=== PATIENT | male | born 1970 | race Caucasian/White ===

== ENCOUNTER 2017-10-26 00:23 | Emergency (ER) | payer SELFPAY ==
[~2017-10-26] VITALS: Ht 180.3 cm; Wt 81.6 kg
[~2017-10-26 00:23] MED LIST: AMOX500C2 PO; AZIT-21 PO; HYDR1TAB PO; IBP800T PO; PRCD5U PO
[2017-10-26] MEDS ORDERED: RT-ALBUTEROL SULF 2.5 MG/3 ML PRE-MIX VIAL ONE ×2 (00:30→00:31)
[2017-10-26] MEDS ORDERED: RT-ALBUTEROL/IPRATROPIUM 3 ML (DUONEB) VIAL ONE (00:30)
--- OUTSIDE RECORDS SUMMARY | 2017-10-26 00:30 | XMS REPORT ---
Author Author DANIELE SALVADOR [facility] Address [address] [place] [address] Care Team Providers Care Food Safety Manager Name Role Phone MADELEINE DANIELE Unavailable PROBLEMS Type Condition ICD9-CM Code LXU31-SR Code Onset Dates Condition Status SNOMED Code Problem COPD (chronic obstructive pulmonary disease) J44.9 Active 54990725 Problem Migraine with aura and without status migrainosus, not intractable G43.109 Active 3002374 ALLERGIES No Known Allergies ENCOUNTERS Encounter Location Date Diagnosis [facility] [address] [address] Apr, [facility] [address] [address] Mar, COPD (chronic obstructive pulmonary disease) J44.9 and Elevated blood pressure reading R03.0 [facility] [address] [address] Feb, COPD with exacerbation J44.1 and Acute exacerbation of chronic obstructive pulmonary disease (COPD) J44.1 [facility] [address] [place] [id number] [place] [address] Aug, Fever, unspecified fever cause R50.9 and COPD exacerbation J44.1 [facility] [id number] [place] [address] July, Bronchitis J40 and Migraine with aura and without status migrainosus, not intractable G43.109 [facility] [id number] [place] [address] Jun, General medical exam Z00.00 [facility] [address] [address] May, COPD (chronic obstructive pulmonary disease) J44.9 and General medical exam Z00.00 [facility] [address] [address] Apr, COPD (chronic obstructive pulmonary disease) J44.9 [facility] [address] [address] Apr, [facility] [address] [address] Jan, Otitis media H66.90 ; Pharyngitis J02.9 and Seasonal allergies J30.2 [place] [address] [address] Jan, Encounter for immunization Z23 [place] [address] [address] Aug, [place] [address] [address] Aug, COPD (chronic obstructive pulmonary disease) 496 ; Allergic rhinitis 477.9 and Tobacco dependence 305.1 [place] [address] [address] July, [facility] [address] [address] July, Tobacco abuse 305.1 and Upper respiratory infection 465.9 [place] [address] [address] July, Shortness of breath 786.05 [place] [address] [address] July, [place] [address] [address] July, Upper respiratory infection 465.9 and Tobacco abuse 305.1 [place] [address] [address] July, [facility] [address] [facility] [id number] [address] Jun, Tobacco abuse 305.1 and Upper respiratory infection 465.9 IMMUNIZATIONS No Known Immunizations SOCIAL HISTORY Never Assessed REASON FOR VISIT cough , rib pain JStrasserRN PLAN OF CARE Activity Details Follow Up prn Reason: VITAL SIGNS Height 71 in 2017-02-23 Weight 185.6 lbs 2017-02-23 Temperature 98.1 degrees Fahrenheit 2017-02-23 Heart Rate 84 bpm 2017-02-23 Respiratory Rate 20 2017-02-23 Oximetry 95 % 2017-02-23 BMI 25.88 kg/m2 2017-02-23 Blood pressure systolic 128 mmHg 2017-02-23 Blood pressure diastolic 84 mmHg 2017-02-23 MEDICATIONS Medication Instructions Dosage Frequency Start Date End Date Duration Status PredniSONE 20 MG Orally Once a day 2 tablet 24h Feb, Feb, 5 days Active Doxycycline Hyclate 100 MG Orally every 12 hrs 1 capsule 12h Feb, Feb, 10 days Active Propranolol HCl 40 MG Orally Twice a day 1 tablet 12h July, 30 day(s) Not-Taking ProAir HFA 108 (90 Base) MCG/ACT Inhalation every 6 hrs 2 puffs as needed 6h Feb, 7 days Active Advair Diskus 250-50 MCG/DOSE Inhalation Twice a day 1 puff 12h Not-Taking ProAir HFA 108 (90 Base) MCG/ACT Inhalation every 4 hrs prn 2 puffs as needed May, Not-Taking Promethazine-Codeine 6.25-10 MG/5ML Orally every 6 hrs 5 ml as needed 6h July, Not-Taking RESULTS No Results PROCEDURES Procedure Date Ordered Result Body Site MEASURE BLOOD OXYGEN LEVEL Feb 23, 2017 INSTRUCTIONS MEDICATIONS ADMINISTERED No Known Medications MEDICAL (GENERAL) HISTORY Type Description Date Medical History COPD Surgical History dental surgery Surgical History tubes in ears as a child
--- OUTSIDE RECORDS SUMMARY | 2017-10-26 00:30 | XMS REPORT ---
Author Author JONATHAN BARRIGA [facility] eClinicalWorks Address Unknown Phone Unavailable Care Team Providers Care Cook Helper Juice Name Role Phone JONATHAN BARRIGA CP Unavailable Allergies No Known Allergies Problems Problem Type Condition Code Onset Dates Condition Status Assessment Encounter for immunization Z23 Active Medications No Known Medications Procedures Procedure Coding System Code Date SINGLE IMMUNIZATION ADMIN CPT-4 31056 Jan 22, 2015 FLUARIX QUAD (3 & UP)-GSK-2014 CPT-4 84100 Jan 22, 2015 Results No Known Results Immunizations Vaccine Administration Date FLUARIX QUAD (3 & UP)-GSK-2014Jan 22, 2015 Summary Purpose eClinicalWorks Submission
[2017-10-26] MEDS ORDERED: RT-ALBUTEROL SULF 2.5 MG/3 ML PRE-MIX VIAL INH STA (00:31)
--- OUTSIDE RECORDS SUMMARY | 2017-10-26 00:31 | XMS REPORT ---
Author Author COSME CORREA [facility] Address [address] [place] [address] Care Team Providers Care Rouge Miller Name Role Phone COSME CORREA Unavailable PROBLEMS Type Condition ICD9-CM Code [id number] Code Onset Dates Condition Status SNOMED Code Problem COPD (chronic obstructive pulmonary disease) J44.9 Active 33117568 Problem Migraine with aura and without status migrainosus, not intractable G43.109 Active 0463600 ALLERGIES No Known Allergies ENCOUNTERS Encounter Location Date Diagnosis [address] [address] Apr, [facility] [address] [address] Mar, COPD (chronic obstructive pulmonary disease) J44.9 and Elevated blood pressure reading R03.0 [facility] [address] [address] Feb, COPD with exacerbation J44.1 and Acute exacerbation of chronic obstructive pulmonary disease (COPD) J44.1 [facility] [address] [place] [id number] [place] [address] Aug, Fever, unspecified fever cause R50.9 and COPD exacerbation J44.1 [facility] [address] [address] July, Bronchitis J40 and Migraine with aura and without status migrainosus, not intractable G43.109 [facility] [address] [address] Jun, General medical exam Z00.00 [facility] [address] [place] [address] May, COPD (chronic obstructive pulmonary disease) J44.9 and General medical exam Z00.00 [facility] [address] [place] [id number] [place] [address] Apr, COPD (chronic obstructive pulmonary disease) J44.9 [facility] [address] [place] [id number] [place] [address] Apr, [facility] [address] [address] Jan, Otitis media H66.90 ; Pharyngitis J02.9 and Seasonal allergies J30.2 [place] [address] [address] Jan, Encounter for immunization Z23 [place] [address] [address] Aug, [place] [address] [address] Aug, COPD (chronic obstructive pulmonary disease) 496 ; Allergic rhinitis 477.9 and Tobacco dependence 305.1 [facility] [address] [place] [id number] [place] [address] July, [facility] [address] [address] July, Tobacco abuse 305.1 and Upper respiratory infection 465.9 [facility] [address] [place] [id number] [place] [address] July, Shortness of breath 786.05 [facility] [address] [place] [id number] [place] [address] July, [place] [address] [address] July, Upper respiratory infection 465.9 and Tobacco abuse 305.1 [place] [address] [address] July, [facility] [address] [facility] [id number] [place] [address] Jun, Tobacco abuse 305.1 and Upper respiratory infection 465.9 IMMUNIZATIONS No Known Immunizations SOCIAL HISTORY Never Assessed REASON FOR VISIT Congestion--f/u from walk in. Pt was seen in walk in and was dx'd with URI. Given Promethazine w/codeine and Doxycycline and pt feels minimally better. CODEY sanchez, RUBEN PLAN OF CARE Activity Details Follow Up prn Reason: VITAL SIGNS Height 71 in 2016-08-18 Weight 183.5 lbs 2016-08-18 Temperature 98.4 degrees Fahrenheit 2016-08-18 Heart Rate 88 bpm 2016-08-18 Respiratory Rate 18 2016-08-18 BMI 25.59 kg/m2 2016-08-18 Blood pressure systolic 120 mmHg 2016-08-18 Blood pressure diastolic 80 mmHg 2016-08-18 MEDICATIONS Medication Instructions Dosage Frequency Start Date End Date Duration Status Propranolol HCl 40 MG Orally Twice a day 1 tablet 12h July, 30 day(s) Active Doxycycline Hyclate 100 mg Orally every 12 hrs 1 capsule 12h July, Aug, 10 days Active PredniSONE 20 mg Orally Once a day 2 tab, qd 3 days, 1 qd 4 days 24h AugAug, 7 days Active Advair Diskus 250-50 MCG/DOSE Inhalation Twice a day 1 puff 12h Active Promethazine-Codeine 6.25-10 MG/5ML Orally every 6 hrs 5 ml as needed 6h July, Active ProAir HFA 108 (90 Base) MCG/ACT Inhalation every 4 hrs prn 2 puffs as needed May, Active RESULTS Name Result Date Reference Range Xray : Chest (IN HOUSE) 2016-08-18 PROCEDURES Procedure Date Ordered Result Body Site CHEST X-RAY August 18, 2016 INSTRUCTIONS MEDICATIONS ADMINISTERED No Known Medications MEDICAL (GENERAL) HISTORY Type Description Date Medical History COPD Surgical History dental surgery Surgical History tubes in ears as a child
--- OUTSIDE RECORDS SUMMARY | 2017-10-26 00:31 | XMS REPORT | Continuity of Care Document ---
Author Author [facility] Organization [facility] Address Unknown Phone Unavailable Allergies Active Description Code Type Severity Reaction Onset Reported/Identified Relationship to Patient Clinical Status Yes No Known Drug Allergies [id number] Drug Allergy Unknown N/A 04/10/2011 Medications There is no data. 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 Ot 496 Procedures There is no data. Results Test Result Range Comp. Metabolic Panel (14) - 06/20/16 10:32 Glucose, Serum 90 mg/dL 65-99 BUN 15 mg/dL 6-24 Creatinine, Serum 1.15 mg/dL 0.76-1.27 eGFR If NonAfricn Am 75 mL/min/1.73 >59 eGFR If Africn Am 87 mL/min/1.73 >59 BUN/Creatinine Ratio 13 9-20 Sodium, Serum 141 mmol/L 134-144 Potassium, Serum 4.8 mmol/L 3.5-5.2 Chloride, Serum 98 mmol/L 96-106 Carbon Dioxide, Total 24 mmol/L 18-29 Calcium, Serum 9.2 mg/dL 8.7-10.2 Protein, Total, Serum 7.2 g/dL 6.0-8.5 Albumin, Serum 4.4 g/dL 3.5-5.5 Globulin, Total 2.8 g/dL 1.5-4.5 A/G Ratio 1.6 1.2-2.2 Bilirubin, Total 0.5 mg/dL 0.0-1.2 Alkaline Phosphatase, S 91 IU/L 39-117 AST (SGOT) 23 IU/L 0-40 ALT (SGPT) 30 IU/L 0-44 Lipid Panel - 06/20/16 10:32 Cholesterol, Total 165 mg/dL 100-199 Triglycerides 58 mg/dL 0-149 HDL Cholesterol 54 mg/dL >39 VLDL Cholesterol Chris 12 mg/dL 5-40 LDL Cholesterol Calc 99 mg/dL 0-99 Prostate-Specific Ag, Serum - 06/20/16 10:32 Prostate Specific Ag, Serum 0.6 ng/mL 0.0-4.0 Encounters ACCT No. Visit Date/Time Discharge Status Pt. Type Provider Facility Loc./Unit Complaint [id number] 09/03/2014 11:42:00 09/03/2014 23:59:59 CLS Outpatient JONATHAN BARRIGA [facility] LAB [id number] 06/21/2016 10:11:00 Document Registration [id number] 04/21/2017 08:20:00 04/21/2017 23:59:59 [facility] Outpatient JONATHAN BARRIGA APRN [facility]
--- OUTSIDE RECORDS SUMMARY | 2017-10-26 00:31 | XMS REPORT ---
Author Author ZEV MORGAN Organization eClinicalWorks Address Unknown Phone Unavailable Care Team Providers Care Afterschool Babysitter Name Role Phone ZEV MORGAN CP Unavailable Allergies, Adverse Reactions, Alerts Substance Reaction Event Type N.K.D.A. Info Not Available Non Drug Allergy Problems Problem Type Condition Code Onset Dates Condition Status Assessment Pharyngitis J02.9 Active Assessment Seasonal allergies J30.2 Active Assessment Otitis media H66.90 Active Medications Medication Code System Code Instructions Start Date End Date Status Dosage Claritin [facility] [address]-55 10 MG Orally Once a day Jan 29, 2015 Mar 30, 2015 1 tablet Advair Diskus [facility] [address]-07 250-50 MCG/DOSE Inhalation Twice a day August 20, 2014 1 puff Amoxicillin [facility] [address]-28 500 MG Orally every 12 hrs Jan 29, 2015 Feb 05, 2015 1 tablet Procedures Procedure Coding System Code Date Office Visit, Est Pt., Level 3 CPT-4 82013 Jan 29, 2015 STREP A ASSAY W/OPTIC CPT-4 32130 Jan 29, 2015 Vital Signs Date/Time: Jan 29, 2015 Temperature 99.3 F Weight 170.0 lbs Height 71 in BMI 23.71 Index Blood Pressure Diastolic 98 mmHg Blood Pressure Systolic 134 mmHg Cardiac Monitoring Heart Rate 102 bpm Results Name Result Date Reference Range Unit Abnormality Flag STREP A (IN HOUSE) Summary Purpose eClinicalWorks Submission
--- OUTSIDE RECORDS SUMMARY | 2017-10-26 00:31 | XMS REPORT ---
Author Author KATIE CARRERA [facility] Address [address] [place] [address] Care Team Providers Care Medical Secretary Receptionist Name Role Phone KATIE CARRERA Unavailable PROBLEMS Type Condition ICD9-CM Code OAO96-MI Code Onset Dates Condition Status SNOMED Code Problem Migraine with aura and without status migrainosus, not intractable G43.109 Active 1957450 Problem COPD exacerbation J44.1 Active [id number] ALLERGIES No Known Allergies SOCIAL HISTORY Never Assessed PLAN OF CARE VITAL SIGNS Height 71 in 2016-08-10 Weight 184.4 lbs 2016-08-10 Temperature 97.5 degrees Fahrenheit 2016-08-10 Heart Rate 100 bpm 2016-08-10 Respiratory Rate 20 2016-08-10 Oximetry on room air:97 % 2016-08-10 BMI 25.72 kg/m2 2016-08-10 Blood pressure systolic 130 mmHg 2016-08-10 Blood pressure diastolic 84 mmHg 2016-08-10 MEDICATIONS Medication Instructions Dosage Frequency Start Date End Date Duration Status Advair Diskus 250-50 MCG/DOSE Inhalation Twice a day 1 puff 12h Active Propranolol HCl 40 MG Orally Twice a day 1 tablet 12h July, 30 day(s) Active Promethazine-Codeine 6.25-10 MG/5ML Orally every 6 hrs 5 ml as needed 6h July, Active ProAir HFA 108 (90 Base) MCG/ACT Inhalation every 4 hrs prn 2 puffs as needed May, Active Doxycycline Hyclate 100 mg Orally every 12 hrs 1 capsule 12h July, Aug, 10 days Active RESULTS No Results PROCEDURES Procedure Date Ordered Result Body Site MEASURE BLOOD OXYGEN LEVEL August 10, 2016 IMMUNIZATIONS No Known Immunizations MEDICAL (GENERAL) HISTORY Type Description Date Medical History COPD Surgical History dental surgery Surgical History tubes in ears as a child
[2017-10-26] MEDS ORDERED: ASPIRIN 81 MG CHEW (CHILDREN'S ASA) ONE (00:35)
[2017-10-26] MEDS ORDERED: NITROGLYCERIN 0.4 MG SL TABS BTL 25'S SL ONE (00:35)
--- NOTE | 2017-10-26 00:37 | ED Respiratory ---
General Stated Complaint: NOT FEELING WELL,SOB,COPD,CHEST HURTS Source: patient Exam Limitations: no limitations History of Present Illness Date Seen by Provider: Oct 26, 2017 Time Seen by Provider: 00:27 Initial Comments Patient presents to ER by private conveyance with a chief complaint for the past 2 or 3 days his shortness of breath and labored breathing is been getting worse and tonight around 8:00 it really started getting bad. His been using his albuterol inhaler off and on but he doesn't feel some nausea even helps. Tonight he says he's very short of breath without any significant productive cough or fevers or chills. No nausea vomiting but he is having some tightness and pain in his chest. He doesn't have a history of coronary disease but about 5 or 6 years ago he did have a stress test he thinks. He stopped smoking about 2 years ago. He takes Advair and albuterol as prescribed. He is not having any nausea, fever, chills, diarrhea, constipation. He says the pains worse when he takes deep inspirations. He has not been on antibiotics last several months. He has not been on steroids for over 2 years. Allergies and Home Medications Allergies Coded Allergies: No Known Drug Allergies (Unverified , 04/10/11) Home Medications Amoxicillin 500 Mg Capsule, 1 EACH PO TID Prescribed by: ALEJANDRINA PRATT on 08/15/11106 Azithromycin 250 Mg Tab, 0 PO Z-WU Prescribed by: LAVERN GOODMAN on 04/10/111950 Hydrocodone Bit/Acetaminophen 1 Each Tablet, 1-2 EACH PO Q4HR PRN Prescribed by: ALEJANDRINA PRATT on 08/15/11106 Ibuprofen 800 Mg Tab, 800 MG PO PRN, (Reported) Promethazine/Codeine 5 Ml Syrp, 5 5ML PO QID Prescribed by: LAVERN GOODMAN on 04/10/111951 Patient Home Medication List Home Medication List Reviewed: Yes Review of Systems Constitutional: No chills, No diaphoresis, No fever, No malaise EENTM: No ear discharge, No hearing loss Respiratory: cough; No phlegm; short of breath; No stridor, No wheezing Cardiovascular: see HPI, chest pain; No edema, No palpitations Gastrointestinal: No abdominal pain, No constipation, No diarrhea, No nausea, No vomiting Genitourinary: No discharge, No dysuria Musculoskeletal: No back pain, No joint pain Past Ovfxnqb-Osecib-Zidjfi Hx Patient Social History Alcohol Use: Occasionally Uses Alcohol Beverage of Choice: Beer Recreational Drug Use: No Smoking Status: Former Smoker Type Used: Cigarettes Former Smoker, Quit: Nov 02, 2015 Recent Foreign Travel: No Contact w/Someone Who Travel: No Physical Exam Vital Signs - First Documented 10/26/17 00:28 Temp 98.8 Pulse 90 Resp 20 B/P (MAP) 158/77 (104) Pulse Ox 93 O2 Delivery Room Air Capillary Refill : Height: '" Weight: lbs. oz. kg; BMI Method: General Appearance: WD/WN, no apparent distress Eyes: Bilateral Eye Normal Inspection, Bilateral Eye PERRL, Bilateral Eye EOMI HEENT: PERRL/EOMI, normal ENT inspection, pharynx normal Neck: non-tender, full range of motion, normal inspection Respiratory: chest non-tender, no respiratory distress, no accessory muscle use , decreased breath sounds, expiration (prolonged) Cardiovascular: normal peripheral pulses, regular rate, rhythm Gastrointestinal: normal bowel sounds, non tender, soft Extremities: non-tender, normal inspection, normal capillary refill Neurologic/Psychiatric: alert, normal mood/affect, oriented x 3 Skin: normal color, warm/dry Progress/Results/Core Measures Suspected Sepsis SIRS Temperature: Pulse: Respiratory Rate: Laboratory Tests 10/26/17 00:41: White Blood Count 9.1 Blood Pressure / Mean: Laboratory Tests 10/26/17 00:41: Creatinine 1.36H, Platelet Count 252, Total Bilirubin 0.4 Results/Orders Lab Results Laboratory Tests Test 10/26/17 00:41 Range/Units White Blood Count 9.1 4.3-11.0 10^3/uL Red Blood Count 5.28 4.35-5.85 10^6/uL Hemoglobin 15.9 13.3-17.7 G/DL Hematocrit 48 40-54 % Mean Corpuscular Volume 90 80-99 FL Mean Corpuscular Hemoglobin 30 25-34 PG Mean Corpuscular Hemoglobin Concent 34 32-36 G/DL Red Cell Distribution Width 13.5 10.0-14.5 % Platelet Count 252 130-400 10^3/uL Mean Platelet Volume 10.5 H 7.4-10.4 FL Neutrophils (%) (Auto) 64 42-75 % Lymphocytes (%) (Auto) 23 12-44 % Monocytes (%) (Auto) 9 0-12 % Eosinophils (%) (Auto) 3 0-10 % Basophils (%) (Auto) 0 0-10 % Neutrophils # (Auto) 5.9 1.8-7.8 X 10^3 Lymphocytes # (Auto) 2.1 1.0-4.0 X 10^3 Monocytes # (Auto) 0.9 0.0-1.0 X 10^3 Eosinophils # (Auto) 0.3 0.0-0.3 10^3/uL Basophils # (Auto) 0.0 0.0-0.1 10^3/uL Sodium Level 139 135-145 MMOL/L Potassium Level 3.9 3.6-5.0 MMOL/L Chloride Level 102 98-107 MMOL/L Carbon Dioxide Level 23 21-32 MMOL/L Anion Gap 14 5-14 MMOL/L Blood Urea Nitrogen 22 H 7-18 MG/DL Creatinine 1.36 H 0.60-1.30 MG/DL Estimat Glomerular Filtration Rate 56 BUN/Creatinine Ratio 16 Glucose Level 105 70-105 MG/DL Calcium Level 9.8 8.5-10.1 MG/DL Corrected Calcium 9.5 8.5-10.1 MG/DL Total Bilirubin 0.4 0.1-1.0 MG/DL Aspartate Amino Transf (AST/SGOT) 21 5-34 U/L Alanine Aminotransferase (ALT/SGPT) 33 0-55 U/L Alkaline Phosphatase 96 40-136 U/L Troponin I < 0.30 <0.30 NG/ML C-Reactive Protein High Sensitivity 0.60 H 0.00-0.50 MG/DL Total Protein 7.5 6.4-8.2 GM/DL Albumin 4.4 3.2-4.5 GM/DL My Orders Orders - KINGSTON PAPPAS Ekg Tracing (10/26/17 00:29) Continuous Ekg Monitoring (10/26/17 00:29) Cbc With Automated Diff (10/26/17 00:31) Comprehensive Metabolic Panel (10/26/17 00:31) Hs C Reactive Protein (10/26/17 00:31) Troponin I (10/26/17 00:31) Chest Pa/Lat (2 View) (10/26/17 00:31) Albuterol Pre-Mix Nebs (Rt) (Proventil (10/26/17 00:31) Albuterol/Ipra Inhalation Soln (Duoneb I (10/26/17 00:45) Saline Lock/Iv-Start (10/26/17 00:31) Svn Small Volume Nebulizer (10/26/17 00:31) Albuterol Pre-Mix Nebs (Rt) (Proventil (10/26/17 00:30) Albuterol/Ipra Inhalation Soln (Duoneb I (10/26/17 00:30) Albuterol Pre-Mix Nebs (Rt) (Proventil (10/26/17 00:31) Nitroglycerin 0.4 Mg Btl 25's (Nitrostat (10/26/17 00:35) Aspirin Chewable Tablet (Baby Aspirin Ch (10/26/17 00:35) Aspirin Chewable Tablet (Baby Aspirin Ch (10/26/17 00:45) Nitroglycerin 0.4 Mg Btl 25's (Nitrostat (10/26/17 00:45) Medications Given in ED Current Medications Medications Dose Ordered Sig/Evangelina Route Start Time Stop Time Status Last Admin Dose Admin Albuterol/ Ipratropium 3 ml ONCE ONCE INH 10/26/17 00:45 10/26/17 00:46 DC 10/26/17 00:35 3 ML Aspirin 324 mg ONCE ONCE PO 10/26/17 00:45 10/26/17 00:46 DC 10/26/17 00:40 324 MG Nitroglycerin 0.4 mg NEEDED PRN SL 10/26/17 00:45 10/26/17 00:41 0.4 MG Vital Signs/I&O 10/26/17 10/26/17 00:28 00:38 Temp 98.8 Pulse 90 Resp 20 B/P (MAP) 158/77 (104) Pulse Ox 93 97 O2 Delivery Room Air Room Air Capillary Refill : Progress Note #1: Time: 00:42 Progress Note Seems to be respiratory in origin either COPD exacerbation or bronchitis/ pneumonia. Voiced possibility that he could have cardiac strain but his pain does seem to be more based on inspiration and non-reproducible to direct palpation. We'll give him some aspirin and try a dose of nitroglycerin while getting him a breathing treatment of DuoNeb and 5 mg albuterol since he may be tachyphylactic using his albuterol multiple times today. Don't hear wheezing as much as just decreased respiratory sounds and prolonged expiration time. We'll get a chest x-ray some labs and reevaluate him. Progress Note #2: Time: 01:03 Progress Note Patient states his breathing is subjectively much improved. Heart rate elevated to 120s 130s after all the albuterol. Sats are still very good in the upper 100s on room air As opposed to 93% on room air when he first arrived. Progress Note #3: Time: 01:24 Progress Note Labs and clinical picture consistent with a COPD exacerbation. We've given him some breathing treatments reassessed him and arrival and start him on some prednisone 40 mg daily for the next 5 days. ECG Initial ECG Impression Date: Oct 26, 2017 Initial ECG Impression Time: 00:35 Initial ECG Rate: 95 Initial ECG Rhythm: Normal Sinus Initial ECG Intervals: Normal Initial ECG Impression: Normal Initial ECG Comparisson: No Previous ECG Available Comment No ST elevation or depression Diagnostic Imaging Diagonstic Imaging: Xray Plain Films/CT/US/NM/MRI: chest (2v) Comments No acute infiltrates or cardiopulmonary processes. COPD. Reviewed: Reviewed by Me Departure Impression Primary Impression: COPD with exacerbation Disposition: 01 HOME, SELF-CARE Condition: Improved Departure-Patient Inst. Decision time for Depature: 01:24 Referrals: CHON LUJAN DO (PCP) Primary Care Physician JONATHAN BARRIGA (Family) Primary Care Physician Patient Instructions: Chronic Obstructive Pulmonary Disease (COPD), Including Emphysema Add. Discharge Instructions: Take prednisone 2 tablets daily for the next 5 days. Use your Advair breathing treatments as prescribed. To get the spacer and use your albuterol inhaler as described. Use the albuterol inhaler every 6 hours for the next couple days then as needed. Use the albuterol every 4 hours as needed for wheezing or shortness of breath 2 puffs. If you need to use it more often than that then you should consider following up with your doctor or the ER sooner. Make plans to follow-up with your primary care doctor this week or early next week. Scripts Inhaler, Assist Devices (E-Z Spacer) 1 Each Spacer EACH MC for Shortness of Breath, #1 0 Refills Prov: KINGSTON PAPPAS 10/26/17 Prednisone (Prednisone) 20 Mg Tab 40 MG PO DAILY for 4 Days, #8 TAB 0 Refills Prov: KINGSTON PAPPAS 10/26/17 Albuterol Sulfate (Proventil Hfa) 6.7 Gm Hfa.aer.ad 2 PUFF IH Q4H PRN for SHORTNESS OF BREATH for 30 Days, #1 EACH 0 Refills Prov: KINGSTON PAPPAS 10/26/17 Copy Copies To 1: CHON LUJAN TITUS J Oct 26, 2017 00:37
[2017-10-26] MEDS ORDERED: NITROGLYCERIN 0.4 MG SL TABS BTL 25'S SL PRN (00:45)
[2017-10-26] MEDS ORDERED: ASPIRIN 81 MG CHEW (CHILDREN'S ASA) PO ONE (00:45)
[2017-10-26] MEDS ORDERED: RT-ALBUTEROL/IPRATROPIUM 3 ML (DUONEB) VIAL INH ONE (00:45)
[2017-10-26 00:51] LABS: BASOPHILS % (AUTO) 0 % (0-10); EOSINOPHILS # (AUTO) 0.3 10^3/uL (0.0-0.3); EOSINOPHILS % (AUTO) 3 % (0-10); HEMATOCRIT 48 % (40-54); HEMOGLOBIN 15.9 G/DL (13.3-17.7); LYMPHOCYTES # (AUTO) 2.1 X 10^3 (1.0-4.0); LYMPHOCYTES % (AUTO) 23 % (12-44); MEAN CORPUSCULAR HEMOGLOBIN 30 PG (25-34); MEAN CORPUSCULAR HGB CONC 34 G/DL (32-36); MEAN CORPUSCULAR VOLUME 90 FL (80-99); MEAN PLATELET VOLUME 10.5 FL (7.4-10.4); MONOCYTES # (AUTO) 0.9 X 10^3 (0.0-1.0); MONOCYTES % (AUTO) 9 % (0-12); NEUTROPHILS # (AUTO) 5.9 X 10^3 (1.8-7.8); NEUTROPHILS % (AUTO) 64 % (42-75); PLATELET COUNT 252 10^3/uL (130-400); RED BLOOD COUNT 5.28 10^6/uL (4.35-5.85); RED CELL DISTRIBUTION WIDTH 13.5 % (10.0-14.5); WHITE BLOOD COUNT 9.1 10^3/uL (4.3-11.0)
[2017-10-26 01:16] LABS: ALANINE AMINOTRANSFERASE 33 U/L (0-55); ALBUMIN 4.4 GM/DL (3.2-4.5); ALKALINE PHOSPHATASE 96 U/L (40-136); BILIRUBIN,TOTAL 0.4 MG/DL (0.1-1.0); BUN/CREATININE RATIO 16; CALCIUM 9.8 MG/DL (8.5-10.1); CARBON DIOXIDE 23 MMOL/L (21-32); CHLORIDE 102 MMOL/L (98-107); CREATININE SERUM 1.36 MG/DL (0.60-1.30); GFR ESTIMATED 56; GLUCOSE 105 MG/DL (70-105); POTASSIUM 3.9 MMOL/L (3.6-5.0); SODIUM 139 MMOL/L (135-145); TOTAL PROTEIN 7.5 GM/DL (6.4-8.2)
[2017-10-26] MEDS ORDERED: RT-ALBUINH IH (01:36)
[2017-10-26] MEDS ORDERED: INHA1INH59 MC (01:36)
[2017-10-26] MEDS ORDERED: PRD20T PO (01:36)
[2017-10-26] MEDS ORDERED: predniSONE 20 MG TAB ONE (01:38)
[2017-10-26 01:45] VITALS: BP 120/88
[2017-10-26] MEDS ORDERED: predniSONE 20 MG TAB PO ONE (01:45)
--- NOTE | 2017-10-26 07:33 | Diagnostic Imaging Report ---
INDICATION: Cough and congestion. No prior examinations are available for comparison. FINDINGS: Heart size is normal. There is patchy bibasilar atelectasis and/or pneumonitis. There is no pleural effusion or pneumothorax. Mediastinum is unremarkable. IMPRESSION: Patchy bibasilar atelectasis and/or pneumonitis. Dictated by: Dictated on workstation # [id number]
== END 2017-10-26 01:45 | disposition home or self-care (01) ==
LOC: EDUNIT# 00:23 → ER 00:27
DX: J44.1 Chronic obstructive pulmonary disease with (acute) exacerbation (principal); Z79.51 Long term (current) use of inhaled steroids; Z87.891 Personal history of nicotine dependence
CPT/HCPCS: 36415; 71046; 80053; 84484; 85025; 86141; 93005; 94640

== ENCOUNTER 2019-06-16 19:16 | Emergency (ER) | payer SELFPAY ==
[~2019-06-16] VITALS: Ht 180 cm; Wt 90.0 kg
[~2019-06-16 19:16] MED LIST changes: +INHA1INH59 MC; +PRD20T PO; +RT-ALBUINH IH
[2019-06-16] MEDS ORDERED: NS IV 1000 ML 1,000 ML IV SCH (19:55)
[2019-06-16] MEDS ORDERED: methylPREDNISolone 125 MG (Solu-MEDROL) VIAL IVP ONE (20:00)
[2019-06-16] MEDS ORDERED: ASPIRIN 81 MG CHEW (CHILDREN'S ASA) PO ONE (20:00)
[2019-06-16 20:02] LABS: BASOPHILS % (AUTO) 0 % (0-10); EOSINOPHILS # (AUTO) 0.2 10^3/uL (0.0-0.3); EOSINOPHILS % (AUTO) 2 % (0-10); HEMATOCRIT 49 % (40-54); HEMOGLOBIN 16.3 G/DL (13.3-17.7); LYMPHOCYTES # (AUTO) 1.6 X 10^3 (1.0-4.0); LYMPHOCYTES % (AUTO) 18 % (12-44); MEAN CORPUSCULAR HEMOGLOBIN 30 PG (25-34); MEAN CORPUSCULAR HGB CONC 33 G/DL (32-36); MEAN CORPUSCULAR VOLUME 90 FL (80-99); MEAN PLATELET VOLUME 10.8 FL (7.4-10.4); MONOCYTES # (AUTO) 0.9 X 10^3 (0.0-1.0); MONOCYTES % (AUTO) 10 % (0-12); NEUTROPHILS # (AUTO) 6.2 X 10^3 (1.8-7.8); NEUTROPHILS % (AUTO) 70 % (42-75); PLATELET COUNT 262 10^3/uL (130-400); RED CELL DISTRIBUTION WIDTH 13.2 % (10.0-14.5); WHITE BLOOD COUNT 8.9 10^3/uL (4.3-11.0)
--- NOTE | 2019-06-16 20:04 | ED General ---
General Chief Complaint: Respiratory Problems Stated Complaint: COPD,SOB Nursing Triage Note: Pt to ED with c/o SOB for one day. Pt denies fever or chest pain. Pt has hx of COPD. Nursing Sepsis Screen: No Definite Risk Source of Information: Patient Exam Limitations: No Limitations History of Present Illness Date Seen by Provider: Jun 16, 2019 Time Seen by Provider: 19:40 Initial Comments This 48-year-old gentleman presents to the emergency room with complaints of intermittent chest pain and shortness of breath that started today. He is denying any chest pain now but he does occasionally have a tightness or pressure in the center of his chest. He has known history of COPD for which he is treated with multiple medications. He has hypertension but no known coronary artery disease. He is noted to be tachycardic. He denies any fever. He states his rescue inhaler did not help him at 18:00 when he last used it. He denies any exposures to coronavirus, any recent travel, or exposure to persons under investigation. He has been keeping to himself at home. 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 He reports slight cough. He smoked for 30 years and quit smoking several years ago. Allergies and Home Medications Allergies Coded Allergies: No Known Drug Allergies (Unverified , 04/10/11) Home Medications Albuterol Sulfate 6.7 Gm Hfa.aer.ad, 2 PUFF IH Q4H PRN for SHORTNESS OF BREATH Prescribed by: KINGSTON PAPPAS on 10/26/17135 Amoxicillin 500 Mg Capsule, 1 EACH PO TID Prescribed by: ALEJANDRINA PRATT on 08/15/11106 Azithromycin 250 Mg Tab, 0 PO Z-UW Prescribed by: LAVERN GOODMAN on 04/10/111950 Azithromycin 250 Mg Tablet, 250 MG PO DAILY Prescribed by: LEAH MAKI on 06/16/192150 Hydrocodone Bit/Acetaminophen 1 Each Tablet, 1-2 EACH PO Q4HR PRN Prescribed by: ALEJANDRINA PRATT on 08/15/11106 Ibuprofen 800 Mg Tab, 800 MG PO PRN, (Reported) Prednisone 20 Mg Tab, 40 MG PO DAILY Prescribed by: KINGSTON PAPPAS on 10/26/17135 Prednisone 20 Mg Tab, 40 MG PO DAILY Prescribed by: LEAH MAKI on 06/16/192150 Promethazine/Codeine 5 Ml Syrp, 5 5ML PO QID Prescribed by: LAVERN GOODMAN on 04/10/111951 Patient Home Medication List Home Medication List Reviewed: Yes Review of Systems Review of Systems Constitutional: no symptoms reported EENTM: no symptoms reported Respiratory: see HPI Cardiovascular: see HPI Gastrointestinal: no symptoms reported Genitourinary: no symptoms reported Musculoskeletal: no symptoms reported Skin: no symptoms reported Psychiatric/Neurological: No Symptoms Reported Hematologic/Lymphatic: No Symptoms Reported Immunological/Allergic: no symptoms reported Past Qlairat-Jtzzrb-Sewnxx Hx Past Med/Social Hx: Reviewed and Corrections made Patient Social History Alcohol Use: Occasionally Uses Number of Drinks Today: AA Alcohol Beverage of Choice: Beer Recreational Drug Use: No Smoking Status: Former Smoker Type Used: Cigarettes Former Smoker, Quit: Nov 02, 2015 2nd Hand Smoke Exposure: No Recent Foreign Travel: No Contact w/Someone Who Travel: No Recent Infectious Disease Expo: No Recent Hopitalizations: No Immunizations Up To Date Tetanus Booster (TDap): Unknown PED Vaccines UTD: Yes Seasonal Allergies Seasonal Allergies: No Past Medical History Surgeries: No Respiratory: Yes COPD Cardiac: Yes Hypertension Neurological: No Genitourinary: No Gastrointestinal: No Musculoskeletal: No Endocrine: No HEENT: No Cancer: No Psychosocial: No Integumentary: No Blood Disorders: No Physical Exam Vital Signs Vital Signs - First Documented 06/16/19 19:16 Temp 36.2 Pulse 134 Resp 25 B/P (MAP) 154/68 (96) Pulse Ox 98 O2 Delivery Room Air Capillary Refill : Less Than 3 Seconds Height, Weight, BMI Height: 5'11.00" Weight: 180lbs. oz. 81.771190vy; 27.00 BMI Method:Stated General Appearance: No Apparent Distress, WD/WN HEENT: PERRL/EOMI, TMs Normal, Normal ENT Inspection, Pharynx Normal Neck: Normal Inspection; No JVD Respiratory: Lungs Clear, No Accessory Muscle Use, No Respiratory Distress, Decreased Breath Sounds (diminished breath sounds and decreased air movement) Cardiovascular: No Edema, No Murmur, Tachycardia Gastrointestinal: Normal Bowel Sounds, Non Tender, Soft Extremity: Normal Inspection, Non Tender, No Calf Tenderness, No Pedal Edema Neurologic/Psychiatric: Alert, Oriented x3, No Motor/Sensory Deficits, Normal 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, 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 Norm as Tested Skin: Normal Color, Warm/Dry Progress/Results/Core Measures Suspected Sepsis Recent Fever Within 48 Hours: No Infection Criteria Present: None New/Unexplained Altered Menta: No Sepsis Screen: No Definite Risk SIRS Temperature: Pulse: 134 Respiratory Rate: 25 Laboratory Tests 06/16/19 19:33: White Blood Count 8.9 Blood Pressure 154 /68 Mean: 96 Laboratory Tests 06/16/19 19:33: Creatinine 1.29, INR Comment 0.9, Platelet Count 262, Total Bilirubin 0.3 Results/Orders Lab Results Laboratory Tests Test 06/16/19 19:33 06/16/19 21:30 Range/Units White Blood Count 8.9 4.3-11.0 10^3/uL Red Blood Count 5.49 4.35-5.85 10^6/uL Hemoglobin 16.3 13.3-17.7 G/DL Hematocrit 49 40-54 % Mean Corpuscular Volume 90 80-99 FL Mean Corpuscular Hemoglobin 30 25-34 PG Mean Corpuscular Hemoglobin Concent 33 32-36 G/DL Red Cell Distribution Width 13.2 10.0-14.5 % Platelet Count 262 130-400 10^3/uL Mean Platelet Volume 10.8 H 7.4-10.4 FL Neutrophils (%) (Auto) 70 42-75 % Lymphocytes (%) (Auto) 18 12-44 % Monocytes (%) (Auto) 10 0-12 % Eosinophils (%) (Auto) 2 0-10 % Basophils (%) (Auto) 0 0-10 % Neutrophils # (Auto) 6.2 1.8-7.8 X 10^3 Lymphocytes # (Auto) 1.6 1.0-4.0 X 10^3 Monocytes # (Auto) 0.9 0.0-1.0 X 10^3 Eosinophils # (Auto) 0.2 0.0-0.3 10^3/uL Basophils # (Auto) 0.0 0.0-0.1 10^3/uL Erythrocyte Sedimentation Rate 2 0-30 MM/HR Prothrombin Time 12.5 12.2-14.7 SEC INR Comment 0.9 0.8-1.4 Activated Partial Thromboplast Time 30 24-35 SEC D-Dimer 0.45 0.00-0.49 UG/ML Sodium Level 138 135-145 MMOL/L Potassium Level 4.2 3.6-5.0 MMOL/L Chloride Level 104 98-107 MMOL/L Carbon Dioxide Level 24 21-32 MMOL/L Anion Gap 10 5-14 MMOL/L Blood Urea Nitrogen 19 H 7-18 MG/DL Creatinine 1.29 0.60-1.30 MG/DL Estimat Glomerular Filtration Rate 59 BUN/Creatinine Ratio 15 Glucose Level 137 H 70-105 MG/DL Calcium Level 8.9 8.5-10.1 MG/DL Corrected Calcium 8.6 8.5-10.1 MG/DL Magnesium Level 2.4 1.6-2.4 MG/DL Total Bilirubin 0.3 0.1-1.0 MG/DL Aspartate Amino Transf (AST/SGOT) 18 5-34 U/L Alanine Aminotransferase (ALT/SGPT) 31 0-55 U/L Alkaline Phosphatase 97 40-136 U/L Lactate Dehydrogenase 153 125-220 U/L Myoglobin 27.3 10.0-92.0 NG/ML Troponin I < 0.028 < 0.028 <0.028 NG/ML C-Reactive Protein High Sensitivity 0.65 H 0.00-0.50 MG/DL Total Protein 7.7 6.4-8.2 GM/DL Albumin 4.4 3.2-4.5 GM/DL Procalcitonin 0.04 <0.10 NG/ML Micro Results Microbiology 06/16/19 Influenza Types A,B Antigen (LAURENT) - Final, Complete My Orders Orders - LEAH CEVALLOS MD Cbc With Automated Diff (06/16/19 19:50) Magnesium (06/16/19 19:50) Chest 1 View, Ap/Pa Only (06/16/19 19:50) Ekg Tracing (06/16/19 19:50) Comprehensive Metabolic Panel (06/16/19 19:50) Myoglobin Serum (06/16/19 19:50) Protime With Inr (06/16/19 19:50) Partial Thromboplastin Time (06/16/19 19:50) O2 (06/16/19 19:50) Monitor-Rhythm Ecg Trace Only (06/16/19 19:50) Ed Iv/Invasive Line Start (06/16/19 19:50) Fibrin Degradation Products (06/16/19 19:50) Aspirin Chewable Tablet (Baby Aspirin Ch (06/16/19 20:00) Methylprednisolone Sod Succ (Solu-Medrol (06/16/19 20:00) Influenza A And B Antigens (06/16/19 19:50) Ed Iv/Invasive Line Start (06/16/19 19:55) Ns Iv 1000 Ml (Sodium Chloride 0.9%) (06/16/19 19:55) Hs C Reactive Protein (06/16/19 19:33) Troponin I (06/16/19 19:33) Ferritin (06/16/19 20:21) Erythrocyte Sedimentation Rate (06/16/19 20:21) LDH (06/16/19 19:33) Procalcitonin (Pct) (06/16/19 19:33) Troponin I (06/16/19 21:39) Azithromycin Tablet (Zithromax Tablet) (06/16/19 22:00) Aspirin Tablet (Aspirin Tablet) (06/16/19 22:00) Medications Given in ED Current Medications Medications Dose Ordered Sig/Evangelina Route Start Time Stop Time Status Last Admin Dose Admin Aspirin 324 mg ONCE ONCE PO 06/16/19 20:00 06/16/19 20:01 DC 06/16/19 20:14 324 MG Aspirin 325 mg ONCE ONCE PO 06/16/19 22:00 06/16/19 22:01 DC 06/16/19 21:59 325 MG Azithromycin 500 mg ONCE ONCE PO 06/16/19 22:00 06/16/19 22:01 DC 06/16/19 21:59 500 MG Methylprednisolone Sodium Succinate 125 mg ONCE ONCE IVP 06/16/19 20:00 06/16/19 20:01 DC 06/16/19 20:16 125 MG Vital Signs/I&O 06/16/19 06/16/19 19:16 22:05 Temp 36.2 36.4 Pulse 134 98 Resp 25 16 B/P (MAP) 154/68 (96) 126/86 (96) Pulse Ox 98 95 O2 Delivery Room Air Room Air 06/17/19 00:00 Intake Total 1000 ml Balance 1000 ml Capillary Refill : Less Than 3 Seconds Blood Pressure Mean: 96 Progress Note #1: Time: 20:02 Progress Note Patient was seen and examined. EKG showed no ischemia. He was asked to take 2 puffs off of his albuterol MDI. He will receive a liter of IV fluid and Solu- Medrol IV. Lab work and chest x-ray are pending. Progress Note #2: Progress Note Workup was relatively unremarkable. Patient remained stable. Heart rate improved about 15 bpm after a liter of IV fluid. Oxygen saturations stayed in the mid to upper 90s on room air. Patient was discharged home with a prescription for azithromycin and prednisone for treatment of COPD exacerbation. A 2 hour troponin was obtained for cardiac rule out purposes. ECG Initial ECG Impression Date: Jun 16, 2019 Initial ECG Impression Time: 19:27 Initial ECG Rate: 124 Initial ECG Rhythm: S.Tach Comment Sinus tachycardia with no ST elevation or depression. No abnormal intervals or axis deviation. PVC noted. Diagnostic Imaging Diagonstic Imaging: Xray Plain Films/CT/US/NM/MRI: chest Comments Chest x-ray viewed by me and report reviewed. See report below: NAME: MIRZA MENDEZ [facility] REC#: [id number] PT STATUS: REG ER : 1970 PHYSICIAN: LEAH CEVALLOS MD ADMIT DATE: 06/16/19/ER Signed Date of Exam:06/16/19 CHEST 1 VIEW, AP/PA ONLY EXAMINATION: Chest 1 view HISTORY: Shortness of breath. History of COPD. COMPARISON: Chest radiograph on 10/26/2017. FINDINGS: The lung volumes are hyperexpanded. Scattered prominent interstitial markings are present in the mid and lower lungs with a relative paucity of lung markings in the upper lobes. No focal consolidation is seen. No large pleural effusion or pneumothorax is seen. The cardiomediastinal silhouette is normal in size and contour. No acute osseous abnormality is seen. IMPRESSION: 1. Hyperexpanded lungs with prominent interstitial markings in the mid and lower lungs and a paucity of lung markings in the upper lungs. These findings are suggestive of COPD. No focal consolidation. Dictated by: Dictated on workstation # [id number] Dict: 06/16/192038 Trans: 06/16/192057 NEAL [id number] Interpreted by: IGNACIO KURTZ DO Electronically signed by: IGNACIO KURTZ DO 06/16/192057 Departure Impression Primary Impression: COPD exacerbation Additional Impressions: Tachycardia Chest pain Qualified Codes: R07.9 - Chest pain, unspecified Disposition: HOME, SELF-CARE Condition: Improved Departure-Patient Inst. Decision time for Depature: 21:48 Referrals: CHON LUJAN DO (PCP) Primary Care Physician JONATHAN BARRIGA (Family) Primary Care Physician Patient Instructions: COVID19, Chronic Obstructive Pulmonary Disease (COPD), Including Emphysema Add. Discharge Instructions: Continue to use all of your inhaled medications as prescribed. Start the prednisone and azithromycin tomorrow morning. Drink plenty of clear liquids. Contact your primary care provider tomorrow morning for follow-up instructions. You may take Tylenol (acetaminophen) up to 1000 mg every 6 hours as needed for pain or fever. Return to care if you have recurrent episodes of chest pain or worsening respiratory status despite treatments. Take aspirin 81 mg daily until otherwise instructed by your doctor. Home isolated until your symptoms resolve. All discharge instructions reviewed with patient and/or family. Voiced understanding. Scripts Azithromycin (Azithromycin) 250 Mg Tablet 250 MG PO DAILY, #4 TAB 0 Refills Prov: LEAH CEVALLOS MD 06/16/19 Prednisone (Prednisone) 20 Mg Tab 40 MG PO DAILY, #8 TAB 0 Refills Prov: LEAH CEVALLOS MD 06/16/19 Copy Copies To 1: CHON LUJAN JOSHUA T MD Jun 16, 2019 20:04
[2019-06-16 20:17] LABS: ALANINE AMINOTRANSFERASE 31 U/L (0-55); ALBUMIN 4.4 GM/DL (3.2-4.5); ALKALINE PHOSPHATASE 97 U/L (40-136); BILIRUBIN,TOTAL 0.3 MG/DL (0.1-1.0); BUN/CREATININE RATIO 15; CALCIUM 8.9 MG/DL (8.5-10.1); CARBON DIOXIDE 24 MMOL/L (21-32); CHLORIDE 104 MMOL/L (98-107); CREATININE SERUM 1.29 MG/DL (0.60-1.30); GFR ESTIMATED 59; GLUCOSE 137 MG/DL (70-105); MAGNESIUM 2.4 MG/DL (1.6-2.4); POTASSIUM 4.2 MMOL/L (3.6-5.0); SODIUM 138 MMOL/L (135-145); TOTAL PROTEIN 7.7 GM/DL (6.4-8.2)
[2019-06-16 20:37] LABS: INR 0.9 (0.8-1.4); PROTHROMBIN TIME PATIENT 12.5 SEC (12.2-14.7)
--- NOTE | 2019-06-16 20:51 | Diagnostic Imaging Report ---
EXAMINATION: Chest 1 view HISTORY: Shortness of breath. History of COPD. COMPARISON: Chest radiograph on 10/26/2017. FINDINGS: The lung volumes are hyperexpanded. Scattered prominent interstitial markings are present in the mid and lower lungs with a relative paucity of lung markings in the upper lobes. No focal consolidation is seen. No large pleural effusion or pneumothorax is seen. The cardiomediastinal silhouette is normal in size and contour. No acute osseous abnormality is seen. IMPRESSION: 1. Hyperexpanded lungs with prominent interstitial markings in the mid and lower lungs and a paucity of lung markings in the upper lungs. These findings are suggestive of COPD. No focal consolidation. Dictated by: Dictated on workstation # [id number]
[2019-06-16] MEDS ORDERED: PRD20T PO (21:51)
[2019-06-16] MEDS ORDERED: AZIT250T12 PO (21:51)
[2019-06-16] MEDS ORDERED: ASPIRIN 325 MG (5 GR) TABLET PO ONE (22:00)
[2019-06-16] MEDS ORDERED: AZITHROMYCIN 250 MG TAB (ZITHROMAX) PO ONE (22:00)
[2019-06-16 22:05] VITALS: BP 126/86
== END 2019-06-16 22:05 | disposition home or self-care (01) ==
LOC: EDUNIT# 19:16 → ER 19:25
DX: J44.1 Chronic obstructive pulmonary disease with (acute) exacerbation (principal); R00.0 Tachycardia, unspecified; R07.9 Chest pain, unspecified; Z87.891 Personal history of nicotine dependence
CPT/HCPCS: 36415; 71045; 80053; 82728; 83615; 83735; 83874; 84145; 84484; 85025; 85379; 85610; 85652; 85730; 86141; 87804; 93041

== ENCOUNTER 2019-06-30 13:33 | Emergency (ER) | payer SELFPAY ==
[~2019-06-30] VITALS: Ht 180.3 cm; Wt 81.6 kg
[~2019-06-30 13:33] MED LIST changes: +AZIT250T12 PO
[2019-06-30] MEDS ORDERED: ASPIRIN 81 MG CHEW (CHILDREN'S ASA) PO ONE (13:45)
[2019-06-30] MEDS ORDERED: meTOprolol 5 MG/5 ML (LOPRESSOR) VIAL IV ONE (13:45)
[2019-06-30] MEDS ORDERED: RT-ALBUTEROL/IPRATROPIUM 3 ML (DUONEB) VIAL INH ONE (13:45)
[2019-06-30 13:51] LABS: BASOPHILS % (AUTO) 0 % (0-10); EOSINOPHILS # (AUTO) 0.1 10^3/uL (0.0-0.3); EOSINOPHILS % (AUTO) 1 % (0-10); HEMATOCRIT 48 % (40-54); HEMOGLOBIN 16.1 G/DL (13.3-17.7); LYMPHOCYTES # (AUTO) 1.3 X 10^3 (1.0-4.0); LYMPHOCYTES % (AUTO) 15 % (12-44); MEAN CORPUSCULAR HEMOGLOBIN 30 PG (25-34); MEAN CORPUSCULAR HGB CONC 33 G/DL (32-36); MEAN CORPUSCULAR VOLUME 90 FL (80-99); MEAN PLATELET VOLUME 10.5 FL (7.4-10.4); MONOCYTES # (AUTO) 0.8 X 10^3 (0.0-1.0); MONOCYTES % (AUTO) 10 % (0-12); NEUTROPHILS # (AUTO) 6.4 X 10^3 (1.8-7.8); NEUTROPHILS % (AUTO) 74 % (42-75); PLATELET COUNT 244 10^3/uL (130-400); RED CELL DISTRIBUTION WIDTH 13.1 % (10.0-14.5); WHITE BLOOD COUNT 8.6 10^3/uL (4.3-11.0)
--- NOTE | 2019-06-30 13:58 | Diagnostic Imaging Report ---
PA chest compared to prior study from June 16, 2019. INDICATION: Chest pain and tachycardia. FINDINGS: There are chronic interstitial changes in the lungs. These are stable from the prior examination. There is flattening of the diaphragms compatible with air trapping. There are no new infiltrates or consolidation. Heart size appears appropriate. Pulmonary vascularity appears normal. IMPRESSION: Advanced background features of underlying COPD and interstitial lung disease. No new or acute cardiopulmonary process is evident. Dictated by: Dictated on workstation # [id number]
--- NOTE | 2019-06-30 13:59 | ED Respiratory ---
General Chief Complaint: Respiratory Problems Stated Complaint: SOB/CHEST PRESSURE Nursing Triage Note: pt amb to rm with complaint of soa and racing heart. Source: patient Exam Limitations: no limitations History of Present Illness Date Seen by Provider: Jun 30, 2019 Time Seen by Provider: 13:57 Initial Comments to ER with reports of palpitations shortness of breath and chest pressure, history of COPD, he believes this is flaring up. Was seen here on June 16 for COPD exacerbation, given a four-day course of antibiotics and steroids which she has subsequently completed. No fevers or chills. Timing/Duration: constant Severity: moderate Associated Symptoms: cough; No fever/chills; shortness of breath Allergies and Home Medications Allergies Coded Allergies: No Known Drug Allergies (Unverified , 04/10/11) Home Medications Albuterol Sulfate 6.7 Gm Hfa.aer.ad, 2 PUFF IH Q4H PRN for SHORTNESS OF BREATH Prescribed by: KINGSTON PAPPAS on 10/26/17135 Amoxicillin 500 Mg Capsule, 1 EACH PO TID Prescribed by: ALEJANDRINA PRATT on 08/15/11106 Azithromycin 250 Mg Tab, 0 PO Z-WU Prescribed by: LAVERN GOODMAN on 04/10/111950 Azithromycin 250 Mg Tablet, 250 MG PO DAILY Prescribed by: LEAH MAKI on 06/16/192150 Hydrocodone Bit/Acetaminophen 1 Each Tablet, 1-2 EACH PO Q4HR PRN Prescribed by: ALEJANDRINA PRATT on 08/15/11106 Ibuprofen 800 Mg Tab, 800 MG PO PRN, (Reported) Prednisone 20 Mg Tab, 40 MG PO DAILY Prescribed by: KINGSTON PAPPAS on 10/26/17135 Prednisone 20 Mg Tab, 40 MG PO DAILY Prescribed by: LEAH MAKI on 06/16/192150 Promethazine/Codeine 5 Ml Syrp, 5 5ML PO QID Prescribed by: LAVERN GOODMAN on 04/10/111951 Patient Home Medication List Home Medication List Reviewed: Yes Review of Systems Review of Systems Constitutional: see HPI EENTM: see HPI Respiratory: see HPI, dyspnea on exertion Cardiovascular: no symptoms reported, chest pain Genitourinary: no symptoms reported Musculoskeletal: no symptoms reported Skin: no symptoms reported Psychiatric/Neurological: No Symptoms Reported Past Boobttt-Uwdvlq-Abptfm Hx Patient Social History Alcohol Use: Occasionally Uses Number of Drinks Today: AA Alcohol Beverage of Choice: Beer Recreational Drug Use: No Smoking Status: Former Smoker Type Used: Cigarettes Former Smoker, Quit: Nov 02, 2015 2nd Hand Smoke Exposure: No Recent Foreign Travel: No Contact w/Someone Who Travel: No Recent Infectious Disease Expo: No Recent Hopitalizations: No Immunizations Up To Date Tetanus Booster (TDap): Unknown PED Vaccines UTD: Yes Seasonal Allergies Seasonal Allergies: No Past Medical History Surgeries: No Respiratory: Yes COPD Cardiac: Yes Hypertension Neurological: No Genitourinary: No Gastrointestinal: No Musculoskeletal: No Endocrine: No HEENT: No Cancer: No Psychosocial: No Integumentary: No Blood Disorders: No Physical Exam Vital Signs - First Documented 06/30/19 13:33 Temp 36.8 Pulse 137 Resp 22 B/P (MAP) 155/95 (115) Pulse Ox 96 O2 Delivery Room Air Capillary Refill : Less Than 3 Seconds Height: 5'11.00" Weight: 180lbs. oz. 81.887147wb; 25.00 BMI Method:Stated General Appearance: WD/WN, no apparent distress, other (speaks in full sentences no distress diminished air movement throughout oxygen saturation 96% room air) Eyes: Bilateral Eye Normal Inspection, Bilateral Eye PERRL, Bilateral Eye Abnormal EOM HEENT: PERRL/EOMI, normal ENT inspection Neck: non-tender, full range of motion Respiratory: no respiratory distress, no accessory muscle use, decreased breath sounds Cardiovascular: no edema, other (tachycardia narrow complex sinus in nature rate of 130) Gastrointestinal: normal bowel sounds, non tender, soft Neurologic/Psychiatric: alert, normal mood/affect, oriented x 3 Skin: normal color, warm/dry Progress/Results/Core Measures Suspected Sepsis Recent Fever Within 48 Hours: No Infection Criteria Present: None New/Unexplained Altered Menta: No Sepsis Screen: No Definite Risk SIRS Temperature: Pulse: 137 Respiratory Rate: 22 Laboratory Tests 06/30/19 13:37: White Blood Count 8.6 Blood Pressure 155 /95 Mean: 115 Laboratory Tests 06/30/19 13:37: Creatinine 1.34H, INR Comment 0.9, Platelet Count 244, Total Bilirubin 0.7 Results/Orders Lab Results Laboratory Tests Test 06/30/19 13:37 Range/Units White Blood Count 8.6 4.3-11.0 10^3/uL Red Blood Count 5.41 4.35-5.85 10^6/uL Hemoglobin 16.1 13.3-17.7 G/DL Hematocrit 48 40-54 % Mean Corpuscular Volume 90 80-99 FL Mean Corpuscular Hemoglobin 30 25-34 PG Mean Corpuscular Hemoglobin Concent 33 32-36 G/DL Red Cell Distribution Width 13.1 10.0-14.5 % Platelet Count 244 130-400 10^3/uL Mean Platelet Volume 10.5 H 7.4-10.4 FL Neutrophils (%) (Auto) 74 42-75 % Lymphocytes (%) (Auto) 15 12-44 % Monocytes (%) (Auto) 10 0-12 % Eosinophils (%) (Auto) 1 0-10 % Basophils (%) (Auto) 0 0-10 % Neutrophils # (Auto) 6.4 1.8-7.8 X 10^3 Lymphocytes # (Auto) 1.3 1.0-4.0 X 10^3 Monocytes # (Auto) 0.8 0.0-1.0 X 10^3 Eosinophils # (Auto) 0.1 0.0-0.3 10^3/uL Basophils # (Auto) 0.0 0.0-0.1 10^3/uL Prothrombin Time 12.4 12.2-14.7 SEC INR Comment 0.9 0.8-1.4 Activated Partial Thromboplast Time 30 24-35 SEC D-Dimer 0.39 0.00-0.49 UG/ML Sodium Level 138 135-145 MMOL/L Potassium Level 4.1 3.6-5.0 MMOL/L Chloride Level 104 98-107 MMOL/L Carbon Dioxide Level 21 21-32 MMOL/L Anion Gap 13 5-14 MMOL/L Blood Urea Nitrogen 18 7-18 MG/DL Creatinine 1.34 H 0.60-1.30 MG/DL Estimat Glomerular Filtration Rate 56 BUN/Creatinine Ratio 13 Glucose Level 135 H 70-105 MG/DL Calcium Level 8.6 8.5-10.1 MG/DL Corrected Calcium 8.3 L 8.5-10.1 MG/DL Magnesium Level 1.9 1.6-2.4 MG/DL Total Bilirubin 0.7 0.1-1.0 MG/DL Aspartate Amino Transf (AST/SGOT) 22 5-34 U/L Alanine Aminotransferase (ALT/SGPT) 41 0-55 U/L Alkaline Phosphatase 85 40-136 U/L B-Type Natriuretic Peptide < 10.0 <100.0 PG/ML Total Protein 7.6 6.4-8.2 GM/DL Albumin 4.4 3.2-4.5 GM/DL My Orders Orders - KASSI ANGULO CASH ANALYST Cbc With Automated Diff (06/30/19 13:34) Magnesium (06/30/19 13:34) Chest 1 View, Ap/Pa Only (06/30/19 13:34) Ekg Tracing (06/30/19 13:34) Comprehensive Metabolic Panel (06/30/19 13:34) Myoglobin Serum (06/30/19 13:34) Protime With Inr (06/30/19 13:34) Partial Thromboplastin Time (06/30/19 13:34) O2 (06/30/19 13:34) Monitor-Rhythm Ecg Trace Only (06/30/19 13:34) Ed Iv/Invasive Line Start (06/30/19 13:34) BNP (06/30/19 13:34) Fibrin Degradation Products (06/30/19 13:34) Troponin I (06/30/19 13:34) Aspirin Chewable Tablet (Baby Aspirin Ch (06/30/19 13:45) Metoprolol Tartrate Injection (Lopressor (06/30/19 13:45) Albuterol/Ipra Inhalation Soln (Duoneb I (06/30/19 13:45) Svn Small Volume Nebulizer (06/30/19 13:34) Lipid Panel (07/01/19 06:00) Medications Given in ED Current Medications Medications Dose Ordered Sig/Evangelina Route Start Time Stop Time Status Last Admin Dose Admin Albuterol/ Ipratropium 3 ml ONCE ONCE INH 06/30/19 13:45 06/30/19 13:46 DC 06/30/19 13:50 3 ML Aspirin 324 mg ONCE ONCE PO 06/30/19 13:45 06/30/19 13:46 DC 06/30/19 13:40 324 MG Metoprolol Tartrate 5 mg ONCE ONCE IV 06/30/19 13:45 06/30/19 13:46 DC 06/30/19 13:50 5 MG Vital Signs/I&O 06/30/19 13:33 Temp 36.8 Pulse 137 Resp 22 B/P (MAP) 155/95 (115) Pulse Ox 96 O2 Delivery Room Air Capillary Refill : Less Than 3 Seconds Blood Pressure Mean: 115 Departure Communication (Admissions) 1311-after DuoNeb treatment the tightness in his chest has improved, lung sounds are with a bit more air movement. Oxygen saturation remains 93-96% room air. Heart rate has dropped to 104 after administration of 5 mg of Lopressor. Impression Primary Impression: COPD exacerbation Disposition: HOME, SELF-CARE Condition: Stable Departure-Patient Inst. Decision time for Depature: 14:20 Referrals: CHON LUJAN DO (PCP) Primary Care Physician JONATHAN BARRIGA (Family) Primary Care Physician Patient Instructions: Chronic Obstructive Pulmonary Disease (COPD), Including Emphysema Add. Discharge Instructions: 1. Medication as directed 2. Return to ER for any concerns 3. Use the nebulizer every 4 hours All discharge instructions reviewed with patient and/or family. Voiced understanding. Scripts Albuterol Sulfate (Albuterol Sulfate) 2.5 Mg/3 Ml Vial.neb 2.5 MG INH Q4H PRN for WHEEZING, #50 EA 1 Refill Prov: KASSI ANGULO APRN 06/30/19 Work/School Note: Work Release Form Date Seen in the Emergency Department: Jun 30, 2019 Return to Work: Jul 02, 2019 KASSI ANGULO APRN Jun 30, 2019 13:59
[2019-06-30 14:02] LABS: ALBUMIN 4.4 GM/DL (3.2-4.5); POTASSIUM 4.1 MMOL/L (3.6-5.0)
[2019-06-30 14:03] LABS: CALCIUM 8.6 MG/DL (8.5-10.1)
[2019-06-30 14:04] LABS: TOTAL PROTEIN 7.6 GM/DL (6.4-8.2)
[2019-06-30 14:06] LABS: BILIRUBIN,TOTAL 0.7 MG/DL (0.1-1.0)
[2019-06-30 14:07] LABS: INR 0.9 (0.8-1.4); PROTHROMBIN TIME PATIENT 12.4 SEC (12.2-14.7)
[2019-06-30 14:08] LABS: CREATININE SERUM 1.34 MG/DL (0.60-1.30)
[2019-06-30 14:11] LABS: MAGNESIUM 1.9 MG/DL (1.6-2.4)
[2019-06-30] MEDS ORDERED: ALBU2.5V4 INH (14:21)
[2019-06-30 14:35] VITALS: BP 103/65
== END 2019-06-30 14:37 | disposition home or self-care (01) ==
LOC: EDUNIT# 13:33 → ER 13:34
DX: J44.1 Chronic obstructive pulmonary disease with (acute) exacerbation (principal); Z79.52 Long term (current) use of systemic steroids; Z87.891 Personal history of nicotine dependence
CPT/HCPCS: 36415; 71045; 80053; 83735; 83874; 83880; 84484; 85025; 85379; 85610; 85730; 93041; 94640

== ENCOUNTER → 2019-07-26 | Outpatient (CLI) | payer SELFPAY ==
[~2019-07-26] MED LIST changes: +ALBU2.5V4 INH
== END ==
LOC: CARD 11:51
PROVIDERS: ATTEND Internal Medicine Cardiovascular Disease
DX: I10 Essential (primary) hypertension (principal); R07.9 Chest pain, unspecified; R06.00 Dyspnea, unspecified; R00.2 Palpitations; Z72.0 Tobacco use
CPT/HCPCS: 93306

== ENCOUNTER → 2019-07-29 | Outpatient (CLI) | payer SELFPAY ==
[~2019-07-29] VITALS: Ht 180 cm; Wt 85.0 kg
[~2019-07-29] MED LIST changes: +CATHETER FLUSH 10 ML SYR IV PRN; +REGADENOSON 0.4 MG/5 ML SYR (LEXISCAN) IV ONE; +meTOprolol 5 MG/5 ML (LOPRESSOR) VIAL IV ONE; +meTOprolol 5 MG/5 ML (LOPRESSOR) VIAL ONE
[2019-07-29] MEDS: CATHETER FLUSH 10 ML SYR IV PRN ×2 (07:54→09:12)
[2019-07-29 09:09] VITALS: BP 145/91
--- NOTE | 2019-07-29 14:47 | STRESS TEST ---
DATE OF SERVICE: 07/29/2019 LEXISCAN MYOVIEW STRESS TEST REPORT REFERRING PHYSICIAN: Nisa Proctor DO, [facility]. Baseline heart rate is 98. Baseline blood pressure 136/89. Baseline EKG is sinus rhythm with no ischemic changes. In summary, the patient was injected with 10.74 mCi of technetium-99 Myoview and the resting images were obtained. Then, the patient received 0.4 mg of Lexiscan followed by 32.7 mCi of technetium-99 Myoview. Throughout the test, there were no EKG changes. The resting and stress images were reviewed and compared in the short axis, horizontal long axis, and vertical long axis views. Review of the images showed diaphragmatic attenuation with mild decreased uptake at the inferior wall with no significant reversibility. SSS is 0. TID value 0.99. On the gated images, the left ventricle appeared to be normal in size with mild diffuse left ventricular hypokinesia, calculated ejection fraction 42%. CONCLUSION: 1. The patient tolerated Lexiscan well. 2. Diaphragmatic attenuation with typical male pattern with no significant ischemia or infarction. 3. Normal left ventricular size, mild diffuse left ventricular hypokinesia, calculated ejection fraction 42%. Job ID: [id number] DocumentID: [id number] Dictated Date: 07/29/2019 12:05:47 Environmental Science Instructor Date: 07/29/2019 14:45:32 Dictated By: KATE MURRAY MD
== END ==
LOC: CARD 07:42
PROVIDERS: ATTEND Internal Medicine Cardiovascular Disease
DX: R07.9 Chest pain, unspecified (principal); R06.00 Dyspnea, unspecified; I10 Essential (primary) hypertension; R00.2 Palpitations; I51.89 Other ill-defined heart diseases; Z72.0 Tobacco use
CPT/HCPCS: 78452; 93017

== ENCOUNTER 2019-08-27 12:22 | Emergency (ER) | payer SELFPAY ==
[~2019-08-27] VITALS: Ht 180 cm; Wt 85.0 kg
[~2019-08-27 12:22] MED LIST changes: -CATHETER FLUSH 10 ML SYR IV PRN; -REGADENOSON 0.4 MG/5 ML SYR (LEXISCAN) IV ONE; -meTOprolol 5 MG/5 ML (LOPRESSOR) VIAL IV ONE; -meTOprolol 5 MG/5 ML (LOPRESSOR) VIAL ONE
--- NOTE | 2019-08-27 12:54 | ED Chest Pain ---
General Chief Complaint: Chest Pain Stated Complaint: SOA;CHEST PAIN Source: patient Exam Limitations: no limitations History of Present Illness Date Seen by Provider: Aug 27, 2019 Time Seen by Provider: 12:53 Initial Comments TO er WITH SHORTNESS OF BREATH AND CHEST PAINFOR A FEW DAYS. copd.NO CHEST PAIN CURRENTLY Timing/Duration: 2-3 days Severity/Quality: moderate Location: central Radiation: no radiation Prior CP/Workup: no prior chest pain, no prior cardiac workup ASA po SENIOR PRODUCT DEVELOPMENT ENGINEER: No NTG SL SENIOR PRODUCT DEVELOPMENT ENGINEER: No Associated Symptoms: shortness of breath Allergies and Home Medications Allergies Coded Allergies: morphine (Verified Adverse Reaction, Intermediate, 08/27/19) flushed, diaphoretic. Home Medications Albuterol Sulfate 6.7 Gm Hfa.aer.ad, 2 PUFF IH Q4H PRN for SHORTNESS OF BREATH Prescribed by: KINGSTON PAPPAS on 10/26/17135 Albuterol Sulfate 2.5 Mg/3 Ml Vial.neb, 2.5 MG INH Q4H PRN for WHEEZING Prescribed by: KASSI ANGULO on 06/30/19 1421 Amoxicillin 500 Mg Capsule, 1 EACH PO TID Prescribed by: ALEJANDRINA PRATT on 08/15/11106 Azithromycin 250 Mg Tab, 0 PO Z-WU Prescribed by: LAVERN GOODMAN on 04/10/111950 Azithromycin 250 Mg Tablet, 250 MG PO DAILY Prescribed by: LEAH MAKI on 06/16/192150 Hydrocodone Bit/Acetaminophen 1 Each Tablet, 1-2 EACH PO Q4HR PRN Prescribed by: ALEJANDRINA PRATT on 08/15/11106 Ibuprofen 800 Mg Tab, 800 MG PO PRN, (Reported) Prednisone 20 Mg Tab, 40 MG PO DAILY Prescribed by: KINGSTON PAPPAS on 10/26/17135 Prednisone 20 Mg Tab, 40 MG PO DAILY Prescribed by: LEAH MAKI on 06/16/192150 Promethazine/Codeine 5 Ml Syrp, 5 5ML PO QID Prescribed by: LAVERN GOODMAN on 04/10/111951 Patient Home Medication List Home Medication List Reviewed: Yes Review of Systems Review of Systems Constitutional: see HPI EENTM: No Symptoms Reported Respiratory: See HPI, Cough, Shortness of Air Cardiovascular: See HPI, Chest Pain Gastrointestinal: No Symptoms Reported Genitourinary: No Symptoms Reported Musculoskeletal: no symptoms reported Skin: no symptoms reported Psychiatric/Neurological: No Symptoms Reported Endocrine: No Symptoms Reported Hematologic/Lymphatic: No Symptoms Reported Past Dfgibvy-Fcsryd-Hehvpn Hx Patient Social History Alcohol Beverage of Choice: Beer Type Used: Cigarettes Former Smoker, Quit: Nov 02, 2015 2nd Hand Smoke Exposure: No Recent Hopitalizations: No Immunizations Up To Date Tetanus Booster (TDap): Unknown PED Vaccines UTD: Yes Seasonal Allergies Seasonal Allergies: No Past Medical History Surgeries: No Respiratory: Yes COPD Cardiac: Yes Hypertension Neurological: No Genitourinary: No Gastrointestinal: No Musculoskeletal: No Endocrine: No HEENT: No Cancer: No Psychosocial: No Integumentary: No Blood Disorders: No Physical Exam Vital Signs Vital Signs - First Documented 08/27/19 12:24 Temp 36.0 Pulse 123 Resp 18 B/P (MAP) 124/84 (97) O2 Delivery Room Air Capillary Refill : Height, Weight, BMI Height: 5'11.00" Weight: 180lbs. oz. 81.773204kl; 26.23 BMI Method:Stated General Appearance: No Apparent Distress, WD/WN HEENT: PERRL/EOMI, TMs Normal Neck: Full Range of Motion, Normal Inspection Respiratory: No Accessory Muscle Use, No Respiratory Distress Cardiovascular: Regular Rate, Rhythm, Normal Peripheral Pulses Gastrointestinal: Normal Bowel Sounds, Non Tender, Soft Neurologic/Psychiatric: Alert, Oriented x3 Skin: Normal Color, Warm/Dry Progress/Results/Core Measures Results/Orders Lab Results Laboratory Tests Test 08/27/19 12:45 08/27/19 14:40 Range/Units White Blood Count 8.2 4.3-11.0 10^3/uL Red Blood Count 5.19 4.35-5.85 10^6/uL Hemoglobin 15.5 13.3-17.7 G/DL Hematocrit 46 40-54 % Mean Corpuscular Volume 89 80-99 FL Mean Corpuscular Hemoglobin 30 25-34 PG Mean Corpuscular Hemoglobin Concent 34 32-36 G/DL Red Cell Distribution Width 13.3 10.0-14.5 % Platelet Count 262 130-400 10^3/uL Mean Platelet Volume 10.3 7.4-10.4 FL Neutrophils (%) (Auto) 73 42-75 % Lymphocytes (%) (Auto) 16 12-44 % Monocytes (%) (Auto) 10 0-12 % Eosinophils (%) (Auto) 2 0-10 % Basophils (%) (Auto) 0 0-10 % Neutrophils # (Auto) 6.0 1.8-7.8 X 10^3 Lymphocytes # (Auto) 1.3 1.0-4.0 X 10^3 Monocytes # (Auto) 0.8 0.0-1.0 X 10^3 Eosinophils # (Auto) 0.1 0.0-0.3 10^3/uL Basophils # (Auto) 0.0 0.0-0.1 10^3/uL Prothrombin Time 12.6 12.2-14.7 SEC INR Comment 0.9 0.8-1.4 Activated Partial Thromboplast Time 30 24-35 SEC Sodium Level 137 135-145 MMOL/L Potassium Level 4.1 3.6-5.0 MMOL/L Chloride Level 106 98-107 MMOL/L Carbon Dioxide Level 20 L 21-32 MMOL/L Anion Gap 11 5-14 MMOL/L Blood Urea Nitrogen 17 7-18 MG/DL Creatinine 1.26 0.60-1.30 MG/DL Estimat Glomerular Filtration Rate 60 BUN/Creatinine Ratio 13 Glucose Level 118 H 70-105 MG/DL Calcium Level 9.6 8.5-10.1 MG/DL Corrected Calcium 9.4 8.5-10.1 MG/DL Magnesium Level 2.0 1.6-2.4 MG/DL Total Bilirubin 0.6 0.1-1.0 MG/DL Aspartate Amino Transf (AST/SGOT) 18 5-34 U/L Alanine Aminotransferase (ALT/SGPT) 33 0-55 U/L Alkaline Phosphatase 80 40-136 U/L Myoglobin 39.4 10.0-92.0 NG/ML Troponin I < 0.028 < 0.028 <0.028 NG/ML B-Type Natriuretic Peptide 14.5 <100.0 PG/ML Total Protein 7.6 6.4-8.2 GM/DL Albumin 4.3 3.2-4.5 GM/DL My Orders Orders - KASSI ANGULO APRN Cbc With Automated Diff (08/27/19 12:48) Magnesium (08/27/19 12:48) Chest 1 View, Ap/Pa Only (08/27/19 12:48) Ekg Tracing (08/27/19 12:48) Comprehensive Metabolic Panel (08/27/19 12:48) Myoglobin Serum (08/27/19 12:48) Protime With Inr (08/27/19 12:48) Partial Thromboplastin Time (08/27/19 12:48) O2 (08/27/19 12:48) Monitor-Rhythm Ecg Trace Only (08/27/19 12:48) Lipid Panel (08/28/19 06:00) Ed Iv/Invasive Line Start (08/27/19 12:48) BNP (08/27/19 12:48) Troponin I (08/27/19 12:48) Aspirin Chewable Tablet (Baby Aspirin Ch (08/27/19 13:00) Morphine Injection (Morphine Injection (08/27/19 13:29) Albuterol/Ipra Inhalation Soln (Duoneb I (08/27/19 13:30) Svn Small Volume Nebulizer (08/27/19 13:29) Morphine Injection (Morphine Injection (08/27/19 13:29) Albuterol/Ipra Inhalation Soln (Duoneb I (08/27/19 13:29) Methylprednisolone Sod Succ (Solu-Medrol (08/27/19 13:45) Ondansetron Injection (Zofran Injectio (08/27/19 14:00) Diphenhydramine Injection (Benadryl Inje (08/27/19 14:24) Troponin I (08/27/19 14:40) Medications Given in ED Current Medications Medications Dose Ordered Sig/Evangelina Route Start Time Stop Time Status Last Admin Dose Admin Albuterol/ Ipratropium 3 ml ONCE ONCE INH 08/27/19 13:30 08/27/19 13:31 DC 08/27/19 13:32 3 ML Aspirin 324 mg ONCE ONCE PO 08/27/19 13:00 08/27/19 13:01 DC 08/27/19 13:33 324 MG Diphenhydramine HCl 50 mg STK-MED ONCE .ROUTE 08/27/19 14:24 08/27/19 14:26 DC 08/27/19 14:40 25 MG Methylprednisolone Sodium Succinate 125 mg ONCE ONCE IVP 08/27/19 13:45 08/27/19 13:46 DC 08/27/19 14:00 125 MG Ondansetron HCl 4 mg ONCE ONCE IVP 08/27/19 14:00 08/27/19 14:01 DC 08/27/19 14:00 4 MG Vital Signs/I&O 08/27/19 08/27/19 12:24 12:24 Temp 36.0 Pulse 123 Resp 18 B/P (MAP) 124/84 (97) O2 Delivery Room Air Room Air Diagnostic Imaging Diagonstic Imaging: Xray Comments NAME: MIRZA MENDEZ [facility] REC#: [id number] PT STATUS: REG ER : 1970 PHYSICIAN: KASSI ANGULO 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 COMPARISON: June 30, 2019. TECHNIQUE: Single radiograph of the chest dated August 27, 2019. FINDINGS: The cardiac silhouette is within normal limits in size. No significant pulmonary vascular congestion. Background chronic obstructive pulmonary disease with associated bibasilar interstitial opacities is again noted, appearing similar to the prior examination. Pulmonary hyperinflation is again seen. No new focal pulmonary opacity. No pleural effusion. No pneumothorax. No acute osseous abnormality. IMPRESSION: Stable examination demonstrating background chronic obstructive pulmonary disease with associated interstitial lung disease without superimposed acute cardiopulmonary abnormality. Dictated on workstation # [id number] Dict: 08/27/19 1323 Trans: 08/27/19 1326 [facility] [id number] Interpreted by: JOSEFA PUGH MD Electronically signed by: Departure Impression Primary Impression: COPD exacerbation Disposition: 01 HOME, SELF-CARE Condition: Improved Departure-Patient Inst. Decision time for Depature: 15:14 Referrals: CHON LUJAN DO (PCP) Primary Care Physician JONATHAN BARRIGA (Family) Primary Care Physician Patient Instructions: Chronic Obstructive Pulmonary Disease (COPD) (DC) Add. Discharge Instructions: . Return to Er for any concerns. Keep your appointment with Dr newsome. Steroids and antibiotics as directed. All discharge instructions reviewed with patient and/or family. Voiced understanding. Scripts Azithromycin (Azithromycin) 250 Mg Tablet 250 MG PO UD, #6 TAB TAKE 2 TABLETS ON DAY ONE THEN TAKE 1 TABLET DAILY FOR FOUR MORE DAYS Prov: KASSI ANGULO APRN 08/27/19 Prednisone (Prednisone) 20 Mg Tab 40 MG PO DAILY, #8 TAB 0 Refills Prov: KASSI ANGULO APRN 08/27/19 KASSI ANGULO APRN Aug 27, 2019 12:54
[2019-08-27 13:00] LABS: BASOPHILS % (AUTO) 0 % (0-10); EOSINOPHILS # (AUTO) 0.1 10^3/uL (0.0-0.3); EOSINOPHILS % (AUTO) 2 % (0-10); HEMATOCRIT 46 % (40-54); HEMOGLOBIN 15.5 G/DL (13.3-17.7); LYMPHOCYTES # (AUTO) 1.3 X 10^3 (1.0-4.0); LYMPHOCYTES % (AUTO) 16 % (12-44); MEAN CORPUSCULAR HEMOGLOBIN 30 PG (25-34); MEAN CORPUSCULAR HGB CONC 34 G/DL (32-36); MEAN CORPUSCULAR VOLUME 89 FL (80-99); MEAN PLATELET VOLUME 10.3 FL (7.4-10.4); MONOCYTES # (AUTO) 0.8 X 10^3 (0.0-1.0); MONOCYTES % (AUTO) 10 % (0-12); NEUTROPHILS % (AUTO) 73 % (42-75); PLATELET COUNT 262 10^3/uL (130-400); RED CELL DISTRIBUTION WIDTH 13.3 % (10.0-14.5); WHITE BLOOD COUNT 8.2 10^3/uL (4.3-11.0)
[2019-08-27] MEDS ORDERED: ASPIRIN 81 MG CHEW (CHILDREN'S ASA) PO ONE (13:00)
[2019-08-27 13:10] LABS: ALBUMIN 4.3 GM/DL (3.2-4.5)
[2019-08-27 13:11] LABS: POTASSIUM 4.1 MMOL/L (3.6-5.0)
[2019-08-27 13:12] LABS: CALCIUM 9.6 MG/DL (8.5-10.1)
[2019-08-27 13:13] LABS: TOTAL PROTEIN 7.6 GM/DL (6.4-8.2)
[2019-08-27 13:15] LABS: BILIRUBIN,TOTAL 0.6 MG/DL (0.1-1.0); INR 0.9 (0.8-1.4); PROTHROMBIN TIME PATIENT 12.6 SEC (12.2-14.7)
[2019-08-27 13:17] LABS: CREATININE SERUM 1.26 MG/DL (0.60-1.30)
--- NOTE | 2019-08-27 13:27 | Diagnostic Imaging Report ---
INDICATION: Shortness of air, chest pain. COMPARISON: June 30, 2019. TECHNIQUE: Single radiograph of the chest dated August 27, 2019. FINDINGS: The cardiac silhouette is within normal limits in size. No significant pulmonary vascular congestion. Background chronic obstructive pulmonary disease with associated bibasilar interstitial opacities is again noted, appearing similar to the prior examination. Pulmonary hyperinflation is again seen. No new focal pulmonary opacity. No pleural effusion. No pneumothorax. No acute osseous abnormality. IMPRESSION: Stable examination demonstrating background chronic obstructive pulmonary disease with associated interstitial lung disease without superimposed acute cardiopulmonary abnormality. Dictated by: Dictated on workstation # [id number]
[2019-08-27] MEDS ORDERED: RT-ALBUTEROL/IPRATROPIUM 3 ML (DUONEB) VIAL ONE (13:29)
[2019-08-27] MEDS ORDERED: morphine INJ 10 MG/ML 1ML (SYR OR VIAL) ONE (13:29)
[2019-08-27] MEDS ORDERED: morphine INJ 10 MG/ML 1ML (SYR OR VIAL) IVP STA (13:29)
[2019-08-27] MEDS ORDERED: RT-ALBUTEROL/IPRATROPIUM 3 ML (DUONEB) VIAL INH ONE (13:30)
[2019-08-27] MEDS ORDERED: methylPREDNISolone 125 MG (Solu-MEDROL) VIAL IVP ONE (13:45)
[2019-08-27] MEDS ORDERED: ONDANSETRON 4 MG/2 ML (SDV) Z0FRAN IVP ONE (14:00)
[2019-08-27] MEDS ORDERED: diphenhydrAMINE 50 MG/ML INJ (BENADRYL) ONE (14:24)
--- NOTE | 2019-08-27 14:40 | NUR ---
troponin 2nd draw as ordered
[2019-08-27] MEDS ORDERED: PRD20T PO (15:15)
[2019-08-27] MEDS ORDERED: AZIT250T12 PO (15:15)
[2019-08-27 15:22] VITALS: BP 135/85
== END 2019-08-27 15:24 | disposition home or self-care (01) ==
LOC: EDUNIT# 12:22 → ER 12:25
DX: J44.1 Chronic obstructive pulmonary disease with (acute) exacerbation (principal); Z88.5 Allergy status to narcotic agent; Z79.52 Long term (current) use of systemic steroids; Z87.891 Personal history of nicotine dependence
CPT/HCPCS: 36415; 71045; 80053; 83735; 83874; 83880; 84484; 85025; 85610; 85730; 93041

== ENCOUNTER → 2019-09-02 | Outpatient (CLI) | payer SELFPAY ==
[~2019-09-02] MED LIST changes: +CATHETER FLUSH 10 ML SYR IV PRN; +HOLD METFORMIN - RECEIVED CONTRAST 20 ML VIAL IV SCH; +IOHEXOL 350 MG/ML 100 ML (OMNIPAQUE 350) VIAL IV ONE; +NS 100 ML (IVPB) BAG IV ONE; +RT-ALBUTEROL SULF 2.5 MG/3 ML PRE-MIX VIAL INH ONE
[2019-09-02 12:59] LABS: ABG BASE EXCESS -2.6 MMOL/L (-2.5-2.5); ABG OXYGEN SATURATION 97 % (94-100); ABG PCO2 34 MMHG (35-45); ABG PH 7.41 (7.37-7.43); ABG PO2 96 MMHG (79-93); ABG TCO2 22.3 MMOL/L (21.0-31.0)
[2019-09-02 13:00] LABS: ALLENS TEST YES-POS; INSPIRED O2 ROOM AIR; PATIENT TEMP 37.1; VENTILATOR NO
[2019-09-02 14:42] LABS: CREATININE SERUM 1.28 MG/DL (0.60-1.30)
--- NOTE | 2019-09-02 15:02 | Diagnostic Imaging Report ---
PROCEDURE: CT angiography of the chest with contrast. TECHNIQUE: Multiple contiguous axial images were obtained through the chest after uneventful bolus administration of intravenous contrast. 3D reconstructed CTA MIP acquisitions were also performed. Auto Exposure Controls were utilized during the CT exam to meet ALARA standards for radiation dose reduction. INDICATION: Difficulty breathing. COMPARISON: No prior exams for comparison. FINDINGS: Some motion degrading basilar pulmonary arterial evaluation. There is some blanca-bronchovascular thickening in the infrahilar right greater than left lower lobes but no true intraluminal filling defect. No PE is identified. The aorta is patent and nonaneurysmal. There is no pleural or pericardial effusion. There is underlying centrilobular emphysema but no focal consolidation. No lung mass or adenopathy. IMPRESSION: 1. Negative for PE or acute aortic disease. COPD with centrilobular emphysema as well as some thickening of the airways and blanca-bronchovascular interstitial thickening. 2. Not mentioned above is a chronic nonfunctioning left kidney with a partially visualized unobstructed right kidney. Dictated by: Dictated on workstation # [id number]
== END ==
LOC: RT 11:57
PROVIDERS: ATTEND Nurse Practitioner Family
DX: J43.2 Centrilobular emphysema (principal); Z72.0 Tobacco use
CPT/HCPCS: 36415; 71275; 82565; 82805; 84520; 94060; 94726; 94729

== ENCOUNTER 2019-10-22 16:40 | Observation (INO) | payer OTHER ==
[~2019-10-22] VITALS: Ht 180.4 cm; Wt 82.8 kg
[2019-10-22] VITALS (9 sets, daily range): BP systolic 116–144; BP diastolic 78–89
[~2019-10-22 16:40] MED LIST changes: -CATHETER FLUSH 10 ML SYR IV PRN; -HOLD METFORMIN - RECEIVED CONTRAST 20 ML VIAL IV SCH; -IOHEXOL 350 MG/ML 100 ML (OMNIPAQUE 350) VIAL IV ONE; -NS 100 ML (IVPB) BAG IV ONE; -RT-ALBUTEROL SULF 2.5 MG/3 ML PRE-MIX VIAL INH ONE
[2019-10-22] MEDS ORDERED: ADENOSINE 6 MG/2 ML (ADENOCARD) VIAL IV STA (16:48)
[2019-10-22] MEDS ORDERED: NS IV 1000 ML 1,000 ML ONE (16:49)
[2019-10-22 16:54] LABS: BASOPHILS % (AUTO) 0 % (0-10); EOSINOPHILS # (AUTO) 0.1 10^3/uL (0.0-0.3); EOSINOPHILS % (AUTO) 1 % (0-10); HEMATOCRIT 46 % (40-54); HEMOGLOBIN 15.6 G/DL (13.3-17.7); LYMPHOCYTES % (AUTO) 18 % (12-44); MEAN CORPUSCULAR HEMOGLOBIN 30 PG (25-34); MEAN CORPUSCULAR HGB CONC 34 G/DL (32-36); MEAN CORPUSCULAR VOLUME 89 FL (80-99); MEAN PLATELET VOLUME 10.1 FL (7.4-10.4); MONOCYTES # (AUTO) 0.9 X 10^3 (0.0-1.0); MONOCYTES % (AUTO) 8 % (0-12); NEUTROPHILS % (AUTO) 72 % (42-75); PLATELET COUNT 273 10^3/uL (130-400); RED CELL DISTRIBUTION WIDTH 13.4 % (10.0-14.5); WHITE BLOOD COUNT 11.1 10^3/uL (4.3-11.0)
[2019-10-22] MEDS ORDERED: ASPIRIN 81 MG CHEW (CHILDREN'S ASA) PO ONE (17:00)
[2019-10-22] MEDS ORDERED: dilTIAZem DRIP PRE-MIX 125 ML IV ONE (17:02)
[2019-10-22 17:07] LABS: INR 0.9 (0.8-1.4); PROTHROMBIN TIME PATIENT 12.6 SEC (12.2-14.7)
--- NOTE | 2019-10-22 17:12 | ED Cardiac General ---
History of Present Illness General Chief Complaint: Cardiac/General Problems Stated Complaint: SOB Source: patient Exam Limitations: no limitations History of Present Illness Date Seen by Provider: Oct 22, 2019 Time Seen by Provider: 16:53 Initial Comments Patient arrives to ER by private conveyance with chief complaint for one hour he has had racing heart rate shortness of breath and mild chest pain in the center of his chest that started up just recently. He takes metoprolol 50 mg XL. He is not on a blood thinner and denies a history of atrial fibrillation or atrial flutter. He follows with Dr. Bolden, cardiology and [facility] [place] for primary care. He's not having any nausea, fever chills. He does not require oxygen but does have a history of COPD. No swelling around the hand or feet. Negative for orthopnea. Echocardiogram by Dr. Bolden July 2019: EF of 45-50% grade 1 diastolic dysfunction. Allergies and Home Medications Allergies Coded Allergies: morphine (Verified Adverse Reaction, Intermediate, 08/27/19) flushed, diaphoretic. Home Medications Albuterol Sulfate 6.7 Gm Hfa.aer.ad, 2 PUFF IH Q4H PRN for SHORTNESS OF BREATH Prescribed by: KINGSTON PAPPAS on 10/26/17135 Albuterol Sulfate 2.5 Mg/3 Ml Vial.neb, 2.5 MG INH Q4H PRN for WHEEZING Prescribed by: KASSI ANGULO on 06/30/19 1421 Amoxicillin 500 Mg Capsule, 1 EACH PO TID Prescribed by: ALEJANDRINA PRATT on 08/15/11106 Azithromycin 250 Mg Tab, 0 PO Z-WU Prescribed by: LAVERN GOODMAN on 04/10/111950 Azithromycin 250 Mg Tablet, 250 MG PO DAILY Prescribed by: LEAH MAKI on 06/16/19 2151 Azithromycin 250 Mg Tablet, 250 MG PO UD TAKE 2 TABLETS ON DAY ONE THEN TAKE 1 TABLET DAILY FOR FOUR MORE DAYS Prescribed by: KASSI ANGULO on 08/27/19 1515 Hydrocodone Bit/Acetaminophen 1 Each Tablet, 1-2 EACH PO Q4HR PRN Prescribed by: ALEJANDRINA PRATT on 08/15/11106 Ibuprofen 800 Mg Tab, 800 MG PO PRN, (Reported) Prednisone 20 Mg Tab, 40 MG PO DAILY Prescribed by: KINGSTON PAPPAS on 10/26/17135 Prednisone 20 Mg Tab, 40 MG PO DAILY Prescribed by: LEAH MAKI on 06/16/19 215 Prednisone 20 Mg Tab, 40 MG PO DAILY Prescribed by: KASSI ANGULO on 08/27/19 1515 Promethazine/Codeine 5 Ml Syrp, 5 5ML PO QID Prescribed by: LAVERN GOODMAN on 04/10/111951 Patient Home Medication List Home Medication List Reviewed: Yes Review of Systems Review of Systems Constitutional: No chills, No fever, No malaise EENTM: No Blurred Vision, No Double Vision Respiratory: Denies Cough; Shortness of Air Cardiovascular: Denies Chest Pain Gastrointestinal: Denies Abdominal Pain, Denies Constipated, Denies Difficulty Swallowing, Denies Nausea Genitourinary: Denies Burning, Denies Discharge Musculoskeletal: No back pain, No joint pain Skin: No pruritus, No rash All Other Systems Reviewed Negative Unless Noted: Yes Past Vgdqbgu-Ygqphm-Fkekto Hx Patient Social History Alcohol Use: Occasionally Uses Alcohol Beverage of Choice: Beer Recreational Drug Use: No Smoking Status: Former Smoker Type Used: Cigarettes Former Smoker, Quit: Nov 02, 2015 2nd Hand Smoke Exposure: No Recent Hopitalizations: No Immunizations Up To Date Tetanus Booster (TDap): Unknown PED Vaccines UTD: Yes Seasonal Allergies Seasonal Allergies: No Past Medical History Surgeries: No Respiratory: Yes COPD Cardiac: Yes Hypertension Neurological: No Genitourinary: No Gastrointestinal: No Musculoskeletal: No Endocrine: No HEENT: No Cancer: No Psychosocial: No Integumentary: No Blood Disorders: No Physical Exam Vital Signs Vital Signs - First Documented 10/22/19 16:40 Temp 37.3 Pulse 163 Resp 20 B/P (MAP) 183/97 (125) Pulse Ox 96 O2 Delivery Room Air Capillary Refill : Height, Weight, BMI Height: 5'11.00" Weight: 180lbs. oz. 81.667266fw; 26.00 BMI Method:Stated General Appearance: Anxious, Moderate Distress HEENT: PERRL/EOMI, Pharynx Normal, Moist Mucous Membranes Neck: Full Range of Motion, Normal Inspection Respiratory: Chest Non Tender, Lungs Clear, Normal Breath Sounds, No Accessory Muscle Use, No Respiratory Distress Cardiovascular: Regular Rate, Rhythm, No Edema, Normal Peripheral Pulses Gastrointestinal: Normal Bowel Sounds, Non Tender, Soft Extremity: Normal Capillary Refill, Normal Inspection, No Pedal Edema Neurologic/Psychiatric: Alert, Oriented x3 Skin: Normal Color, Warm/Dry Progress/Results/Core Measures Results/Orders Lab Results Laboratory Tests Test 10/22/19 16:45 Range/Units White Blood Count 11.1 H 4.3-11.0 10^3/uL Red Blood Count 5.20 4.35-5.85 10^6/uL Hemoglobin 15.6 13.3-17.7 G/DL Hematocrit 46 40-54 % Mean Corpuscular Volume 89 80-99 FL Mean Corpuscular Hemoglobin 30 25-34 PG Mean Corpuscular Hemoglobin Concent 34 32-36 G/DL Red Cell Distribution Width 13.4 10.0-14.5 % Platelet Count 273 130-400 10^3/uL Mean Platelet Volume 10.1 7.4-10.4 FL Neutrophils (%) (Auto) 72 42-75 % Lymphocytes (%) (Auto) 18 12-44 % Monocytes (%) (Auto) 8 0-12 % Eosinophils (%) (Auto) 1 0-10 % Basophils (%) (Auto) 0 0-10 % Neutrophils # (Auto) 8.0 H 1.8-7.8 X 10^3 Lymphocytes # (Auto) 2.0 1.0-4.0 X 10^3 Monocytes # (Auto) 0.9 0.0-1.0 X 10^3 Eosinophils # (Auto) 0.1 0.0-0.3 10^3/uL Basophils # (Auto) 0.0 0.0-0.1 10^3/uL Prothrombin Time 12.6 12.2-14.7 SEC INR Comment 0.9 0.8-1.4 Activated Partial Thromboplast Time 27 24-35 SEC Sodium Level 140 135-145 MMOL/L Potassium Level 3.3 L 3.6-5.0 MMOL/L Chloride Level 107 98-107 MMOL/L Carbon Dioxide Level 20 L 21-32 MMOL/L Anion Gap 13 5-14 MMOL/L Blood Urea Nitrogen 25 H 7-18 MG/DL Creatinine 1.36 H 0.60-1.30 MG/DL Estimat Glomerular Filtration Rate 55 BUN/Creatinine Ratio 18 Glucose Level 157 H 70-105 MG/DL Calcium Level 9.1 8.5-10.1 MG/DL Corrected Calcium 8.8 8.5-10.1 MG/DL Magnesium Level 2.1 1.6-2.4 MG/DL Total Bilirubin 0.4 0.1-1.0 MG/DL Aspartate Amino Transf (AST/SGOT) 15 5-34 U/L Alanine Aminotransferase (ALT/SGPT) 29 0-55 U/L Alkaline Phosphatase 88 40-136 U/L Myoglobin 37.9 10.0-92.0 NG/ML Troponin I < 0.028 <0.028 NG/ML B-Type Natriuretic Peptide 22.8 <100.0 PG/ML Total Protein 7.5 6.4-8.2 GM/DL Albumin 4.4 3.2-4.5 GM/DL My Orders Orders - KINGSTON PAPPAS Continuous Ekg Monitoring (10/22/19 16:47) Ekg Tracing (10/22/19 16:47) Cbc With Automated Diff (10/22/19 16:48) Magnesium (10/22/19 16:48) Chest 1 View, Ap/Pa Only (10/22/19 16:48) Comprehensive Metabolic Panel (10/22/19 16:48) Myoglobin Serum (10/22/19 16:48) Protime With Inr (10/22/19 16:48) Partial Thromboplastin Time (10/22/19 16:48) O2 (10/22/19 16:48) Lipid Panel (10/23/19 06:00) Ed Iv/Invasive Line Start (10/22/19 16:48) BNP (10/22/19 16:48) Troponin I (10/22/19 16:48) Adenosine Injection (Adenocard Injection (10/22/19 16:48) Aspirin Chewable Tablet (Baby Aspirin Ch (10/22/19 17:00) Ns Iv 1000 Ml (Sodium Chloride 0.9%) (10/22/19 16:49) Diltiazem Injection (Cardizem Injection) (10/22/19 16:57) Adenosine Injection (Adenocard Injection (10/22/19 17:15) Diltiazem Drip Pre-Mix (Cardizem Drip Pr (10/22/19 17:15) Diltiazem Injection (Cardizem Injection) (10/22/19 17:15) Ekg Tracing (10/22/19 17:05) Ekg Tracing (10/22/19 17:05) Diltiazem Drip Pre-Mix (Cardizem Drip Pr (10/22/19 17:02) Apixaban Tablet (Eliquis Tablet) (10/22/19 17:30) Ed Iv/Invasive Line Start (10/22/19 17:27) Ns Iv 1000 Ml (Sodium Chloride 0.9%) (10/22/19 17:27) Medications Given in ED Current Medications Medications Dose Ordered Sig/Evangelina Route Start Time Stop Time Status Last Admin Dose Admin Adenosine 12 mg ONCE ONCE IV 10/22/19 17:15 10/22/19 17:16 DC 10/22/19 16:55 12 MG Aspirin 324 mg ONCE ONCE PO 10/22/19 17:00 10/22/19 17:01 DC 10/22/19 16:55 324 MG Diltiazem HCl 20 mg ONCE ONCE IVP 10/22/19 17:15 10/22/19 17:16 DC 10/22/19 16:58 20 MG Vital Signs/I&O 10/22/19 16:40 Temp 37.3 Pulse 163 Resp 20 B/P (MAP) 183/97 (125) Pulse Ox 96 O2 Delivery Room Air Progress Progress Note : Time: 17:16 Progress Note Patient presents in a narrow complex regular tachycardia. Suspect underlying atrial fibrillation with rapid ventricular response. Initial course of 6 mg Adenocard did not make any change. The patient did have sensation related to medication push. 12 mg Adenocard was subsequently pushed and the patient's heart rate did slow down and resumed a rhythm consistent with atrial flutter. Cardizem 20 mg IV was pushed and he was started on an infusion of Cardizem of 10 mg per hour Initial ECG Impression Date: Oct 22, 2019 Initial ECG Impression Time: 16:45 Initial ECG Rate: 153 Initial ECG Rhythm: SVT Initial ECG Intervals: QT (460) Initial ECG Impression: SVT Comment SDT versus underlying A. fib with rapid response. No clinically relevant ST changes. EKG #1: EKG Time: 16:54 Rate: 160 Rhythm: SVT Intervals: Normal ECG Comparisson: Unchanged ECG Impression: SVT Comment No change from Adenocard. EKG #2: EKG Time: 16:57 Rate: 160 Rhythm: A Fib/Flutter Intervals: Normal ECG Impression: Atrial Fibrillation w/RVR Comment Adenocard did slow the heart now. Underlying pattern of Suspected atrial fibrillation. Diagnostic Imaging Diagonstic Imaging: Xray Plain Films/CT/US/NM/MRI: chest Comments NAME: MIRZA MENDEZ [facility] REC#: [id number] PT STATUS: REG ER : 1970 PHYSICIAN: KINGSTON PAPPAS MD ADMIT DATE: 10/22/19/ER Signed Date of Exam:10/22/19 CHEST 1 VIEW, AP/PA ONLY INDICATION: Chest pain and COPD. Frontal chest obtained at 05:18 p.m. and compared to 08/27/2019. The heart is normal in size. Mediastinal silhouette is unremarkable. There is COPD change with biapical bullous disease. There are increased markings in the lung bases which are mildly increased. Superimposed pneumonia or atelectasis cannot be excluded. There is no pneumothorax or pleural fluid. IMPRESSION: COPD changes. Slight increase in basilar markings on both sides compared to the prior study, which may represent superimposed early infiltrate or atelectasis. Follow-up is recommended. Dictated by: Dictated on workstation # [id number] Dict: 10/22/19 1724 Trans: 10/22/19 1733 [id number] Interpreted by: MALINA ANGELA MD Electronically signed by: MALINA ANGELA MD 10/22/19 1733 Reviewed: Reviewed by Me Departure Communication (Admissions) Time/Spoke to Admitting Phy: 17:25 Discussed the case with Dr. Santa and she agrees to admit to the ICU for Cardizem drip. Time/Spoke to Consulting Phy: 17:10 Discussed the case with Dr. Byrne and he agrees with the plan for Cardizem and placement. Eliquis. Impression Primary Impression: Atrial fibrillation with rapid ventricular response Disposition: ADMITTED INPATIENT Condition: Stable Admissions Decision to Admit Reason: Admit from ER (General) Decision to Admit/Date: Oct 22, 2019 Time/Decision to Admit Time: 17:04 Departure-Patient Inst. Referrals: CHON LUJAN DO (PCP) Primary Care Physician JONATHAN BARRIGA (Family) Primary Care Physician KINGSTON PAPPAS Oct 22, 2019 17:12
[2019-10-22 17:14] LABS: ALBUMIN 4.4 GM/DL (3.2-4.5); BILIRUBIN,TOTAL 0.4 MG/DL (0.1-1.0); CALCIUM 9.1 MG/DL (8.5-10.1); CREATININE SERUM 1.36 MG/DL (0.60-1.30); MAGNESIUM 2.1 MG/DL (1.6-2.4); POTASSIUM 3.3 MMOL/L (3.6-5.0); TOTAL PROTEIN 7.5 GM/DL (6.4-8.2)
[2019-10-22] MEDS ORDERED: ADENOSINE 6 MG/2 ML (ADENOCARD) VIAL IV ONE (17:15)
[2019-10-22] MEDS ORDERED: dilTIAZem DRIP PRE-MIX 125 ML IV SCH (17:15)
[2019-10-22] MEDS ORDERED: NS IV 1000 ML 1,000 ML IV SCH (17:27)
[2019-10-22] MEDS ORDERED: APIXABAN 5 MG (ELIQUIS) TABLET PO ONE (17:30)
--- NOTE | 2019-10-22 17:33 | Diagnostic Imaging Report ---
INDICATION: Chest pain and COPD. Frontal chest obtained at 05:18 p.m. and compared to 08/27/2019. The heart is normal in size. Mediastinal silhouette is unremarkable. There is COPD change with biapical bullous disease. There are increased markings in the lung bases which are mildly increased. Superimposed pneumonia or atelectasis cannot be excluded. There is no pneumothorax or pleural fluid. IMPRESSION: COPD changes. Slight increase in basilar markings on both sides compared to the prior study, which may represent superimposed early infiltrate or atelectasis. Follow-up is recommended. Dictated by: Dictated on workstation # [id number]
[2019-10-22] MEDS ORDERED: NITROGLYCERIN 0.4 MG SL TABS BTL 25'S SL PRN (18:45)
[2019-10-22] MEDS ORDERED: CATHETER FLUSH 10 ML SYR IV PRN (18:45)
[2019-10-22] MEDS ORDERED: fentaNYL INJECTION 100 MCG/2 ML AMP IV PRN (18:45)
[2019-10-22] MEDS ORDERED: morphine INJ 4 MG/ML 1 ML (VIAL/SYRINGE) IV PRN (18:45)
--- OUTSIDE RECORDS SUMMARY | 2019-10-22 19:49 | XMS REPORT | Continuity of Care Document ---
Demographics Preferred Language Unknown Marital Status Unknown Jewish Affiliation Unknown Race Unknown Ethnic Group Unknown Author Organization Unknown Address Unknown Phone Unavailable Allergies Active Description Code Type Severity Reaction Onset Reported/Identified Relationship to Patient Clinical Status Yes No Known Drug Allergies [id number] Drug Allergy Unknown N/A 04/10/2011 Yes morphine [id number] Drug Allergy Moderate N/A 08/27/2019 Medications There is no data. 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 02/28/2018 JONATHAN BARRIGA LENGTH CONTROL TESTER Ot 496 CHR AIRWAY OBSTRUCT NEC 06/16/2019 KASSI ANGULO APRN Ot J44 .1 CHRONIC OBSTRUCTIVE PULMONARY DISEASE W 06/16/2019 KASSI ANGULO APRN Ot R00 .0 TACHYCARDIA, UNSPECIFIED 06/16/2019 KASSI ANGULO APRN Ot R06.02 SHORTNESS OF BREATH 06/16/2019 KASSI ANGULO APRN Ot R07 .9 CHEST PAIN, UNSPECIFIED 06/16/2019 KASSI ANGULO APRN Ot Z87.891 PERSONAL HISTORY OF NICOTINE DEPENDENCE 06/18/2019 KASSI ANGULO GUILLOTINE TRIMMER Ot J44 .1 CHRONIC OBSTRUCTIVE PULMONARY DISEASE W 06/18/2019 KASSI ANGULO GUILLOTINE TRIMMER Ot R00 .0 TACHYCARDIA, UNSPECIFIED 06/18/2019 KASSI ANGULO APRN Ot R06.02 SHORTNESS OF BREATH 06/18/2019 KASSI ANGULO APRN Ot R07 .9 CHEST PAIN, UNSPECIFIED 06/18/2019 KASSI ANGULO APRN Ot Z87.891 PERSONAL HISTORY OF NICOTINE DEPENDENCE 06/18/2019 KASSI ANGULO APRN Ot J44 .1 CHRONIC OBSTRUCTIVE PULMONARY DISEASE W 06/18/2019 KASSI ANGULO GUILLOTINE TRIMMER Ot R00 .0 TACHYCARDIA, UNSPECIFIED 06/18/2019 KASSI ANGULO APRN Ot R06.02 SHORTNESS OF BREATH 06/18/2019 KASSI ANGULO APRN Ot R07 .9 CHEST PAIN, UNSPECIFIED 06/18/2019 KASSI ANGULO APRN Ot Z87.891 PERSONAL HISTORY OF NICOTINE DEPENDENCE 06/30/2019 KASSI ANGULO APRN Ot J44 .1 CHRONIC OBSTRUCTIVE PULMONARY DISEASE W 06/30/2019 KASSI ANGULO APRN Ot R06.02 SHORTNESS OF BREATH 06/30/2019 KASSI ANGULO APRN Ot Z79.52 HALF-WAY (CURRENT) USE OF SYSTEMIC STER 06/30/2019 KASSI ANGULO APRN Ot Z87.891 PERSONAL HISTORY OF NICOTINE DEPENDENCE 07/02/2019 KASSI ANGUOL APRN Ot J44 .1 CHRONIC OBSTRUCTIVE PULMONARY DISEASE W 07/02/2019 KASSI ANGULO APRN Ot R06.02 SHORTNESS OF BREATH 07/02/2019 KASSI ANGULO APRN Ot 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 2 PALPITATIONS 07/31/2019 KATE MURRAY MD Ot R06. 00 DYSPNEA, UNSPECIFIED 07/31/2019 KATE MURRAY MD Ot R07. 9 CHEST PAIN, UNSPECIFIED 07/31/2019 KATE MURRAY MD Ot Z72. 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 08/27/2019 KASSI ANGULO APRN Ot Z87.891 PERSONAL HISTORY OF NICOTINE DEPENDENCE 08/27/2019 KASSI ANGULO APRN Ot Z88 .5 ALLERGY STATUS TO NARCOTIC AGENT STATUS 08/29/2019 KASSI ANGULO GUILLOTINE TRIMMER Ot J44 .1 CHRONIC OBSTRUCTIVE PULMONARY DISEASE W 08/29/2019 KASSI ANGULO GUILLOTINE TRIMMER Ot R06.02 SHORTNESS OF BREATH 08/29/2019 KASSI ANGULO GUILLOTINE TRIMMER Ot Z79.52 HALF-WAY (CURRENT) USE OF SYSTEMIC STER 08/29/2019 KASSI ANGULO GUILLOTINE TRIMMER Ot Z87.891 PERSONAL HISTORY OF NICOTINE DEPENDENCE 08/29/2019 KASSI ANGULO GUILLOTINE TRIMMER Ot Z88 .5 ALLERGY STATUS TO NARCOTIC AGENT STATUS 09/05/2019 JAMES JEFF GUILLOTINE TRIMMER Ot J43.2 CENTRILOBULAR EMPHYSEMA 09/05/2019 JAMES JEFF APRN Ot Z72.0 TOBACCO USE 10/22/2019 JONATHAN BARRIGA Ot 496 CHR AIRWAY OBSTRUCT NEC 10/22/2019 KATE MURRAY MD Ot I10 ESSENTIAL (PRIMARY) HYPERTENSION 10/22/2019 TREVOR RAZO, KATE Duong Ot 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 2 PALPITATIONS 10/22/2019 KATE MURRAY MD Ot R06. 00 DYSPNEA, UNSPECIFIED 10/22/2019 KATE MURRAY MD Ot R07. 9 CHEST PAIN, UNSPECIFIED 10/22/2019 KATE MURRAY MD Ot Z72. 0 TOBACCO USE 10/22/2019 KATE MURRAY MD Ot I10 ESSENTIAL (PRIMARY) HYPERTENSION 10/22/2019 KATE MURRAY MD Ot R00. 2 PALPITATIONS 10/22/2019 KATE MURRAY MD Ot R06. 00 DYSPNEA, UNSPECIFIED 10/22/2019 KATE MURRAY MD Ot R07. 9 CHEST PAIN, UNSPECIFIED 10/22/2019 KATE MURRAY MD Ot Z72. 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 2 PALPITATIONS 10/22/2019 TREVOR RAZO, KATE J Ot R06. 00 DYSPNEA, UNSPECIFIED 10/22/2019 TREVOR RAZO, KATE J Ot R07. 9 CHEST PAIN, UNSPECIFIED 10/22/2019 TREVOR RAZO, KATE J Ot Z72. 0 TOBACCO USE 10/22/2019 TREVOR RAZO, KATE J Ot I10 ESSENTIAL (PRIMARY) HYPERTENSION 10/22/2019 TREVOR RAZO, KATE J Ot R00. 2 PALPITATIONS 10/22/2019 TREVOR RAZO, KATE J Ot R06. 00 DYSPNEA, UNSPECIFIED 10/22/2019 TREVOR RAZO, KATE J Ot R07. 9 CHEST PAIN, UNSPECIFIED 10/22/2019 TREVOR RAZO, KATE Duong Ot Z72. 0 TOBACCO USE 10/22/2019 TREVOR RAZO, KATE Duong Ot I10 ESSENTIAL (PRIMARY) HYPERTENSION 10/22/2019 TREVOR RAZO, KATE Duong Ot R00. 2 PALPITATIONS 10/22/2019 TREVOR RAZO, KATE Duong Ot R06. 00 DYSPNEA, UNSPECIFIED 10/22/2019 TREVOR RAZO, KATE Duong Ot R07. 9 CHEST PAIN, UNSPECIFIED 10/22/2019 TREVOR RAZO, KATE Duong Ot Z72. 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 2 PALPITATIONS 10/22/2019 TREVOR RAZO, KATE Duong Ot R06. 00 DYSPNEA, UNSPECIFIED 10/22/2019 TREVOR RAZO, KATE Duong Ot R07. 9 CHEST PAIN, UNSPECIFIED 10/22/2019 TREVOR RAZO, KATE Duong Ot Z72. 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 2 PALPITATIONS 10/22/2019 TREVOR RAZO, KATE Duong Ot R06. 00 DYSPNEA, UNSPECIFIED 10/22/2019 TREVOR RAZO, KATE Duong Ot R07. 9 CHEST PAIN, UNSPECIFIED 10/22/2019 TREVOR RAZO, KATE Duong Ot Z72. 0 TOBACCO USE 10/22/2019 TREVOR RAZO, NELIDATETE Duong Ot I10 ESSENTIAL (PRIMARY) HYPERTENSION 10/22/2019 TREVOR RAZO, KATE Duong Ot R00. 2 PALPITATIONS 10/22/2019 TREVOR RAZO, KATE Duong Ot R06. 00 DYSPNEA, UNSPECIFIED 10/22/2019 TREVOR RAZO, KATE Duong Ot R07. 9 CHEST PAIN, UNSPECIFIED 10/22/2019 TREVOR RAZO, KATE Duong Ot Z72. 0 TOBACCO USE 10/22/2019 JAMES JEFF APRN Ot J43.2 CENTRILOBULAR EMPHYSEMA 10/22/2019 JAMES JEFF APRN Ot Z72.0 TOBACCO USE Procedures There is no data. Results Test Result Range Comp. Metabolic Panel (14) - 06/20/16 10 :32 Glucose, Serum 90 mg/dL 65-99 BUN 15 [...] mg/dL 0-99 Prostate-Specific Ag, Serum - 06/20/16 1 0:32 Prostate Specific Ag, Serum 0.6 ng/mL 0. 0-4.0 Complete blood count (CBC) with automate d white blood cell (WBC) differential - 10/26/17 00:41 Blood leukocytes automated count (number/volume) 9.1 10*3/uL 4.3-11.0 Blood erythrocytes automated count (number/volume) 5.28 10*6/uL 4.35-5.85 Venous blood hemoglobin measurement (mass/volume) 15.9 g/dL 13.3-17.7 Blood hematocrit (volume fraction) 48 % 40-54 Automated erythrocyte mean corpuscular volume 90 [ foz_us] 80-99 Automated erythrocyte mean corpuscular h emoglobin (mass per erythrocyte) 30 pg 25-34 Automated erythrocyte mean corpuscular h emoglobin concentration measurement (mass/volume) 34 g/dL 32-36 Automated erythrocyte distribution width ratio 13. 5 % 10.0- 14.5 Automated blood platelet count (count/volume) 252 10*3/uL 130-400 Automated blood platelet mean volume measurement 10.5 [foz_us] 7.4-10.4 Automated blood neutrophils/100 leukocytes 64 % 42-75 Automated blood lymphocytes/100 leukocytes 23 % 12-44 Blood monocytes/100 leukocytes 9 % 0-12 Automated blood eosinophils/100 leukocytes 3 % 0-10 Automated blood basophils/100 leukocytes 0 % 0-10 Blood neutrophils automated count (number/volume) 5.9 10*3 1.8-7.8 Blood lymphocytes automated count (number/volume) 2.1 10*3 1.0-4.0 Blood monocytes automated count (number/volume) 0. 9 10*3 0.0-1.0 Automated eosinophil count 0.3 10*3/uL 0 .0-0.3 Automated blood basophil count (count/volume) 0.0 10*3/uL 0.0-0.1 Comprehensive metabolic panel - 10/26/17 00:41 Serum or plasma sodium measurement (moles/volume) 139 mmol/L 135-145 Serum or plasma potassium measurement (moles/volume) 3.9 mmol/L 3.6-5.0 Serum or plasma chloride measurement (moles/volume) 102 mmol/L 98-107 Carbon dioxide 23 mmol/L 21-32 Serum or plasma anion gap determination (moles/volume) 14 mmol/L 5-14 Serum or plasma urea nitrogen measurement (mass/volume ) 22 mg/dL 7-18 Serum or plasma creatinine measurement (mass/volume) 1.36 mg/dL 0.60-1.30 Serum or plasma urea nitrogen/creatinine mass ratio 16 NRG Serum or plasma creatinine measurement w ith calculation of estimated glomerular filtration rate 56 NRG Serum or plasma glucose measurement (mass/volume) 105 mg/dL 70-105 Serum or plasma calcium measurement (mass/volume) 9.8 mg/dL 8.5-10.1 Serum or plasma total bilirubin measurement (mass/volu me) 0.4 mg/dL 0.1-1.0 Serum or plasma alkaline phosphatase brittany surement (enzymatic activity/volume) 96 U/L 40-136 Serum or plasma aspartate aminotransfera se measurement (enzymatic activity/volume) 21 U/L 5-34 Serum or plasma alanine aminotransferase measurement (enzymatic activity/volume) 33 U/L 0-55 Serum or plasma protein measurement (mass/volume) 7.5 g/dL 6.4-8.2 Serum or plasma albumin measurement (mass/volume) 4.4 g/dL 3.2-4.5 CALCIUM CORRECTED 9.5 mg/dL 8.5-10.1 Serum or plasma troponin i.cardiac measu rement (mass/volume) - 10/26/17 00:41 Serum or plasma troponin i.cardiac measurement (mass/v olume) < ng/mL <0.30 Serum or plasma C reactive protein measu rement (mass/volume) - 10/26/17 00:41 Serum or plasma C reactive protein measurement (mass/v olume) 0.60 mg/dL 0.00-0.50 CBC - 05/21/18 10:04 WHITE BLOOD CELL COUNT 6.6 Thousand/uL 3 .8-10.8 RED BLOOD CELL COUNT 5.60 Million/uL 4.2 0-5.80 HEMOGLOBIN 16.9 g/dL 13.2-17.1 HEMATOCRIT 50.3 % 38.5-50.0 MCV 89.8 fL 80.0-100.0 MCH 30.2 pg 27.0-33.0 MCHC 33.6 g/dL 32.0-36.0 RDW 12.8 % 11.0-15.0 PLATELET COUNT 258 Thousand/uL 140-400 MPV 11.1 fL 7.5-12.5 ABSOLUTE NEUTROPHILS 4237 cells/uL 1500- 7800 ABSOLUTE LYMPHOCYTES 1472 cells/uL 850-3 900 ABSOLUTE MONOCYTES 574 cells/uL 200-950 ABSOLUTE EOSINOPHILS 284 cells/uL 15-500 ABSOLUTE BASOPHILS 33 cells/uL 0-200 NEUTROPHILS 64.2 % NRG LYMPHOCYTES 22.3 % NRG MONOCYTES 8.7 % NRG EOSINOPHILS 4.3 % NRG BASOPHILS 0.5 % NRG TSH - 05/21/18 10:04 TSH 1.39 mIU/L 0.40-4.50 CMP - 05/02/19 09:28 GLUCOSE 104 mg/dL 65-139 UREA NITROGEN (BUN) 27 mg/dL 7-25 CREATININE 1.21 mg/dL 0.70-1.33 eGFR NON-AFR. EQUATORIAL GUINEAN 69 mL/min/1.73m2 > OR = 60 eGFR 80 mL/min/1.73m2 > OR = 60 BUN/CREATININE RATIO 22 (calc) 6-22 SODIUM 140 mmol/L 135-146 POTASSIUM 4.7 mmol/L 3.5-5.3 CHLORIDE 103 mmol/L 98-110 CARBON DIOXIDE 28 mmol/L 20-32 CALCIUM 9.5 mg/dL 8.6-10.3 PROTEIN, TOTAL 7.2 g/dL 6.1-8.1 ALBUMIN 4.3 g/dL 3.6-5.1 GLOBULIN 2.9 g/dL (calc) 1.9-3.7 ALBUMIN/GLOBULIN RATIO 1.5 (calc) 1.0-2. 5 BILIRUBIN, TOTAL 0.5 mg/dL 0.2-1.2 ALKALINE PHOSPHATASE 82 U/L 35-144 AST 17 U/L 10-35 ALT 26 U/L 9-46 Complete blood count (CBC) with automate d white blood cell (WBC) differential - 06/16/19 19:33 Blood leukocytes automated count (number/volume) 8.9 10*3/uL 4.3-11.0 Blood erythrocytes automated count (number/volume) 5.49 10*6/uL 4.35-5.85 Venous blood hemoglobin measurement (mass/volume) 16.3 g/dL 13.3-17.7 Blood hematocrit (volume fraction) 49 % 40-54 Automated erythrocyte mean corpuscular volume 90 [ foz_us] 80-99 Automated erythrocyte mean corpuscular h emoglobin (mass per erythrocyte) 30 pg 25-34 Automated erythrocyte mean corpuscular h emoglobin concentration measurement (mass/volume) 33 g/dL 32-36 Automated erythrocyte distribution width ratio 13. 2 % 10.0- 14.5 Automated blood platelet count (count/volume) 262 10*3/uL 130-400 Automated blood platelet mean volume measurement 10.8 [foz_us] 7.4-10.4 Automated blood neutrophils/100 leukocytes 70 % 42-75 Automated blood lymphocytes/100 leukocytes 18 % 12-44 Blood monocytes/100 leukocytes 10 % 0-12 Automated blood eosinophils/100 leukocytes 2 % 0-10 Automated blood basophils/100 leukocytes 0 % 0-10 Blood neutrophils automated count (number/volume) 6.2 10*3 1.8-7.8 Blood lymphocytes automated count (number/volume) 1.6 10*3 1.0-4.0 Blood monocytes automated count (number/volume) 0. 9 10*3 0.0-1.0 Automated eosinophil count 0.2 10*3/uL 0 .0-0.3 Automated blood basophil count (count/volume) 0.0 10*3/uL 0.0-0.1 Comprehensive metabolic panel - 06/16/19 19:33 Serum or plasma sodium measurement (moles/volume) 138 mmol/L 135-145 Serum or plasma potassium measurement (moles/volume) 4.2 mmol/L 3.6-5.0 Serum or plasma chloride measurement (moles/volume) 104 mmol/L 98-107 Carbon dioxide 24 mmol/L 21-32 Serum or plasma anion gap determination (moles/volume) 10 mmol/L 5-14 Serum or plasma urea nitrogen measurement (mass/volume ) 19 mg/dL 7-18 Serum or plasma creatinine measurement (mass/volume) 1.29 mg/dL 0.60-1.30 Serum or plasma urea nitrogen/creatinine mass ratio 15 NRG Serum or plasma creatinine measurement w ith calculation of estimated glomerular filtration rate 59 NRG Serum or plasma glucose measurement (mass/volume) 137 mg/dL 70-105 Serum or plasma calcium measurement (mass/volume) 8.9 mg/dL 8.5-10.1 Serum or plasma total bilirubin measurement (mass/volu me) 0.3 mg/dL 0.1-1.0 Serum or plasma alkaline phosphatase brittany surement (enzymatic activity/volume) 97 U/L 40-136 Serum or plasma aspartate aminotransfera se measurement (enzymatic activity/volume) 18 U/L 5-34 Serum or plasma alanine aminotransferase measurement (enzymatic activity/volume) 31 U/L 0-55 Serum or plasma protein measurement (mass/volume) 7.7 g/dL 6.4-8.2 Serum or plasma albumin measurement (mass/volume) 4.4 g/dL 3.2-4.5 CALCIUM CORRECTED 8.6 mg/dL 8.5-10.1 Magnesium - 06/16/19 19:33 Magnesium 2.4 mg/dL 1.6-2.4 Serum ragweed IgE antibody assay - 06/15 19:33 Serum ragweed IgE antibody assay 153 U/L 125-220 PROCALCITONIN (PCT) - 06/16/19 19:33 PROCALCITONIN (PCT) 0.04 ng/mL <0.10 Serum or plasma troponin i.cardiac measu rement (mass/volume) - 06/16/19 19:33 Serum or plasma troponin i.cardiac measurement (mass/v olume) < ng/mL <0.028 Influenza virus A and B antigen detectio n - 06/16/19 19:33 FLU RESULT NEGATIVE FOR INFLUENZA A AND B ANTIGENS BY IA NRG Myoglobin, serum - 06/16/19 19:33 Myoglobin, serum 27.3 ng/mL 10.0-92.0 PT panel in platelet poor plasma by coag ulation assay - 06/16/19 19:33 Prothrombin time (PT) in platelet poor plasma by coagu lation assay 12.5 s 12.2-14.7 INR in platelet poor plasma or blood by coagulation as say 0.9 0.8-1.4 Activated partial thromboplastin time (a PTT) in platelet poor plasma bycoagulation assay - 03/29/20 19:33 Activated partial thromboplastin time (a PTT) in platelet poor plasma bycoagulation assay 30 s 24-35 Serum or plasma C reactive protein measu rement (mass/volume) - 06/16/19 19:33 Serum or plasma C reactive protein measurement (mass/v olume) 0.65 mg/dL 0.00-0.50 Fibrin D-dimer FEU measurement in platel et poor plasma (mass/volume) - 06/16/19 19:33 Fibrin D-dimer FEU measurement in platelet poor plasma (mass/volume) 0.45 ug/mL 0.00-0.49 Erythrocyte sedimentation rate by stephany gren method - 06/16/19 19:33 Erythrocyte sedimentation rate by westergren method 2 mm 0- 30 Serum or plasma ferritin measurement (ma ss/volume) - 06/16/19 19:33 Serum or plasma ferritin measurement (mass/volume) 252.5 % 32.0-356.0 Serum or plasma troponin i.cardiac measu rement (mass/volume) - 06/16/19 21:30 Serum or plasma troponin i.cardiac measurement (mass/v olume) < ng/mL <0.028 Complete blood count (CBC) with automate d white blood cell (WBC) differential - 06/30/19 13:37 Blood leukocytes automated count (number/volume) 8.6 10*3/uL 4.3-11.0 Blood erythrocytes automated count (number/volume) 5.41 10*6/uL 4.35-5.85 Venous blood hemoglobin measurement (mass/volume) 16.1 g/dL 13.3-17.7 Blood hematocrit (volume fraction) 48 % 40-54 Automated erythrocyte mean corpuscular volume 90 [ foz_us] 80-99 Automated erythrocyte mean corpuscular h emoglobin (mass per erythrocyte) 30 pg 25-34 Automated erythrocyte mean corpuscular h emoglobin concentration measurement (mass/volume) 33 g/dL 32-36 Automated erythrocyte distribution width ratio 13. 1 % 10.0- 14.5 Automated blood platelet count (count/volume) 244 10*3/uL 130-400 Automated blood platelet mean volume measurement 10.5 [foz_us] 7.4-10.4 Automated blood neutrophils/100 leukocytes 74 % 42-75 Automated blood lymphocytes/100 leukocytes 15 % 12-44 Blood monocytes/100 leukocytes 10 % 0-12 Automated blood eosinophils/100 leukocytes 1 % 0-10 Automated blood basophils/100 leukocytes 0 % 0-10 Blood neutrophils automated count (number/volume) 6.4 10*3 1.8-7.8 Blood lymphocytes automated count (number/volume) 1.3 10*3 1.0-4.0 Blood monocytes automated count (number/volume) 0. 8 10*3 0.0-1.0 Automated eosinophil count 0.1 10*3/uL 0 .0-0.3 Automated blood basophil count (count/volume) 0.0 10*3/uL 0.0-0.1 Comprehensive metabolic panel - 06/30/19 13:37 Serum or plasma sodium measurement (moles/volume) 138 mmol/L 135-145 Serum or plasma potassium measurement (moles/volume) 4.1 mmol/L 3.6-5.0 Serum or plasma chloride measurement (moles/volume) 104 mmol/L 98-107 Carbon dioxide 21 mmol/L 21-32 Serum or plasma anion gap determination (moles/volume) 13 mmol/L 5-14 Serum or plasma urea nitrogen measurement (mass/volume ) 18 mg/dL 7-18 Serum or plasma creatinine measurement (mass/volume) 1.34 mg/dL 0.60-1.30 Serum or plasma urea nitrogen/creatinine mass ratio 13 NRG Serum or plasma creatinine measurement w ith calculation of estimated glomerular filtration rate 56 NRG Serum or plasma glucose measurement (mass/volume) 135 mg/dL 70-105 Serum or plasma calcium measurement (mass/volume) 8.6 mg/dL 8.5-10.1 Serum or plasma total bilirubin measurement (mass/volu me) 0.7 mg/dL 0.1-1.0 Serum or plasma alkaline phosphatase brittany surement (enzymatic activity/volume) 85 U/L 40-136 Serum or plasma aspartate aminotransfera se measurement (enzymatic activity/volume) 22 U/L 5-34 Serum or plasma alanine aminotransferase measurement (enzymatic activity/volume) 41 U/L 0-55 Serum or plasma protein measurement (mass/volume) 7.6 g/dL 6.4-8.2 Serum or plasma albumin measurement (mass/volume) 4.4 g/dL 3.2-4.5 CALCIUM CORRECTED 8.3 mg/dL 8.5-10.1 PT panel in platelet poor plasma by coag ulation assay - 06/30/19 13:37 Prothrombin time (PT) in platelet poor plasma by coagu lation assay 12.4 s 12.2-14.7 INR in platelet poor plasma or blood by coagulation as say 0.9 0.8-1.4 Activated partial thromboplastin time (a PTT) in platelet poor plasma bycoagulation assay - 06/30/19 13:37 Activated partial thromboplastin time (a PTT) in platelet poor plasma bycoagulation assay 30 s 24-35 Magnesium - 06/30/19 13:37 Magnesium 1.9 mg/dL 1.6-2.4 Fibrin D-dimer FEU measurement in platel et poor plasma (mass/volume) - 06/30/19 13:37 Fibrin D-dimer FEU measurement in platelet poor plasma (mass/volume) 0.39 ug/mL 0.00-0.49 Serum or plasma lithium measurement (mol es/volume) - 06/30/19 13:37 BNP PT < 10.0 <100.0 Myoglobin, serum - 06/30/19 13:37 Myoglobin, serum 30.8 ng/mL 10.0-92.0 Serum or plasma troponin i.cardiac measu rement (mass/volume) - 06/30/19 13:37 Serum or plasma troponin i.cardiac measurement (mass/v olume) < ng/mL <0.028 Complete blood count (CBC) with automate d white blood cell (WBC) differential - 08/27/19 12:45 Blood leukocytes automated count (number/volume) 8.2 10*3/uL 4.3-11.0 Blood erythrocytes automated count (number/volume) 5.19 10*6/uL 4.35-5.85 Venous blood hemoglobin measurement (mass/volume) 15.5 g/dL 13.3-17.7 Blood hematocrit (volume fraction) 46 % 40-54 Automated erythrocyte mean corpuscular volume 89 [ foz_us] 80-99 Automated erythrocyte mean corpuscular h emoglobin (mass per erythrocyte) 30 pg 25-34 Automated erythrocyte mean corpuscular h emoglobin concentration measurement (mass/volume) 34 g/dL 32-36 Automated erythrocyte distribution width ratio 13. 3 % 10.0- 14.5 Automated blood platelet count (count/volume) 262 10*3/uL 130-400 Automated blood platelet mean volume measurement 10.3 [foz_us] 7.4-10.4 Automated blood neutrophils/100 leukocytes 73 % 42-75 Automated blood lymphocytes/100 leukocytes 16 % 12-44 Blood monocytes/100 leukocytes 10 % 0-12 Automated blood eosinophils/100 leukocytes 2 % 0-10 Automated blood basophils/100 leukocytes 0 % 0-10 Blood neutrophils automated count (number/volume) 6.0 10*3 1.8-7.8 Blood lymphocytes automated count (number/volume) 1.3 10*3 1.0-4.0 Blood monocytes automated count (number/volume) 0. 8 10*3 0.0-1.0 Automated eosinophil count 0.1 10*3/uL 0 .0-0.3 Automated blood basophil count (count/volume) 0.0 10*3/uL 0.0-0.1 Comprehensive metabolic panel - 08/27/19 12:45 Serum or plasma sodium measurement (moles/volume) 137 mmol/L 135-145 Serum or plasma potassium measurement (moles/volume) 4.1 mmol/L 3.6-5.0 Serum or plasma chloride measurement (moles/volume) 106 mmol/L 98-107 Carbon dioxide 20 mmol/L 21-32 Serum or plasma anion gap determination (moles/volume) 11 mmol/L 5-14 Serum or plasma urea nitrogen measurement (mass/volume ) 17 mg/dL 7-18 Serum or plasma creatinine measurement (mass/volume) 1.26 mg/dL 0.60-1.30 Serum or plasma urea nitrogen/creatinine mass ratio 13 NRG Serum or plasma creatinine measurement w ith calculation of estimated glomerular filtration rate 60 NRG Serum or plasma glucose measurement (mass/volume) 118 mg/dL 70-105 Serum or plasma calcium measurement (mass/volume) 9.6 mg/dL 8.5-10.1 Serum or plasma total bilirubin measurement (mass/volu me) 0.6 mg/dL 0.1-1.0 Serum or plasma alkaline phosphatase brittany surement (enzymatic activity/volume) 80 U/L 40-136 Serum or plasma aspartate aminotransfera se measurement (enzymatic activity/volume) 18 U/L 5-34 Serum or plasma alanine aminotransferase measurement (enzymatic activity/volume) 33 U/L 0-55 Serum or plasma protein measurement (mass/volume) 7.6 g/dL 6.4-8.2 Serum or plasma albumin measurement (mass/volume) 4.3 g/dL 3.2-4.5 CALCIUM CORRECTED 9.4 mg/dL 8.5-10.1 PT panel in platelet poor plasma by coag ulation assay - 08/27/19 12:45 Prothrombin time (PT) in platelet poor plasma by coagu lation assay 12.6 s 12.2-14.7 INR in platelet poor plasma or blood by coagulation as say 0.9 0.8-1.4 Activated partial thromboplastin time (a PTT) in platelet poor plasma bycoagulation assay - 08/27/19 12:45 Activated partial thromboplastin time (a PTT) in platelet poor plasma bycoagulation assay 30 s 24-35 Magnesium - 08/27/19 12:45 Magnesium 2.0 mg/dL 1.6-2.4 Myoglobin, serum - 08/27/19 12:45 Myoglobin, serum 39.4 ng/mL 10.0-92.0 Serum or plasma troponin i.cardiac measu rement (mass/volume) - 08/27/19 12:45 Serum or plasma troponin i.cardiac measurement (mass/v olume) < ng/mL <0.028 Serum or plasma lithium measurement (mol es/volume) - 08/27/19 12:45 BNP PT 14.5 pg/mL <100.0 Serum or plasma troponin i.cardiac measu rement (mass/volume) - 08/27/19 14:40 Serum or plasma troponin i.cardiac measurement (mass/v olume) < ng/mL <0.028 Arterial blood gas measurement - 0 12:50 Blood pCO2 34 mm[Hg] 35-45 Blood pO2 96 mm[Hg] 79-93 Arterial blood bicarbonate measurement (moles/volume) 21 mmol/L 23-27 Arterial blood base excess by calculation -2.6 mmo l/L -2.5-2.5 Arterial blood oxygen saturation measurement 97 % 94-100 * Inhaled oxygen flow rate ROOM AIR NRG Arterial blood pH measurement with patient temperature correction 7.41 7.37-7.43 Arterial blood carbon dioxide, total measurement (mole s/volume) 22.3 mmol/L 21.0-31.0 Body site LT RAD NRG Assessment of wrist artery patency prior to arterial p uncture YES-POS NRG Setting of ventilation mode NO NR G Measurement of body temperature 37.1 NRG Encounters ACCT No. Visit Date/Time Discharge Status Pt. Type Provider Facility Loc./Unit Complaint [id number] 06/21/2016 10:11:00 Document Registration [id number] 10/21/2019 09:00:00 ACT [facility] [id number] 05/02/2019 09:20:00 Document Registration [id number] 05/21/2018 09:40:00 Document Registration [id number] 09/02/2019 11:57:00 23:59:59 CLS Outpatient JAMES JEFF APRN [facility] RT COPD [id number] 08/27/2019 12:25:00 15:24:00 DIS Emergency KASSI ANGULO APRN [facility] ER SOA;CHEST PAIN [id number] 07/29/2019 07:42:00 23:59:59 CLS Outpatient KATE MURRAY MD [facility] CARD CHEST PAIN [id number] 07/26/2019 11:51:00 23:59:59 CLS Outpatient KATE MURRAY MD [facility] CARD CHEST PAIN [id number] 06/30/2019 13:34:00 14:37:00 DIS Emergency KASSI ANGULO APRN [facility] ER SOB/CHEST PRESSURE [id number] 06/16/2019 19:25:00 22:05:00 DIS Emergency KASSI ANGULO APRN [facility] ER COPD,SOB [id number] 09/03/2014 11:42:00 23:59:59 CLS Outpatient JONATHAN BARRIGA [facility] LAB COPD [id number] 10/22/2019 17:30:[address] Inpatient ALISON CAMPBELL MD Via [facility] ICU AFIB W RVR ACS [id number] 10/26/2017 00:51:00 Document Registration
--- OUTSIDE RECORDS SUMMARY | 2019-10-22 19:55 | XMS REPORT | Continuity of Care Document ---
Demographics Preferred Language Unknown Marital Status Unknown Orthodoxy Affiliation Unknown Race Unknown Ethnic Group Unknown Author Organization Unknown Address Unknown Phone Unavailable Allergies Active Description Code Type Severity Reaction Onset Reported/Identified Relationship to Patient Clinical Status Yes No Known Drug Allergies [id number] Drug Allergy Unknown N/A 04/10/2011 Yes morphine [id number] Drug Allergy Moderate N/A 08/27/2019 Medications There is no data. 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 DEMONSTRATOR ELECTRIC GAS APPLIANCES Ot 496 10/26/2017 Ot J44.1 FLIGHT ATTENDANT RAMP YANE OBSTRUCTIVE PULMONARY DISEASE W 10/26/2017 Ot R06.02 VARGHESE RTNESS OF BREATH 10/26/2017 Ot Z79.51 SIMONA G TERM (CURRENT) USE OF INHALED STERO 10/26/2017 Ot Z87.891 PE RSONAL HISTORY OF NICOTINE DEPENDENCE 02/28/2018 JONATHAN BARRIGA DEMONSTRATOR ELECTRIC GAS APPLIANCES Ot 496 CHR AIRWAY OBSTRUCT NEC 06/16/2019 KASSI ANGULO APRN Ot J44 .1 CHRONIC OBSTRUCTIVE PULMONARY DISEASE W 06/16/2019 KASSI ANGULO APRN Ot R00 .0 TACHYCARDIA, UNSPECIFIED 06/16/2019 KASSI ANGULO APRN Ot R06.02 SHORTNESS OF BREATH 06/16/2019 KASSI ANGULO APRN Ot R07 .9 CHEST PAIN, UNSPECIFIED 06/16/2019 KASSI ANGULO APRN Ot Z87.891 PERSONAL HISTORY OF NICOTINE DEPENDENCE 06/18/2019 KASSI ANGULO MAIL CARRIERS SUPERVISOR Ot J44 .1 CHRONIC OBSTRUCTIVE PULMONARY DISEASE W 06/18/2019 KASSI ANGULO MAIL CARRIERS SUPERVISOR Ot R00 .0 TACHYCARDIA, UNSPECIFIED 06/18/2019 KASSI ANGULO APRN Ot R06.02 SHORTNESS OF BREATH 06/18/2019 KASSI ANGULO APRN Ot R07 .9 CHEST PAIN, UNSPECIFIED 06/18/2019 KASSI ANGULO APRN Ot Z87.891 PERSONAL HISTORY OF NICOTINE DEPENDENCE 06/18/2019 KASSI ANGULO APRN Ot J44 .1 CHRONIC OBSTRUCTIVE PULMONARY DISEASE W 06/18/2019 KASSI ANGULO MAIL CARRIERS SUPERVISOR Ot R00 .0 TACHYCARDIA, UNSPECIFIED 06/18/2019 KASSI ANGULO APRN Ot R06.02 SHORTNESS OF BREATH 06/18/2019 KASSI ANGULO APRN Ot R07 .9 CHEST PAIN, UNSPECIFIED 06/18/2019 KASSI ANGULO APRN Ot Z87.891 PERSONAL HISTORY OF NICOTINE DEPENDENCE 06/30/2019 KASSI ANGULO APRN Ot J44 .1 CHRONIC OBSTRUCTIVE PULMONARY DISEASE W 06/30/2019 KASSI ANGULO APRN Ot R06.02 SHORTNESS OF BREATH 06/30/2019 KASSI ANGULO APRN Ot Z79.52 JAIL (CURRENT) USE OF SYSTEMIC STER 06/30/2019 KASSI ANGULO APRN Ot Z87.891 PERSONAL HISTORY OF NICOTINE DEPENDENCE 07/02/2019 KASSI ANGULO APRN Ot J44 .1 CHRONIC OBSTRUCTIVE PULMONARY DISEASE W 07/02/2019 KASSI ANGULO APRN Ot R06.02 SHORTNESS OF BREATH 07/02/2019 KASSI ANGULO APRN Ot 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 07/02/2019 KASSI [...] BREATH 08/27/2019 KASSI ANGULO APRN Ot 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 08/27/2019 KASSI ANGULO APRN Ot Z87.891 PERSONAL HISTORY OF NICOTINE DEPENDENCE 08/27/2019 KASSI ANGULO APRN Ot Z88 .5 ALLERGY STATUS TO NARCOTIC AGENT STATUS 08/29/2019 KASSI ANGULO MAIL CARRIERS SUPERVISOR Ot J44 .1 CHRONIC OBSTRUCTIVE PULMONARY DISEASE W 08/29/2019 KASSI ANGULO MAIL CARRIERS SUPERVISOR Ot R06.02 SHORTNESS OF BREATH 08/29/2019 KASSI ANGULO MAIL CARRIERS SUPERVISOR Ot Z79.52 JAIL (CURRENT) USE OF SYSTEMIC STER 08/29/2019 KASSI ANGULO MAIL CARRIERS SUPERVISOR Ot Z87.891 PERSONAL HISTORY OF NICOTINE DEPENDENCE 08/29/2019 KASSI ANGULO MAIL CARRIERS SUPERVISOR Ot Z88 .5 ALLERGY STATUS TO NARCOTIC AGENT STATUS 09/05/2019 JAMES JEFF MAIL CARRIERS SUPERVISOR Ot J43.2 CENTRILOBULAR EMPHYSEMA 09/05/2019 JAMES JEFF [...] Z72. 0 TOBACCO USE 10/22/2019 JAMES JEFF MAIL CARRIERS SUPERVISOR Ot J43.2 CENTRILOBULAR EMPHYSEMA 10/22/2019 JAMES JEFF [...] Z72. 0 TOBACCO USE 10/22/2019 JONATHAN BARRIGA DEMONSTRATOR ELECTRIC GAS APPLIANCES Ot 496 CHR AIRWAY OBSTRUCT NEC 10/22/2019 [...] 7-25 CREATININE 1.21 mg/dL 0.70-1.33 eGFR NON-AFR. OMANI 69 mL/min/1.73m2 > OR = 60 eGFR [...] Status Pt. Type Provider Facility Loc./Unit Complaint [id number] 06/21/2016 10:11:00 Document Registration [id number] 10/21/2019 09:00:00 [facility] [id number] 05/02/2019 09:20:00 Document Registration [id number] 05/21/2018 09:40:00 Document Registration [id number] 09/02/2019 11:57:00 23:59:59 CLS Outpatient JAMES JEFF APRN [facility] RT COPD [id number] 08/27/2019 12:25:00 15:24:00 DIS Emergency KASSI ANGULO APRN [facility] ER SOA;CHEST PAIN [id number] 07/29/2019 07:42:00 23:59:59 CLS Outpatient KATE MURRAY MD [facility] CARD CHEST PAIN [id number] 07/26/2019 11:51:00 23:59:59 CLS Outpatient KATE MURRAY MD [facility] CARD CHEST PAIN [id number] 06/30/2019 13:34:00 14:37:00 DIS Emergency KASSI ANGULO APRN [facility] ER SOB/CHEST PRESSURE [id number] 06/16/2019 19:25:00 22:05:00 DIS Emergency KASSI ANGULO APRN [facility] ER COPD,SOB [id number] 09/03/2014 11:42:00 23:59:59 CLS Outpatient JONATHAN BARRIGA [facility] LAB COPD [id number] 10/22/2019 17:30:[address] Inpatient ALISON CAMPBELL MD [facility] ICU AFIB W RVR ACS [id number] 10/26/2017 00:51:00 Document Registration
[2019-10-22] MEDS: APIXABAN 5 MG (ELIQUIS) TABLET PO SCH (20:35)
[2019-10-22] MEDS: ACETAMINOPHEN 500 MG TAB (TYLENOL) PO PRN (20:35)
[2019-10-22] MEDS: ONDANSETRON 4 MG/2 ML (SDV) Z0FRAN IVP PRN (20:36)
[2019-10-22] MEDS: CATHETER FLUSH 10 ML SYR IV SCH (22:02)
[2019-10-23] VITALS (14 sets, daily range): BP systolic 111–131; BP diastolic 73–90
[2019-10-23] MEDS: ANTACID SUSP 30 ML UDC (MYLANTA) PO PRN ×2 (00:24→05:39)
[2019-10-23] MEDS ORDERED: dilTIAZem DRIP PRE-MIX 125 ML IV ONE (02:08)
[2019-10-23] MEDS ORDERED: dilTIAZem DRIP PRE-MIX 125 ML IV SCH (02:15)
[2019-10-23 05:08] LABS: BASOPHILS % (AUTO) 0 % (0-10); EOSINOPHILS # (AUTO) 0.1 10^3/uL (0.0-0.3); EOSINOPHILS % (AUTO) 1 % (0-10); HEMATOCRIT 42 % (40-54); HEMOGLOBIN 13.9 G/DL (13.3-17.7); LYMPHOCYTES # (AUTO) 1.4 X 10^3 (1.0-4.0); LYMPHOCYTES % (AUTO) 14 % (12-44); MEAN CORPUSCULAR HEMOGLOBIN 30 PG (25-34); MEAN CORPUSCULAR HGB CONC 33 G/DL (32-36); MEAN CORPUSCULAR VOLUME 90 FL (80-99); MEAN PLATELET VOLUME 10.1 FL (7.4-10.4); MONOCYTES # (AUTO) 1.1 X 10^3 (0.0-1.0); MONOCYTES % (AUTO) 11 % (0-12); NEUTROPHILS # (AUTO) 7.3 X 10^3 (1.8-7.8); NEUTROPHILS % (AUTO) 73 % (42-75); PLATELET COUNT 213 10^3/uL (130-400); RED CELL DISTRIBUTION WIDTH 13.4 % (10.0-14.5)
[2019-10-23 05:30] LABS: ALANINE AMINOTRANSFERASE 25 U/L (0-55); ALBUMIN 3.9 GM/DL (3.2-4.5); ALKALINE PHOSPHATASE 69 U/L (40-136); BILIRUBIN,TOTAL 0.6 MG/DL (0.1-1.0); BUN/CREATININE RATIO 15; CALCIUM 8.5 MG/DL (8.5-10.1); CARBON DIOXIDE 17 MMOL/L (21-32); CHLORIDE 110 MMOL/L (98-107); CHOLESTEROL 159 MG/DL (< 200); CREATININE SERUM 1.04 MG/DL (0.60-1.30); GFR ESTIMATED > 60; GLUCOSE 115 MG/DL (70-105); HDL CHOLESTEROL 44 MG/DL (40-60); POTASSIUM 3.6 MMOL/L (3.6-5.0); SODIUM 141 MMOL/L (135-145); TOTAL PROTEIN 6.5 GM/DL (6.4-8.2); TRIGLYCERIDES 80 MG/DL (<150); VLDL CHOLESTEROL 16 MG/DL (5-40)
[2019-10-23] MEDS: CATHETER FLUSH 10 ML SYR IV SCH ×3 (05:40→22:31)
--- NOTE | 2019-10-23 08:28 | Consultation-Cardiology ---
HPI-Cardiology Cardiology Consultation: Date of Consultation 10/23/19 Date of Admission Attending Physician Junie Santa MD Admitting Physician Nisa Proctor DO Consulting Physician MAURY HER Review of Systems-Cardiology All Other Systems Reviewed Negative Unless Noted: Yes BGD-Gihwqq-Iwwjbg Hx Patient Social History Alcohol Use: Occasionally Uses Recreational Drug Use: No Smoking Status: Former Smoker Type Used: Cigarettes 2nd Hand Smoke Exposure: No Recent Foreign Travel: No Recent Infectious Disease Expo: No Hospitalization with Isolation: Denies Immunizations Up To Date Tetanus Booster (TDap): Unknown Past Medical History PMH As described under Assessment. Allergies and Home Medications Allergies Coded Allergies: morphine (Verified Adverse Reaction, Intermediate, 08/27/19) flushed, diaphoretic. Home Medications Acetaminophen 500 Mg Tablet, 1,000 MG PO Q8H PRN for PAIN-MILD (1-4), (Reported) Albuterol Sulfate 2.5 Mg/0.5 Ml Vial.neb, 2.5 MG INH Q4H, (Reported) Albuterol Sulfate 1 Puff Puff, 2 PUFF IH Q4H PRN for SHORTNESS OF BREATH, (Reported) Famotidine 10 Mg Tablet, 10 MG PO DAILY, (Reported) Fluticasone/Umeclidin/Vilanter 1 Each Blst.w.dev, 1 EACH IH DAILY, (Reported) Ibuprofen 200 Mg Capsule, 400 MG PO Q8H PRN for PAIN-MILD (1-4), (Reported) Lisinopril 10 Mg Tablet, 10 MG PO DAILY, (Reported) Metoprolol Succinate 50 Mg Tab.er.24h, 50 MG PO 1700, (Reported) Roflumilast 500 Mcg Tablet, 500 MCG PO DAILY, (Reported) Physical Exam-Cardiology Physical Exam Vital Signs/I&O 10/23/19 10/23/19 10/24/19 10/24/19 20:00 20:00 00:00 00:15 Temp 36.6 36.5 Pulse 101 78 Resp 18 16 B/P (MAP) 113/73 (86) 107/59 (75) Pulse Ox 95 94 94 92 O2 Delivery Room Air Room Air Room Air Room Air 10/24/19 10/24/19 10/24/19 01:00 04:06 04:35 Temp 36.9 Pulse 73 72 Resp 16 B/P (MAP) 102/68 (79) Pulse Ox 94 93 O2 Delivery Room Air Room Air 10/24/19 00:00 Intake Total 740 ml Balance 740 ml Capillary Refill : Less Than 3 Seconds Data Review Labs Microbiology 10/22/19 MRSA Screen - Final, Complete MRSA not isolated Radiology NAME: MIRZA MENDEZ [facility] REC#: [id number] PT STATUS: REG ER : 1970 PHYSICIAN: KINGSTON PAPPAS MD ADMIT DATE: 10/22/19/ER Signed Date of Exam:10/22/19 CHEST 1 VIEW, AP/PA ONLY INDICATION: Chest pain and COPD. Frontal chest obtained at 05:18 p.m. and compared to 08/27/2019. The heart is normal in size. Mediastinal silhouette is unremarkable. There is COPD change with biapical bullous disease. There are increased markings in the lung bases which are mildly increased. Superimposed pneumonia or atelectasis cannot be excluded. There is no pneumothorax or pleural fluid. IMPRESSION: COPD changes. Slight increase in basilar markings on both sides compared to the prior study, which may represent superimposed early infiltrate or atelectasis. Follow-up is recommended. Dictated by: Dictated on workstation # [id number] Dict: 10/22/19 1724 Trans: 10/22/19 1733 [id number] Interpreted by: MALINA ANGELA MD Electronically signed by: MALINA ANGELA MD 10/22/19 1733 A/P-Cardiology Assessment/Admission Diagnosis New onset of a-fib with RVR first diagnosed in ED on Oct Had a stress test done on July 29, [address] Bolden showing diaphragmatic attenuation with typical male pattern no sig ischemia or infarction. Ejection fraction 42 %, Echocardiogram showed normal LV size with EF 45-50%, grade 1 diastolic dysfunction, PA pressure 25-30 mmHg COPD - follows with Dr. Contreras Hypertension History of tobaccoism, stopped smoking in April 2015 Clinical Quality Measures DVT/VTE Risk/Contraindication: Risk Factor Score Per Nursin RFS Level Per Nursing on Admit: 1=Low/No VTE PPX MAURY MANLEY Oct 23, 2019 08:28
[2019-10-23] MEDS ORDERED: PANTOPRAZOLE 40 MG (PROTONIX) TAB PO ONE (08:30)
[2019-10-23] MEDS: ASPIRIN E.C. 81 MG (ECOTRIN) TAB PO SCH (09:12)
[2019-10-23] MEDS: APIXABAN 5 MG (ELIQUIS) TABLET PO SCH ×2 (09:12→21:12)
--- NOTE | 2019-10-23 09:35 | Consultation-Cardiology ---
HPI-Cardiology Cardiology Consultation: Date of Consultation 10/23/19 Time Seen by a Provider: 08:10 Date of Admission Attending Physician Junie Santa MD Admitting Physician Nisa Proctor DO Consulting Physician EDMUND KUMAR MD, MA, FACP, FACC, FSCAI, CCDS Primary human resources project manager: Dr Bolden HPI: Chief Complaint: CC: Rapid heart beat HPI 49 yo man with medical issues as noted below, admitted through ER to Dr Santa after presentation on 10/22/19 with malaise and palp. Had noticed his heart rate to be around 150 to 160 on his home pulse oximeter. No cp or syncope. No leg swelling. Chronic, exertional shortness of breath, unchanged in the recent past Review of Systems-Cardiology Review of Systems Constitutional: malaise; No weight loss, No weight gain Eyes: No vision change Ears/Nose/Throat: No ear discharge, No nasal drainage, No recent hearing loss Respiratory: As described under HPI Cardiovascular: As described under HPI Gastrointestinal: No diarrhea; nausea (intermittent for a couple of days prior to this admission); No vomiting Genitourinary: No dysuria, No hematuria, No urine frequency changes Musculoskeletal: No back pain, No joint pain Skin: No rash, No ulcerations Psychiatric/Neurological: No seizure, No focal weakness, No syncope Hematologic: No bleeding abnormalities All Other Systems Reviewed Negative Unless Noted: Yes YRF-Inuhmt-Bkoufn Hx Patient Social History Alcohol Use: Occasionally Uses Recreational Drug Use: No Smoking Status: Former Smoker Type Used: Cigarettes 2nd Hand Smoke Exposure: No Recent Foreign Travel: No Recent Infectious Disease Expo: No Hospitalization with Isolation: Denies Immunizations Up To Date Tetanus Booster (TDap): Unknown Past Medical History PMH As described under Assessment. Family Medical History Family Medical History: Does not report fam h/o early CAD Allergies and Home Medications Allergies Coded Allergies: morphine (Verified Adverse Reaction, Intermediate, 08/27/19) flushed, diaphoretic. Home Medications Albuterol Sulfate 6.7 Gm Hfa.aer.ad, 2 PUFF IH Q4H PRN for SHORTNESS OF BREATH Prescribed by: KINGSTON PAPPAS on 10/26/17 0136 Albuterol Sulfate 2.5 Mg/3 Ml Vial.neb, 2.5 MG INH Q4H PRN for WHEEZING Prescribed by: KASSI ANGULO on 06/30/19 1421 Amoxicillin 500 Mg Capsule, 1 EACH PO TID Prescribed by: ALEJANDRINA PRATT on 08/15/11 010 Azithromycin 250 Mg Tab, 0 PO Z-WU Prescribed by: LAVERN GOODMAN on 04/10/111950 Azithromycin 250 Mg Tablet, 250 MG PO DAILY Prescribed by: LEAH MAKI on 06/16/192150 Azithromycin 250 Mg Tablet, 250 MG PO UD TAKE 2 TABLETS ON DAY ONE THEN TAKE 1 TABLET DAILY FOR FOUR MORE DAYS Prescribed by: KASSI ANGULO on 08/27/19 151 Hydrocodone Bit/Acetaminophen 1 Each Tablet, 1-2 EACH PO Q4HR PRN Prescribed by: ALEJANDRINA PRATT on 08/15/11 010 Ibuprofen 800 Mg Tab, 800 MG PO PRN, (Reported) Prednisone 20 Mg Tab, 40 MG PO DAILY Prescribed by: KINGSTON PAPPAS on 10/26/17 013 Prednisone 20 Mg Tab, 40 MG PO DAILY Prescribed by: LEAH MAKI on 06/16/192150 Prednisone 20 Mg Tab, 40 MG PO DAILY Prescribed by: KASSI ANGULO on 08/27/191514 Promethazine/Codeine 5 Ml Syrp, 5 5ML PO QID Prescribed by: LAVERN GOODMAN on 04/10/111951 Patient Home Medication List Home Medication List Reviewed: Yes Physical Exam-Cardiology Physical Exam Vital Signs/I&O 10/22/19 10/22/19 10/22/19 10/23/19 21:45 22:00 23:00 00:00 Temp 36.6 Pulse 107 100 Resp 11 17 B/P (MAP) 116/78 (91) 131/85 (100) Pulse Ox 92 93 O2 Delivery Room Air Room Air Room Air 10/23/19 10/23/19 10/23/19 10/23/19 00:00 01:00 01:00 02:00 Pulse 110 97 100 89 Resp 27 17 18 B/P (MAP) 126/78 (94) 128/79 (95) 131/90 (104) O2 Delivery Room Air Room Air Room Air 10/23/19 10/23/19 10/23/19 10/23/19 03:00 04:00 04:00 04:00 Temp 36.6 Pulse 79 87 Resp 14 11 B/P (MAP) 121/75 (90) 123/77 (92) Pulse Ox 93 O2 Delivery Room Air Room Air Room Air 10/23/19 10/23/19 10/23/19 05:00 06:00 07:24 Temp 36.9 Pulse 90 96 Resp 16 13 B/P (MAP) 126/79 (95) 111/75 (87) O2 Delivery Room Air Room Air 10/23/19 00:00 Intake Total 850 ml Output Total 900 ml Balance -50 ml Capillary Refill : Less Than 3 Seconds Constitutional: AAO x 3, well-developed, well-nourished HEENT: PERRL, EOMI, hearing is well preserved Neck: carotid pulses are 2 + bilaterally, with good upstrokes Respiratory: No accessory muscle use; other (Fair, bilat air entry; prolonged exp) Cardiovascular: regular rate-rhythm, S1 and S2, systolic murmur (soft ORTIZ at card base) Gastrointestinal: No tender; soft; No guarding, No rebound; audible bowel sounds Extremities: No clubbing, No cyanosis, No significant edema Neurologic/Psychiatric: oriented x 3, other (moves all limbs equally) Skin: warm/dry; No cyanosis, No cool, No diaphoresis, No rash on exposed areas, No ulcerations on exposed areas Data Review Labs Laboratory Tests 10/22/19 16:45: White Blood Count 11.1H, Red Blood Count 5.20, Hemoglobin 15.6, Hematocrit 46, Mean Corpuscular Volume 89, Mean Corpuscular Hemoglobin 30, Mean Corpuscular Hemoglobin Concent 34, Red Cell Distribution Width 13.4, Platelet Count 273, Mean Platelet Volume 10.1, Neutrophils (%) (Auto) 72, Lymphocytes (%) (Auto) 18, Monocytes (%) (Auto) 8, Eosinophils (%) (Auto) 1, Basophils (%) (Auto) 0, Neutrophils # (Auto) 8.0H, Lymphocytes # (Auto) 2.0, Monocytes # (Auto) 0.9, Eosinophils # (Auto) 0.1, Basophils # (Auto) 0.0, Prothrombin Time 12.6, INR Comment 0.9, Activated Partial Thromboplast Time 27, Sodium Level 140, Potassium Level 3.3L, Chloride Level 107, Carbon Dioxide Level 20L, Anion Gap 13, Blood Urea Nitrogen 25H, Creatinine 1.36H, Estimat Glomerular Filtration Rate 55, BUN/Creatinine Ratio 18, Glucose Level 157H, Calcium Level 9.1, Corrected Calcium 8.8, Magnesium Level 2.1, Total Bilirubin 0.4, Aspartate Amino Transf (AST/SGOT) 15, Alanine Aminotransferase (ALT/SGPT) 29, Alkaline Phosphatase 88, Myoglobin 37.9, Troponin I < 0.028, B-Type Natriuretic Peptide 22.8, Total Protein 7.5, Albumin 4.4 10/22/19 22:52: Troponin I < 0.028 10/23/19 04:57: White Blood Count 10.0, Red Blood Count 4.66, Hemoglobin 13.9, Hematocrit 42, Mean Corpuscular Volume 90, Mean Corpuscular Hemoglobin 30, Mean Corpuscular Hemoglobin Concent 33, Red Cell Distribution Width 13.4, Platelet Count 213, Mean Platelet Volume 10.1, Neutrophils (%) (Auto) 73, Lymphocytes (%) (Auto) 14, Monocytes (%) (Auto) 11, Eosinophils (%) (Auto) 1, Basophils (%) (Auto) 0, Neutrophils # (Auto) 7.3, Lymphocytes # (Auto) 1.4, Monocytes # (Auto) 1.1H, Eosinophils # (Auto) 0.1, Basophils # (Auto) 0.0, Sodium Level 141, Potassium Level 3.6, Chloride Level 110H, Carbon Dioxide Level 17L, Anion Gap 14, Blood Urea Nitrogen 16, Creatinine 1.04, Estimat Glomerular Filtration Rate > 60, BUN/Creatinine Ratio 15, Glucose Level 115H, Calcium Level 8.5, Corrected Calcium 8.6, Total Bilirubin 0.6, Aspartate Amino Transf (AST/SGOT) 15, Alanine Aminotransferase (ALT/SGPT) 25, Alkaline Phosphatase 69, Troponin I < 0.028, To hernesto Protein 6.5, Albumin 3.9, Triglycerides Level 80, Cholesterol Level 159, LDL Cholesterol Direct 102, VLDL Cholesterol 16, HDL Cholesterol 44 Laboratory Tests 10/22/19 16:45 10/23/19 04:57 A/P-Cardiology Assessment/Admission Diagnosis A-fib with RVR, first diagnosed in ED on Oct MPI on July 29, [address] Bolden no sig ischemia or infarction. Ejection fraction 42 %, Echo of 07/29/19 showed normal LV size with EF 45-50%, grade 1 diastolic dysfunction, PA pressure 25-30 mmHg Advanced COPD - managed by PCP and Dr Contreras Hypertension, by history History of tobaccoism, stopped smoking in April 2015 Discussion and Recomendations * Change from iv dilt to oral dilt * Continue home dose of Toprol XL * Add apixaban for stroke prophylaxis * Repeat echo * Advised to continue to refrain from smoking * Increase ambulation * Follow labs Clinical Quality Measures DVT/VTE Risk/Contraindication: Risk Factor Score Per Nursin RFS Level Per Nursing on Admit: 1=Low/No VTE PPX EDMUND KUMAR MD FACP FAC CCDS Oct 23, 2019 09:35
[2019-10-23] MEDS: ANTACID SUSP 30 ML UDC (MYLANTA) PO SCH ×3 (11:23→21:12)
[2019-10-23] MEDS: ONDANSETRON 4 MG/2 ML (SDV) Z0FRAN IVP PRN (11:23)
[2019-10-23] MEDS: ACETAMINOPHEN 500 MG TAB (TYLENOL) PO PRN (12:42)
--- NOTE | 2019-10-23 13:36 | Diagnostic Imaging Report ---
INDICATION: Atrial fibrillation. TIME OF EXAM: 1:30 PM. COMPARISON: Correlation is made with the prior chest of one day earlier. FINDINGS: The heart size is stable. The lungs are hyperinflated, consistent with COPD. There is some minimal atelectasis or scarring in the left base; otherwise, the lungs are clear. There is no effusion or pneumothorax. IMPRESSION: COPD and minimal left basilar atelectasis or scarring. Dictated by: Dictated on workstation # [id number]
[2019-10-23] MEDS ORDERED: ACET-2267 PO (14:33)
[2019-10-23] MEDS ORDERED: METO50TA7 PO (14:33)
[2019-10-23] MEDS ORDERED: FAMO10TA43 PO (14:33)
[2019-10-23] MEDS ORDERED: FLUT1BLS3 IH (14:33)
[2019-10-23] MEDS ORDERED: LISI10TA2 PO (14:33)
[2019-10-23] MEDS ORDERED: ROFL500T PO (14:33)
[2019-10-23] MEDS ORDERED: RT-ALBUINH IH (14:33)
[2019-10-23] MEDS ORDERED: IBUP-2185 PO (14:33)
[2019-10-23] MEDS ORDERED: ALB0.5V INH (14:33)
--- NOTE | 2019-10-23 18:22 | History & Physical ---
HPI History of Present Illness: 49 yo M that presented to ER with palpitations and fatigue. States that he was using a monitor and noted that his HR was in the 160s. He tried to go relax and sit down and it did not improve much so he told his that he should come get it looked at. Follows with Dr Lynn and Dr Contreras. States that he just saw Dr Jony peters. No recent medication changes and he has been taking his medications. Otherwise he has felt good prior to this episode. Denies any travel or COVID exposure. This AM he is not longer having palpitations. Denies any chest pain or shortness of breath. Source: patient, RN/MD, old records Exam Limitations: no limitations Date seen by provider: Oct 23, 2019 Time Seen by Provider: 10:05 Attending Physician Alison Campbell MD PCP Nisa Proctor DO Consult Date of Admission Oct 22, 2019 at 17:30 Home Medications Home Medications Reviewed patient Home Medication Reconciliation performed by pharmacy medication reconciliations emg technician and/or nursing. Patients Allergies have been reviewed. Allergies Coded Allergies: morphine (Verified Adverse Reaction, Intermediate, 08/27/19) flushed, diaphoretic. SEN-[id number]-[id number] Hx Patient Social History Alcohol Use: Occasionally Uses Recreational Drug Use: No Smoking Status: Former Smoker Type Used: Cigarettes 2nd Hand Smoke Exposure: No Recent Foreign Travel: No Contact w/other who traveled: No Recent Hopitalizations: No Recent Infectious Disease Expo: No Immunizations Up To Date Tetanus Booster (TDap): Unknown Past Medical History COPD HTN h/o tobacco abuse x30 years, 4 years of cessation currently Family Medical History Significant Family History: No Pertinent Family Hx Review of Systems ([facility]) Constitutional: No fever; malaise; No weakness EENTM: no symptoms reported; No mouth pain, No nose pain, No throat pain Respiratory: no symptoms reported; No cough, No dyspnea on exertion, No short of breath Cardiovascular: No chest pain; palpitations Gastrointestinal: no symptoms reported; No abdominal pain, No constipation, No diarrhea, No nausea, No vomiting Genitourinary: no symptoms reported; No dysuria, No frequency, No hematuria Musculoskeletal: no symptoms reported; No back pain, No joint pain, No joint swelling Skin: no symptoms reported; No lesions, No rash Psychiatric/Neurological: Denies Headache, Denies Numbness; Weakness Reviewed Test Results Reviewed Test Results Lab Laboratory Tests Test 10/22/19 22:52 10/23/19 04:57 Range/Units Troponin I < 0.028 < 0.028 <0.028 NG/ML White Blood Count 10.0 4.3-11.0 10^3/uL Red Blood Count 4.66 4.35-5.85 10^6/uL Hemoglobin 13.9 13.3-17.7 G/DL Hematocrit 42 40-54 % Mean Corpuscular Volume 90 80-99 FL Mean Corpuscular Hemoglobin 30 25-34 PG Mean Corpuscular Hemoglobin Concent 33 32-36 G/DL Red Cell Distribution Width 13.4 10.0-14.5 % Platelet Count 213 130-400 10^3/uL Mean Platelet Volume 10.1 7.4-10.4 FL Neutrophils (%) (Auto) 73 42-75 % Lymphocytes (%) (Auto) 14 12-44 % Monocytes (%) (Auto) 11 0-12 % Eosinophils (%) (Auto) 1 0-10 % Basophils (%) (Auto) 0 0-10 % Neutrophils # (Auto) 7.3 1.8-7.8 X 10^3 Lymphocytes # (Auto) 1.4 1.0-4.0 X 10^3 Monocytes # (Auto) 1.1 H 0.0-1.0 X 10^3 Eosinophils # (Auto) 0.1 0.0-0.3 10^3/uL Basophils # (Auto) 0.0 0.0-0.1 10^3/uL Sodium Level 141 135-145 MMOL/L Potassium Level 3.6 3.6-5.0 MMOL/L Chloride Level 110 H 98-107 MMOL/L Carbon Dioxide Level 17 L 21-32 MMOL/L Anion Gap 14 5-14 MMOL/L Blood Urea Nitrogen 16 7-18 MG/DL Creatinine 1.04 0.60-1.30 MG/DL Estimat Glomerular Filtration Rate > 60 BUN/Creatinine Ratio 15 Glucose Level 115 H 70-105 MG/DL Calcium Level 8.5 8.5-10.1 MG/DL Corrected Calcium 8.6 8.5-10.1 MG/DL Total Bilirubin 0.6 0.1-1.0 MG/DL Aspartate Amino Transf (AST/SGOT) 15 5-34 U/L Alanine Aminotransferase (ALT/SGPT) 25 0-55 U/L Alkaline Phosphatase 69 40-136 U/L Total Protein 6.5 6.4-8.2 GM/DL Albumin 3.9 3.2-4.5 GM/DL Triglycerides Level 80 <150 MG/DL Cholesterol Level 159 < 200 MG/DL LDL Cholesterol Direct 102 1-129 MG/DL VLDL Cholesterol 16 5-40 MG/DL HDL Cholesterol 44 40-60 MG/DL Radiology NAME: MIRZA MENDEZ [facility] REC#: [id number] PT STATUS: REG ER : 1970 PHYSICIAN: KINGSTON PAPPAS MD ADMIT DATE: 10/22/19/ER Signed Date of Exam:10/22/19 CHEST 1 VIEW, AP/PA ONLY INDICATION: Chest pain and COPD. Frontal chest obtained at 05:18 p.m. and compared to 08/27/2019. The heart is normal in size. Mediastinal silhouette is unremarkable. There is COPD change with biapical bullous disease. There are increased markings in the lung bases which are mildly increased. Superimposed pneumonia or atelectasis cannot be excluded. There is no pneumothorax or pleural fluid. IMPRESSION: COPD changes. Slight increase in basilar markings on both sides compared to the prior study, which may represent superimposed early infiltrate or atelectasis. Follow-up is recommended. Dictated by: Dictated on workstation # [id number] Dict: 10/22/19 1724 Trans: 10/22/19 1733 [id number] Interpreted by: MALINA ANGELA MD Electronically signed by: MALINA ANGELA MD 10/22/19 1733 Physical Exam-([facility]) Physical Exam Vital Signs VS - Last 72 Hours, by Label 10/22/19 10/22/19 10/22/19 10/22/19 16:40 18:15 18:50 19:00 Temp 37.3 36.6 Pulse 163 112 121 Resp 20 19 B/P (MAP) 183/97 (125) 109/64 (125) Pulse Ox 96 97 93 O2 Delivery Room Air Room Air Room Air 10/22/19 10/22/19 10/22/19 10/22/19 19:00 19:15 19:30 19:45 Pulse 126 122 118 114 Resp 16 20 20 19 B/P (MAP) 142/83 (102) 134/89 (104) 130/89 (103) 144/83 (103) Pulse Ox 95 94 94 93 O2 Delivery Room Air Room Air Room Air Room Air 10/22/19 10/22/19 10/22/19 10/22/19 20:00 20:00 20:00 20:15 Temp 37.5 Pulse 118 122 Resp 21 24 B/P (MAP) 121/79 (93) 132/81 (98) Pulse Ox 93 95 94 O2 Delivery Room Air Room Air Room Air 10/22/19 10/22/19 10/22/19 10/22/19 20:35 20:45 21:05 21:45 Temp 37.5 37.8 36.6 Pulse 120 Resp 14 B/P (MAP) 123/82 (96) Pulse Ox 92 O2 Delivery Room Air 10/22/19 10/22/19 10/23/19 10/23/19 22:00 23:00 00:00 00:00 Pulse 107 100 110 Resp 11 17 27 B/P (MAP) 116/78 (91) 131/85 (100) 126/78 (94) Pulse Ox 92 93 O2 Delivery Room Air Room Air Room Air Room Air 10/23/19 10/23/19 10/23/19 10/23/19 01:00 01:00 02:00 03:00 Pulse 97 100 89 79 Resp 17 18 14 B/P (MAP) 128/79 (95) 131/90 (104) 121/75 (90) O2 Delivery Room Air Room Air Room Air 10/23/19 10/23/19 10/23/19 10/23/19 04:00 04:00 04:00 05:00 Temp 36.6 Pulse 87 90 Resp 11 16 B/P (MAP) 123/77 (92) 126/79 (95) Pulse Ox 93 O2 Delivery Room Air Room Air Room Air 10/23/19 10/23/19 10/23/19 10/23/19 06:00 06:31 07:00 07:24 Temp 36.9 Pulse 96 95 90 Resp 13 16 B/P (MAP) 111/75 (87) 120/77 (91) O2 Delivery Room Air Room Air 10/23/19 10/23/19 10/23/19 10/23/19 08:00 08:00 09:00 10:00 Pulse 94 112 98 Resp 16 28 15 B/P (MAP) 115/75 (88) 115/75 (88) 122/83 (96) Pulse Ox 92 95 96 94 O2 Delivery Room Air Room Air Room Air Room Air 10/23/19 10/23/19 10/23/19 10/23/19 11:35 11:35 11:57 13:40 Temp 36.2 36.2 36.9 Pulse 105 Resp 20 B/P (MAP) 128/90 (103) Pulse Ox 94 94 O2 Delivery Room Air Room Air 10/23/19 10/23/19 10/23/19 16:00 16:01 16:43 Temp 36.7 Pulse 94 110 Resp 18 B/P (MAP) 114/77 (89) Pulse Ox 93 94 O2 Delivery Room Air Room Air Capillary Refill : Less Than 3 SecondsLess Than 3 Seconds General Appearance: WD/WN, no apparent distress HEENT: PERRL/EOMI Neck: non-tender, full range of motion, supple; No carotid bruit Respiratory: chest non-tender, normal breath sounds, wheezing, expiration Cardiovascular: normal peripheral pulses, regular rate, rhythm, no edema, no murmur Gastrointestinal: normal bowel sounds, non tender, soft, no organomegaly Back: no CVA tenderness, no vertebral tenderness Extremities: normal range of motion, non-tender, normal inspection, no pedal edema, no calf tenderness, normal capillary refill Neurologic/Psychiatric: live in companion II-XII nml as tested, no motor/sensory deficits, alert, normal mood/affect, oriented x 3 Skin: normal color, warm/dry Lymphatic: no adenopathy Assessment/Plan Assessment/Plan Admission Status: Observation (1) Atrial fibrillation with rapid ventricular response Status: Acute Assessment & Plan: - Dr Byrne Consulted, appreciate recommendations, patient transitioned to oral rate control medications, Echo pending, Started on OCA for stroke ppx (2) COPD (chronic obstructive pulmonary disease) Status: Chronic Assessment & Plan: - Stable, will continue home meds Qualifiers: Qualified Codes: J41.1 - Mucopurulent chronic bronchitis (3) HTN (hypertension) Status: Chronic Assessment & Plan: - Will continue home meds Qualifiers: Qualified Codes: I10 - Essential (primary) hypertension (4) DVT prophylaxis Status: Acute Assessment & Plan: - Started on OAC Clinical Quality Measures DVT/VTE Risk/Contraindication: Risk Factor Score Per Nursin RFS Level Per Nursing on Admit: 1=Low/No VTE PPX ALISON CAMPBELL MD Oct 23, 2019 18:22
[2019-10-23] MEDS: meTOproloL SUCCINATE 50 MG (TOPROL XL) TAB PO SCH (18:26)
[2019-10-23] MEDS ORDERED: LOPERAMIDE 2 MG (IMODIUM) TABLET PO PRN (21:30)
[2019-10-24 00:15] VITALS: BP 107/59
[2019-10-24 04:35] VITALS: BP 102/68
[2019-10-24] MEDS: CATHETER FLUSH 10 ML SYR IV SCH ×2 (05:40→13:24)
[2019-10-24] MEDS: ANTACID SUSP 30 ML UDC (MYLANTA) PO SCH ×3 (05:54→16:26)
[2019-10-24 08:00] VITALS: BP 109/75
[2019-10-24] MEDS: meTOproloL SUCCINATE 50 MG (TOPROL XL) TAB PO SCH (08:57)
[2019-10-24] MEDS: APIXABAN 5 MG (ELIQUIS) TABLET PO SCH (08:57)
[2019-10-24] MEDS: ASPIRIN E.C. 81 MG (ECOTRIN) TAB PO SCH (08:57)
[2019-10-24] MEDS: ONDANSETRON 4 MG/2 ML (SDV) Z0FRAN IVP PRN (08:58)
[2019-10-24] MEDS ORDERED: NON-FORMULARY MEDICATION 1 EA EA (Fluticasone/Umeclidin/Vilanter (Trelegy Ellipta 100-62.5 IH SCH (09:00)
[2019-10-24] MEDS ORDERED: PANTOPRAZOLE 40 MG (PROTONIX) TAB PO SCH (09:00)
--- NOTE | 2019-10-24 10:29 | Progress Note - Cardiology ---
Cardiology SOAP Progress Note Subjective: States he feels well and hopes to go home today. No c/o CP, palpitations, syncope, near syncope. No c/o dyspnea. Objective: I&O/Vital Signs 10/24/19 10/24/19 10/24/19 10/24/19 00:00 00:15 01:00 04:06 Temp 36.5 Pulse 78 73 Resp 16 B/P (MAP) 107/59 (75) Pulse Ox 94 92 94 O2 Delivery Room Air Room Air Room Air 10/24/19 10/24/19 10/24/19 10/24/19 04:35 06:40 08:00 08:50 Temp 36.9 37.2 Pulse 72 78 99 Resp 16 20 B/P (MAP) 102/68 (79) 109/75 (86) Pulse Ox 93 95 O2 Delivery Room Air Room Air Room Air 10/24/19 00:00 Intake Total 740 ml Balance 740 ml Weight (Pounds): 180 Weight (Calculated Kilograms): 81.319317 Constitutional: AAO x 3, well-developed, well-nourished Respiratory: No accessory muscle use; other (Fair, bilat air entry; prolonged exp) Cardiovascular: regular rate-rhythm, S1 and S2, systolic murmur (soft ORTIZ at card base) Gastrointestional: No tender; soft; No guarding, No rebound; audible bowel sounds Extremities: No clubbing, No cyanosis, No significant edema Neurologic/Psychiatric: oriented x 3, other (moves all limbs equally) Skin: warm/dry; No cyanosis, No cool, No diaphoresis, No rash on exposed areas, No ulcerations on exposed areas Results/Procedures: Labs Microbiology 10/22/19 MRSA Screen - Final, Complete MRSA not isolated Laboratory Tests 10/22/19 16:45 10/23/19 04:57 A/P: Assessment: A-fib with RVR, first diagnosed in ED on Oct MPI on July 29, [address] Bolden no sig ischemia or infarction. Ejection fraction 42 %, Echo of 07/29/19 showed normal LV size with EF 45-50%, grade 1 diastolic dysfunction, PA pressure 25-30 mmHg Advanced COPD - managed by PCP and Dr Contreras Hypertension, by history History of tobaccoism, stopped smoking in April 2015 Plan: * Continue oral dilt * Continue Toprol XL * Continue apixaban for stroke prophylaxis * Echocardiogram pending * Advised to continue to refrain from smoking * Increase ambulation * Follow labs MAURY MANLEY Oct 24, 2019 10:29
[2019-10-24 12:00] VITALS: BP 130/57
[2019-10-24 16:00] VITALS: BP 113/67
--- NOTE | 2019-10-24 17:06 | Progress Note - Cardiology ---
Cardiology SOAP Progress Note Subjective: Feels better compared to time of admission Shortness of breath now at usual baseline No palp or syncope or cp No focal weakness Objective: I&O/Vital Signs 10/24/19 10/24/19 10/24/19 10/24/19 06:40 08:00 08:50 12:00 Temp 37.2 37.0 Pulse 78 99 86 Resp 20 20 B/P (MAP) 109/75 (86) 130/57 (81) Pulse Ox 95 95 O2 Delivery Room Air Room Air Room Air 10/24/19 10/24/19 12:46 16:00 Temp 36.8 Pulse 101 84 Resp 20 B/P (MAP) 113/67 (82) Pulse Ox 94 O2 Delivery Room Air 10/23/19 23:59 Intake Total 740 ml Balance 740 ml Weight (Pounds): 180 Weight (Calculated Kilograms): 81.582706 Constitutional: AAO x 3, well-developed, well-nourished Respiratory: No accessory muscle use; other (Fair, bilat air entry; prolonged exp) Cardiovascular: regular rate-rhythm, S1 and S2, systolic murmur (soft ORTIZ at card base) Gastrointestional: No tender; soft; No guarding, No rebound; audible bowel sounds Extremities: No clubbing, No cyanosis, No significant edema Neurologic/Psychiatric: oriented x 3, other (moves all limbs equally) Skin: warm/dry; No cyanosis, No cool, No diaphoresis, No rash on exposed areas, No ulcerations on exposed areas Results/Procedures: Labs Microbiology 10/22/19 MRSA Screen - Final, Complete MRSA not isolated Laboratory Tests 10/23/19 04:57 A/P: Assessment: A-fib with RVR, first diagnosed in ED on Oct, now controlled MPI on July 29, [address] Bolden no sig ischemia or infarction. Ejection fraction 42 %, Echo of 10/24/19: LVEF 50-55%, PASP WNL Advanced COPD - managed by PCP and Dr Contreras Hypertension, by history History of tobaccoism, stopped smoking in April 2015 Plan: * Continue oral dilt * Continue Toprol XL * Continue apixaban for stroke prophylaxis * Advised to continue to refrain from smoking * Advised outpt f/u at our office next week EDMUND KUMAR MD FACP FACC CCDS Oct 24, 2019 17:06
--- NOTE | 2019-10-24 17:21 | Discharge Summary ---
Diagnosis/Chief Complaint Date of Admission Oct 22, 2019 at 17:30 Date of Discharge 10/24/2019 Admission Diagnosis Admission Diagnosis See problem list Discharge Diagnosis See Below Problems/Diagnosis: (1) Atrial fibrillation with rapid ventricular response Assessment & Plan: - Dr Byrne Consulted, appreciate recommendations, patient transitioned to oral rate control medications, Echo pending, Started on OCA for stroke ppx 10/23: Continues to be rate controlled, will sent home on Diltazem, Eliquis and ASA, will have a f.u appt with Dr Byrne next week Status: Acute (2) COPD (chronic obstructive pulmonary disease) Assessment & Plan: - Stable, will continue home meds Qualifiers: Qualified Codes: J41.1 - Mucopurulent chronic bronchitis Status: Chronic (3) HTN (hypertension) Assessment & Plan: - Will continue home meds 10/23: D/c Lisinopril at this time due to low normal blood pressures after rate control meds were added. Can be added back if blood pressure starts to increase Qualifiers: Qualified Codes: I10 - Essential (primary) hypertension Status: Chronic (4) DVT prophylaxis Assessment & Plan: - Started on OAC Status: Acute Chief Complaint/HPI Chief Complaint/HPI 49 yo M that presented to ER with palpitations and fatigue. States that he was using a monitor and noted that his HR was in the 160s. He tried to go relax and sit down and it did not improve much so he told his that he should come get it looked at. Follows with Dr Lynn and Dr Contreras. States that he just saw Dr Contreras. No recent medication changes and he has been taking his medications. Otherwise he has felt good prior to this episode. Denies any travel or COVID exposure. This AM he is not longer having palpitations. Denies any chest pain or shortness of breath. Discharge Summary-Simple/Stand Procedures Echo: Carolann Echo with EF 55% Consultations Dr Byrne: Cardiology Discharge Physical Examination Allergies: Coded Allergies: morphine (Verified Adverse Reaction, Intermediate, 08/27/19) flushed, diaphoretic. Vitals & I&Os Vital Sign - Last 12Hours Date Time Temp Pulse Resp B/P (MAP) Pulse Ox O2 Delivery O2 Flow Rate FiO2 10/24/19 16:00 36.8 84 20 113/67 (82) 94 Room Air Intake and Output 10/24/19 00:00 Intake Total 740 ml Balance 740 ml General Appearance: Alert, Oriented X3, Cooperative, No Acute Distress HEENT: Mucous Memb Moist/Wat[place] Respiratory: Clear to Auscultation, Normal Air Movement Cardiovascular: Regular Rate, No Murmurs Abdominal: Normal Bowel Sounds, Soft, No Tenderness Extremities: No Edema, No Tenderness/Swelling Skin: No Rashes, No Breakdown Neuro: Strength at 5/5 X4 Ext, Sensation Intact, Cranial Nerves 3-12 NL Psych/Mental Status: Mental Status NL, Mood NL Hospital Course Was the Problem List Reviewed?: Yes See final discharge diagnosis. Radiology Reviewed NAME: MIRZA MENDEZ [facility] REC#: [id number] PT STATUS: REG ER : 1970 PHYSICIAN: KINGSTON PAPPAS MD ADMIT DATE: 10/22/19/ER Signed Date of Exam:10/22/19 CHEST 1 VIEW, AP/PA ONLY INDICATION: Chest pain and COPD. Frontal chest obtained at 05:18 p.m. and compared to 08/27/2019. The heart is normal in size. Mediastinal silhouette is unremarkable. There is COPD change with biapical bullous disease. There are increased markings in the lung bases which are mildly increased. Superimposed pneumonia or atelectasis cannot be excluded. There is no pneumothorax or pleural fluid. IMPRESSION: COPD changes. Slight increase in basilar markings on both sides compared to the prior study, which may represent superimposed early infiltrate or atelectasis. Follow-up is recommended. Dictated by: Dictated on workstation # [id number] Dict: 10/22/19 1724 Trans: 10/22/19 1733 [id number] Interpreted by: MALINA ANGELA MD Electronically signed by: MALINA ANGELA MD 10/22/19 1733 Discussion & Recommendations 49 yo M with known COPD that came in with Atrial fibrillation w/ RVR. Patient with palpitations on admission. Started on IV Diltazem and rate was controlled. He was then transitioned to PO Diltazem and did was and remained rate controlled. Had normal Echo with EF 55%. Patient's meds were updated and he was stable for discharge. Discharge Condition at discharge Stable Instructions to patient/family Please see electronic discharge instructions given to patient. Discharge Medications Reviewed and agree with Discharge Medication list on patient's Discharge Instruction sheet Clinical Quality Measures DVT/VTE Risk/Contraindication: Risk Factor Score Per Nursin RFS Level Per Nursing on Admit: 1=Low/No VTE PPX ALISON CAMPBELL MD Oct 24, 2019 17:21
[2019-10-24] MEDS ORDERED: NITR0.4T42 SL (17:24)
[2019-10-24] MEDS ORDERED: DILT240C91 PO (17:24)
[2019-10-24] MEDS ORDERED: APIX5TAB PO (17:24)
[2019-10-24] MEDS ORDERED: ASPI-983 PO (17:24)
--- NOTE | 2019-10-24 17:26 | Discharge Summary ---
Discharge [facility] Reconcile Patient Problems Problems Reviewed?: Yes Discharge Medications New, Converted or Re-Newed RX: Transmitted to Pharmacy New Medications: Apixaban (Eliquis) 5 Mg Tablet 5 MG PO BID, #30 TAB Aspirin (Aspirin EC) 81 Mg Tablet.dr 81 MG PO DAILY, #30 TAB Diltiazem HCl (Diltiazem 24Hr ER) 240 Mg Cap.er.24h 240 MG PO DAILY, #30 CAP Nitroglycerin (Nitroglycerin) 0.4 Mg Tab.subl 0 MG SL UD PRN for CHEST PAIN (ANGINA), #10 TAB Continued Medications: Acetaminophen (Tylenol Extra Strength) 500 Mg Tablet 1000 MG PO Q8H PRN for PAIN-MILD (1-4), TAB Albuterol Sulfate (Albuterol Sulfate) 2.5 Mg/0.5 Ml Vial.neb 2.5 MG INH Q4H for SHORTNESS OF BREATH, EACH Albuterol Sulfate (Proair Hfa) 1 Puff Puff 2 PUFF IH Q4H PRN for SHORTNESS OF BREATH, PUFF Famotidine (Pepcid AC) 10 Mg Tablet 10 MG PO DAILY, TAB Fluticasone/Umeclidin/Vilanter (Trelegy Ellipta 100-62.5-25) 1 Each Blst.w.dev 1 EACH IH DAILY Metoprolol Succinate (Metoprolol Succinate) 50 Mg Tab.er.24h 50 MG PO 1700, TAB Roflumilast (Daliresp) 500 Mcg Tablet 500 MCG PO DAILY, TAB Discontinued Medications: Ibuprofen (Ibuprofen) 200 Mg Capsule 400 MG PO Q8H PRN for PAIN-MILD (1-4), CAP Lisinopril (Lisinopril) 10 Mg Tablet 10 MG PO DAILY, TAB Patient Instructions Goal/Follow Up Appt: F.u with PCP [facility] in 1-2 weeks [address] Byrne Patient Instructions: - Make sure to review your medications as they have been changed and updated Return to The Hospital For: Palpitations Chest pain Increasing shortness of breath Activity & Diet Discharge Diet: Cardiac Diet Activity as Tolerated: Yes ALISON CAMPBELL MD Oct 24, 2019 17:25
[2019-10-24 17:46] VITALS: BP 113/67
== END 2019-10-24 17:21 | disposition home or self-care (01) ==
LOC: EDUNIT# 16:46 → ER 16:48 → ICU 17:30 → UNDOADMOB 17:30 → ICU 18:20 → 4TH 10-23 13:40 → ICU 10-23 13:40 → UNDODISOB 10-24 17:46
PROVIDERS: ADMIT Family Medicine; ATTEND Family Medicine
DX: I48.91 Unspecified atrial fibrillation (principal); J44.0 Chronic obstructive pulmonary disease with (acute) lower respiratory infection; I10 Essential (primary) hypertension; Z87.891 Personal history of nicotine dependence; Z88.5 Allergy status to narcotic agent; Z79.899 Other long term (current) drug therapy
CPT/HCPCS: 36415; 71045; 71046; 80053; 80061; 83735; 83874; 83880; 84484; 85025; 85610; 85730; 87081; 93005; 93306; 96374; 96375

== ENCOUNTER 2019-11-05 18:39 | Observation (INO) | payer OTHER ==
[~2019-11-05] VITALS: Ht 180 cm; Wt 85.0 kg
[~2019-11-05 18:39] MED LIST changes: +ACET-2267 PO; +ALB0.5V INH; +APIX5TAB PO; +ASPI-983 PO; +DILT240C91 PO; +FAMO10TA43 PO; +FLUT1BLS3 IH; +IBUP-2185 PO; +LISI10TA2 PO; +METO50TA7 PO; +NITR0.4T42 SL; +ROFL500T PO
[2019-11-05] MEDS ORDERED: ASPIRIN 81 MG CHEW (CHILDREN'S ASA) ONE (18:44)
[2019-11-05] MEDS ORDERED: NITROGLYCERIN 0.4 MG SL TABS BTL 25'S SL ONE (18:44)
[2019-11-05] MEDS ORDERED: NS IV 1000 ML 1,000 ML ONE (18:47)
--- NOTE | 2019-11-05 18:52 | NUR ---
Pt reports pain went from 5/10 to 3/10 after one nitro. Hold additional nitro at this time per Geovanna Schilling.
[2019-11-05] MEDS ORDERED: ASPIRIN 81 MG CHEW (CHILDREN'S ASA) PO ONE (19:00)
[2019-11-05] MEDS ORDERED: NITROGLYCERIN 0.4 MG SL TABS BTL 25'S SL PRN ×2 (19:00→21:45)
[2019-11-05 19:03] LABS: BASOPHILS % (AUTO) 0 % (0-10); EOSINOPHILS # (AUTO) 0.2 10^3/uL (0.0-0.3); EOSINOPHILS % (AUTO) 2 % (0-10); HEMATOCRIT 47 % (40-54); HEMOGLOBIN 15.5 G/DL (13.3-17.7); LYMPHOCYTES # (AUTO) 1.9 X 10^3 (1.0-4.0); LYMPHOCYTES % (AUTO) 17 % (12-44); MEAN CORPUSCULAR HEMOGLOBIN 30 PG (25-34); MEAN CORPUSCULAR HGB CONC 33 G/DL (32-36); MEAN CORPUSCULAR VOLUME 90 FL (80-99); MEAN PLATELET VOLUME 10.7 FL (7.4-10.4); MONOCYTES # (AUTO) 1.1 X 10^3 (0.0-1.0); MONOCYTES % (AUTO) 10 % (0-12); NEUTROPHILS # (AUTO) 7.8 X 10^3 (1.8-7.8); NEUTROPHILS % (AUTO) 71 % (42-75); PLATELET COUNT 295 10^3/uL (130-400); RED CELL DISTRIBUTION WIDTH 13.2 % (10.0-14.5)
[2019-11-05 19:12] LABS: INR 1.2 (0.8-1.4); PROTHROMBIN TIME PATIENT 15.1 SEC (12.2-14.7)
[2019-11-05 19:26] LABS: ALBUMIN 4.4 GM/DL (3.2-4.5); BILIRUBIN,TOTAL 0.7 MG/DL (0.1-1.0); CALCIUM 9.3 MG/DL (8.5-10.1); CREATININE SERUM 1.44 MG/DL (0.60-1.30); MAGNESIUM 2.3 MG/DL (1.6-2.4); POTASSIUM 3.1 MMOL/L (3.6-5.0); TOTAL PROTEIN 7.6 GM/DL (6.4-8.2)
[2019-11-05] MEDS ORDERED: KCL 10 MEQ TAB (MICRO K) PO STA (19:30)
--- NOTE | 2019-11-05 19:30 | Diagnostic Imaging Report ---
INDICATION: Shortness of breath, rapid heart rate. FINDINGS: Frontal view of the chest demonstrates the heart size to be a little larger than previously but still within normal limits. Pulmonary edema is present. Pulmonary vessels themselves appear normal. No pleural effusions are present. IMPRESSION: There has been development of mild pulmonary edema. Dictated by: Dictated on workstation # [id number]
--- NOTE | 2019-11-05 19:45 | ED Chest Pain ---
General Chief Complaint: Cardiac/General Problems Stated Complaint: HIGH HEART RATE 140S- SOA - CHEST PAIN Nursing Triage Note: Pt c/o SOB and rapid heart rate. Pt reports being at [facility] a couple weeks ago for afib. Nursing Sepsis Screen: No Definite Risk History of Present Illness Date Seen by Provider: Nov 05, 2019 Time Seen by Provider: 18:38 Initial Comments 49-year-old male presents for tachycardia and chest pain that began approximately 1-1/2 hours ago. He was admitted recently for A. fib and had an echo at this facility. He saw cardiology last week and had some adjustments in his medications. He is continuing to take Eliquis, no longer on aspirin. He does have nitroglycerin at home but has not taken any with the chest pain today. He denies any shortness of breath or nausea related to the chest pain. Timing/Duration: 1-3 hours Severity/Quality: mild (5/10) Location: substernal Radiation: no radiation Activities at Onset: none Prior CP/Workup: echocardiography ASA po CUSTOMER MARKETING ASSISTANT: No NTG SL CUSTOMER MARKETING ASSISTANT: No (had nitro in pocket but did not take any) Associated Symptoms: denies symptoms Allergies and Home Medications Allergies Coded Allergies: morphine (Verified Adverse Reaction, Intermediate, 08/27/19) flushed, diaphoretic. Home Medications Acetaminophen 500 Mg Tablet, 1,000 MG PO Q8H PRN for PAIN-MILD (1-4), (Reported) Albuterol Sulfate 2.5 Mg/0.5 Ml Vial.neb, 2.5 MG INH Q4H, (Reported) Albuterol Sulfate 1 Puff Puff, 2 PUFF IH Q4H PRN for SHORTNESS OF BREATH, (Reported) Apixaban 5 Mg Tablet, 5 MG PO BID Prescribed by: ALISON CAMPBELL on 10/24/191723 Aspirin 81 Mg Tablet.dr, 81 MG PO DAILY Prescribed by: ALISON CAMPBELL on 10/24/191723 Diltiazem HCl 240 Mg Cap.er.24h, 240 MG PO DAILY Prescribed by: ALISON CAMPBELL on 10/24/191723 Famotidine 10 Mg Tablet, 10 MG PO DAILY, (Reported) Fluticasone/Umeclidin/Vilanter 1 Each Blst.w.dev, 1 EACH IH DAILY, (Reported) Metoprolol Succinate 50 Mg Tab.er.24h, 50 MG PO 1700, (Reported) Nitroglycerin 0.4 Mg Tab.subl, 0 MG SL UD PRN for CHEST PAIN (ANGINA) Prescribed by: ALISON CAMPBELL on 10/24/19 1724 Roflumilast 500 Mcg Tablet, 500 MCG PO DAILY, (Reported) Patient Home Medication List Home Medication List Reviewed: Yes Review of Systems Review of Systems Constitutional: no symptoms reported, see HPI EENTM: No Symptoms Reported Respiratory: No Symptoms Reported, See HPI; Denies Shortness of Air Cardiovascular: See HPI, Chest Pain Gastrointestinal: No Symptoms Reported, See HPI; Denies Nausea Genitourinary: See HPI All Other Systems Reviewed Negative Unless Noted: Yes Past Rumxqto-Pyxvwz-Jqmkee Hx Past Med/Social Hx: Reviewed Nursing Past Med/Soc Hx Patient Social History Alcohol Use: Occasionally Uses Number of Drinks Today: AA Alcohol Beverage of Choice: Beer Recreational Drug Use: No Type Used: Cigarettes Former Smoker, Quit: Nov 02, 2015 2nd Hand Smoke Exposure: No Recent Foreign Travel: No Contact w/Someone Who Travel: No Recent Infectious Disease Expo: No Recent Hopitalizations: No Immunizations Up To Date Tetanus Booster (TDap): Unknown PED Vaccines UTD: Yes Seasonal Allergies Seasonal Allergies: No Past Medical History Surgeries: No Respiratory: Yes COPD Cardiac: Yes Atrial Fibrillation, Hypertension Neurological: No Genitourinary: No Gastrointestinal: No Musculoskeletal: No Endocrine: No HEENT: No Cancer: No Psychosocial: No Integumentary: No Blood Disorders: No Family Medical History No Pertinent Family Hx Physical Exam Vital Signs Vital Signs - First Documented 11/05/19 18:40 Temp 36.8 Pulse 137 Resp 23 B/P (MAP) 159/93 (115) Pulse Ox 98 O2 Delivery Room Air Capillary Refill : Less Than 3 Seconds Height, Weight, BMI Height: 5'11.00" Weight: 180lbs. oz. 81.633276je; 25.00 BMI Method:Stated General Appearance: No Apparent Distress Neck: Full Range of Motion, Normal Inspection, Non Tender, Supple Respiratory: Chest Non Tender, Lungs Clear, Normal Breath Sounds Cardiovascular: No Edema, Tachycardia (Rate 120-140, Sinus tach with occ PVC) Gastrointestinal: Normal Bowel Sounds, Non Tender, Soft Neurologic/Psychiatric: Alert, Oriented x3, No Motor/Sensory Deficits, Normal Mood/Affect Skin: Normal Color, Warm/Dry; No Diaphoresis Progress/Results/Core Measures Results/Orders Lab Results Laboratory Tests Test 11/05/19 18:48 Range/Units White Blood Count 11.0 4.3-11.0 10^3/uL Red Blood Count 5.20 4.35-5.85 10^6/uL Hemoglobin 15.5 13.3-17.7 G/DL Hematocrit 47 40-54 % Mean Corpuscular Volume 90 80-99 FL Mean Corpuscular Hemoglobin 30 25-34 PG Mean Corpuscular Hemoglobin Concent 33 32-36 G/DL Red Cell Distribution Width 13.2 10.0-14.5 % Platelet Count 295 130-400 10^3/uL Mean Platelet Volume 10.7 H 7.4-10.4 FL Neutrophils (%) (Auto) 71 42-75 % Lymphocytes (%) (Auto) 17 12-44 % Monocytes (%) (Auto) 10 0-12 % Eosinophils (%) (Auto) 2 0-10 % Basophils (%) (Auto) 0 0-10 % Neutrophils # (Auto) 7.8 1.8-7.8 X 10^3 Lymphocytes # (Auto) 1.9 1.0-4.0 X 10^3 Monocytes # (Auto) 1.1 H 0.0-1.0 X 10^3 Eosinophils # (Auto) 0.2 0.0-0.3 10^3/uL Basophils # (Auto) 0.0 0.0-0.1 10^3/uL Prothrombin Time 15.1 H 12.2-14.7 SEC INR Comment 1.2 0.8-1.4 Activated Partial Thromboplast Time 34 24-35 SEC Sodium Level 140 135-145 MMOL/L Potassium Level 3.1 L 3.6-5.0 MMOL/L Chloride Level 106 98-107 MMOL/L Carbon Dioxide Level 21 21-32 MMOL/L Anion Gap 13 5-14 MMOL/L Blood Urea Nitrogen 24 H 7-18 MG/DL Creatinine 1.44 H 0.60-1.30 MG/DL Estimat Glomerular Filtration Rate 52 BUN/Creatinine Ratio 17 Glucose Level 116 H 70-105 MG/DL Calcium Level 9.3 8.5-10.1 MG/DL Corrected Calcium 9.0 8.5-10.1 MG/DL Magnesium Level 2.3 1.6-2.4 MG/DL Total Bilirubin 0.7 0.1-1.0 MG/DL Aspartate Amino Transf (AST/SGOT) 15 5-34 U/L Alanine Aminotransferase (ALT/SGPT) 32 0-55 U/L Alkaline Phosphatase 81 40-136 U/L Myoglobin 34.0 10.0-92.0 NG/ML Troponin I < 0.028 <0.028 NG/ML B-Type Natriuretic Peptide 22.8 <100.0 PG/ML Total Protein 7.6 6.4-8.2 GM/DL Albumin 4.4 3.2-4.5 GM/DL My Orders Orders - SADIA EDWARD Cbc With Automated Diff (11/05/19 18:56) Magnesium (11/05/19 18:56) Chest 1 View, Ap/Pa Only (11/05/19 18:56) Ekg Tracing (11/05/19 18:56) Comprehensive Metabolic Panel (11/05/19 18:56) Myoglobin Serum (11/05/19 18:56) Protime With Inr (11/05/19 18:56) Partial Thromboplastin Time (11/05/19 18:56) O2 (11/05/19 18:56) Monitor-Rhythm Ecg Trace Only (11/05/19 18:56) Ed Iv/Invasive Line Start (11/05/19 18:56) BNP (11/05/19 18:56) Troponin I (11/05/19 18:56) Nitroglycerin 0.4 Mg Btl 25's (Nitrostat (11/05/19 19:00) Aspirin Chewable Tablet (Baby Aspirin Ch (11/05/19 19:00) Potassium Chloride (Tablet) (Klor Con Ta (11/05/19 19:30) Medications Given in ED Current Medications Medications Dose Ordered Sig/Evangelina Route Start Time Stop Time Status Last Admin Dose Admin Aspirin 81 mg STK-MED ONCE .ROUTE 11/05/19 18:44 11/05/19 18:47 DC 11/05/19 18:45 81 MG Nitroglycerin 0.4 mg STK-MED ONCE SL 11/05/19 18:44 11/05/19 18:47 DC 11/05/19 18:47 0.4 MG Sodium Chloride 1,000 ml @ ud STK-MED ONCE .ROUTE 8/18/20 18:47 11/05/19 18:50 DC 11/05/19 18:51 1,000 MLS/HR Vital Signs/I&O 11/05/19 18:40 Temp 36.8 Pulse 137 Resp 23 B/P (MAP) 159/93 (115) Pulse Ox 98 O2 Delivery Room Air Blood Pressure Mean: 115 Progress Progress Note : Time: 18:38 Progress Note Pt seen and evaluated, chest pain work up. Will give ASA 324 mg po and Nitro 0.4 SL. NS 1 L per IV. 1854 pain 3/5, HR 110-120 after 1 Nitro. 1909 HR 100-110, patient reports no further chest pain. B/P 140/80s. 1944 K+ 3.1, will give K+ [address] mEq. [address] Lucas, agreed with plan to admit for observation and repeat Troponin at 3 hours[address] Quick, agreed to consult. Pt agreeable to admission. Cont with 0 chest pain, HR 90-100, no PVCs. Initial ECG Impression Date: Nov 05, 2019 Initial ECG Impression Time: 18:43 Initial ECG Rate: 137 Initial ECG Rhythm: S.Tach Initial ECG Intervals [place] 138, QRSD 87, QT 294, QTc 444. [place] P 75, QRS 52, T 248. Initial ECG Comparisson: Unchanged Diagnostic Imaging Diagonstic Imaging: Xray Plain Films/CT/US/NM/MRI: chest Comments NAME: MIRZA MENDEZ [facility] REC#: [id number] PT STATUS: REG ER : 1970 PHYSICIAN: SADIA EDWARD ADMIT DATE: 11/05/19/ER Signed Date of Exam:11/05/19 CHEST 1 VIEW, AP/PA ONLY INDICATION: Shortness of breath, rapid heart rate. FINDINGS: Frontal view of the chest demonstrates the heart size to be a little larger than previously but still within normal limits. Pulmonary edema is present. Pulmonary vessels themselves appear normal. No pleural effusions are present. IMPRESSION: There has been development of mild pulmonary edema. Dictated by: Dictated on workstation # [id number] Dict: 11/05/191924 Trans: 11/05/191932 NEAL [id number] Interpreted by: NAKITA CHOW MD Electronically signed by: NAKITA CHOW MD 11/05/19 1933 Departure Impression Primary Impression: Chest pain Qualified Codes: R07.9 - Chest pain, unspecified Additional Impressions: A-fib Qualified Codes: I48.91 - Unspecified atrial fibrillation Chronic kidney disease (CKD) Qualified Codes: N18.9 - Chronic kidney disease, unspecified COPD (chronic obstructive pulmonary disease) Qualified Codes: J44.9 - Chronic obstructive pulmonary disease, unspecified Disposition: 09 ADMITTED INPATIENT Condition: Stable Admissions Decision to Admit/Date: Nov 05, 2019 Time/Decision to Admit Time: 20:00 Departure-Patient Inst. Referrals: CHON LUJAN DO (PCP) Primary Care Physician JONATHAN BARRIGA (Family) Primary Care Physician KATE MURRAY MD Patient Instructions: Chest Pain (DC) Copy Copies To 1: KATE MURRAY MD, AMY ARNP Nov 05, 2019 19:45
[2019-11-05 20:40] VITALS: BP 153/110
[2019-11-05 21:00] VITALS: BP 137/83
[2019-11-05 21:15] VITALS: BP 132/90
--- NOTE | 2019-11-05 21:19 | History & Physical ---
HPI History of Present Illness: 49 yo male presented to ER due to chest pain and fast heart rate. He had intermittent sharp stabbing pains in his left lower chest and sometimes in his right lower chest starting about 5 pm. His heart rate was around 115 then, he decided to wait and check again later and around 6:30 his heart rate was near 160 so he decided to come in. He was admitted with a fib about 2 weeks ago which was new for him. He denies history of heart attack. He does have some shortness of breath which he attributes to COPD, has not used any inhalers in about 2 weeks. Denies fever, cough, nasal congestion, sore throat. Source: patient Date seen by provider: Nov 05, 2019 Time Seen by Provider: 20:30 Attending Physician Kaila Lucas MD PCP Nisa Proctor DO Consult Date of Admission Nov 05, 2019 at 20:00 Home Medications Home Medications Reviewed patient Home Medication Reconciliation performed by pharmacy medication reconciliations vascular ultrasound technician and/or nursing. Patients Allergies have been reviewed. Allergies Coded Allergies: morphine (Verified Adverse Reaction, Intermediate, 08/27/19) flushed, diaphoretic. WGK-Ipahsp-Prnzoe Hx Patient Social History Alcohol Use: Occasionally Uses Recreational Drug Use: No Type Used: Cigarettes 2nd Hand Smoke Exposure: No Recent Foreign Travel: No Contact w/other who traveled: No Recent Hopitalizations: No Recent Infectious Disease Expo: No Immunizations Up To Date Tetanus Booster (TDap): Unknown Past Medical History PMHx: COPD HTN h/o tobacco abuse x30 years, 4 years of cessation currently Family Medical History Significant Family History: No Pertinent Family Hx Review of Systems (CHC) Constitutional: No fever EENTM: No nose congestion, No throat pain Respiratory: No cough; short of breath Cardiovascular: chest pain Gastrointestinal: No abdominal pain, No constipation, No diarrhea, No nausea, No vomiting Genitourinary: No dysuria Musculoskeletal: No joint pain Skin: No rash Reviewed Test Results Reviewed Test Results Lab Laboratory Tests Test 11/05/19 18:48 Range/Units White Blood Count 11.0 4.3-11.0 10^3/uL Red Blood Count 5.20 4.35-5.85 10^6/uL Hemoglobin 15.5 13.3-17.7 G/DL Hematocrit 47 40-54 % Mean Corpuscular Volume 90 80-99 FL Mean Corpuscular Hemoglobin 30 25-34 PG Mean Corpuscular Hemoglobin Concent 33 32-36 G/DL Red Cell Distribution Width 13.2 10.0-14.5 % Platelet Count 295 130-400 10^3/uL Mean Platelet Volume 10.7 H 7.4-10.4 FL Neutrophils (%) (Auto) 71 42-75 % Lymphocytes (%) (Auto) 17 12-44 % Monocytes (%) (Auto) 10 0-12 % Eosinophils (%) (Auto) 2 0-10 % Basophils (%) (Auto) 0 0-10 % Neutrophils # (Auto) 7.8 1.8-7.8 X 10^3 Lymphocytes # (Auto) 1.9 1.0-4.0 X 10^3 Monocytes # (Auto) 1.1 H 0.0-1.0 X 10^3 Eosinophils # (Auto) 0.2 0.0-0.3 10^3/uL Basophils # (Auto) 0.0 0.0-0.1 10^3/uL Prothrombin Time 15.1 H 12.2-14.7 SEC INR Comment 1.2 0.8-1.4 Activated Partial Thromboplast Time 34 24-35 SEC Sodium Level 140 135-145 MMOL/L Potassium Level 3.1 L 3.6-5.0 MMOL/L Chloride Level 106 98-107 MMOL/L Carbon Dioxide Level 21 21-32 MMOL/L Anion Gap 13 5-14 MMOL/L Blood Urea Nitrogen 24 H 7-18 MG/DL Creatinine 1.44 H 0.60-1.30 MG/DL Estimat Glomerular Filtration Rate 52 BUN/Creatinine Ratio 17 Glucose Level 116 H 70-105 MG/DL Calcium Level 9.3 8.5-10.1 MG/DL Corrected Calcium 9.0 8.5-10.1 MG/DL Magnesium Level 2.3 1.6-2.4 MG/DL Total Bilirubin 0.7 0.1-1.0 MG/DL Aspartate Amino Transf (AST/SGOT) 15 5-34 U/L Alanine Aminotransferase (ALT/SGPT) 32 0-55 U/L Alkaline Phosphatase 81 40-136 U/L Myoglobin 34.0 10.0-92.0 NG/ML Troponin I < 0.028 <0.028 NG/ML B-Type Natriuretic Peptide 22.8 <100.0 PG/ML Total Protein 7.6 6.4-8.2 GM/DL Albumin 4.4 3.2-4.5 GM/DL Radiology 11/04 CXR IMPRESSION: There has been development of mild pulmonary edema. Physical Exam-([facility]) Physical Exam Vital Signs VS - Last 72 Hours, by Label 11/05/19 11/05/19 11/05/19 11/05/19 18:40 20:29 20:40 20:55 Temp 36.8 37.0 Pulse 137 138 96 Resp 23 21 B/P (MAP) 159/93 (115) 117/99 153/110 (124) Pulse Ox 98 97 97 98 O2 Delivery Room Air Room Air Room Air Room Air Capillary Refill : Less Than 3 Seconds General Appearance: WD/WN, no apparent distress Respiratory: chest non-tender, lungs clear Cardiovascular: regular rate, rhythm, no murmur Gastrointestinal: normal bowel sounds, non tender, soft Extremities: no pedal edema Neurologic/Psychiatric: alert, normal mood/affect Skin: normal color, warm/dry Assessment/Plan Assessment/Plan Admission Status: Observation (1) Chest pain Status: Acute Assessment & Plan: Initial troponin neg, EKG without ischemic changes. Cardiology consulted, appreciate recommendations. Qualifiers: Qualified Codes: R07.9 - Chest pain, unspecified (2) COPD (chronic obstructive pulmonary disease) Status: Chronic Assessment & Plan: Resume home inhalers Qualifiers: Qualified Codes: J44.9 - Chronic obstructive pulmonary disease, unspecified (3) A-fib Status: Acute Assessment & Plan: Rate is reasonable at time of admission, resume home medications, appreciate Cardiology recommendations. Qualifiers: Qualified Codes: I48.91 - Unspecified atrial fibrillation (4) HTN (hypertension) Status: Chronic Qualifiers: Qualified Codes: I10 - Essential (primary) hypertension (5) Chronic kidney disease (CKD) Status: Chronic Qualifiers: Qualified Codes: N18.9 - Chronic kidney disease, unspecified (6) DVT prophylaxis Status: Acute Assessment & Plan: Resume home apixaban Clinical Quality Measures AMI/AHF: ASA po Prior to arrival: No DVT/VTE Risk/Contraindication: Risk Factor Score Per Nursin RFS Level Per Nursing on Admit: 4+=Very High TI ROUSSEAU MD Nov 05, 2019 21:19
--- OUTSIDE RECORDS SUMMARY | 2019-11-05 21:24 | XMS REPORT | Continuity of Care Document ---
Demographics Preferred Language Unknown Marital Status Unknown Scientology Affiliation Unknown Race Unknown Ethnic Group Unknown Author Author [employer] Organization [employer] Address Unknown Phone Unavailable Allergies Active Description Code Type Severity Reaction Onset Reported/Identified Relationship to Patient Clinical Status Yes No Known Drug Allergies [id number] Drug Allergy Unknown N/A 04/10/2011 Yes morphine [id number] Drug Allergy Moderate N/A 08/27/2019 Medications There is no data. 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 RSONAL HISTORY OF NICOTINE DEPENDENCE 02/28/2018 JONATHAN BARRIGA FUR FINISHER SEAMSTRESS Ot 496 CHR AIRWAY OBSTRUCT NEC 06/16/2019 KASSI ANGULO IMPREGNATOR HELPER Ot J44 .1 CHRONIC OBSTRUCTIVE PULMONARY DISEASE W 06/16/2019 KASSI ANGULO IMPREGNATOR HELPER Ot R00 .0 TACHYCARDIA, UNSPECIFIED 06/16/2019 KASSI ANGULO IMPREGNATOR HELPER Ot R06.02 SHORTNESS OF BREATH 06/16/2019 KASSI ANGULO IMPREGNATOR HELPER Ot R07 .9 CHEST PAIN, UNSPECIFIED 06/16/2019 KASSI ANGLUO IMPREGNATOR HELPER Ot Z87.891 PERSONAL HISTORY OF NICOTINE DEPENDENCE 06/18/2019 KASSI ANGULO IMPREGNATOR HELPER Ot J44 .1 CHRONIC OBSTRUCTIVE PULMONARY DISEASE W 06/18/2019 KASSI ANGULO IMPREGNATOR HELPER Ot R00 .0 TACHYCARDIA, UNSPECIFIED 06/18/2019 KASSI ANGULO IMPREGNATOR HELPER Ot R06.02 SHORTNESS OF BREATH 06/18/2019 KASSI ANGULO APRN Ot R07 .9 CHEST PAIN, UNSPECIFIED 06/18/2019 KASSI ANGULO APRN Ot Z87.891 PERSONAL HISTORY OF NICOTINE DEPENDENCE 06/18/2019 KASSI ANGULO APRN Ot J44 .1 CHRONIC OBSTRUCTIVE PULMONARY DISEASE W 06/18/2019 KASSI ANGULO APRN Ot R00 .0 TACHYCARDIA, UNSPECIFIED 06/18/2019 KASSI ANGULO APRN Ot R06.02 SHORTNESS OF BREATH 06/18/2019 KASSI ANGULO APRN Ot R07 .9 CHEST PAIN, UNSPECIFIED 06/18/2019 KASSI ANGULO APRN Ot Z87.891 PERSONAL HISTORY OF NICOTINE DEPENDENCE 06/30/2019 KASSI ANGULO APRN Ot J44 .1 CHRONIC OBSTRUCTIVE PULMONARY DISEASE W 06/30/2019 KASSI ANGULO APRN Ot R06.02 SHORTNESS OF BREATH 06/30/2019 KASSI ANGULO APRN Ot 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 2 PALPITATIONS 07/31/2019 KTAE MURRAY MD Ot R06. 00 DYSPNEA, UNSPECIFIED 07/31/2019 KATE MURRAY MD Ot R07. 9 CHEST PAIN, UNSPECIFIED 07/31/2019 KATE MURRAY MD Ot Z72. 0 TOBACCO USE 08/27/2019 KASSI ANGULO APRN Ot J44 .1 CHRONIC OBSTRUCTIVE PULMONARY DISEASE W 08/27/2019 KASSI ANGULO APRN Ot R06.02 SHORTNESS OF BREATH 08/27/2019 KASSI ANGULO APRN Ot Z79.52 CORRECTION (CURRENT) USE OF SYSTEMIC STER 08/27/2019 KASSI ANGULO IMPREGNATOR HELPER Ot Z87.891 PERSONAL HISTORY OF NICOTINE DEPENDENCE 08/27/2019 KASSI ANGULO IMPREGNATOR HELPER Ot Z88 .5 ALLERGY STATUS TO NARCOTIC AGENT STATUS 08/29/2019 KEV KASSI Duong IMPREGNATOR HELPER Ot J44 .1 CHRONIC OBSTRUCTIVE PULMONARY DISEASE W 08/29/2019 KASSI ANGULO IMPREGNATOR HELPER Ot R06.02 SHORTNESS OF BREATH 08/29/2019 KASSI ANGULO IMPREGNATOR HELPER Ot 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 0 TOBACCO USE 10/22/2019 JONATHAN BARRIGA FUR FINISHER SEAMSTRESS Ot 496 CHR AIRWAY OBSTRUCT NEC 10/22/2019 [...] JAMES JEFF APRN Ot Z72.0 TOBACCO USE 10/24/2019 ALISON CAMPBELL MD Ot I10 ESSENTIAL (PRIMARY) HYPERTENSION 10/24/2019 ALISON CAMPBELL MD Ot I48.9 1 UNSPECIFIED ATRIAL FIBRILLATION 10/24/2019 ALISON CAMPBELL MD, Ot J44.0 CHR OBSTRUCTIVE PULMON DISEASE WITH (ACU 10/24/2019 ALISON CAMPBELL MD Ot Z79.8 99 OTHER CORRECTION (CURRENT) DRUG THERAPY 10/24/2019 ALISON CAMPBELL MD, Ot Z87.8 91 PERSONAL HISTORY OF NICOTINE DEPENDENCE 10/24/2019 ALISON CAMPBELL MD, Ot Z88.5 ALLERGY STATUS TO NARCOTIC AGENT STATUS Procedures There is no data. Results Test Result Range Comp. Metabolic Panel () - 06/20/16 10 :32 Glucose, Serum 90 [...] 7-25 CREATININE 1.21 mg/dL 0.70-1.33 eGFR NON-AFR. [place] 69 mL/min/1.73m2 > OR = 60 eGFR [...] in platelet poor plasma bycoagulation assay - 06/16/19 19:33 Activated partial thromboplastin time (a PTT) [...] G Measurement of body temperature 37.1 NRG MAGNESIUM SERUM - 10/16/19 09:31 MAGNESIUM 2.4 mg/dL 1.5-2.5 CBC - 10/16/19 09:31 WHITE BLOOD CELL COUNT 6.7 Thousand/uL 3 .8-10.8 RED BLOOD CELL COUNT 5.16 Million/uL 4.2 0-5.80 HEMOGLOBIN 15.4 g/dL 13.2-17.1 HEMATOCRIT 47.2 % 38.5-50.0 MCV 91.5 fL 80.0-100.0 MCH 29.8 pg 27.0-33.0 MCHC 32.6 g/dL 32.0-36.0 RDW 12.7 % 11.0-15.0 PLATELET COUNT 262 Thousand/uL 140-400 MPV 10.6 fL 7.5-12.5 ABSOLUTE NEUTROPHILS 4549 cells/uL 1500- 7800 ABSOLUTE LYMPHOCYTES 1246 cells/uL 850-3 900 ABSOLUTE MONOCYTES 697 cells/uL 200-950 ABSOLUTE EOSINOPHILS 181 cells/uL 15-500 ABSOLUTE BASOPHILS 27 cells/uL 0-200 NEUTROPHILS 67.9 % NRG LYMPHOCYTES 18.6 % NRG MONOCYTES 10.4 % NRG EOSINOPHILS 2.7 % NRG BASOPHILS 0.4 % NRG Complete blood count (CBC) with automate d white blood cell (WBC) differential - 10/22/19 16:45 Blood leukocytes automated count (number/volume) 11.1 10*3/uL 4.3-11.0 Blood erythrocytes automated count (number/volume) 5.20 10*6/uL 4.35-5.85 Venous blood hemoglobin measurement (mass/volume) 15.6 g/dL 13.3-17.7 Blood hematocrit (volume fraction) 46 % 40-54 Automated erythrocyte mean corpuscular volume 89 [ foz_us] 80-99 Automated erythrocyte mean corpuscular h emoglobin (mass per erythrocyte) 30 pg 25-34 Automated erythrocyte mean corpuscular h emoglobin concentration measurement (mass/volume) 34 g/dL 32-36 Automated erythrocyte distribution width ratio 13. 4 % 10.0- 14.5 Automated blood platelet count (count/volume) 273 10*3/uL 130-400 Automated blood platelet mean volume measurement 10.1 [foz_us] 7.4-10.4 Automated blood neutrophils/100 leukocytes 72 % 42-75 Automated blood lymphocytes/100 leukocytes 18 % 12-44 Blood monocytes/100 leukocytes 8 % 0-12 Automated blood eosinophils/100 leukocytes 1 % 0-10 Automated blood basophils/100 leukocytes 0 % 0-10 Blood neutrophils automated count (number/volume) 8.0 10*3 1.8-7.8 Blood lymphocytes automated count (number/volume) 2.0 10*3 1.0-4.0 Blood monocytes automated count (number/volume) 0. 9 10*3 0.0-1.0 Automated eosinophil count 0.1 10*3/uL 0 .0-0.3 Automated blood basophil count (count/volume) 0.0 10*3/uL 0.0-0.1 PT panel in platelet poor plasma by coag ulation assay - 10/22/19 16:45 Prothrombin time (PT) in platelet poor plasma by coagu lation assay 12.6 s 12.2-14.7 INR in platelet poor plasma or blood by coagulation as say 0.9 0.8-1.4 Activated partial thromboplastin time (a PTT) in platelet poor plasma bycoagulation assay - 10/22/19 16:45 Activated partial thromboplastin time (a PTT) in platelet poor plasma bycoagulation assay 27 s 24-35 Comprehensive metabolic panel - 10/22/19 16:45 Serum or plasma sodium measurement (moles/volume) 140 mmol/L 135-145 Serum or plasma potassium measurement (moles/volume) 3.3 mmol/L 3.6-5.0 Serum or plasma chloride measurement (moles/volume) 107 mmol/L 98-107 Carbon dioxide 20 mmol/L 21-32 Serum or plasma anion gap determination (moles/volume) 13 mmol/L 5-14 Serum or plasma urea nitrogen measurement (mass/volume ) 25 mg/dL 7-18 Serum or plasma creatinine measurement (mass/volume) 1.36 mg/dL 0.60-1.30 Serum or plasma urea nitrogen/creatinine mass ratio 18 NRG Serum or plasma creatinine measurement w ith calculation of estimated glomerular filtration rate 55 NRG Serum or plasma glucose measurement (mass/volume) 157 mg/dL 70-105 Serum or plasma calcium measurement (mass/volume) 9.1 mg/dL 8.5-10.1 Serum or plasma total bilirubin measurement (mass/volu me) 0.4 mg/dL 0.1-1.0 Serum or plasma alkaline phosphatase brittany surement (enzymatic activity/volume) 88 U/L 40-136 Serum or plasma aspartate aminotransfera se measurement (enzymatic activity/volume) 15 U/L 5-34 Serum or plasma alanine aminotransferase measurement (enzymatic activity/volume) 29 U/L 0-55 Serum or plasma protein measurement (mass/volume) 7.5 g/dL 6.4-8.2 Serum or plasma albumin measurement (mass/volume) 4.4 g/dL 3.2-4.5 CALCIUM CORRECTED 8.8 mg/dL 8.5-10.1 Magnesium - 10/22/19 16:45 Magnesium 2.1 mg/dL 1.6-2.4 Myoglobin, serum - 10/22/19 16:45 Myoglobin, serum 37.9 ng/mL 10.0-92.0 Serum or plasma troponin i.cardiac measu rement (mass/volume) - 10/22/19 16:45 Serum or plasma troponin i.cardiac measurement (mass/v olume) < ng/mL <0.028 Serum or plasma lithium measurement (mol es/volume) - 10/22/19 16:45 BNP PT 22.8 pg/mL <100.0 Methicillin resistant Staphylococcus aur eus (MRSA) screening culture - 10/22/19 18:39 Methicillin resistant Staphylococcus aureus (MRSA) scr eening culture NEG NRG Serum or plasma troponin i.cardiac measu rement (mass/volume) - 10/22/19 22:52 Serum or plasma troponin i.cardiac measurement (mass/v olume) < ng/mL <0.028 Complete blood count (CBC) with automate d white blood cell (WBC) differential - 10/23/19 04:57 Blood leukocytes automated count (number/volume) 10.0 10*3/uL 4.3-11.0 Blood erythrocytes automated count (number/volume) 4.66 10*6/uL 4.35-5.85 Venous blood hemoglobin measurement (mass/volume) 13.9 g/dL 13.3-17.7 Blood hematocrit (volume fraction) 42 % 40-54 Automated erythrocyte mean corpuscular volume 90 [ foz_us] 80-99 Automated erythrocyte mean corpuscular h emoglobin (mass per erythrocyte) 30 pg 25-34 Automated erythrocyte mean corpuscular h emoglobin concentration measurement (mass/volume) 33 g/dL 32-36 Automated erythrocyte distribution width ratio 13. 4 % 10.0- 14.5 Automated blood platelet count (count/volume) 213 10*3/uL 130-400 Automated blood platelet mean volume measurement 10.1 [foz_us] 7.4-10.4 Automated blood neutrophils/100 leukocytes 73 % 42-75 Automated blood lymphocytes/100 leukocytes 14 % 12-44 Blood monocytes/100 leukocytes 11 % 0-12 Automated blood eosinophils/100 leukocytes 1 % 0-10 Automated blood basophils/100 leukocytes 0 % 0-10 Blood neutrophils automated count (number/volume) 7.3 10*3 1.8-7.8 Blood lymphocytes automated count (number/volume) 1.4 10*3 1.0-4.0 Blood monocytes automated count (number/volume) 1. 1 10*3 0.0-1.0 Automated eosinophil count 0.1 10*3/uL 0 .0-0.3 Automated blood basophil count (count/volume) 0.0 10*3/uL 0.0-0.1 Comprehensive metabolic panel - 10/23/19 04:57 Serum or plasma sodium measurement (moles/volume) 141 mmol/L 135-145 Serum or plasma potassium measurement (moles/volume) 3.6 mmol/L 3.6-5.0 Serum or plasma chloride measurement (moles/volume) 110 mmol/L 98-107 Carbon dioxide 17 mmol/L 21-32 Serum or plasma anion gap determination (moles/volume) 14 mmol/L 5-14 Serum or plasma urea nitrogen measurement (mass/volume ) 16 mg/dL 7-18 Serum or plasma creatinine measurement (mass/volume) 1.04 mg/dL 0.60-1.30 Serum or plasma urea nitrogen/creatinine mass ratio 15 NRG Serum or plasma creatinine measurement w ith calculation of estimated glomerular filtration rate > NRG Serum or plasma glucose measurement (mass/volume) 115 mg/dL 70-105 Serum or plasma calcium measurement (mass/volume) 8.5 mg/dL 8.5-10.1 Serum or plasma total bilirubin measurement (mass/volu me) 0.6 mg/dL 0.1-1.0 Serum or plasma alkaline phosphatase brittany surement (enzymatic activity/volume) 69 U/L 40-136 Serum or plasma aspartate aminotransfera se measurement (enzymatic activity/volume) 15 U/L 5-34 Serum or plasma alanine aminotransferase measurement (enzymatic activity/volume) 25 U/L 0-55 Serum or plasma protein measurement (mass/volume) 6.5 g/dL 6.4-8.2 Serum or plasma albumin measurement (mass/volume) 3.9 g/dL 3.2-4.5 CALCIUM CORRECTED 8.6 mg/dL 8.5-10.1 Serum or plasma troponin i.cardiac measu rement (mass/volume) - 10/23/19 04:57 Serum or plasma troponin i.cardiac measurement (mass/v olume) < ng/mL <0.028 Lipid 1996 panel - 10/23/19 04:57 Serum or plasma triglyceride measurement (mass/volume) 80 mg/dL <150 Serum or plasma cholesterol measurement (mass/volume) 159 mg/dL < 200 Serum or plasma cholesterol in HDL measurement (mass/v olume) 44 mg/dL 40-60 Cholesterol in LDL [mass/volume] in serum or plasma by direct assay 102 mg/dL 1-129 Serum or plasma cholesterol in VLDL measurement (mass/ volume) 16 mg/dL 5-40 Encounters ACCT No. Visit Date/Time Discharge Status Pt. Type Provider Facility Loc./Unit Complaint [id number] 06/21/2016 10:11:00 Document Registration [id number] 10/30/2019 09:40:00 10/30/2019 23:59: 59 CLS Outpatient NAREN ÁLVAREZ [place] [id number] 10/16/2019 08:00:00 Document Registration [id number] 05/02/2019 09:20:00 Document Registration [id number] 05/21/2018 09:40:00 Document Registration [id number] 10/22/2019 18:20:00 17:21:00 DIS Outpatient ADRIAN RAZO, ALISON Yang [facility] 4TH AFIB W RVR ACS [id number] 09/02/2019 11:57:00 23:59:59 CLS Outpatient JAMES JEFF APRN [facility] RT COPD [id number] 08/27/2019 12:25:00 15:24:00 DIS Emergency KASSI ANGULO APRN [facility] ER SOA;CHEST PAIN [id number] 07/29/2019 07:42:00 23:59:59 CLS Outpatient KATE MURRAY MD [facility] CARD CHEST PAIN [id number] 07/26/2019 11:51:00 23:59:59 CLS Outpatient KATE MURRAY MD [facility] CARD CHEST PAIN [id number] 06/30/2019 13:34:00 14:37:00 DIS Emergency KASSI ANGULO APRN [facility] ER SOB/CHEST PRESSURE [id number] 06/16/2019 19:25:00 22:05:00 DIS Emergency KASSI ANGULO APRN [facility] ER COPD,SOB [id number] 09/03/2014 11:42:00 23:59:59 CLS Outpatient JONATHAN BARRIGAP [facility] LAB COPD [id number] 10/26/2017 00:51:00 Document Registration
[2019-11-05 21:30] VITALS: BP 142/91
[2019-11-05 21:45] VITALS: BP 136/99
[2019-11-05] MEDS ORDERED: ACETAMINOPHEN 325 MG TABLET PO PRN (21:45)
[2019-11-05] MEDS ORDERED: ONDANSETRON 4 MG/2 ML (SDV) Z0FRAN IVP PRN (21:45)
[2019-11-05] MEDS ORDERED: FAMOTIDINE 20 MG (PEPCID) TABLET ONE (22:24)
[2019-11-06] MEDS ORDERED: ASPIRIN 325 MG (5 GR) TABLET PO SCH (09:00)
[2019-11-06] MEDS ORDERED: NON-FORMULARY MEDICATION 1 EA EA (Fluticasone/Umeclidin/Vilanter (Trelegy Ellipta 100-62.5 IH SCH (09:00)
[2019-11-06] MEDS ORDERED: FAMOTIDINE 20 MG (PEPCID) TABLET ONE (09:10)
[2019-11-06] MEDS ORDERED: ASPIRIN 81 MG CHEW (CHILDREN'S ASA) ONE (09:11)
[2019-11-06] MEDS ORDERED: REGADENOSON 0.4 MG/5 ML SYR (LEXISCAN) IV ONE (11:52)
[2019-11-07 06:52] LABS: HEMATOCRIT 45 % (40-54); LYMPHOCYTES % (AUTO) 19 % (12-44); MEAN CORPUSCULAR HEMOGLOBIN 30 PG (25-34); MEAN CORPUSCULAR HGB CONC 33 G/DL (32-36); MEAN CORPUSCULAR VOLUME 91 FL (80-99); MEAN PLATELET VOLUME 10.2 FL (7.4-10.4); MONOCYTES % (AUTO) 11 % (0-12); NEUTROPHILS % (AUTO) 68 % (42-75); PLATELET COUNT 264 10^3/uL (130-400); RED CELL DISTRIBUTION WIDTH 13.5 % (10.0-14.5); WHITE BLOOD COUNT 7.6 10^3/uL (4.3-11.0)
[2019-11-07 06:53] LABS: BASOPHILS % (AUTO) 0 % (0-10); EOSINOPHILS # (AUTO) 0.2 10^3/uL (0.0-0.3); EOSINOPHILS % (AUTO) 2 % (0-10); LYMPHOCYTES # (AUTO) 1.4 X 10^3 (1.0-4.0); MONOCYTES # (AUTO) 0.9 X 10^3 (0.0-1.0); NEUTROPHILS # (AUTO) 5.2 X 10^3 (1.8-7.8)
[2019-11-07 06:54] LABS: CALCIUM 8.7 MG/DL (8.5-10.1); CREATININE SERUM 1.27 MG/DL (0.60-1.30); POTASSIUM 4.1 MMOL/L (3.6-5.0)
[2019-11-07 08:00] VITALS: BP 125/95
[2019-11-07] MEDS ORDERED: DILT240C91 PO (08:19)
[2019-11-07] MEDS ORDERED: APIX5TAB PO (08:19)
--- NOTE | 2019-11-07 08:21 | NUR ---
SPOKE WITH THE PT AND [facility] TO COMPLETE THE MED REC THE FOLLOWING MEDS ARE FROM THE REPOSITORY OR PALS: ELIQUIS 5MG FILLED 10-24-2019 #180/90DS DILTIAZEM ER 240MG FILLED 10-24-2019 #90/90DS TRELEGY 100/62.5/25 FILLED 08-19-2019 #3/90DS DALIRESP 500MCG FILLED 08-29-2019 #90/90DS THE FOLLOWING ARE FILL DATES FROM 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
[2019-11-07] MEDS ORDERED: FAMOTIDINE 20 MG (PEPCID) TABLET PO SCH (09:00)
[2019-11-07] MEDS ORDERED: meTOproloL SUCCINATE 50 MG (TOPROL XL) TAB PO SCH (09:00)
[2019-11-07] MEDS ORDERED: ASPIRIN 81 MG CHEW (CHILDREN'S ASA) PO SCH (09:00)
[2019-11-07 09:46] LABS: BILIRUBIN,TOTAL 0.5 MG/DL (0.1-1.0); BUN/CREATININE RATIO 18; CALCIUM 8.3 MG/DL (8.5-10.1); CARBON DIOXIDE 22 MMOL/L (21-32); CHLORIDE 109 MMOL/L (98-107); CREATININE SERUM 1.11 MG/DL (0.60-1.30); GFR ESTIMATED > 60; GLUCOSE 104 MG/DL (70-105); POTASSIUM 3.7 MMOL/L (3.6-5.0); SODIUM 139 MMOL/L (135-145)
[2019-11-07 09:47] LABS: ALANINE AMINOTRANSFERASE 26 U/L (0-55); ALBUMIN 3.7 GM/DL (3.2-4.5); ALKALINE PHOSPHATASE 70 U/L (40-136); TOTAL PROTEIN 6.4 GM/DL (6.4-8.2)
[2019-11-07 09:57] LABS: CHOLESTEROL 138 MG/DL (< 200); HDL CHOLESTEROL 40 MG/DL (40-60); TRIGLYCERIDES 89 MG/DL (<150); VLDL CHOLESTEROL 18 MG/DL (5-40)
[2019-11-07 09:59] LABS: EOSINOPHILS % (AUTO) 2 % (0-10); HEMATOCRIT 41 % (40-54); HEMOGLOBIN 13.5 G/DL (13.3-17.7); LYMPHOCYTES % (AUTO) 20 % (12-44); MEAN CORPUSCULAR HEMOGLOBIN 30 PG (25-34); MEAN CORPUSCULAR HGB CONC 33 G/DL (32-36); MEAN CORPUSCULAR VOLUME 91 FL (80-99); MEAN PLATELET VOLUME 10.7 FL (7.4-10.4); MONOCYTES % (AUTO) 11 % (0-12); NEUTROPHILS % (AUTO) 66 % (42-75); PLATELET COUNT 241 10^3/uL (130-400); RED CELL DISTRIBUTION WIDTH 13.2 % (10.0-14.5)
[2019-11-07 10:00] LABS: BASOPHILS % (AUTO) 0 % (0-10); EOSINOPHILS # (AUTO) 0.2 10^3/uL (0.0-0.3); LYMPHOCYTES # (AUTO) 1.6 X 10^3 (1.0-4.0); MONOCYTES # (AUTO) 0.9 X 10^3 (0.0-1.0); NEUTROPHILS # (AUTO) 5.3 X 10^3 (1.8-7.8)
[2019-11-07] MEDS ORDERED: ASPIRIN 81 MG CHEW (CHILDREN'S ASA) ONE (10:02)
[2019-11-07] MEDS ORDERED: meTOproloL SUCCINATE 50 MG (TOPROL XL) TAB PO ONE (10:02)
[2019-11-07] MEDS ORDERED: FAMOTIDINE 20 MG (PEPCID) TABLET ONE (10:02)
[2019-11-07] MEDS: ROFLUMILAST 500 MCG TAB (DALIRESP) PO SCH ×2 (10:08→10:13)
[2019-11-07] MEDS: APIXABAN 5 MG (ELIQUIS) TABLET PO SCH ×3 (10:09→10:14)
[2019-11-07] MEDS ORDERED: ASPI-999 PO (11:05)
--- NOTE | 2019-11-07 11:06 | Discharge Summary ---
Discharge Inst-[facility] Discharge Medications New, Converted or Re-Newed RX: Transmitted to Pharmacy New Medications: Aspirin (Aspirin) 81 Mg Tab.chew 81 MG PO DAILY, #30 TAB 0 Refills Continued Medications: Albuterol Sulfate (Albuterol Sulfate) 2.5 Mg/0.5 Ml Vial.neb 2.5 MG INH Q4H for SHORTNESS OF BREATH, EACH Albuterol Sulfate (Proair Hfa) 1 Puff Puff 2 PUFF IH Q4H PRN for SHORTNESS OF BREATH, PUFF Apixaban (Eliquis) 5 Mg Tablet 5 MG PO BID, TAB Diltiazem HCl (Diltiazem 24Hr ER) 240 Mg Cap.er.24h 240 MG PO DAILY, CAP Famotidine (Pepcid AC) 10 Mg Tablet 10 MG PO DAILY, TAB Fluticasone/Umeclidin/Vilanter (Trelegy Ellipta 100-62.5-25) 1 Each Blst.w.dev 1 EACH IH DAILY Metoprolol Succinate (Metoprolol Succinate) 50 Mg Tab.er.24h 50 MG PO 1700, TAB Nitroglycerin (Nitroglycerin) 0.4 Mg Tab.subl 0 MG SL UD PRN for CHEST PAIN (ANGINA), #10 TAB Roflumilast (Daliresp) 500 Mcg Tablet 500 MCG PO DAILY, TAB Patient Instructions Goal/Follow Up Appt: Follow up with Dr. Bolden as directed. Follow up at [facility] with Adelita Roldan on 11/12 at 9:40 am. Return to The [facility] For: Fever, worsening shortness of breath or chest pain Activity & Diet Discharge Diet: Cardiac Diet Activity as Tolerated: Yes TI ROUSSEAU MD Nov 07, 2019 11:06
[2019-11-07 11:45] VITALS: BP 122/95
--- NOTE | 2019-11-07 11:47 | Discharge Summary ---
Discharge Summary Hospital Course Problems/Diagnosis: (1) Chest pain Status: Acute Assessment & Plan: Initial troponin neg, EKG without ischemic changes. Cardiology consulted, appreciate recommendations. Had stress test that was negative, discharged to follow up with Cardiology out patient. Qualifiers: Qualified Codes: R07.9 - Chest pain, unspecified (2) COPD (chronic obstructive pulmonary disease) Status: Chronic Assessment & Plan: Resume home inhalers Qualifiers: Qualified Codes: J44.9 - Chronic obstructive pulmonary disease, unspecified (3) A-fib Status: Acute Assessment & Plan: Rate is reasonable at time of admission, resume home medi cations, appreciate Cardiology recommendations. Qualifiers: Qualified Codes: I48.91 - Unspecified atrial fibrillation (4) HTN (hypertension) Status: Chronic Qualifiers: Qualified Codes: I10 - Essential (primary) hypertension (5) Chronic kidney disease (CKD) Status: Chronic Qualifiers: Qualified Codes: N18.9 - Chronic kidney disease, unspecified Hospital Course Date of Admission: Nov 05, 2019 at 20:00 Admission Diagnosis : Family Physician/Provider: Marisel Almonte Date of Discharge: 11/07/19 Discharge Diagnosis: See problem list Hospital Course: See problem list Labs and Pending Lab Test: Laboratory Tests 11/07/19 03:00: White Blood Count 7.6, Red Blood Count 5.01, Hemoglobin 15.0, Hematocrit 45, Mean Corpuscular Volume 91, Mean Corpuscular Hemoglobin 30, Mean Corpuscular Hemoglobin Concent 33, Red Cell Distribution Width 13.5, Platelet Count 264, Mean Platelet Volume 10.2, Neutrophils (%) (Auto) 68, Lymphocytes (%) (Auto) 19, Monocytes (%) (Auto) 11, Eosinophils (%) (Auto) 2, Basophils (%) (Auto) 0, Neutrophils # (Auto) 5.2, Lymphocytes # (Auto) 1.4, Monocytes # (Auto) 0.9, Eosinophils # (Auto) 0.2, Basophils # (Auto) 0.0, Sodium Level 139, Potassium Level 4.1, Chloride Level 106, Carbon Dioxide Level 23, Anion Gap 10, Blood Urea Nitrogen 18, Creatinine 1.27, Estimat Glomerular Filtration Rate 60, BUN/Creatinine Ratio 14, Glucose Level 105, Calcium Level 8.7 Home Meds Active Aspirin 81 Mg Tab.chew 81 Mg PO DAILY Nitroglycerin 0.4 Mg Tab.subl 0 Mg SL UD PRN Reported Diltiazem 24Hr ER (Diltiazem HCl) 240 Mg Cap.er.24h 240 Mg PO DAILY Eliquis (Apixaban) 5 Mg Tablet 5 Mg PO BID Pepcid AC (Famotidine) 10 Mg Tablet 10 Mg PO DAILY Trelegy Ellipta 100-62.5-25 (Fluticasone/Umeclidin/Vilanter) 1 Each Blst.w.dev 1 Each IH DAILY Daliresp (Roflumilast) 500 Mcg Tablet 500 Mcg PO DAILY Proair Hfa (Albuterol Sulfate) 1 Puff Puff 2 Puff IH Q4H PRN Albuterol Sulfate 2.5 Mg/0.5 Ml Vial.neb 2.5 Mg INH Q4H Metoprolol Succinate 50 Mg Tab.er.24h 50 Mg PO 1700 Assessment/Pt DC Instructions Follow up with Cardiology and primary provider for further work-up of pain. Discharge Diet: Cardiac Diet Activity as Tolerated: Yes Discharge Physical Examination Allergies: Coded Allergies: morphine (Verified Adverse Reaction, Intermediate, 08/27/19) flushed, diaphoretic. General Appearance: No Apparent Distress, WD/WN Respiratory: Lungs Clear, Normal Breath Sounds Cardiovascular: Regular Rate, Rhythm, No Murmur Extremity: No Pedal Edema Skin: Normal Color, Warm/Dry Neurologic/Psychiatric: Alert, Normal Mood/Affect Clinical Quality Measures AMI/AHF: ASA po Prior to arrival: No DVT/VTE Risk/Contraindication: Risk Factor Score Per Nursin RFS Level Per Nursing on Admit: 4+=Very High TI ROUSSEAU MD Nov 07, 2019 11:47
--- NOTE | 2019-11-07 18:26 | Cardiology Progress Note ---
Cardiology SOAP Progress Note Objective: I&O/Vital Signs 11/07/19 11/07/19 11/07/19 11/07/19 08:00 09:00 11:45 12:00 Temp 36.8 36.8 Pulse 72 91 Resp 19 20 B/P (MAP) 125/95 (105) 122/95 (104) Pulse Ox 96 96 95 O2 Delivery Room Air Room Air Room Air Weight (Pounds): 180 Weight (Calculated Kilograms): 81.913534 Results/Procedures: Labs Laboratory Tests 11/07/19 03:00: White Blood Count 7.6, Red Blood Count 5.01, Hemoglobin 15.0, Hematocrit 45, Mean Corpuscular Volume 91, Mean Corpuscular Hemoglobin 30, Mean Corpuscular Hemoglobin Concent 33, Red Cell Distribution Width 13.5, Platelet Count 264, Mean Platelet Volume 10.2, Neutrophils (%) (Auto) 68, Lymphocytes (%) (Auto) 19, Monocytes (%) (Auto) 11, Eosinophils (%) (Auto) 2, Basophils (%) (Auto) 0, Neutrophils # (Auto) 5.2, Lymphocytes # (Auto) 1.4, Monocytes # (Auto) 0.9, Eosinophils # (Auto) 0.2, Basophils # (Auto) 0.0, Sodium Level 139, Potassium Level 4.1, Chloride Level 106, Carbon Dioxide Level 23, Anion Gap 10, Blood Urea Nitrogen 18, Creatinine 1.27, Estimat Glomerular Filtration Rate 60, BUN/Creatinine Ratio 14, Glucose Level 105, Calcium Level 8.7 A/P: Thank you for your consultation. Please call me if you have any questions. Ruben Lucas MD, FACP, FACC, FSCAI, FHRS, CCDS Interventional Cardiology Cardiac Electrophysiology Vascular Medicine and Endovascular Interventions Clinical Quality Measures AMI/AHF: ASA po Prior to arrival: Kaila Curiel MD Nov 07, 2019 18:26
--- NOTE | 2019-11-07 18:29 | Cardiology Stress Test Report ---
Stress Test Report Date of Procedure/Referring: PCP Rhinanon Quick MD Admitting Physician Nisa Proctor DO Baseline Blood Pressure: Blood Pressure Systolic: 122 Blood Pressure Diastolic: 95 Summary & Conclusion: Summary: The patient was brought to the stress lab after informed consent was taken. Stress test was performed according to the Lexiscan protocol. 0.4 mg of IV Lexiscan was given. Low-grade exercise was performed. Baseline EKG showed sinus rhythm at BPM. Initial blood pressure was mmHg. Maximum heart rate was bpm and blood pressure mmHg. Patient did not have any chest pain, arrhythmias or ST segment changes during the stress test. mCi of Myoview were given for rest imaging and mCi of Myoview given for stress i maging. Transient ischemic dilatation score , EF percent. Normal wall motion. Normal myocardial perfusion imaging during rest and stress. Conclusion: Pharmacological stress test was negative for ischemia. Normal LV function with no wall motion abnormalities. Normal myocardial perfusion imaging during rest and stress. Kaila THOMAS MD Nov 07, 2019 18:28
== END 2019-11-07 13:55 | disposition home or self-care (01) ==
LOC: EDUNIT# 18:39 → ER 18:40 → ICU 20:00
PROVIDERS: ADMIT Family Medicine; ATTEND Family Medicine
DX: R07.9 Chest pain, unspecified (principal); J44.9 Chronic obstructive pulmonary disease, unspecified; I48.91 Unspecified atrial fibrillation; I12.9 Hypertensive chronic kidney disease with stage 1 through stage 4 chronic kidney disease, or unspecified chronic kidney disease; N18.9 Chronic kidney disease, unspecified; Z79.82 Long term (current) use of aspirin; Z79.01 Long term (current) use of anticoagulants; Z79.51 Long term (current) use of inhaled steroids; Z79.899 Other long term (current) drug therapy; Z88.5 Allergy status to narcotic agent; Z88.8 Allergy status to other drugs, medicaments and biological substances
CPT/HCPCS: 71045; 78452; 80048; 80053 ×2; 80061; 83735; 83874; 83880; 84484; 85025 ×3; 85610; 85730; 93005; 93017; 93041; 93306; 99284; A9502; 36415

== ENCOUNTER 2019-11-12 21:58 | Emergency (ER) | payer OTHER ==
[~2019-11-12] VITALS: Ht 180 cm; Wt 84.1 kg
[~2019-11-12 21:58] MED LIST changes: +ASPI-999 PO
[2019-11-12 22:49] LABS: BILIRUBIN,URINE NEGATIVE (NEGATIVE); CLARITY,URINE CLEAR; COLOR,URINE YELLOW; GLUCOSE, URINE (UA) NEGATIVE (NEGATIVE); KETONES,URINE TRACE (NEGATIVE); LEUKOCYTE ESTERASE ,URINE NEGATIVE (NEGATIVE); NITRITE,URINE NEGATIVE (NEGATIVE); PH,URINE 5.5 (5-9); PROTEIN,URINE NEGATIVE (NEGATIVE)
[2019-11-12 23:01] LABS: BACTERIA,URINE NEGATIVE /HPF; SQUAMOUS EPITHELIAL CELL,UR RARE /HPF
[2019-11-12] MEDS ORDERED: FAMOTIDINE 20 MG (PEPCID) TABLET PO STA (23:06)
--- NOTE | 2019-11-12 23:11 | ED Abdominal Pain ---
General Chief Complaint: Abdominal/GI Problems Stated Complaint: ABD PAIN Nursing Triage Note: intermittant sharp upper abdominal pain since 1729. Sepsis Screen: No Definite Risk Source of Information: Patient Exam Limitations: No Limitations History of Present Illness Date Seen by Provider: Nov 12, 2019 Time Seen by Provider: 22:36 Initial Comments patient presents ER by private conveyance with chief complaint that all day to days been having some intermittent, waxing and waning abdominal pressure with occasional stabbing pain in his bilateral upper quadrants. He says he feels like the pain is starting in his low abdomen worked its way out. He recently started Eliquis after being discovered to have atrial fibrillation. He tried some Tylenol which worked for about 3 or 4 hours and then the pain came back. He has not tried any antacids, NSAIDs or other medicines. He does not have a history of any abdominal surgeries, irritable bowel syndrome, inflammatory bowel disease, pancreatitis. He does have a history of GERD and has had some burning regur gitation the back of his throat today. No history of endoscopy. patient has noted increased loose stools 4 today. Typically he only has 1 maybe 2 day that are normal formed. He has not noticed any black tarry or bloody stools. Allergies and Home Medications Allergies Coded Allergies: morphine (Verified Adverse Reaction, Intermediate, 08/27/19) flushed, diaphoretic. Home Medications Apixaban 5 Mg Tablet, 5 MG PO BID, (Reported) Aspirin 81 Mg Tab.chew, 81 MG PO DAILY Prescribed by: TI ROUSSEAU on 11/07/19 1105 Diltiazem HCl 240 Mg Cap.er.24h, 240 MG PO DAILY, (Reported) Famotidine 10 Mg Tablet, 10 MG PO DAILY, (Reported) Fluticasone/Umeclidin/Vilanter 1 Each Blst.w.dev, 1 EACH IH DAILY, (Reported) Metoprolol Succinate 50 Mg Tab.er.24h, 50 MG PO 1700, (Reported) Roflumilast 500 Mcg Tablet, 500 MCG PO DAILY, (Reported) Patient Home Medication List Home Medication List Reviewed: Yes Review of Systems Review of Systems Constitutional: No chills, No diaphoresis, No fever EENTM: No Blurred Vision, No Double Vision Respiratory: Denies Cough, Denies Shortness of Air Cardiovascular: Denies Chest Pain, Denies Edema Gastrointestinal: See HPI, Abdominal Pain; Denies Constipated; Diarrhea; Denies Nausea, Denies Poor Fluid Intake, Denies Rectal Bleeding, Denies Vomiting Genitourinary: Denies Burning, Denies Discharge Musculoskeletal: No back pain, No joint pain Psychiatric/Neurological: Denies Anxiety, Denies Depressed All Other Systems Reviewed Negative Unless Noted: Yes Past Jjvgqnc-Szwhvw-Xobykm Hx Patient Social History Alcohol Use: Rarely Uses Number of Drinks Today: AA Alcohol Beverage of Choice: Beer Recreational Drug Use: No Smoking Status: Former Smoker Type Used: Cigarettes Former Smoker, Quit: Nov 02, 2015 2nd Hand Smoke Exposure: No Recent Foreign Travel: No Contact w/Someone Who Travel: No Recent Infectious Disease Expo: No Recent Hopitalizations: No Physical Abuse: No Sexual Abuse: No Mistreated: No Fear: No Immunizations Up To Date Tetanus Booster (TDap): Unknown PED Vaccines UTD: Yes Seasonal Allergies Seasonal Allergies: No Past Medical History Surgeries: No Respiratory: Yes COPD Cardiac: Yes Atrial Fibrillation, Hypertension Neurological: No Genitourinary: No Gastrointestinal: No Musculoskeletal: No Endocrine: No HEENT: No Cancer: No Psychosocial: No Integumentary: No Blood Disorders: No Family Medical History No Pertinent Family Hx Physical Exam Vital Signs Vital Signs - First Documented 11/12/19 22:28 Temp 36.8 Pulse 97 Resp 16 B/P (MAP) 116/81 (93) Pulse Ox 94 O2 Delivery Room Air Capillary Refill : Less Than 3 Seconds Height/Weight/BMI Height: 5'11.00" Weight: 180lbs. oz. 81.827043iw; 25.00 BMI Method:Stated General Appearance: WD/WN, no apparent distress HEENT: PERRL/EOMI, pharynx normal Neck: full range of motion, supple, normal inspection Respiratory: chest non-tender, lungs clear, normal breath sounds, no respiratory distress, no accessory muscle use Cardiovascular: normal peripheral pulses, regular rate, rhythm, no edema Peripheral Pulses: 2+ Radial Pulses (R), 2+ Radial Pulses (L) Gastrointestinal: normal bowel sounds, soft, no organomegaly, tenderness (te nderness left upper quadrant epigastric region. Negative for Donohue sign. Negative for psoas sign, Rovsing sign, tenderness over McBurney's point or other mesenteric signs.) Neurologic/Psychiatric: alert, normal mood/affect, oriented x 3 Skin: normal color, warm/dry Progress/Results/Core Measures Results/Orders Lab Results Laboratory Tests Test 11/12/19 22:30 11/12/19 23:15 Range/Units Urine Color YELLOW Urine Clarity CLEAR Urine pH 5.5 5-9 Urine Specific [place] 1.020 1.016-1.022 Urine Protein NEGATIVE NEGATIVE Urine Glucose (UA) NEGATIVE NEGATIVE Urine Ketones TRACE H NEGATIVE Urine Nitrite NEGATIVE NEGATIVE Urine Bilirubin NEGATIVE NEGATIVE Urine Urobilinogen 0.2 < = 1.0 MG/DL Urine Leukocyte Esterase NEGATIVE NEGATIVE Urine RBC (Auto) NEGATIVE NEGATIVE Urine RBC NONE /HPF Urine WBC NONE /HPF Urine Squamous Epithelial Cells RARE /HPF Urine Crystals NONE /LPF Urine Bacteria NEGATIVE /HPF Urine Casts NONE /LPF Urine Mucus SMALL H /LPF Urine Culture Indicated NO White Blood Count 8.5 4.3-11.0 10^3/uL Red Blood Count 5.02 4.35-5.85 10^6/uL Hemoglobin 15.0 13.3-17.7 G/DL Hematocrit 45 40-54 % Mean Corpuscular Volume 90 80-99 FL Mean Corpuscular Hemoglobin 30 25-34 PG Mean Corpuscular Hemoglobin Concent 33 32-36 G/DL Red Cell Distribution Width 13.3 10.0-14.5 % Platelet Count 273 130-400 10^3/uL Mean Platelet Volume 10.4 7.4-10.4 FL Neutrophils (%) (Auto) 74 42-75 % Lymphocytes (%) (Auto) 15 12-44 % Monocytes (%) (Auto) 9 0-12 % Eosinophils (%) (Auto) 1 0-10 % Basophils (%) (Auto) 0 0-10 % Neutrophils # (Auto) 6.4 1.8-7.8 X 10^3 Lymphocytes # (Auto) 1.3 1.0-4.0 X 10^3 Monocytes # (Auto) 0.8 0.0-1.0 X 10^3 Eosinophils # (Auto) 0.1 0.0-0.3 10^3/uL Basophils # (Auto) 0.0 0.0-0.1 10^3/uL Sodium Level 139 135-145 MMOL/L Potassium Level 3.8 3.6-5.0 MMOL/L Chloride Level 103 98-107 MMOL/L Carbon Dioxide Level 24 21-32 MMOL/L Anion Gap 12 5-14 MMOL/L Blood Urea Nitrogen 16 7-18 MG/DL Creatinine 1.27 0.60-1.30 MG/DL Estimat Glomerular Filtration Rate 60 BUN/Creatinine Ratio 13 Glucose Level 117 H 70-105 MG/DL Calcium Level 9.0 8.5-10.1 MG/DL Corrected Calcium 8.8 8.5-10.1 MG/DL Total Bilirubin 0.6 0.1-1.0 MG/DL Aspartate Amino Transf (AST/SGOT) 16 5-34 U/L Alanine Aminotransferase (ALT/SGPT) 25 0-55 U/L Alkaline Phosphatase 80 40-136 U/L Total Protein 7.4 6.4-8.2 GM/DL Albumin 4.2 3.2-4.5 GM/DL Lipase 12 8-78 U/L My Orders Orders - KINGSTON PAPPAS Ua Culture If Indicated (11/12/19 22:02) Cbc With Automated Diff (11/12/19 23:00) Comprehensive Metabolic Panel (11/12/19 23:00) Lipase (11/12/19 23:00) Lidocaine 2% Viscous 15 Ml (Xylocaine Vi (11/12/19 23:15) Famotidine Tablet (Pepcid Tablet) (11/12/19 23:06) Antacid Suspension (Mylanta Suspension (11/12/19 23:15) Medications Given in ED Current Medications Medications Dose Ordered Sig/Evangelina Route Start Time Stop Time Status Last Admin Dose Admin Al Hydrox/Mg Hydrox/Simethicone 30 ml ONCE ONCE PO 11/12/19 23:15 11/12/19 23:16 DC 11/12/19 23:13 30 ML Lidocaine HCl 15 ml ONCE ONCE PO 11/12/19 23:15 11/12/19 23:16 DC 11/12/19 23:13 15 ML Vital Signs/I&O 11/12/19 22:28 Temp 36.8 Pulse 97 Resp 16 B/P (MAP) 116/81 (93) Pulse Ox 94 O2 Delivery Room Air Blood Pressure Mean: 93 Progress Progress Note #1: Time: 23:08 Progress Note The Differential diagnoses includes GERD, possible colitis related to either infection or bleeding secondary to Eliquis. PUD, gallbladder, pancreatitis, UTI. Plan to get labs, urine and give him a GI cocktail along with some Pepcid. He has a nonacute abdomen and aseptic vital signs. He has an appointment tomorrow morning with his primary care doctor. Progress Note #2: Time: 00:04 Progress Note labs are unremarkable. Patient feels much better after a GI cocktail. Plan to put him out on omeprazole 20 mg twice a day, Carafate and have him follow-up with Dr. Galicia for outpatient workup. Departure Impression Primary Impression: Gastritis Qualified Codes: K29.00 - Acute gastritis without bleeding Disposition: HOME, SELF-CARE Condition: Improved Departure-Patient Inst. Decision time for Depature: 00:01 Referrals: [facility] (PCP/Family) Primary Care Physician RADHA GALICIA DO Patient Instructions: Gastritis (DC) Add. Discharge Instructions: Start taking omeprazole 20 mg twice a day for the next month. Start taking Carafate 30 minutes prior to meals and at bedtime for the next [address] Galicia, General Surgeon and request follow-up for your GERD/gastritis. Endoscopy may be indicated. Follow-up with your primary care doctor as necessary. All discharge instructions reviewed with patient and/or family. Voiced u nderstanding. Scripts Sucralfate (Carafate) 1 Gm Tablet 1 GM PO QIDACHS for 14 Days, #56 TAB 0 Refills Prov: KINGSTON PAPPAS 11/13/19 Omeprazole (Omeprazole) 20 Mg Capsule.dr 20 MG PO BID for 30 Days, #60 CAP 0 Refills Prov: KINGSTON PAPPAS 11/13/19 Copy Copies To 1: RADHA GALICIA DO KINGSTON PAPPAS Nov 12, 2019 23:11
[2019-11-12] MEDS ORDERED: LIDOCAINE 2% VISCOUS 15 ML UDC PO ONE (23:15)
[2019-11-12] MEDS ORDERED: ANTACID SUSP 30 ML UDC (MYLANTA) PO ONE (23:15)
[2019-11-12 23:27] LABS: BASOPHILS % (AUTO) 0 % (0-10); EOSINOPHILS # (AUTO) 0.1 10^3/uL (0.0-0.3); EOSINOPHILS % (AUTO) 1 % (0-10); HEMATOCRIT 45 % (40-54); LYMPHOCYTES # (AUTO) 1.3 X 10^3 (1.0-4.0); LYMPHOCYTES % (AUTO) 15 % (12-44); MEAN CORPUSCULAR HEMOGLOBIN 30 PG (25-34); MEAN CORPUSCULAR HGB CONC 33 G/DL (32-36); MEAN CORPUSCULAR VOLUME 90 FL (80-99); MEAN PLATELET VOLUME 10.4 FL (7.4-10.4); MONOCYTES # (AUTO) 0.8 X 10^3 (0.0-1.0); MONOCYTES % (AUTO) 9 % (0-12); NEUTROPHILS # (AUTO) 6.4 X 10^3 (1.8-7.8); NEUTROPHILS % (AUTO) 74 % (42-75); PLATELET COUNT 273 10^3/uL (130-400); RED CELL DISTRIBUTION WIDTH 13.3 % (10.0-14.5); WHITE BLOOD COUNT 8.5 10^3/uL (4.3-11.0)
[2019-11-12 23:46] LABS: ALBUMIN 4.2 GM/DL (3.2-4.5); BILIRUBIN,TOTAL 0.6 MG/DL (0.1-1.0); CREATININE SERUM 1.27 MG/DL (0.60-1.30); POTASSIUM 3.8 MMOL/L (3.6-5.0); TOTAL PROTEIN 7.4 GM/DL (6.4-8.2)
[2019-11-13 00:07] VITALS: BP 138/93
[2019-11-13] MEDS ORDERED: SUCR1TAB36 PO (00:07)
[2019-11-13] MEDS ORDERED: OMEP20CA18 PO (00:07)
== END 2019-11-13 00:11 | disposition home or self-care (01) ==
LOC: EDUNIT# 21:58 → ER 21:59
DX: K29.70 Gastritis, unspecified, without bleeding (principal); I48.91 Unspecified atrial fibrillation; K21.9 Gastro-esophageal reflux disease without esophagitis; I10 Essential (primary) hypertension; J44.9 Chronic obstructive pulmonary disease, unspecified; Z88.5 Allergy status to narcotic agent; Z79.82 Long term (current) use of aspirin; Z87.891 Personal history of nicotine dependence; Z79.01 Long term (current) use of anticoagulants; Z79.51 Long term (current) use of inhaled steroids
CPT/HCPCS: 36415; 80053; 81000; 83690; 85025

== ENCOUNTER 2019-12-09 12:54 | Outpatient (CLI) | payer OTHER ==
[~2019-12-09 12:54] MED LIST changes: +ASPI-1238 PO; -ASPI-983 PO; +OMEP20CA18 PO; +SUCR1TAB36 PO
== END 2019-12-09 13:09 | disposition home or self-care (01) ==
LOC: SLEEP 12:54
PROVIDERS: ATTEND Nurse Practitioner Family
DX: J44.9 Chronic obstructive pulmonary disease, unspecified (principal); F17.201 Nicotine dependence, unspecified, in remission; K21.9 Gastro-esophageal reflux disease without esophagitis; R06.00 Dyspnea, unspecified

== ENCOUNTER 2019-12-18 15:03 | Emergency (ER) | payer OTHER ==
[~2019-12-18] VITALS: Ht 180 cm; Wt 82.0 kg
[2019-12-18] MEDS ORDERED: NS IV 1000 ML 1,000 ML ONE (15:27)
--- NOTE | 2019-12-18 15:28 | ED Chest Pain ---
General Chief Complaint: Chest Pain Stated Complaint: CHEST PAIN;COVID EXPOSURE Nursing Triage Note: ARRIVED VIA AMB WITH COMPLAINTS OF CHEST PAIN AND SOA STARTING TODAY. IS ALSO HAVING DIARRHEA AND WEAKNESS. PT IS COVID POSITIVE. PT WAS TESTED LAST MONDAY ET WAS NEGATIVE. Nursing Sepsis Screen: Possible Severe Sepsis Risk Source: patient Exam Limitations: no limitations History of Present Illness Date Seen by Provider: Dec 18, 2019 Time Seen by Provider: 15:25 Initial Comments To ER with lower anterior chest pain worsened with deep breathing and coughing. He is also having diarrhea weakness and fever. His is coated positive. She tested positive last . He was tested the same day and tested negative. He does have COPD, not a current smoker. He has a nebulizer at home but hasn't used it because it causes tachycardia. He's had fever for the past 3-4 days. As a history of atrial fibrillation and is on Eliquis. Was given rx for steroids yesterday at [facility]> Timing/Duration: constant Severity/Quality: moderate Location: substernal Radiation: no radiation ASA po CLEANING VALIDATION CONSULTANT: No NTG SL CLEANING VALIDATION CONSULTANT: No Associated Symptoms: shortness of breath Allergies and Home Medications Allergies Coded Allergies: morphine (Verified Adverse Reaction, Intermediate, 08/27/19) flushed, diaphoretic. Home Medications Apixaban 5 Mg Tablet, 5 MG PO BID, (Reported) Aspirin 81 Mg Tab.chew, 81 MG PO DAILY Prescribed by: TI ROUSSEAU on 11/07/19 1105 Azithromycin 250 Mg Tablet, 250 MG PO UD TAKE 2 TABLETS ON DAY ONE THEN TAKE 1 TABLET DAILY FOR FOUR MORE DAYS Prescribed by: KASSI ANGULO on 12/18/19 1614 Diltiazem HCl 240 Mg Cap.er.24h, 240 MG PO DAILY, (Reported) Famotidine 10 Mg Tablet, 10 MG PO DAILY, (Reported) Fluticasone/Umeclidin/Vilanter 1 Each Blst.w.dev, 1 EACH IH DAILY, (Reported) Hydrocodone/Chlorphen P-Stirex 473 Ml Gillian.er.12h, 5 ML PO BID PRN for COUGH Prescribed by: KASSI ANGULO on 12/18/19 1614 Metoprolol Succinate 50 Mg Tab.er.24h, 50 MG PO 1700, (Reported) Omeprazole 20 Mg Capsule.dr, 20 MG PO BID Prescribed by: KINGSTON PAPPAS on 11/13/196 Ondansetron 8 Mg Tab.rapdis, 8 MG PO Q6H PRN for NAUSEA/VOMITING Prescribed by: KASSI ANGULO on 12/18/191613 Roflumilast 500 Mcg Tablet, 500 MCG PO DAILY, (Reported) Sucralfate 1 Gm Tablet, 1 GM PO QIDACHS Prescribed by: KINGSTON PAPPAS on 11/13/196 Vitamin A/Vit C/Zinc/Propolis 15 Mg Lozenge, 15 MG PO QID Prescribed by: KASSI ANGULO on 12/18/191613 Patient Home Medication List Home Medication List Reviewed: Yes Review of Systems Review of Systems Constitutional: see HPI, chills, fever, malaise, weakness EENTM: No Symptoms Reported Respiratory: See HPI, Cough, Shortness of Air Cardiovascular: No Symptoms Reported Gastrointestinal: No Symptoms Reported Genitourinary: No Symptoms Reported Musculoskeletal: no symptoms reported Skin: no symptoms reported Psychiatric/Neurological: No Symptoms Reported Endocrine: No Symptoms Reported Hematologic/Lymphatic: No Symptoms Reported Past Yhjbkkm-Uoofjk-Brhylz Hx Patient Social History Alcohol Beverage of Choice: Beer Type Used: Cigarettes Former Smoker, Quit: Nov 02, 2015 2nd Hand Smoke Exposure: No Recent Foreign Travel: No Contact w/Someone Who Travel: No Recent Infectious Disease Expo: No Recent Hopitalizations: No Immunizations Up To Date Tetanus Booster (TDap): Unknown PED Vaccines UTD: Yes Seasonal Allergies Seasonal Allergies: No Past Medical History Surgeries: No Respiratory: Yes COPD Cardiac: Yes Atrial Fibrillation, Hypertension Neurological: No Genitourinary: No Gastrointestinal: No Musculoskeletal: No Endocrine: No HEENT: No Cancer: No Psychosocial: No Integumentary: No Blood Disorders: No Family Medical History No Pertinent Family Hx Physical Exam Vital Signs Vital Signs - First Documented 12/18/19 12/18/19 15:10 17:30 Temp 37.8 Pulse 112 Resp 18 B/P (MAP) 124/82 (96) Pulse Ox 93 O2 Delivery Room Air Capillary Refill : Less Than 3 Seconds Height, Weight, BMI Height: 5'11.00" Weight: 180lbs. oz. 81.853158yj; 25.00 BMI Method:Stated General Appearance: No Apparent Distress, WD/WN, Other (O2 94-96% room air) Respiratory: No Accessory Muscle Use, No Respiratory Distress, Decreased Breath Sounds Cardiovascular: Normal Peripheral Pulses, Tachycardia (sinus, rate 105. ) Gastrointestinal: Non Tender, Soft Neurologic/Psychiatric: Alert, Oriented x3 Skin: Normal Color, Warm/Dry Progress/Results/Core Measures Results/Orders Lab Results Laboratory Tests Test 12/18/19 15:11 12/18/19 15:35 Range/Units White Blood Count 5.6 4.3-11.0 10^3/uL Red Blood Count 5.34 4.30-5.52 10^6/uL Hemoglobin 15.7 13.3-17.7 g/dL Hematocrit 47 40-54 % Mean Corpuscular Volume 88 80-99 fL Mean Corpuscular Hemoglobin 29 25-34 pg Mean Corpuscular Hemoglobin Concent 33 32-36 g/dL Red Cell Distribution Width 12.5 10.0-14.5 % Platelet Count 178 130-400 10^3/uL Mean Platelet Volume 10.8 9.0-12.2 fL Immature Granulocyte % (Auto) 1 % Neutrophils (%) (Auto) 87 H 42-75 % Lymphocytes (%) (Auto) 6 L 12-44 % Monocytes (%) (Auto) 6 0-12 % Eosinophils (%) (Auto) 0 0-10 % Basophils (%) (Auto) 0 0-10 % Neutrophils # (Auto) 4.9 1.8-7.8 10^3/uL Lymphocytes # (Auto) 0.4 L 1.0-4.0 10^3/uL Monocytes # (Auto) 0.3 0.0-1.0 10^3/uL Eosinophils # (Auto) 0.0 0.0-0.3 10^3/uL Basophils # (Auto) 0.0 0.0-0.1 10^3/uL Immature Granulocyte # (Auto) 0.1 0.0-0.1 10^3/uL Neutrophils % (Manual) 88 % Lymphocytes % (Manual) 3 % Monocytes % (Manual) 4 % Band Neutrophils 5 % Blood Morphology Comment NORMAL Prothrombin Time 14.2 12.2-14.7 SEC INR Comment 1.1 0.8-1.4 Activated Partial Thromboplast Time 36 H 24-35 SEC D-Dimer < 0.27 0.00-0.49 UG/ML Sodium Level 136 135-145 MMOL/L Potassium Level 3.8 3.6-5.0 MMOL/L Chloride Level 103 98-107 MMOL/L Carbon Dioxide Level 20 L 21-32 MMOL/L Anion Gap 13 5-14 MMOL/L Blood Urea Nitrogen 20 H 7-18 MG/DL Creatinine 1.22 0.60-1.30 MG/DL Estimat Glomerular Filtration Rate > 60 BUN/Creatinine Ratio 16 Glucose Level 120 H 70-105 MG/DL Calcium Level 8.6 8.5-10.1 MG/DL Corrected Calcium 8.4 L 8.5-10.1 MG/DL Magnesium Level 1.9 1.6-2.4 MG/DL Total Bilirubin 0.5 0.1-1.0 MG/DL Aspartate Amino Transf (AST/SGOT) 25 5-34 U/L Alanine Aminotransferase (ALT/SGPT) 40 0-55 U/L Alkaline Phosphatase 83 40-136 U/L Myoglobin 44.6 10.0-92.0 NG/ML Troponin I < 0.028 <0.028 NG/ML C-Reactive Protein High Sensitivity 4.65 H 0.00-0.50 MG/DL B-Type Natriuretic Peptide 17.6 <100.0 PG/ML Total Protein 7.6 6.4-8.2 GM/DL Albumin 4.2 3.2-4.5 GM/DL Coronavirus 2019 (WENDY) Positive H Negative My Orders Orders - KASSI ANGULO APRN Cbc With Automated Diff (12/18/19 15:23) Magnesium (12/18/19 15:23) Chest 1 View, Ap/Pa Only (12/18/19 15:23) Ekg Tracing (12/18/19 15:23) Comprehensive Metabolic Panel (12/18/19 15:23) Myoglobin Serum (12/18/19 15:23) Protime With Inr (12/18/19 15:23) Partial Thromboplastin Time (12/18/19 15:23) O2 (12/18/19 15:23) Monitor-Rhythm Ecg Trace Only (12/18/19 15:23) Ed Iv/Invasive Line Start (12/18/19 15:23) BNP (12/18/19 15:23) Troponin I (12/18/19 15:23) Aspirin Chewable Tablet (Baby Aspirin Ch (12/18/19 15:30) Albuterol Inhaler (Ventolin Hfa) (12/18/19 18:00) Metoprolol Tartrate Injection (Lopressor (12/18/19 15:30) Ns Iv 1000 Ml (Sodium Chloride 0.9%) (12/18/19 15:30) Ns Iv 1000 Ml (Sodium Chloride 0.9%) (12/18/19 15:27) Covid 19 Inhouse Test (12/18/19 15:35) Manual Differential (12/18/19 15:11) Fibrin Degradation Products (12/18/19 15:41) Hs C Reactive Protein (12/18/19 15:41) Medications Given in ED Current Medications Medications Dose Ordered Sig/Evangelina Route Start Time Stop Time Status Last Admin Dose Admin Aspirin 324 mg ONCE ONCE PO 12/18/19 15:30 12/18/19 15:31 DC 12/18/19 15:34 324 MG Metoprolol Tartrate 5 mg ONCE ONCE IV 12/18/19 15:30 12/18/19 15:31 DC 12/18/19 15:34 5 MG Vital Signs/I&O 12/18/19 12/18/19 15:10 17:30 Temp 37.8 Pulse 112 90 Resp 18 24 B/P (MAP) 124/82 (96) 119/70 Pulse Ox 93 O2 Delivery Room Air Room Air Blood Pressure Mean: 96 Progress Progress Note : Progress Note NAME: MIRZA MENDEZ MED REC#: [id number] PT STATUS: REG ER : 1970 PHYSICIAN: KASSI ANGULO APRN ADMIT DATE: 12/18/19/ER Draft Date of Exam:12/18/19 CHEST 1 VIEW, AP/PA ONLY INDICATION: Shortness of breath and chest pain. TECHNIQUE/COMPARISON: A frontal chest was obtained at 2:59 PM and is compared to 11/05/2019. FINDINGS: The heart is normal in size. There is underlying COPD change with biapical bullous disease. There is some mild increased density in the lung bases on both sides which may represent atelectatic change versus early infiltrate. There is no pneumothorax or pleural fluid. IMPRESSION: Underlying COPD changes. Increased basilar markings are present which were also seen on 11/05/2019 and may represent chronic change versus early infiltrate or atelectasis. Followup is recommended. Dictated on workstation # [id number] Dict: 12/18/19 1627 Trans: 12/18/19 1632 [id number] Interpreted by: MALINA ANGELA MD Electronically signed by: Departure Communication (Admissions) sats remained 92-96% during ER stay. Will dc to home. DC levaquin, change to zithromax, continue home prednisone prescribed yesterday, add zinc supplement, inhaler and return for worsening. Impression Primary Impression: COVID-19 Additional Impression: COPD (chronic obstructive pulmonary disease) Disposition: HOME, SELF-CARE Condition: Stable Departure-Patient Inst. Decision time for Depature: 16:10 [place] [facility] [place] Primary Care Physician Patient Instructions: Exacerbation of COPD, Coronavirus Disease 2019 (COVID-19) (DC) Add. Discharge Instructions: 1. Continue the steroids 2. Add the antibiotics. Follow-up with your doctor next week. Continue either your inhaler or nebulizer at home. All discharge instructions reviewed with patient and/or family. Voiced understanding. Scripts Ondansetron (Ondansetron Odt) 8 Mg Tab.rapdis 8 MG PO Q6H PRN for NAUSEA/VOMITING, #14 TAB Prov: KASSI ANGULO APRN 12/18/19 Hydrocodone/Chlorphen P-Stirex (Hydrocodone-Chlorphen ER Susp) 473 Ml Gillian.er.12h 5 ML PO BID PRN for COUGH for 7 Days, #120 ML Prov: KASSI ANGULO APRN 12/18/19 Vitamin A/Vit C/Zinc/Propolis (Zinc 15 mg Lozenges) 15 Mg Lozenge 15 MG PO QID, #30 LOZENGE Prov: KASSI ANGULO APRN 12/18/19 Azithromycin (Azithromycin) 250 Mg Tablet 250 MG PO UD, #6 TAB TAKE 2 TABLETS ON DAY ONE THEN TAKE 1 TABLET DAILY FOR FOUR MORE DAYS Prov: KASSI ANGULO APRN 12/18/19 KASSI ANGULO APRN Dec 18, 2019 15:28
[2019-12-18] MEDS ORDERED: ASPIRIN 81 MG CHEW (CHILDREN'S ASA) PO ONE (15:30)
[2019-12-18] MEDS ORDERED: meTOprolol 5 MG/5 ML (LOPRESSOR) VIAL IV ONE (15:30)
[2019-12-18] MEDS ORDERED: NS IV 1000 ML 1,000 ML IV SCH (15:30)
[2019-12-18 15:36] LABS: INR 1.1 (0.8-1.4); PROTHROMBIN TIME PATIENT 14.2 SEC (12.2-14.7)
[2019-12-18 15:37] LABS: BASOPHILS % (AUTO) 0 % (0-10); EOSINOPHILS % (AUTO) 0 % (0-10); HEMATOCRIT 47 % (40-54); HEMOGLOBIN 15.7 g/dL (13.3-17.7); LYMPHOCYTES # (AUTO) 0.4 10^3/uL (1.0-4.0); LYMPHOCYTES % (AUTO) 6 % (12-44); MEAN CORPUSCULAR HEMOGLOBIN 29 pg (25-34); MEAN CORPUSCULAR HGB CONC 33 g/dL (32-36); MEAN CORPUSCULAR VOLUME 88 fL (80-99); MEAN PLATELET VOLUME 10.8 fL (9.0-12.2); MONOCYTES # (AUTO) 0.3 10^3/uL (0.0-1.0); MONOCYTES % (AUTO) 6 % (0-12); NEUTROPHILS # (AUTO) 4.9 10^3/uL (1.8-7.8); NEUTROPHILS % (AUTO) 87 % (42-75); PLATELET COUNT 178 10^3/uL (130-400); WHITE BLOOD COUNT 5.6 10^3/uL (4.3-11.0)
[2019-12-18 15:51] LABS: BAND NEUTROPHILS 5 %; LYMPHOCYTES % (MANUAL) 3 %; MONOCYTES % (MANUAL) 4 %; NEUTROPHILS % (MANUAL) 88 %; RBC MORPH NORMAL
[2019-12-18 15:59] LABS: ALBUMIN 4.2 GM/DL (3.2-4.5)
[2019-12-18 16:00] LABS: CHLORIDE 103 MMOL/L (98-107); POTASSIUM 3.8 MMOL/L (3.6-5.0); SODIUM 136 MMOL/L (135-145)
[2019-12-18 16:01] LABS: CALCIUM 8.6 MG/DL (8.5-10.1)
[2019-12-18 16:02] LABS: GLUCOSE 120 MG/DL (70-105); TOTAL PROTEIN 7.6 GM/DL (6.4-8.2)
[2019-12-18 16:03] LABS: CARBON DIOXIDE 20 MMOL/L (21-32)
[2019-12-18 16:04] LABS: BILIRUBIN,TOTAL 0.5 MG/DL (0.1-1.0)
[2019-12-18 16:06] LABS: ALKALINE PHOSPHATASE 83 U/L (40-136); CREATININE SERUM 1.22 MG/DL (0.60-1.30); GFR ESTIMATED > 60
[2019-12-18 16:07] LABS: BUN/CREATININE RATIO 16
[2019-12-18 16:08] LABS: MAGNESIUM 1.9 MG/DL (1.6-2.4)
--- NOTE | 2019-12-18 16:08 | NUR ---
Notified Cullen Kirkpatrick of positive Rapid COVID test on [facility].
[2019-12-18 16:09] LABS: ALANINE AMINOTRANSFERASE 40 U/L (0-55)
[2019-12-18] MEDS ORDERED: VITA15LO2 PO (16:14)
[2019-12-18] MEDS ORDERED: AZIT250T12 PO (16:14)
[2019-12-18] MEDS ORDERED: HYDR473S61 PO (16:14)
[2019-12-18] MEDS ORDERED: ONDA8TAB13 PO (16:14)
--- NOTE | 2019-12-18 16:31 | NUR ---
KASSI IN TALKING TO THE PT AT THIS TIME.
--- NOTE | 2019-12-18 16:32 | Diagnostic Imaging Report ---
INDICATION: Shortness of breath and chest pain. TECHNIQUE/COMPARISON: A frontal chest was obtained at 2:59 PM and is compared to 11/05/2019. FINDINGS: The heart is normal in size. There is underlying COPD change with biapical bullous disease. There is some mild increased density in the lung bases on both sides which may represent atelectatic change versus early infiltrate. There is no pneumothorax or pleural fluid. IMPRESSION: Underlying COPD changes. Increased basilar markings are present which were also seen on 11/05/2019 and may represent chronic change versus early infiltrate or atelectasis. Followup is recommended. Dictated by: Dictated on workstation # [id number]
[2019-12-18 17:30] VITALS: BP 119/70
[2019-12-18] MEDS ORDERED: RT-ALBUTEROL INHALER HFA (VENTOLIN HFA) 18 GM IH SCH (18:00)
== END 2019-12-18 17:00 | disposition home or self-care (01) ==
LOC: EDUNIT# 15:03 → ER 15:04
DX: U07.1 COVID-19 (principal); J44.9 Chronic obstructive pulmonary disease, unspecified; I48.91 Unspecified atrial fibrillation; I10 Essential (primary) hypertension; Z79.01 Long term (current) use of anticoagulants; Z79.82 Long term (current) use of aspirin; Z79.51 Long term (current) use of inhaled steroids; Z87.891 Personal history of nicotine dependence
CPT/HCPCS: 71045; 80053; 83735; 83874; 83880; 84484; 85007; 85027; 85379; 85610; 85730; 86141; 93005; 93041; 99284; U0002; 36415; 87635

== ENCOUNTER 2019-12-23 05:48 | Outpatient (RCR) | payer OTHER ==
[~2019-12-23 05:48] MED LIST changes: +HYDR473S61 PO; +ONDA8TAB13 PO; +VITA15LO2 PO
== END 2019-12-23 15:00 | disposition home or self-care (01) ==
LOC: PREOP 05:48 → EDSTATUS 09:00 → PREOP 15:00
PROVIDERS: ATTEND Surgery
DX: Z01.818 Encounter for other preprocedural examination (principal)

== ENCOUNTER → 2020-01-07 | Outpatient (CLI) | payer OTHER ==
[2020-01-07 12:00] LABS: BASOPHILS % (AUTO) 0 % (0-10); EOSINOPHILS # (AUTO) 0.1 10^3/uL (0.0-0.3); EOSINOPHILS % (AUTO) 1 % (0-10); HEMATOCRIT 47 % (40-54); HEMOGLOBIN 15.3 g/dL (13.3-17.7); LYMPHOCYTES # (AUTO) 0.9 10^3/uL (1.0-4.0); LYMPHOCYTES % (AUTO) 14 % (12-44); MEAN CORPUSCULAR HEMOGLOBIN 29 pg (25-34); MEAN CORPUSCULAR HGB CONC 32 g/dL (32-36); MEAN CORPUSCULAR VOLUME 91 fL (80-99); MEAN PLATELET VOLUME 9.9 fL (9.0-12.2); MONOCYTES # (AUTO) 0.7 10^3/uL (0.0-1.0); MONOCYTES % (AUTO) 12 % (0-12); NEUTROPHILS # (AUTO) 4.5 10^3/uL (1.8-7.8); NEUTROPHILS % (AUTO) 73 % (42-75); PLATELET COUNT 282 10^3/uL (130-400); WHITE BLOOD COUNT 6.2 10^3/uL (4.3-11.0)
[2020-01-07 12:10] LABS: ALBUMIN 4.1 GM/DL (3.2-4.5); CHLORIDE 105 MMOL/L (98-107); POTASSIUM 3.9 MMOL/L (3.6-5.0); SODIUM 139 MMOL/L (135-145)
[2020-01-07 12:11] LABS: CALCIUM 9.5 MG/DL (8.5-10.1)
[2020-01-07 12:12] LABS: GLUCOSE 116 MG/DL (70-105); TOTAL PROTEIN 7.4 GM/DL (6.4-8.2)
[2020-01-07 12:13] LABS: CARBON DIOXIDE 22 MMOL/L (21-32)
[2020-01-07 12:14] LABS: BILIRUBIN,TOTAL 0.8 MG/DL (0.1-1.0)
[2020-01-07 12:16] LABS: ALKALINE PHOSPHATASE 88 U/L (40-136); CREATININE SERUM 1.13 MG/DL (0.60-1.30); GFR ESTIMATED > 60
[2020-01-07 12:17] LABS: BUN/CREATININE RATIO 11
[2020-01-07 12:19] LABS: ALANINE AMINOTRANSFERASE 67 U/L (0-55)
== END ==
LOC: LAB 11:35
PROVIDERS: ATTEND Internal Medicine Cardiovascular Disease
DX: I48.0 Paroxysmal atrial fibrillation (principal); J44.9 Chronic obstructive pulmonary disease, unspecified
CPT/HCPCS: 36415; 80053; 85025; 85379

== ENCOUNTER → 2020-01-08 | Outpatient (CLI) | payer SELFPAY ==
--- NOTE | 2020-01-08 13:44 | Diagnostic Imaging Report ---
HISTORY: Difficulty breathing, atrial fibrillation. COMPARISON: 12/18/2019 TECHNIQUE: Two views of the chest. FINDINGS: There are hazy opacities in the right midlung and left lung base which are chronic. There is linear opacity in the right lung base which appears new. No pleural effusion or pneumothorax is seen. Lung volumes are mildly large with hyperlucency in the apices which is likely from chronic obstructive disease. The cardiac silhouette is normal in size. IMPRESSION: 1. New linear opacity in the right lung base, may represent atelectasis or possibly developing infiltrate. Dictated by: Dictated on workstation # [id number]
== END ==
LOC: RAD 10:30
PROVIDERS: ATTEND Internal Medicine Cardiovascular Disease
DX: I48.91 Unspecified atrial fibrillation (principal); R06.00 Dyspnea, unspecified; R91.8 Other nonspecific abnormal finding of lung field
CPT/HCPCS: 71046

== ENCOUNTER 2020-01-09 05:34 | Outpatient (RCR) | payer OTHER ==
[~2020-01-09] VITALS: Ht 180.3 cm; Wt 83.2 kg
== END 2020-01-09 10:40 | disposition home or self-care (01) ==
LOC: PREOP 05:34
PROVIDERS: ATTEND Surgery
DX: Z01.818 Encounter for other preprocedural examination (principal); K29.70 Gastritis, unspecified, without bleeding; Z20.828 Contact with and (suspected) exposure to other viral communicable diseases
CPT/HCPCS: 87635

== ENCOUNTER 2020-01-13 09:45 | Day surgery (SDC) | payer OTHER ==
[~2020-01-13] VITALS: Ht 180.3 cm; Wt 83.2 kg
[2020-01-13] MEDS ORDERED: LACTATED RINGERS 1,000 ML IV ONE (10:00)
[2020-01-13] MEDS ORDERED: LACTATED RINGERS 1,000 ML IV STA (10:19)
[2020-01-13 10:22] VITALS: BP 133/98
[2020-01-13] MEDS ORDERED: HURRICAINE EXT TUBE (BENZOCAINE) XX PRN (10:30)
[2020-01-13] MEDS ORDERED: HURRICAINE EXT TUBE (BENZOCAINE) ONE (11:11)
--- NOTE | 2020-01-13 11:17 | Progress Note-Pre Operative ---
Pre-Operative Progress Note H&P Reviewed The H&P was reviewed, patient examined and no changes noted. Time Seen by Provider: 11:15 Date H&P Reviewed: Jan 13, 2020 Time H&P Reviewed: 11:16 Pre-Operative Diagnosis: Gastritis, Screening Colonoscopy ETHAN ARMENDARIZ DO Jan 13, 2020 11:17
[2020-01-13] MEDS ORDERED: PROPOFOL INJECTION 50 ML IV ONE (11:23)
[2020-01-13 11:59] VITALS: BP 94/60
[2020-01-13 12:04] VITALS: BP 93/60
--- NOTE | 2020-01-13 12:04 | Anesthesia-General Post-Op ---
MAC Patient Condition Mental Status/LOC: Same as Preop Cardiovascular: Satisfactory Nausea/Vomiting: Absent Respiratory: Satisfactory Pain: Controlled Complications: Absent Post Op Complications Complications None Follow Up Care/Instructions Patient Instructions None needed. Anesthesiology Discharge Order Discharge Order Patient is doing well, no complaints, stable vital signs, no apparent adverse anesthesia problems. No complications reported per nursing. FLOR ARTHUR CRNA Jan 13, 2020 12:04
[2020-01-13 12:09] VITALS: BP 91/60
[2020-01-13 12:15] VITALS: BP 92/51
--- NOTE | 2020-01-13 12:41 | Progress Note-Post Operative ---
Post-Operative Progess Note Surgeon (s)/Rehabilitation Counselor (s) Surgeon ETHAN ARMENDARIZ DO Rehabilitation Counselor: none Pre-Operative Diagnosis Gastritis, Screening Colonoscopy Post-Operative Diagnosis Gastritis polyp int hemorrhoids Procedure & Operative Findings Date of Procedure 01/13/20 Procedure Performed/Findings EGD with bx Colon with snare Colon with hot bx Anesthesia Type IV sedation by CORONER FORENSIC TECHNICIAN Estimated Blood Loss Estimated blood loss (mL): scant Specimens/Packing Specimens Removed antral bx body of stomach bx GE jxn bx Descending colon polyp rectal polyp ETHAN ARMENDARIZ DO Jan 13, 2020 12:41
--- NOTE | 2020-01-13 12:42 | Endoscopy Discharge Instruct ---
Endo Procedure/Findings Findings 1.: Gastritis 2.: Polyp 3.: Internal Hemorrhoids Discharge Instructions - Activity: You might feel a little sleepy until tomorrow. This is due to the medicine you received to relax you. Until tomorrow, you should: NOT drive a car, operate machinery or power tools. NOT drink any alcoholic beverages. NOT make any important decisions or sign importortant papers. Do not return to work until tomorrow, unless otherwise instructed. Resume previous activities tomorrow. Diet: Start by taking liquids. If you tolerate liquids, advance to solid food. 1.: Colonscopy in 5 years, EGD in 3 years Notify Physician - If you experience excessive bleeding, unusual abdominal pain, fever, or chest pain, contact your doctor immediately. ETHNA ARMENDARIZ DO Jan 13, 2020 12:42
[2020-01-13 13:00] VITALS: BP 131/90
--- NOTE | 2020-01-14 20:55 | OPERATIVE REPORT ---
DATE OF SERVICE: 01/13/2020 PREOPERATIVE DIAGNOSES: Gastritis and screening colonoscopy. POSTOPERATIVE DIAGNOSES: 1. Gastritis. 2. Colon polyp. 3. Internal hemorrhoids. PROCEDURE: 1. EGD with biopsy. 2. Colonoscopy with snare polypectomy. 3. Colonoscopy with hot biopsy. SURGEON: Haris Ryagoza DO BENDING MACHINE SET UP OPERATOR: Please see immediate postoperative note. ANESTHESIA: IV sedation by the NURSE STAFF INDUSTRIAL. SPECIMEN: Biopsy of the antrum, biopsy of body of stomach, biopsy of the GE junction as well as a descending colon polyp and then rectal polyp. BLOOD LOSS: Scant. FLUIDS: Per anesthesia. POSTOPERATIVE CONDITION: Stable. INDICATION FOR PROCEDURE: The patient is a 49-year-old male who had some gastritis symptoms and needed a screening colonoscopy. FINDINGS: The patient had some mild gastritis, but he also had a larger polyp in the descending colon and he had a flat polyp in the rectum as well as internal hemorrhoids. PROCEDURE NOTE: After informed consent was obtained, the patient was brought to the endoscopy suite and placed in bed in the left lateral decubitus position. He was administered IV sedation by the NURSE STAFF INDUSTRIAL who then monitored his vitals the entire time, heart rate, blood pressure and pulse ox. We started with the EGD, placing scope down the mouth through the esophagus into the stomach. In the stomach, noted some gastritis at the antrum. Pushed pass this into the duodenum. Duodenum looked fine. Pulled back and did a biopsy of the antrum, then did a biopsy of body of stomach, retroflexed the scope, did not really see hiatal hernia. Pulled the scope into the GE junction, did a biopsy and then suctioned the air out of stomach and then pulled the scope up the esophagus out of the mouth. Switched camera, switched gloves, went down below, started the colonoscopy, pushed in. On the way in, noted a large polyp in the descending colon, took a picture of this and then did snare polypectomy, then able to get all the way to the cecum, pushed in to about 100 cm in, took a picture of appendiceal orifice and then actually able to get into terminal ileum, took a picture and then slowly withdrew the scope insufflating the circumferential mcgill looking the cecum, up the ascending colon to the hepatic flexure, then down the transverse colon, splenic flexure, into the descending colon down the sigmoid and finally into the rectum. In the rectum, saw some flat polyps. They may have just been hyperplastic, but there were a few of them, so elected to biopsy of one of them, did a hot biopsy, sent this to pathology. Retroflexed the scope in the rectal vault, saw some minimal internal hemorrhoids, took a picture of this and then removed the scope. The patient tolerated the procedure. He was recovered in endoscopy suite. Job ID: [id number] DocumentID: [id number] Dictated Date: 01/14/2020 12:09:42 Rapid Outsole Stitcher Date: 01/14/2020 20:54:28 Dictated By: HARIS RAYGOZA DO
== END 2020-01-13 13:00 | disposition home or self-care (01) ==
LOC: ENDO 09:45
PROVIDERS: ATTEND Surgery
DX: Z12.11 Encounter for screening for malignant neoplasm of colon (principal); D12.4 Benign neoplasm of descending colon; K62.1 Rectal polyp; K29.50 Unspecified chronic gastritis without bleeding; K64.8 Other hemorrhoids; K20.90 Esophagitis, unspecified without bleeding; I10 Essential (primary) hypertension; J44.9 Chronic obstructive pulmonary disease, unspecified; I48.0 Paroxysmal atrial fibrillation; Z79.01 Long term (current) use of anticoagulants; Z79.51 Long term (current) use of inhaled steroids; Z79.899 Other long term (current) drug therapy; Z88.5 Allergy status to narcotic agent; Z87.891 Personal history of nicotine dependence

== ENCOUNTER → 2020-01-20 | Outpatient (CLI) | payer OTHER ==
[~2020-01-20] MED LIST changes: +CATHETER FLUSH 10 ML SYR IV PRN; +HOLD METFORMIN - RECEIVED CONTRAST 20 ML VIAL IV SCH; +IOHEXOL 350 MG/ML 100 ML (OMNIPAQUE 350) VIAL IV ONE; +NS 100 ML (IVPB) BAG IV ONE
[2020-01-20 15:28] LABS: ALANINE AMINOTRANSFERASE 59 U/L (0-55); ALBUMIN 4.2 GM/DL (3.2-4.5); ALKALINE PHOSPHATASE 88 U/L (40-136); BILIRUBIN,TOTAL 0.6 MG/DL (0.1-1.0); BUN/CREATININE RATIO 10; CALCIUM 9.3 MG/DL (8.5-10.1); CARBON DIOXIDE 23 MMOL/L (21-32); CHLORIDE 106 MMOL/L (98-107); GFR ESTIMATED > 60; GLUCOSE 98 MG/DL (70-105); POTASSIUM 4.1 MMOL/L (3.6-5.0); SODIUM 141 MMOL/L (135-145); TOTAL PROTEIN 7.5 GM/DL (6.4-8.2)
--- NOTE | 2020-01-20 16:03 | Diagnostic Imaging Report ---
PROCEDURE: CT angiography of the chest with contrast. TECHNIQUE: Multiple contiguous axial images were obtained through the chest after uneventful bolus administration of intravenous contrast. 3D reconstructed CTA MIP acquisitions were also performed. Auto Exposure Controls were utilized during the CT exam to meet ALARA standards for radiation dose reduction. INDICATION: COPD and chest pain. COMPARISON: Correlation is made with prior CT chest from 09/02/2019. FINDINGS: Evaluation of the pulmonary arterial system is without evidence of thromboembolism. No definite filling defects are seen within central, lobar, or segmental pulmonary arterial branches. Thoracic aorta is normal in caliber. No dissection is seen. There is no pericardial or pleural fluid identified. Significant centrilobular emphysematous changes are identified throughout both lungs. No mass or infiltrate is identified. There is some minimal scarring or atelectasis in the right lower lobe and lingula. Upper abdomen again demonstrates severely atrophic nonfunctioning left kidney. Right kidney shows compensatory enlargement. IMPRESSION: Stable CT angiogram of the chest when compared with exam from 09/02/2019. There is no evidence of pulmonary embolism or thoracic aortic dissection. Severe centrilobular emphysematous changes are again noted. Dictated by: Dictated on workstation # [id number]
== END ==
LOC: RAD 14:55
PROVIDERS: ATTEND Nurse Practitioner
DX: J43.9 Emphysema, unspecified (principal)
CPT/HCPCS: 36415; 71275; 80053

== ENCOUNTER 2020-02-09 15:16 | Emergency (ER) | payer SELFPAY ==
[~2020-02-09] VITALS: Ht 177 cm; Wt 81.0 kg
[~2020-02-09 15:16] MED LIST changes: -CATHETER FLUSH 10 ML SYR IV PRN; -HOLD METFORMIN - RECEIVED CONTRAST 20 ML VIAL IV SCH; -IOHEXOL 350 MG/ML 100 ML (OMNIPAQUE 350) VIAL IV ONE; -NS 100 ML (IVPB) BAG IV ONE
[2020-02-09] MEDS ORDERED: RT-ALBUTEROL/IPRATROPIUM 3 ML (DUONEB) VIAL INH ONE (17:00)
[2020-02-09] MEDS ORDERED: RT-ALBUTEROL/IPRATROPIUM 3 ML (DUONEB) VIAL ONE (17:01)
[2020-02-09 17:06] LABS: BASOPHILS % (AUTO) 0 % (0-10); EOSINOPHILS # (AUTO) 0.1 10^3/uL (0.0-0.3); EOSINOPHILS % (AUTO) 1 % (0-10); HEMATOCRIT 51 % (40-54); LYMPHOCYTES # (AUTO) 1.3 10^3/uL (1.0-4.0); LYMPHOCYTES % (AUTO) 18 % (12-44); MEAN CORPUSCULAR HEMOGLOBIN 30 pg (25-34); MEAN CORPUSCULAR HGB CONC 32 g/dL (32-36); MEAN CORPUSCULAR VOLUME 93 fL (80-99); MEAN PLATELET VOLUME 10.5 fL (9.0-12.2); MONOCYTES # (AUTO) 0.7 10^3/uL (0.0-1.0); MONOCYTES % (AUTO) 9 % (0-12); NEUTROPHILS # (AUTO) 5.2 10^3/uL (1.8-7.8); NEUTROPHILS % (AUTO) 70 % (42-75); PLATELET COUNT 302 10^3/uL (130-400); WHITE BLOOD COUNT 7.4 10^3/uL (4.3-11.0)
[2020-02-09 17:10] LABS: ALBUMIN 4.6 GM/DL (3.2-4.5)
[2020-02-09 17:11] LABS: CHLORIDE 103 MMOL/L (98-107); POTASSIUM 4.1 MMOL/L (3.6-5.0); SODIUM 140 MMOL/L (135-145)
[2020-02-09 17:12] LABS: CALCIUM 9.4 MG/DL (8.5-10.1)
[2020-02-09 17:13] LABS: GLUCOSE 107 MG/DL (70-105); TOTAL PROTEIN 8.1 GM/DL (6.4-8.2)
[2020-02-09 17:14] LABS: CARBON DIOXIDE 22 MMOL/L (21-32)
[2020-02-09 17:15] LABS: BILIRUBIN,TOTAL 0.8 MG/DL (0.1-1.0)
[2020-02-09] MEDS ORDERED: RT-LEVALBUTEROL (XOPENEX) 1.25 MG/3 ML NEB NON-FORMULARY INH ONE (17:15)
[2020-02-09 17:16] LABS: ALKALINE PHOSPHATASE 95 U/L (40-136)
[2020-02-09 17:17] LABS: CREATININE SERUM 1.33 MG/DL (0.60-1.30); GFR ESTIMATED 57
[2020-02-09 17:18] LABS: BUN/CREATININE RATIO 13
[2020-02-09 17:20] LABS: ALANINE AMINOTRANSFERASE 42 U/L (0-55)
--- NOTE | 2020-02-09 17:29 | Diagnostic Imaging Report ---
INDICATION: Shortness of breath. EXAMINATION: Portable erect AP chest at 5:18 p.m. FINDINGS: The heart size is within normal limits and stable when compared to 01/08/2020. The atelectasis/infiltrate involving the right lung base, seen previously, has resolved. There are still coarse perihilar markings, bilaterally, but there is no clear evidence for a new focus of pneumonia or for a pleural effusion. There is a vague area of slightly increased density overlying the right lung base. This seems to be related to overlying breast/chest tissue as opposed to pneumonia/atelectasis. The mediastinum is not widened. The osseous structures are intact. IMPRESSION: There are chronic pulmonary changes present but there is no sign of an acute cardiopulmonary abnormality. Dictated by: Dictated on workstation # [id number]
[2020-02-09 18:52] LABS: ABG BASE EXCESS -0.3 MMOL/L (-2.5-2.5); ABG OXYGEN SATURATION 79 % (94-100); ABG PCO2 33 MMHG (35-45); ABG PH 7.46 (7.37-7.43); ABG PO2 51 MMHG (79-93); ABG TCO2 24.3 MMOL/L (21.0-31.0)
[2020-02-09 18:54] LABS: ALLENS TEST YES-POS; INSPIRED O2 ROOM AIR; PATIENT TEMP 36.5; VENTILATOR NO
[2020-02-09] MEDS ORDERED: FAMOTIDINE 20MG/2ML IV (PEPCID) IV STA (19:00)
[2020-02-09] MEDS ORDERED: ANTACID SUSP 30 ML UDC (MYLANTA) PO ONE (19:00)
[2020-02-09] MEDS ORDERED: ONDANSETRON 4 MG/2 ML (SDV) Z0FRAN IVP ONE (19:00)
[2020-02-09] MEDS ORDERED: LIDOCAINE 2% VISCOUS 15 ML UDC PO ONE (19:00)
[2020-02-09 19:30] LABS: LIPASE 14 U/L (8-78)
[2020-02-09] MEDS ORDERED: PANT40TA2 PO (20:12)
[2020-02-09] MEDS ORDERED: SUCR1TAB36 PO (20:12)
--- NOTE | 2020-02-09 20:13 | ED General ---
General Chief Complaint: Respiratory Problems Stated Complaint: HX COPD/SOB/"LUNG DISCOMFORT" Nursing Triage Note: PT CO OF CHEST PAIN AND BACK PAIN STATES "LUNG PAIN" INTERMITTENTLY FOR A WEEK, RATES 7/10 AT TIMES. HAS HX OF COVID IN NOV. Nursing Sepsis Screen: No Definite Risk Source of Information: Patient, Old Records Exam Limitations: No Limitations History of Present Illness Date Seen by Provider: Feb 09, 2020 Time Seen by Provider: 16:58 Initial Comments This 49-year-old gentleman presents to the emergency room with complaints of dy spnea today that has since dissipated and upper abdominal pain. He has a known history of gastritis from recent endoscopy. He also has known history of COPD. He actually had COVID-19 in November and has been tested a couple of times since then with negative results. He denies any fever, new cough, or other symptoms of acute illness. He also had a stress test earlier this year that was negative. He is presently on an egko-wde-tnjdcuv antacid for his gastritis. Allergies and Home Medications Allergies Coded Allergies: morphine (Verified Adverse Reaction, Intermediate, 08/27/19) flushed, diaphoretic. Home Medications Diltiazem HCl 240 Mg Cap.er.24h, 240 MG PO DAILY, (Reported) Fluticasone/Umeclidin/Vilanter 1 Each Blst.w.dev, 1 EACH IH DAILY, (Reported) Metoprolol Succinate 50 Mg Tab.er.24h, 100 MG PO DAILY, (Reported) Pantoprazole Sodium 40 Mg Tablet.dr, 40 MG PO DAILY Prescribed by: LEAH MAKI on 02/09/202011 Roflumilast 500 Mcg Tablet, 500 MCG PO DAILY, (Reported) Sucralfate 1 Gm Tablet, 1 GM PO QID Crush or dissolve to make slurry in 5 to 10 mL water. Take 30 min before eating/drinking at meals and bedtime. Prescribed by: LEAH MAKI on 02/09/202011 Patient Home Medication List Home Medication List Reviewed: Yes Review of Systems Review of Systems Constitutional: no symptoms reported EENTM: no symptoms reported Respiratory: see HPI Cardiovascular: no symptoms reported Gastrointestinal: see HPI Genitourinary: no symptoms reported Musculoskeletal: no symptoms reported Skin: no symptoms reported Psychiatric/Neurological: No Symptoms Reported Hematologic/Lymphatic: No Symptoms Reported Immunological/Allergic: no symptoms reported Past Ufshbuu-Pdbxdr-Dkgicb Hx Past Med/Social Hx: Reviewed Nursing Past Med/Soc Hx Patient Social History Alcohol Beverage of Choice: Beer Type Used: Cigarettes Former Smoker, Quit: Nov 02, 2015 2nd Hand Smoke Exposure: No Recent Foreign Travel: No Contact w/Someone Who Travel: No Recent Infectious Disease Expo: No Recent Hopitalizations: No Immunizations Up To Date Tetanus Booster (TDap): Unknown PED Vaccines UTD: Yes Seasonal Allergies Seasonal Allergies: No Past Medical History Surgeries: Yes Abdominal (EGD and colonoscopy) Respiratory: Yes COPD Cardiac: Yes Atrial Fibrillation, Hypertension Neurological: No Sexually Transmitted Disease: No HIV/AIDS: No Genitourinary: No Gastrointestinal: Yes (gastritis) Gastroesophageal Reflux Musculoskeletal: No Endocrine: No HEENT: No Cancer: No Psychosocial: No Integumentary: No Blood Disorders: No Family Medical History No Pertinent Family Hx Physical Exam Vital Signs Vital Signs - First Documented 02/09/20 02/09/20 15:40 17:17 Temp 37.0 Pulse 109 Resp 22 B/P (MAP) 148/102 (117) Pulse Ox 97 O2 Delivery Room Air Capillary Refill : Less Than 3 Seconds Height, Weight, BMI Height: 5'11.00" Weight: 180lbs. oz. [id number]; 25.00 BMI Method:Stated General Appearance: No Apparent Distress, WD/WN HEENT: PERRL/EOMI, Normal ENT Inspection Neck: Normal Inspection Respiratory: Lungs Clear, Normal Breath Sounds, No Accessory Muscle Use, No Respiratory Distress Cardiovascular: Regular Rate, Rhythm, No Edema, No Murmur Gastrointestinal: Normal Bowel Sounds, Soft, Tenderness (Epigastrium) Extremity: Normal Inspection, No Calf Tenderness, No Pedal Edema Neurologic/Psychiatric: Alert, Oriented x3, No Motor/Sensory Deficits, Normal Mood/Affect, marketing compliance manager II-XII Norm as Tested Skin: Normal Color Progress/Results/Core Measures Suspected Sepsis Recent Fever Within 48 Hours: No Infection Criteria Present: None New/Unexplained Altered Menta: No Sepsis Screen: No Definite Risk SIRS Temperature: Pulse: 109 Respiratory Rate: 22 Laboratory Tests 02/09/20 15:50: White Blood Count 7.4 Blood Pressure 148 /102 Mean: 117 Laboratory Tests 02/09/20 15:50: Creatinine 1.33H, Platelet Count 302, Total Bilirubin 0.8 Results/Orders Lab Results Laboratory Tests Test 02/09/20 15:50 02/09/20 18:47 02/09/20 19:07 Range/Units White Blood Count 7.4 4.3-11.0 10^3/uL Red Blood Count 5.43 4.30-5.52 10^6/uL Hemoglobin 16.0 13.3-17.7 g/dL Hematocrit 51 40-54 % Mean Corpuscular Volume 93 80-99 fL Mean Corpuscular Hemoglobin 30 25-34 pg Mean Corpuscular Hemoglobin Concent 32 32-36 g/dL Red Cell Distribution Width 14.1 10.0-14.5 % Platelet Count 302 130-400 10^3/uL Mean Platelet Volume 10.5 9.0-12.2 fL Immature Granulocyte % (Auto) 0 % Neutrophils (%) (Auto) 70 42-75 % Lymphocytes (%) (Auto) 18 12-44 % Monocytes (%) (Auto) 9 0-12 % Eosinophils (%) (Auto) 1 0-10 % Basophils (%) (Auto) 0 0-10 % Neutrophils # (Auto) 5.2 1.8-7.8 10^3/uL Lymphocytes # (Auto) 1.3 1.0-4.0 10^3/uL Monocytes # (Auto) 0.7 0.0-1.0 10^3/uL Eosinophils # (Auto) 0.1 0.0-0.3 10^3/uL Basophils # (Auto) 0.0 0.0-0.1 10^3/uL Immature Granulocyte # (Auto) 0.0 0.0-0.1 10^3/uL Sodium Level 140 135-145 MMOL/L Potassium Level 4.1 3.6-5.0 MMOL/L Chloride Level 103 98-107 MMOL/L Carbon Dioxide Level 22 21-32 MMOL/L Anion Gap 15 H 5-14 MMOL/L Blood Urea Nitrogen 17 7-18 MG/DL Creatinine 1.33 H 0.60-1.30 MG/DL Estimat Glomerular Filtration Rate 57 BUN/Creatinine Ratio 13 Glucose Level 107 H 70-105 MG/DL Calcium Level 9.4 8.5-10.1 MG/DL Corrected Calcium 8.5-10.1 MG/DL Total Bilirubin 0.8 0.1-1.0 MG/DL Aspartate Amino Transf (AST/SGOT) 20 5-34 U/L Alanine Aminotransferase (ALT/SGPT) 42 0-55 U/L Alkaline Phosphatase 95 40-136 U/L C-Reactive Protein High Sensitivity 0.30 0.00-0.50 MG/DL Total Protein 8.1 6.4-8.2 GM/DL Albumin 4.6 H 3.2-4.5 GM/DL Blood Gas Puncture Site RADIAL Blood Gas Patient Temperature 36.5 Arterial Blood pH 7.46 H 7.37-7.43 Arterial Blood Partial Pressure CO2 33 L 35-45 MMHG Arterial Blood Partial Pressure O2 51 L 79-93 MMHG Arterial Blood HCO3 23 23-27 MMOL/L Arterial Blood Total CO2 24.3 21.0-31.0 MMOL/L Arterial Blood Oxygen Saturation 79 L 94-100 % Arterial Blood Base Excess -0.3 -2.5-2.5 MMOL/L Chet Test YES-POS Blood Gas Ventilator Setting NO Blood Gas Inspired Oxygen ROOM AIR Troponin I < 0.028 <0.028 NG/ML Lipase 14 8-78 U/L My Orders Orders - LEAH CEVALLOS MD Lipase (02/09/20 19:00) Troponin I (02/09/20 19:00) Ekg Tracing (02/09/20 19:00) Lidocaine 2% Viscous 15 Ml (Xylocaine Vi (02/09/20 19:00) Antacid Suspension (Mylanta Suspension (02/09/20 19:00) Famotidine Injection (Pepcid Injection) (02/09/20 19:00) Ondansetron Injection (Zofran Injectio (02/09/20 19:00) Medications Given in ED Current Medications Medications Dose Ordered Sig/Evangelina Route Start Time Stop Time Status Last Admin Dose Admin Al Hydrox/Mg Hydrox/Simethicone 30 ml ONCE ONCE PO 02/09/20 19:00 02/09/20 19:02 DC 02/09/20 19:23 30 ML Albuterol/ Ipratropium 3 ml STK-MED ONCE .ROUTE 02/09/20 17:01 02/09/20 17:03 DC 02/09/20 17:19 3 ML Lidocaine HCl 15 ml ONCE ONCE PO 02/09/20 19:00 02/09/20 19:02 DC 02/09/20 19:23 15 ML Ondansetron HCl 4 mg ONCE ONCE IVP 02/09/20 19:00 02/09/20 19:03 DC 02/09/20 19:23 4 MG Vital Signs/I&O 02/09/20 02/09/20 15:40 17:17 Temp 37.0 Pulse 109 Resp 22 B/P (MAP) 148/102 (117) Pulse Ox 97 99 O2 Delivery Room Air Capillary Refill : Less Than 3 Seconds Blood Pressure Mean: 117 Progress Note : Progress Note Patient was found to have an normal lung exam but epigastric TTP. This did improve with Zofran, Pepcid, and GI cocktail. This is likely exacerbation of his gastritis. He is taking an ewuw-neq-snuaqmh antacid but he does not know what it is. I am going to prescribe Carafate and Protonix. Troponin and EKG were obtained as a precaution due to pain radiating up into his chest from the epigastric region. These were negative. Patient also had a negative stress test earlier in the year. ECG Initial ECG Impression Date: Feb 09, 2020 Initial ECG Impression Time: 18:58 Initial ECG Rate: 87 Initial ECG Rhythm: Normal Sinus Initial ECG Intervals: Normal Initial ECG Impression: Normal Comment Normal sinus rhythm with no ST elevation or depression. No abnormal intervals or axis deviation. Diagnostic Imaging Diagonstic Imaging: Xray Plain Films/CT/US/NM/MRI: chest Comments NAME: MIRZA MENDEZ [facility] REC#: [id number] PT STATUS: REG ER : 1970 PHYSICIAN: KINGSTON PAPPAS MD ADMIT DATE: 02/09/20/ER Draft Date of Exam:02/09/20 CHEST 1 VIEW, AP/PA ONLY INDICATION: Shortness of breath. EXAMINATION: Portable erect AP chest at 5:18 p.m. FINDINGS: The heart size is within normal limits and stable when compared to 01/08/2020. The atelectasis/infiltrate involving the right lung base, seen previously, has resolved. There are still coarse perihilar markings, bilaterally, but there is no clear evidence for a new focus of pneumonia or for a pleural effusion. There is a vague area of slightly increased density overlying the right lung base. This seems to be related to overlying breast/chest tissue as opposed to pneumonia/atelectasis. The mediastinum is not widened. The osseous structures are intact. IMPRESSION: There are chronic pulmonary changes present but there is no sign of an acute cardiopulmonary abnormality. Dictated on workstation # [id number] Dict: 02/09/201721 Trans: 02/09/201726 [id number] Interpreted by: RUBÉN VIRAMONTES MD Reviewed: Reviewed by Me Departure Impression Primary Impression: Upper abdominal pain Additional Impression: Dyspnea Qualified Codes: R06.00 - Dyspnea, unspecified Disposition: HOME, SELF-CARE Condition: Improved Departure-Patient Inst. Decision time for Depature: 20:09 Referrals: [facility] [place]) Primary Care Physician Patient Instructions: Chronic Obstructive Pulmonary Disease (COPD), Including Emphysema, Gastritis, Severe Abdominal Pain Add. Discharge Instructions: Continue your medications as previously prescribed. For your antacid therapy use a combination of Protonix and Carafate (sucralfate) as prescribed from the ER tonight. Either crushed or dissolved your Carafate tablets in 5 to 10 mL of water to make a slurry. Take 30 minutes before meals and before bedtime (4 times daily). Avoid the following: Eating large meals, eating close to bedtime, caffeine, carbonation, chocolate, citrus fruits and juices, tomato products, spicy foods, alcohol, tobacco, NSAID medications such as ibuprofen or naproxen, mints, fatty or greasy foods, or anything else you know irritate your stomach. Follow-up with your primary care provider and/or your surgeon in 1 to 2 weeks regarding your abdominal pain. Return to the emergency room if symptoms worsen. All discharge instructions reviewed with patient and/or family. Voiced understanding. Scripts Sucralfate (Carafate) 1 Gm Tablet 1 GM PO QID, #120 TAB Crush or dissolve to make slurry in 5 to 10 mL water. Take 30 min before eating/drinking at meals and bedtime. Prov: LEAH CEVALLOS MD 02/09/20 Pantoprazole Sodium (Protonix) 40 Mg Tablet.dr 40 MG PO DAILY, #30 TAB Prov: LEAH CEVALLOS MD 02/09/20 Copy Copies To 1: ETHAN ARMENDARIZ DO Copies To 2: CHON LUJAN DO LEAH CEVALLOS MD Feb 09, 2020 20:13
[2020-02-09 20:24] VITALS: BP 82/68
== END 2020-02-09 20:23 | disposition home or self-care (01) ==
LOC: EDUNIT# 15:16 → ER 15:17
DX: R10.13 Epigastric pain (principal); R06.00 Dyspnea, unspecified; I10 Essential (primary) hypertension; K21.9 Gastro-esophageal reflux disease without esophagitis; J44.9 Chronic obstructive pulmonary disease, unspecified; Z88.5 Allergy status to narcotic agent; Z87.891 Personal history of nicotine dependence
CPT/HCPCS: 36415; 36600; 71045; 80053; 82805; 83690; 84484; 85025; 86141; 93005; 94640

== ENCOUNTER → 2020-03-19 | Outpatient (CLI) | payer SELFPAY ==
[~2020-03-19] MED LIST changes: +PANT40TA2 PO
== END ==
LOC: LABNPT 08:18
PROVIDERS: ATTEND Internal Medicine Critical Care Medicine
DX: Z20.828 Contact with and (suspected) exposure to other viral communicable diseases (principal)
CPT/HCPCS: 87635

== ENCOUNTER 2020-03-21 20:21 | Outpatient (CLI) | payer OTHER | END 2020-03-22 03:40 | disposition home or self-care (01) | LOC: SLEEP 20:21 | PROVIDERS: ATTEND Nurse Practitioner Family | DX: G47.9 Sleep disorder, unspecified (principal); F51.01 Primary insomnia; E66.9 Obesity, unspecified ==

== ENCOUNTER → 2020-04-22 | Outpatient (CLI) | payer OTHER | LOC: LABNPT 05:08 | PROVIDERS: ATTEND Internal Medicine Critical Care Medicine | DX: Z53.8 Procedure and treatment not carried out for other reasons (principal) ==

== ENCOUNTER → 2020-04-24 | Outpatient (CLI) | payer OTHER | LOC: LABNPT 08:08 | PROVIDERS: ATTEND Internal Medicine Critical Care Medicine | DX: Z01.89 Encounter for other specified special examinations (principal); Z20.822 Contact with and (suspected) exposure to COVID-19 | CPT/HCPCS: 87635 ==

== ENCOUNTER 2020-05-09 20:43 | Outpatient (CLI) | payer OTHER ==
[~2020-05-09 20:43] MED LIST changes: -LISI10TA2 PO; +LISI10TA25 PO
== END 2020-05-10 05:50 | disposition home or self-care (01) ==
LOC: SLEEP 20:43
PROVIDERS: ATTEND Nurse Practitioner Family
DX: G47.30 Sleep apnea, unspecified (principal); G47.50 Parasomnia, unspecified; G47.10 Hypersomnia, unspecified
CPT/HCPCS: 95810

== ENCOUNTER → 2020-05-26 | Outpatient (CLI) | payer OTHER ==
[2020-05-26 12:58] LABS: BASOPHILS % (AUTO) 0 % (0-10); EOSINOPHILS # (AUTO) 0.1 10^3/uL (0.0-0.3); EOSINOPHILS % (AUTO) 1 % (0-10); HEMATOCRIT 49 % (40-54); LYMPHOCYTES # (AUTO) 1.2 10^3/uL (1.0-4.0); LYMPHOCYTES % (AUTO) 16 % (12-44); MEAN CORPUSCULAR HEMOGLOBIN 30 pg (25-34); MEAN CORPUSCULAR HGB CONC 33 g/dL (32-36); MEAN CORPUSCULAR VOLUME 91 fL (80-99); MEAN PLATELET VOLUME 10.9 fL (9.0-12.2); MONOCYTES # (AUTO) 0.7 10^3/uL (0.0-1.0); MONOCYTES % (AUTO) 9 % (0-12); NEUTROPHILS # (AUTO) 5.5 10^3/uL (1.8-7.8); NEUTROPHILS % (AUTO) 73 % (42-75); PLATELET COUNT 212 10^3/uL (130-400); WHITE BLOOD COUNT 7.5 10^3/uL (4.3-11.0)
[2020-05-26 13:17] LABS: ALBUMIN 4.2 GM/DL (3.2-4.5); BILIRUBIN,TOTAL 0.6 MG/DL (0.1-1.0); CALCIUM 9.1 MG/DL (8.5-10.1); CREATININE SERUM 1.31 MG/DL (0.60-1.30); POTASSIUM 4.2 MMOL/L (3.6-5.0); TOTAL PROTEIN 7.2 GM/DL (6.4-8.2)
== END ==
LOC: LAB 12:45
PROVIDERS: ATTEND Physician Assistant
DX: E78.2 Mixed hyperlipidemia (principal)
CPT/HCPCS: 36415; 80053; 80061; 84443; 85025

== ENCOUNTER → 2020-10-12 | Outpatient (CLI) | payer OTHER ==
--- NOTE | 2020-10-12 09:52 | Diagnostic Imaging Report ---
INDICATION: COPD PA and lateral views of the chest are obtained with comparison made to examination of 01/08/2020. There is extensive air trapping bilaterally similar to previous study. There is linear density left apex which may be due to atelectasis or developing scar. There is an approximately 1.5 cm nodular focus projecting over the posterior aspect of the left lower lobe. This represents a change from the previous study. There is no pneumothorax or significant pleural fluid. IMPRESSION: Development of 1.5 cm left lower lobe pulmonary nodule with background emphysema. Given risk factors, this is suspicious for neoplasm and CT imaging of the chest is recommended for further assessment. Dictated by: Dictated on workstation # [id number]
== END ==
LOC: RAD 09:00
PROVIDERS: ATTEND Nurse Practitioner Family
DX: J43.9 Emphysema, unspecified (principal); R91.1 Solitary pulmonary nodule
CPT/HCPCS: 71046

== ENCOUNTER → 2020-11-05 | Outpatient (CLI) | payer OTHER ==
[~2020-11-05] MED LIST changes: +CATHETER FLUSH 10 ML SYR IV PRN; +HOLD METFORMIN - RECEIVED CONTRAST 20 ML VIAL IV SCH; +IOHEXOL 350 MG/ML 100 ML (OMNIPAQUE 350) VIAL IV ONE; +NS 100 ML (IVPB) BAG IV ONE
[2020-11-05 07:05] LABS: CREATININE SERUM 1.49 MG/DL (0.60-1.30)
--- NOTE | 2020-11-05 10:23 | Diagnostic Imaging Report ---
PROCEDURE: CT chest with contrast only. TECHNIQUE: Multiple contiguous axial images were obtained through the chest after administration of intravenous contrast. Auto Exposure Controls were utilized during the CT exam to meet ALARA standards for radiation dose reduction. INDICATION: Abnormal findings on diagnostic imaging of the lungs. Left lower pulmonary nodule. FINDINGS: There is obstructive airway disease. There is a 19 x 21 mm slightly lobulated and slightly spiculated noncalcified nodule in the superior segment of the left lower lobe. This is a change from 01/20/2020 study. Neoplasm needs to be excluded. The remainder of the lungs are clear. There is no effusion or pneumothorax. There is no mediastinal mass or adenopathy. No suspicious bony lesions are seen. IMPRESSION: There is a 2 cm lesion in the left lower lobe. Malignancy needs to be excluded. This could be evaluated further with PET scan and/or biopsy using CT guidance. Dictated by: Dictated on workstation # [id number]
== END ==
LOC: RAD 07:45
PROVIDERS: ATTEND Nurse Practitioner Family
DX: R91.8 Other nonspecific abnormal finding of lung field (principal)
CPT/HCPCS: 36415; 71260; 82565; 84520

== ENCOUNTER 2020-11-26 07:53 | Outpatient (CLI) | payer OTHER ==
[2020-11-26] VITALS (16 sets, daily range): BP systolic 127–153; BP diastolic 74–95
[~2020-11-26] VITALS: Ht 180.3 cm; Wt 81.0 kg
[~2020-11-26 07:53] MED LIST changes: -CATHETER FLUSH 10 ML SYR IV PRN; -HOLD METFORMIN - RECEIVED CONTRAST 20 ML VIAL IV SCH; -IOHEXOL 350 MG/ML 100 ML (OMNIPAQUE 350) VIAL IV ONE; -NS 100 ML (IVPB) BAG IV ONE
[2020-11-26 08:24] LABS: HEMATOCRIT 51 % (40-54); HEMOGLOBIN 16.5 g/dL (13.3-17.7); MEAN CORPUSCULAR HEMOGLOBIN 30 pg (25-34); MEAN CORPUSCULAR HGB CONC 33 g/dL (32-36); MEAN CORPUSCULAR VOLUME 91 fL (80-99); MEAN PLATELET VOLUME 10.3 fL (9.0-12.2); PLATELET COUNT 255 10^3/uL (130-400); WHITE BLOOD COUNT 7.8 10^3/uL (4.3-11.0)
[2020-11-26] MEDS ORDERED: NS IV 1000 ML 1,000 ML IV STA (08:35)
[2020-11-26 08:36] LABS: INR 0.9 (0.8-1.4); PROTHROMBIN TIME PATIENT 12.6 SEC (12.2-14.7)
[2020-11-26] MEDS ORDERED: MIDAZOLAM 2 MG/2 ML (VERSED) VIAL IVP ONE (08:45)
[2020-11-26] MEDS ORDERED: HEParin (CENTRAL IV FLUSH) 500 UNIT/5 ML SYR IV PRN (08:45)
[2020-11-26] MEDS ORDERED: fentaNYL INJ 100 MCG/2 ML AMP IVP ONE (08:45)
[2020-11-26] MEDS ORDERED: LIDOCAINE 1% INJ 20 ML 20 ML VIAL INJ ONE (08:45)
[2020-11-26] MEDS ORDERED: NF-XOP-HFA INH (08:56)
[2020-11-26] MEDS ORDERED: CETI10TA17 PO (08:56)
[2020-11-26] MEDS ORDERED: PANT40TA2 PO (08:56)
[2020-11-26] MEDS ORDERED: FLUT9.9S NS (08:56)
[2020-11-26] MEDS ORDERED: NITR0.4T42 SL (08:56)
[2020-11-26] MEDS ORDERED: APIX5TAB PO (08:56)
[2020-11-26] MEDS ORDERED: ACET-93 PO (08:56)
[2020-11-26] MEDS ORDERED: HYDROcodone/APAP 5 MG/325 MG (LORTAB) TAB PO PRN (11:00)
--- NOTE | 2020-11-26 11:07 | Diagnostic Imaging Report ---
INDICATION: A left lower lobe lung nodule. PROCEDURE: The patient presents for CT-guided biopsy. TECHNIQUE: All CT scans use one or more of the following dose optimizing techniques: automated exposure control, MA and/or KvP adjustment based on patient size and exam type or iterative reconstruction. The patient is brought to the CT suite, placed on the table in the left side down decubitus position. Axial imaging through the chest was performed to evaluate appropriate entry site. The left posterior thorax was then prepped and draped in the usual sterile fashion. A small amount of 1% lidocaine was utilized for local anesthesia. The procedure was performed utilizing conscious sedation with radiology nursing in constant patient monitoring. Patient was given a total of 50 mcg of fentanyl intravenously and 0.5 mg of Versed intravenously. Total procedure time was 14 minutes. An 18-gauge coaxial Temno needle was advanced and placed with its tip along the inferior margin of the left lower lobe mass. Multiple core biopsies were obtained. The BioSentry sealant device was utilized for tract sealant prior to needle removal. Follow-up imaging does show some parenchymal hemorrhage in the left lower lobe. No significant pneumothorax is identified. Follow-up chest radiograph will be obtained in 2 hours. IMPRESSION: Successful CT-guided biopsy of left lower lobe pulmonary nodule, utilizing conscious sedation. Pathology results are currently pending. Dictated by: Dictated on workstation # [id number]
--- NOTE | 2020-11-26 12:02 | Pre-Op Note & Conscious Sedat ---
Pre-Operative Progress Note H&P Reviewed The H&P was reviewed, patient examined and no changes noted. Date H&P Reviewed: Nov 26, 2020 Time H&P Reviewed: 09:00 Pre-Op Diagnosis: Lung mass Conscious Sedation Pre-Proced Time 09:00 ASA Score 2 For ASA 3 and 4: Consider anesthesia and medical clearance. Also, for patients with a history of failed moderate sedation consider anesthesia. Airway Lungs Heart ASA score ASA 1: a normal healthy patient ASA 2: a patient with a mild systemic disease (mid diabetes, controlled hypertension, obesity ASA 3: a patient with a severe systemic disease that limits activity (angina, COPD, prior Myocardial infarction) ASA 4: a patient with an incapacitating disease that is a constant threat to life (CHF, renal failure) ASA 5: a moribund patient not expected to survive 24 hrs. (ruptured aneurysm) ASA 6: a declared brain- patient whose organs are being harvested. For emergent operations, add the letter E after the classification Mallampati Classification Grade 2 Sedation Plan Analgesia, Amnesia, Plan communicated to team members, Discussed options with patient/fam, Discussed risks with patient/fam The patient is an appropriate candidate to undergo the planned procedure, sedation, and anesthesia. The patient immediately re-assessed prior to indication. SAJAN ALFREDO MD Nov 26, 2020 12:01
--- NOTE | 2020-11-26 14:35 | Diagnostic Imaging Report ---
Indication: Post-lung biopsy, left lung. Findings: There is no pneumothorax or hemothorax. There is air trapping and COPD chronic with some basilar atelectasis. Impression: No pneumothorax or hemorrhage identified. Dictated by: Dictated on workstation # [id number]
== END 2020-11-26 12:45 | disposition home or self-care (01) ==
LOC: SDC 07:53
PROVIDERS: ATTEND Nurse Practitioner Family
DX: J44.9 Chronic obstructive pulmonary disease, unspecified (principal); I10 Essential (primary) hypertension; G47.36 Sleep related hypoventilation in conditions classified elsewhere; R91.8 Other nonspecific abnormal finding of lung field; R91.1 Solitary pulmonary nodule; Z87.891 Personal history of nicotine dependence; Z86.16 Personal history of COVID-19
CPT/HCPCS: 71045; 77012; 85027; 85610; 85730; 99156; C2613; 36415

== ENCOUNTER → 2020-12-08 | Outpatient (CLI) | payer OTHER ==
[~2020-12-08] MED LIST changes: +ACET-93 PO; +CETI10TA17 PO; +FLUT9.9S NS; +NF-XOP-HFA INH
--- NOTE | 2020-12-11 08:48 | Diagnostic Imaging Report ---
PET/CT INDICATION: Lung mass TECHNIQUE: PET/CT imaging was obtained from the base of the skull through the pelvis after the administration of 15.42 mCi of F-[address] imaging was utilized for localization and attenuation correction purposes. The low energy CT utilized for attenuation correction is not considered to be of high enough spatial resolution to allow in and of itself a separate anatomical analysis. Height is 5' 11" Weight 192 Blood glucose 105 There are no prior PET/CT examinations available for comparison. The recent CT chest exam performed on 11/05/2020 did note a 2 cm lesion in the left lower lobe. This lesion was subsequently biopsied using CT guidance on 11/26/2020. The results of the biopsy are not known to me but reportedly the patient does have a lung malignancy. On this study, the lesion in the left lung is intensely hypermetabolic with a maximum SUV of 20.3. Furthermore, in the region of the thyroid cartilage on the left, there is another hypermetabolic focus. This has a maximum SUV of 8.4. There is no abnormality evident in this area on the CT images and this finding is of uncertain etiology. If further study is desired, then CT of the neck with contrast or direct visualization would be recommended. There is also a small area of slightly increased activity in the floor of the mouth. This has a maximum SUV of 3.7. There is no other hypermetabolic activity to suggest the presence of malignancy. Physiologic activity is evident in the kidneys, bowel and bladder. There is no acute abnormality evident on the CT images. The left kidney does appear to be extremely small. IMPRESSION: 1. The mass in the left lung seen previously is intensely hypermetabolic consistent with neoplastic disease. 2. The area of increased activity in the region of the thyroid cartilage on the left is of uncertain etiology. Considerations and recommendations as above. 3. There is no other hypermetabolic activity to suggest the presence of malignancy. 4. There is no acute abnormality identified. 5. The left kidney is extremely small. Dictated on workstation # [id number]
== END ==
LOC: RAD 10:05
PROVIDERS: ATTEND Nurse Practitioner Family
DX: R91.8 Other nonspecific abnormal finding of lung field (principal); R06.00 Dyspnea, unspecified
CPT/HCPCS: 78815; A9552

== ENCOUNTER → 2020-12-18 | Outpatient (CLI) | payer OTHER ==
[~2020-12-18] MED LIST changes: +CATHETER FLUSH 10 ML SYR IV PRN; +DOXY100T2 PO; +HOLD METFORMIN - RECEIVED CONTRAST 20 ML VIAL IV SCH; +IOHEXOL 350 MG/ML 100 ML (OMNIPAQUE 350) VIAL IV ONE; +NITR0.4T39 SL; +NS 100 ML (IVPB) BAG IV ONE
[2020-12-18 10:03] LABS: CREATININE SERUM 1.2 MG/DL (0.60-1.30)
--- NOTE | 2020-12-18 17:47 | Diagnostic Imaging Report ---
CLINICAL INDICATIONS: Patient with diagnosis of lung cancer. Patient has migraines. Patient has possible uptake in the neck. EXAM: Axial CT scan of the head performed without and with 80 mL of Omnipaque [address] scan of the neck performed with contrast in conjunction with CT of the head. Sagittal and coronal reformatted images were created. Auto Exposure Controls were utilized during the CT exam to meet ALARA standards for radiation dose reduction. COMPARISON: Whole-body PET/CT scan dated 12/08/2020. FINDINGS: HEAD CT: There is no evidence of acute cerebral infarct, intracranial hemorrhage, or gross mass effect. The brain parenchymal volume appears appropriate for patient's age. There is normal simpson-white matter distinction. There is no significant midline shift or herniation. The [place] vascular structures show no gross abnormality as visualized. There is no evidence of hydrocephalus. The basal cisterns are unremarkable. The skull, extracranial soft tissue, and orbits are unremarkable. There is a small mucus retention cyst in the left maxillary sinus. There is moderate amount of fluid in the right mastoid air cells. CT NECK: There is a 2.3 cm x 2.5 cm in greatest axial dimension x 1.7 cm in craniocaudal dimension lobulated mass in the left sublingual space. This is in the expected region of the left sublingual gland. This correlates to the area of abnormal increased FDG uptake. There are no adjacent bony erosive changes. The bilateral submandibular and parotid glands are unremarkable. The right submandibular gland is noted, but is not as prominent as the left side with associated mass. There is subtle erosion and irregularity of the posterior left thyroid cartilage region which correlates to the area of increased FDG uptake on the prior PET scan. There is no measurable mass seen in this region. Besides the slight bony irregularity, the left thyroid cartilage erosion appears grossly similar to the right side. The remainder of the neck soft tissue structures is unremarkable. There is no measurable neck mass. There is no fluid collection or lymphadenopathy. The oral cavity, tongue and submandibular regions are unremarkable. The orbits and globes are unremarkable. Thyroid gland is unremarkable. There is emphysematous disease involving the upper lung hogue. There is bilateral apical pleural parenchymal thickening/scarring. There is cervical spine vertebral body spurs and facet arthropathy. IMPRESSION: 1: There is masslike enlargement in the left sublingual gland region which correlates to the area of abnormal FDG uptake. There is no adjacent fat stranding. This may represent an area of sialoadenitis. Infiltrative metastatic disease cannot be completely excluded. The right sublingual gland is noted and similar to contralateral position, but is much smaller. There is no stone or obstructive process seen. Follow-up imaging would help better evaluate. 2: There are subtle erosions and irregularity of the posterior aspect of the left thyroid cartilage which correlates to the area of abnormal FDG uptake on the comparison CT scan. Otherwise, there is no measurable mass. This may represent an area of subtle metastasis. Follow-up imaging would help better evaluate. 3: Otherwise, the remainder of the neck soft tissue structures is unremarkable. There is no lymphadenopathy. 4: There is emphysematous lung disease. 5: Unremarkable CT scan of the brain. There is no evidence of intracranial metastatic disease. Dictated by: Dictated on workstation # [id number]
== END ==
PROVIDERS: ATTEND Internal Medicine Critical Care Medicine
DX: C34.90 Malignant neoplasm of unspecified part of unspecified bronchus or lung (principal); J43.9 Emphysema, unspecified; A15.9 Respiratory tuberculosis unspecified
CPT/HCPCS: 36415; 70470; 70491; 82565; 84520

== ENCOUNTER 2020-12-19 09:32 | Emergency (ER) | payer SELFPAY ==
[~2020-12-19] VITALS: Ht 180.4 cm; Wt 90.2 kg
[~2020-12-19 09:32] MED LIST changes: -CATHETER FLUSH 10 ML SYR IV PRN; -DOXY100T2 PO; -HOLD METFORMIN - RECEIVED CONTRAST 20 ML VIAL IV SCH; -IOHEXOL 350 MG/ML 100 ML (OMNIPAQUE 350) VIAL IV ONE; -NITR0.4T39 SL; -NS 100 ML (IVPB) BAG IV ONE
[2020-12-19 09:55] LABS: BASOPHILS % (AUTO) 0 % (0-10); EOSINOPHILS # (AUTO) 0.1 10^3/uL (0.0-0.3); EOSINOPHILS % (AUTO) 2 % (0-10); HEMATOCRIT 47 % (40-54); HEMOGLOBIN 15.5 g/dL (13.3-17.7); LYMPHOCYTES # (AUTO) 0.7 10^3/uL (1.0-4.0); LYMPHOCYTES % (AUTO) 9 % (12-44); MEAN CORPUSCULAR HEMOGLOBIN 30 pg (25-34); MEAN CORPUSCULAR HGB CONC 33 g/dL (32-36); MEAN CORPUSCULAR VOLUME 90 fL (80-99); MEAN PLATELET VOLUME 10.7 fL (9.0-12.2); MONOCYTES # (AUTO) 0.6 10^3/uL (0.0-1.0); MONOCYTES % (AUTO) 8 % (0-12); NEUTROPHILS # (AUTO) 5.9 10^3/uL (1.8-7.8); NEUTROPHILS % (AUTO) 80 % (42-75); PLATELET COUNT 239 10^3/uL (130-400); WHITE BLOOD COUNT 7.4 10^3/uL (4.3-11.0)
[2020-12-19] MEDS ORDERED: ONDANSETRON 4 MG/2 ML (SDV) Z0FRAN IVP ONE (10:00)
[2020-12-19 10:01] LABS: POTASSIUM 3.4 MMOL/L (3.6-5.0)
[2020-12-19 10:04] LABS: INR 1.2 (0.8-1.4); PROTHROMBIN TIME PATIENT 15.2 SEC (12.2-14.7)
[2020-12-19 10:05] LABS: BILIRUBIN,TOTAL 0.5 MG/DL (0.1-1.0)
[2020-12-19 10:07] LABS: CREATININE SERUM 1.19 MG/DL (0.60-1.30)
[2020-12-19 10:10] LABS: MAGNESIUM 1.9 MG/DL (1.6-2.4)
--- NOTE | 2020-12-19 10:18 | ED Chest Pain ---
General Chief Complaint: Chest Pain Stated Complaint: CHEST PAIN Nursing Triage Note: CP THIS AM WITH PAIN RATING 6/10. Source: patient, EMS, old records Exam Limitations: no limitations History of Present Illness Date Seen by Provider: Dec 19, 2020 Time Seen by Provider: 09:34 Initial Comments This 50-year-old gentleman presents to the emergency room with complaints of chest pain and tightening upon awaking this morning. This was accompanied by a tachycardia in the 150s according to his measurement at home as well as shortness of breath. He states the chest pain now feels much better but he has a generalized tightness that he rates as 6/10. Pain radiates to his back. He has history of lung cancer characterized on recent PET scan as well as a thyroid lesion suspicious for metastasis that was evaluated with CT of the head and neck yesterday. These reports are on file in his [facility] medical record. He has a pending referral to for cardiothoracic surgical evaluation. He also has history of paroxysmal atrial fibrillation. He presently takes Eliquis, metopro lol, and diltiazem. He denies missing any doses. He also has emphysema and reports taking Advair for maintenance and Xopenex for a rescue inhaler. He has not taken any Xopenex today. He has taken all of his other morning medications. He was asked to use the Xopenex in the exam room during assessment. Patient denies any history of coronary artery disease to his knowledge. He has no rhythm monitoring devices such as a pacemaker or loop recorder. 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 Primary care is provided by [facility]. He has history of COVID-19 followed by a vaccination for COVID-19. He denies any recent history of acute illness such as fever, diarrhea, vomiting, cough, etc. he notes some slight right upper quadrant tenderness on exam. He received aspirin 324 mg and nitroglycerin x1 by EMS in route. Pain was already subsiding prior to administration of those medications. Rhythm has been sinus tachycardia for EMS and on arrival to the ER. Rate has improved to the 110s. Allergies and Home Medications Allergies Coded Allergies: morphine (Verified Adverse Reaction, Intermediate, 08/27/19) flushed, diaphoretic. Patient Home Medication List Home Medication List Reviewed: Yes Acetaminophen (Acetaminophen) 500 Mg Tablet, 1-2 TAB.SA PO Q4H PRN for PAIN-MILD (1-4) OR TEMPATURE, (Reported) Entered as Reported by: EMILY BARTHOLOMEW on 11/26/20 08 Apixaban (Eliquis) 5 Mg Tablet, 5 MG PO BID, (Reported) Entered as Reported by: EMILY BARTHOLOMEW on 11/26/20 08 Cetirizine HCl (Cetirizine HCl) 10 Mg Tablet, 10 MG PO DAILY, (Reported) Entered as Reported by: EMILY BARTHOLOMEW on 11/26/20 08 Diltiazem HCl (Diltiazem 24Hr ER) 240 Mg Cap.er.24h, 240 MG PO DAILY, (Reported) Entered as Reported by: TACHO KING on 11/07/19 08 Doxycycline Hyclate (Doxycycline Hyclate) 100 Mg Tablet, 100 MG PO BID Prescribed by: LEAH MAKI on 12/19/20 132 Fluticasone Propionate (Flonase Allergy Relief) 9.9 Ml [place].susp, 2 SPRAY NS DAILY, (Reported) Entered as Reported by: EMILY BARTHOLOMEW on 11/26/20855 Fluticasone/Umeclidin/Vilanter (Trelegy Ellipta 100-62.5-25) 1 Each Blst.w.dev, 1 EACH IH DAILY, (Reported) Entered as Reported by: TACHO KING on 10/23/19 143 Levalbuterol Tartrate (Xopenex Hfa) 15 Gm Hfa.aer.ad, 2 PUFF INH Q4H PRN for WHEEZING, (Reported) Entered as Reported by: EMILY BARTHOLOMEW on 11/26/20 08 Metoprolol Succinate (Metoprolol Succinate) 50 Mg Tab.er.24h, 100 MG PO DAILY, (Reported) Entered as Reported by: TACHO KING on 10/23/19 143 Nitroglycerin (Nitroglycerin) 0.4 Mg Tab.subl, 0.4 MG SL, (Reported) Entered as Reported by: EMILY BARTHOLOMEW on 11/26/20 08 Nitroglycerin (Nitroglycerin) 0.4 Mg Tab.subl, 0.4 MG SL UD PRN for CHEST PAIN Prescribed by: LEAH MAKI on 12/19/20 1329 Pantoprazole Sodium (Protonix) 40 Mg Tablet., PO DAILY, (Reported) Entered as Reported by: EMILY BARTHOLOMEW on 11/26/20 0856 Roflumilast (Daliresp) 500 Mcg Tablet, 500 MCG PO DAILY, (Reported) Entered as Reported by: TACHO KING on 10/23/19 1433 Review of Systems Review of Systems Constitutional: no symptoms reported EENTM: See HPI Respiratory: See HPI Cardiovascular: See HPI Gastrointestinal: No Symptoms Reported Genitourinary: No Symptoms Reported Musculoskeletal: no symptoms reported Skin: no symptoms reported Psychiatric/Neurological: No Symptoms Reported Endocrine: No Symptoms Reported Hematologic/Lymphatic: No Symptoms Reported Past Jlfghag-Daczra-Npcimc Hx Patient Social History Tobacco Use?: No Use of E-Cig and/or Vaping dev: No Substance use?: No Alcohol Use?: Yes Alcohol type: Beer Alcohol Frequency: Once in a while Pt feels they are or have been: No Immunizations Up To Date Tetanus Booster (TDap): Unknown PED Vaccines UTD: Yes Influenza Vaccine Up-to-Date: No; Not Current First/Initial COVID19 Vaccinat: May COVID19 Vaccination Yair: JUNE COVID19 Vaccine 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: [employer] Seasonal Allergies Seasonal Allergies: No Past Medical History Surgeries: Yes Abdominal Respiratory: Yes (lung cancer, use O2 by NC at night) COPD Cardiac: Yes Atrial Fibrillation, Hypertension Neurological: No Sexually Transmitted Disease: No HIV/AIDS: No Genitourinary: No Gastrointestinal: Yes (gastritis) Gastroesophageal Reflux Musculoskeletal: No Endocrine: No HEENT: No Cancer: No Psychosocial: No Integumentary: No Blood Disorders: No Family Medical History No Pertinent Family Hx Physical Exam Vital Signs Vital Signs - First Documented 12/19/20 09:36 Temp 36.4 Pulse 111 Resp 18 B/P (MAP) 107/78 (88) Pulse Ox 96 O2 Delivery Nasal Cannula O2 Flow Rate 3.00 Capillary Refill : Less Than 3 Seconds Height, Weight, BMI Height: 5'11.00" Weight: 180lbs. oz. 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 Norm as Tested Skin: Normal Color, Warm/Dry Focused Exam Lactate Level 12/19/20 10:20: Lactic Acid Level 1.88 Lactic Acid Level Laboratory Tests Test 12/19/20 10:20 Lactic Acid Level 1.88 MMOL/L (0.50-2.00) Progress/Results/Core Measures Results/Orders Lab Results Laboratory Tests Test 12/19/20 09:40 12/19/20 10:14 12/19/20 10:20 12/19/20 11:58 Range/Units White Blood Count 7.4 4.3-11.0 10^3/uL Red Blood Count 5.17 4.30-5.52 10^6/uL Hemoglobin 15.5 13.3-17.7 g/dL Hematocrit 47 40-54 % Mean Corpuscular Volume 90 80-99 fL Mean Corpuscular Hemoglobin 30 25-34 pg Mean Corpuscular Hemoglobin Concent 33 32-36 g/dL Red Cell Distribution Width 12.8 10.0-14.5 % Platelet Count 239 130-400 10^3/uL Mean Platelet Volume 10.7 9.0-12.2 fL Immature Granulocyte % (Auto) 0 % Neutrophils (%) (Auto) 80 H 42-75 % Lymphocytes (%) (Auto) 9 L 12-44 % Monocytes (%) (Auto) 8 0-12 % Eosinophils (%) (Auto) 2 0-10 % Basophils (%) (Auto) 0 0-10 % Neutrophils # (Auto) 5.9 1.8-7.8 10^3/uL Lymphocytes # (Auto) 0.7 L 1.0-4.0 10^3/uL Monocytes # (Auto) 0.6 0.0-1.0 10^3/uL Eosinophils # (Auto) 0.1 0.0-0.3 10^3/uL Basophils # (Auto) 0.0 0.0-0.1 10^3/uL Immature Granulocyte # (Auto) 0.0 0.0-0.1 10^3/uL Prothrombin Time 15.2 H 12.2-14.7 SEC INR Comment 1.2 0.8-1.4 Activated Partial Thromboplast Time 31 24-35 SEC D-Dimer < 0.27 0.00-0.49 UG/ML Sodium Level 140 135-145 MMOL/L Potassium Level 3.4 L 3.6-5.0 MMOL/L Chloride Level 108 H 98-107 MMOL/L Carbon Dioxide Level 21 21-32 MMOL/L Anion Gap 11 5-14 MMOL/L Blood Urea Nitrogen 15 7-18 MG/DL Creatinine 1.19 0.60-1.30 MG/DL Estimat Glomerular Filtration Rate 64 BUN/Creatinine Ratio 13 Glucose Level 140 H 70-105 MG/DL Calcium Level 9.0 8.5-10.1 MG/DL Corrected Calcium 9.0 8.5-10.1 MG/DL Magnesium Level 1.9 1.6-2.4 MG/DL Total Bilirubin 0.5 0.1-1.0 MG/DL Aspartate Amino Transf (AST/SGOT) 14 5-34 U/L Alanine Aminotransferase (ALT/SGPT) 25 0-55 U/L Alkaline Phosphatase 88 40-136 U/L Myoglobin 29.7 10.0-92.0 NG/ML Troponin I < 0.028 < 0.028 <0.028 NG/ML C-Reactive Protein High Sensitivity 0.41 0.00-0.50 MG/DL B-Type Natriuretic Peptide 28.9 <100.0 PG/ML Total Protein 7.0 6.4-8.2 GM/DL Albumin 4.0 3.2-4.5 GM/DL Lipase 14 8-78 U/L Thyroid Stimulating Hormone (TSH) 0.64 0.35-4.94 UIU/ML Free Thyroxine 0.95 0.70-1.48 NG/DL Influenza Type A Antigen NEGATIVE NEGATIVE Influenza Type B Antigen NEGATIVE NEGATIVE Lactic Acid Level 1.88 0.50-2.00 MMOL/L My Orders Orders - LEAH CEVALLOS MD Cbc With Automated Diff (12/19/20 09:49) Magnesium (12/19/20 09:49) Chest 1 View, Ap/Pa Only (12/19/20 09:49) Ekg Tracing (12/19/20 09:49) Comprehensive Metabolic Panel (12/19/20 09:49) Myoglobin Serum (12/19/20 09:49) Protime With Inr (12/19/20 09:49) Partial Thromboplastin Time (12/19/20 09:49) O2 (12/19/20 09:49) Monitor-Rhythm Ecg Trace Only (12/19/20 09:49) Ed Iv/Invasive Line Start (12/19/20 09:49) Troponin I (12/19/20 09:49) Hs C Reactive Protein (12/19/20 09:52) Lipase (12/19/20 09:52) Thyroid Stimulating Hormone (12/19/20 09:52) Free T4 (Free Thyroxine) (12/19/20 09:52) BNP (12/19/20 09:52) Fibrin Degradation Products (12/19/20:52) Influenza A & B Antigens (12/19/20 09:52) Blood Culture (12/19/20 09:52) Vital Signs Adult Sepsis Patie Q15M (12/19/20 09:52) Remove Rings In Anticipation O (12/19/20 09:52) Lactic Acid Analyzer (12/19/20 09:52) Ondansetron Injection (Zofran Injectio (12/19/20 10:00) Troponin I (12/19/20 11:40) Pantoprazole Tablet (Protonix Tablet) (12/19/20 11:30) Medications Given in ED Current Medications Medications Dose Ordered Sig/Evangelina Route Start Time Stop Time Status Last Admin Dose Admin Ondansetron HCl 4 mg ONCE ONCE IVP 12/19/20 10:00 12/19/20 10:01 DC 12/19/20 10:14 4 MG Pantoprazole Sodium 40 mg ONCE ONCE PO 12/19/20 11:30 12/19/20 11:31 DC 12/19/20 11:57 40 MG Vital Signs/I&O 12/19/20 12/19/20 12/19/20 09:36 09:36 13:57 Temp 36.4 Pulse 111 92 Resp 18 18 B/P (MAP) 107/78 (88) 118/63 Pulse Ox 96 98 94 O2 Delivery Nasal Cannula Nasal Cannula O2 Flow Rate 3.00 3.00 Blood Pressure Mean: 88 Progress Progress Note : Time: 11:50 Progress Note Work-up thus far has been unremarkable. Patient has been improving. As I have discussed the situation with him further it appears that his chest tightness, upper abdominal discomfort, and shortness of breath have been persistent ongoing symptoms for at least weeks and were greatly exacerbated when his heart rate accelerated this morning. I suspect that he had a run of atrial fibrillation with RVR or other tachycardic rhythm this morning that triggered his worsening of symptoms. Symptoms started around 0600. We are repeating a 2-hour troponin at 1150. As long as he is near his baseline and troponin is negative, we plan to discharge home. He had a negative stress test a year ago. Initial ECG Impression Date: Dec 19, 2020 Initial ECG Impression Time: 09:37 Initial ECG Rate: 111 Initial ECG Rhythm: S.Tach Initial ECG Intervals: Normal Comment Sinus tachycardia with multiple PVCs. No ST elevation or depression to suggest ischemia. No axis deviation. No abnormal intervals. Diagnostic Imaging Diagonstic Imaging: Xray Plain Films/CT/US/NM/MRI: chest Comments Chest x-ray viewed by me and report reviewed. See report below: NAME: MIRZA MENDEZ [facility] REC#: [id number] PT STATUS: REG ER : 1970 PHYSICIAN: LEAH CEVALLOS MD ADMIT DATE: 12/19/20/ER Draft Date of Exam:12/19/20 CHEST 1 VIEW, AP/PA ONLY Indication: Chest pain. Comparison: 11/26/2020. Discussion: Single portable upright view of the chest was obtained. Opacities within the lung bases are increased suggesting worsening pneumonia. Normal heart size. No pleural fluid or pneumothorax. No osseous abnormality. Impression: 1. Worsening bibasilar infiltrates. Dictated on workstation # [id number] Dict: 12/19/20 1007 Trans: 12/19/20 1033 CV [id number] Interpreted by: COSME VASQUES MD Departure Impression Primary Impression: Tachycardia Additional Impressions: Atypical chest pain Lung cancer Qualified Codes: C34.32 - Malignant neoplasm of lower lobe, left bronchus or lung Neck mass Abnormal chest x-ray Disposition: 01 HOME, SELF-CARE Condition: Improved Departure-Patient Inst. Decision time for Depature: 13:26 Referrals: [facility] (PCP/Family) Primary Care Physician Patient Instructions: Lung Cancer (DC), Chest Pain, Adult ED Add. Discharge Instructions: Follow-up with Dr. Bolden soon as possible. Please call his office Monday odalis moise. Speak with him about the loop recorder for monitoring your heart rhythm as well as your episode of chest pain. Complete your antibiotic as prescribed. This antibiotic may cause sun sensitivity. Avoid direct sunlight while you are on it. It may also cause stomach upset and may be better tolerated with food. Follow-up with your primary care provider as soon as possible as well. Keep your appointments with your specialists as well. Return to the emergency room if you have worsening symptoms. Call if you have questions or concerns. All discharge instructions reviewed with patient and/or family. Voiced understanding. Scripts Nitroglycerin (Nitroglycerin) 0.4 Mg Tab.subl 0.4 MG SL UD PRN for CHEST PAIN, #10 TAB Use sublingually for chest pain. May repeat every 5 minutes up to 3 doses. Return to ER if pain persists. Prov: LEAH CEVALLOS MD 12/19/20 Doxycycline Hyclate (Doxycycline Hyclate) 100 Mg Tablet 100 MG PO BID, #20 TAB 0 Refills Prov: LEAH CEVALLOS MD 12/19/20 Copy Copies To 1: KATE BOLDEN MD Copies To 2: CHON LUJAN JOSHUA T MD Dec 19, 2020 10:18
--- NOTE | 2020-12-19 10:34 | Diagnostic Imaging Report ---
Indication: Chest pain. Comparison: 11/26/2020. Discussion: Single portable upright view of the chest was obtained. Opacities within the lung bases are increased suggesting worsening pneumonia. Normal heart size. No pleural fluid or pneumothorax. No osseous abnormality. Impression: 1. Worsening bibasilar infiltrates. Dictated by: Dictated on workstation # [id number]
[2020-12-19 10:41] LABS: FREE T4 (FREE THYROXINE) 0.95 NG/DL (0.70-1.48)
[2020-12-19] MEDS ORDERED: PANTOPRAZOLE 40 MG (PROTONIX) TAB PO ONE (11:30)
[2020-12-19] MEDS ORDERED: NITR0.4T39 SL (13:29)
[2020-12-19] MEDS ORDERED: DOXY100T2 PO (13:29)
[2020-12-19 13:57] VITALS: BP 118/63
== END 2020-12-19 13:57 | disposition home or self-care (01) ==
LOC: EDUNIT# 09:32 → ER 09:34
DX: C34.90 Malignant neoplasm of unspecified part of unspecified bronchus or lung (principal); R00.0 Tachycardia, unspecified; R07.89 Other chest pain; R22.1 Localized swelling, mass and lump, neck; I48.0 Paroxysmal atrial fibrillation; J44.9 Chronic obstructive pulmonary disease, unspecified; I10 Essential (primary) hypertension; K21.9 Gastro-esophageal reflux disease without esophagitis; Z86.16 Personal history of COVID-19; Z79.01 Long term (current) use of anticoagulants; Z79.899 Other long term (current) drug therapy
CPT/HCPCS: 36415; 71045; 80053; 83605; 83690; 83735; 83874; 83880; 84439; 84443; 84484; 85025; 85379; 85610; 85730; 86141; 87040; 87804; 93005; 93041

== ENCOUNTER → 2021-02-01 | Outpatient (CLI) | payer MEDICAID ==
[~2021-02-01] MED LIST changes: +DOXY100T2 PO; +NITR0.4T39 SL
--- NOTE | 2021-02-01 13:46 | Diagnostic Imaging Report ---
PROCEDURE: US Thyroid. TECHNIQUE: Multiple real-time grayscale images were obtained of the thyroid in various projections. INDICATION: Abnormal PET scan COMPARISON: PET/CT dated 12/08/2020 FINDINGS: The right lobe of thyroid gland measures 4.3 x 1.7 x 1.6 cm. It demonstrates a mildly heterogeneous echotexture without discrete nodule. The left lobe of thyroid gland measures 4.3 x 1.2 x 1.4 cm. Demonstrates a mildly heterogeneous echotexture without discrete nodule. The isthmus is unremarkable. IMPRESSION: Mildly heterogeneous thyroid gland without discrete thyroid nodule. In particular, no focal abnormality to correspond to hypermetabolic activity associated with the left thyroid cartilage seen on prior PET/CT. Per prior PET/CT, CT of the neck with contrast versus direct visualization would be recommended to further evaluate the hypermetabolic activity within this region. The thyroid gland itself appears grossly unremarkable. Dictated by: Dictated on workstation # [id number]
== END ==
LOC: RAD 11:15
PROVIDERS: ATTEND Otolaryngology Otolaryngology/Facial Plastic Surgery
DX: E07.89 Other specified disorders of thyroid (principal); Z85.118 Personal history of other malignant neoplasm of bronchus and lung
CPT/HCPCS: 76536

== ENCOUNTER → 2021-02-26 | Outpatient (CLI) | payer MEDICAID | LOC: CARD 10:00 | PROVIDERS: ATTEND Internal Medicine Cardiovascular Disease | DX: C34.90 Malignant neoplasm of unspecified part of unspecified bronchus or lung (principal); I10 Essential (primary) hypertension | CPT/HCPCS: 93306 ==

== ENCOUNTER 2021-03-18 11:09 | Outpatient (RCR) | payer MEDICAID, OTHER ==
[2021-01-05 12:54] LABS: BASOPHILS % (AUTO) 0 % (0-10); EOSINOPHILS # (AUTO) 0.1 10^3/uL (0.0-0.3); EOSINOPHILS % (AUTO) 1 % (0-10); HEMATOCRIT 49 % (40-54); HEMOGLOBIN 16.3 g/dL (13.3-17.7); LYMPHOCYTES # (AUTO) 1.1 10^3/uL (1.0-4.0); LYMPHOCYTES % (AUTO) 15 % (12-44); MEAN CORPUSCULAR HEMOGLOBIN 30 pg (25-34); MEAN CORPUSCULAR HGB CONC 33 g/dL (32-36); MEAN CORPUSCULAR VOLUME 90 fL (80-99); MEAN PLATELET VOLUME 10.5 fL (9.0-12.2); MONOCYTES # (AUTO) 0.7 10^3/uL (0.0-1.0); MONOCYTES % (AUTO) 9 % (0-12); NEUTROPHILS # (AUTO) 5.7 10^3/uL (1.8-7.8); NEUTROPHILS % (AUTO) 75 % (42-75); PLATELET COUNT 193 10^3/uL (130-400); WHITE BLOOD COUNT 7.7 10^3/uL (4.3-11.0)
[2021-01-05 13:20] LABS: ALBUMIN 4.4 GM/DL (3.2-4.5); BILIRUBIN,TOTAL 0.6 MG/DL (0.1-1.0); CALCIUM 9.6 MG/DL (8.5-10.1); CREATININE SERUM 1.3 MG/DL (0.60-1.30); POTASSIUM 3.9 MMOL/L (3.6-5.0); TOTAL PROTEIN 7.9 GM/DL (6.4-8.2)
== END 2021-03-19 | disposition home or self-care (01) ==
LOC: ONC 11:09
PROVIDERS: ATTEND Internal Medicine Hematology & Oncology
DX: Z51.0 Encounter for antineoplastic radiation therapy (principal); C76.0 Malignant neoplasm of head, face and neck; C78.00 Secondary malignant neoplasm of unspecified lung; J44.9 Chronic obstructive pulmonary disease, unspecified; I10 Essential (primary) hypertension; Z72.0 Tobacco use
CPT/HCPCS: 80053; 85025; G0463; 77293; 77300; 77301; 77334; 77338; 77373; 77470; 99205; 99213; 99214

== ENCOUNTER 2021-04-01 09:45 | Outpatient (RCR) | payer MEDICAID | END 2021-04-19 | disposition home or self-care (01) | LOC: ONC 09:45 | PROVIDERS: ATTEND Internal Medicine Hematology & Oncology | DX: Z51.0 Encounter for antineoplastic radiation therapy (principal); C76.0 Malignant neoplasm of head, face and neck; C78.00 Secondary malignant neoplasm of unspecified lung; J44.9 Chronic obstructive pulmonary disease, unspecified; I10 Essential (primary) hypertension; I48.91 Unspecified atrial fibrillation; Z72.0 Tobacco use | CPT/HCPCS: 77373; G0463 ×2; 77336; 99213 ==

== ENCOUNTER 2021-05-20 08:50 | Outpatient (RCR) | payer MEDICAID | END 2021-06-17 09:44 | disposition home or self-care (01) | LOC: ONC 08:50 | PROVIDERS: ATTEND Internal Medicine Hematology & Oncology | DX: C76.0 Malignant neoplasm of head, face and neck (principal); C78.00 Secondary malignant neoplasm of unspecified lung; J44.9 Chronic obstructive pulmonary disease, unspecified; I10 Essential (primary) hypertension; I48.91 Unspecified atrial fibrillation; Z72.0 Tobacco use | CPT/HCPCS: 99213 ==

== ENCOUNTER → 2021-06-14 | Outpatient (CLI) | payer MEDICAID ==
--- NOTE | 2021-06-14 13:27 | Diagnostic Imaging Report ---
INDICATION: Adenocarcinoma of the lung, restaging. TECHNIQUE: The serum blood glucose level at the time of injection was 109 mg/dL. The patient was administered 13.1 mCi of F-18 FDG intravenously in the right antecubital location and PET imaging was performed from the top of the skull to the mid thighs. Noncontrast CT was also performed for attenuation correction and anatomic correlation. COMPARISON: Prior PET/CT study from 12/08/2020. FINDINGS: There is symmetric activity throughout the brain. There continues to be activity in the region of the left vocal cord, nonspecific. No hypermetabolic cervical lymphadenopathy is seen. The previously noted intensely hypermetabolic mass in the left lower lobe demonstrates significant response to therapy. The lesion now only measures 1.0 cm compared with 2.1 cm on the prior exam. The degree of FDG avidity has markedly decreased with an SUV max measuring 2.0 on today's study compared with an SUV max of 20 on the prior exam. No mediastinal or hilar hypermetabolism is identified. Physiologic activity throughout the GI and tracts of the abdomen and pelvis is noted. IMPRESSION: Significant response to therapy when compared with the prior PET/CT from 12/08/2020. A lesion in the left lower lobe has significantly decreased in size. In addition, FDG avidity has significantly decreased. No new abnormality is identified. Dictated by: Dictated on workstation # [id number]
== END ==
LOC: RAD 08:15
PROVIDERS: ATTEND Internal Medicine Hematology & Oncology
DX: C34.90 Malignant neoplasm of unspecified part of unspecified bronchus or lung (principal)
CPT/HCPCS: 78815; A9552

== ENCOUNTER 2021-06-21 10:50 | Outpatient (RCR) | payer MEDICAID ==
[2021-06-21 12:22] LABS: BASOPHILS % (AUTO) 0 % (0-10); EOSINOPHILS # (AUTO) 0.1 10^3/uL (0.0-0.3); EOSINOPHILS % (AUTO) 1 % (0-10); HEMATOCRIT 49 % (40-54); HEMOGLOBIN 16.2 g/dL (13.3-17.7); LYMPHOCYTES # (AUTO) 0.5 10^3/uL (1.0-4.0); LYMPHOCYTES % (AUTO) 9 % (12-44); MEAN CORPUSCULAR HEMOGLOBIN 30 pg (25-34); MEAN CORPUSCULAR HGB CONC 33 g/dL (32-36); MEAN CORPUSCULAR VOLUME 90 fL (80-99); MEAN PLATELET VOLUME 10.3 fL (9.0-12.2); MONOCYTES # (AUTO) 0.5 10^3/uL (0.0-1.0); MONOCYTES % (AUTO) 9 % (0-12); NEUTROPHILS % (AUTO) 81 % (42-75); PLATELET COUNT 216 10^3/uL (130-400); WHITE BLOOD COUNT 6.1 10^3/uL (4.3-11.0)
[2021-06-21 12:42] LABS: ALBUMIN 4.2 GM/DL (3.2-4.5); BILIRUBIN,TOTAL 0.7 MG/DL (0.1-1.0); CALCIUM 9.4 MG/DL (8.5-10.1); CREATININE SERUM 1.3 MG/DL (0.60-1.30); POTASSIUM 4.1 MMOL/L (3.6-5.0); TOTAL PROTEIN 7.5 GM/DL (6.4-8.2)
== END 2021-07-17 | disposition home or self-care (01) ==
LOC: ONC 10:50
PROVIDERS: ATTEND Internal Medicine Hematology & Oncology
DX: C76.0 Malignant neoplasm of head, face and neck (principal); C78.00 Secondary malignant neoplasm of unspecified lung; J44.9 Chronic obstructive pulmonary disease, unspecified; I10 Essential (primary) hypertension; I48.91 Unspecified atrial fibrillation; Z72.0 Tobacco use
CPT/HCPCS: 80053; 85025; G0463; 36415; 99213

== ENCOUNTER → 2021-08-24 | Outpatient (CLI) | payer MEDICAID ==
[2021-08-24 09:25] LABS: ALBUMIN 4.1 GM/DL (3.2-4.5); BILIRUBIN,TOTAL 0.5 MG/DL (0.1-1.0); CREATININE SERUM 1.17 MG/DL (0.60-1.30); POTASSIUM 4.4 MMOL/L (3.6-5.0); TOTAL PROTEIN 7.4 GM/DL (6.4-8.2)
== END ==
LOC: LAB 08:27
PROVIDERS: ATTEND Physician Assistant
DX: E78.2 Mixed hyperlipidemia (principal); I10 Essential (primary) hypertension; R07.9 Chest pain, unspecified; R06.09 Other forms of dyspnea; R00.2 Palpitations
CPT/HCPCS: 36415; 80053; 80061

== ENCOUNTER → 2021-09-15 | Outpatient (CLI) | payer MEDICAID ==
[~2021-09-15] VITALS: Ht 180.3 cm; Wt 87.1 kg
[~2021-09-15] MED LIST changes: +OMEP40CA6 PO; +SUCR1TAB PO
== END | disposition home or self-care (01) ==
LOC: PREOP 06:02
PROVIDERS: ATTEND Surgery
DX: Z01.818 Encounter for other preprocedural examination (principal)

== ENCOUNTER → 2021-10-11 | Outpatient (CLI) | payer MEDICAID ==
[~2021-10-11] MED LIST changes: +CATHETER FLUSH 10 ML SYR IV PRN; +HOLD METFORMIN - RECEIVED CONTRAST 20 ML VIAL IV SCH; +IOHEXOL 350 MG/ML 100 ML (OMNIPAQUE 350) VIAL IV ONE; +NS 100 ML (IVPB) BAG IV ONE
--- NOTE | 2021-10-11 11:15 | Diagnostic Imaging Report ---
INDICATION: Head and neck cancer, postradiation treatment. TECHNIQUE: Multiple contiguous axial images were obtained through the chest after administration of intravenous contrast. Auto Exposure Controls were utilized during the CT exam to meet ALARA standards for radiation dose reduction. Comparison made to 11/05/2020. There are no enlarged mediastinal or hilar nodes. There are no enlarged axillary nodes or chest wall lesions. There is no pleural or pericardial fluid. There is no overt bony abnormality in the chest Lung parenchymal windows demonstrate severe emphysematous changes throughout both lungs. At the site of previous left lower lobe mass, which had measured 19 x 21 mm, there is now a residual triangular-shaped density which may represent scar or residual tumor, measuring about 1.4 x 0.7 cm. No new pulmonary parenchymal lesion is seen elsewhere, there is some scarring in the right middle lobe. Visualized portions of the upper abdomen demonstrate no new abnormality. There is a small hypodense area in the spleen which is nonspecific and unchanged. IMPRESSION: No mediastinal or hilar adenopathy or pleural fluid. Severe emphysematous change throughout both lungs. The mass lesion in the left lower lobe seen on the prior study is much smaller, this may represent residual scar or residual tumor. There is no new abnormality otherwise seen. Dictated by: Dictated on workstation # [id number]
== END ==
LOC: RAD 10:03
PROVIDERS: ATTEND Internal Medicine Hematology & Oncology
DX: C76.0 Malignant neoplasm of head, face and neck (principal); J43.9 Emphysema, unspecified; Z92.21 Personal history of antineoplastic chemotherapy; Z92.3 Personal history of irradiation
CPT/HCPCS: 71260

== ENCOUNTER 2021-10-22 10:55 | Outpatient (RCR) | payer MEDICAID ==
[~2021-10-22 10:55] MED LIST changes: -CATHETER FLUSH 10 ML SYR IV PRN; -HOLD METFORMIN - RECEIVED CONTRAST 20 ML VIAL IV SCH; -IOHEXOL 350 MG/ML 100 ML (OMNIPAQUE 350) VIAL IV ONE; -NS 100 ML (IVPB) BAG IV ONE
[2021-10-22 11:28] LABS: BASOPHILS % (AUTO) 0 % (0-10); EOSINOPHILS # (AUTO) 0.1 10^3/uL (0.0-0.3); EOSINOPHILS % (AUTO) 1 % (0-10); HEMATOCRIT 50 % (40-54); HEMOGLOBIN 16.4 g/dL (13.3-17.7); LYMPHOCYTES # (AUTO) 0.8 10^3/uL (1.0-4.0); LYMPHOCYTES % (AUTO) 10 % (12-44); MEAN CORPUSCULAR HEMOGLOBIN 30 pg (25-34); MEAN CORPUSCULAR HGB CONC 33 g/dL (32-36); MEAN CORPUSCULAR VOLUME 90 fL (80-99); MEAN PLATELET VOLUME 10.1 fL (9.0-12.2); MONOCYTES # (AUTO) 0.7 10^3/uL (0.0-1.0); MONOCYTES % (AUTO) 9 % (0-12); NEUTROPHILS # (AUTO) 6.3 10^3/uL (1.8-7.8); NEUTROPHILS % (AUTO) 79 % (42-75); PLATELET COUNT 225 10^3/uL (130-400)
[2021-10-22 11:50] LABS: ALBUMIN 4.3 GM/DL (3.2-4.5); BILIRUBIN,TOTAL 0.6 MG/DL (0.1-1.0); CALCIUM 9.3 MG/DL (8.5-10.1); CREATININE SERUM 1.29 MG/DL (0.60-1.30); TOTAL PROTEIN 7.5 GM/DL (6.4-8.2)
== END 2021-11-17 | disposition home or self-care (01) ==
LOC: ONC 10:55
PROVIDERS: ATTEND Internal Medicine Hematology & Oncology
DX: C76.0 Malignant neoplasm of head, face and neck (principal); C78.00 Secondary malignant neoplasm of unspecified lung; J44.9 Chronic obstructive pulmonary disease, unspecified; I10 Essential (primary) hypertension; I48.91 Unspecified atrial fibrillation; Z72.0 Tobacco use
CPT/HCPCS: 80053; 84443; 85025; G0463; 36415; 99213

== ENCOUNTER → 2022-03-23 | Outpatient (CLI) | payer MEDICAID ==
[~2022-03-23] MED LIST changes: +ALBU8.5H6 IH
== END ==
LOC: CARD 11:29
PROVIDERS: ATTEND Internal Medicine Cardiovascular Disease
DX: I10 Essential (primary) hypertension (principal)
CPT/HCPCS: 93306

== ENCOUNTER 2022-05-11 09:38 | Outpatient (RCR) | payer MEDICAID ==
[2022-05-11 09:55] LABS: BASOPHILS % (AUTO) 0 % (0-10); EOSINOPHILS # (AUTO) 0.2 10^3/uL (0.0-0.3); EOSINOPHILS % (AUTO) 3 % (0-10); HEMATOCRIT 48 % (40-54); HEMOGLOBIN 15.8 g/dL (13.3-17.7); LYMPHOCYTES # (AUTO) 1.1 10^3/uL (1.0-4.0); LYMPHOCYTES % (AUTO) 17 % (12-44); MEAN CORPUSCULAR HEMOGLOBIN 30 pg (25-34); MEAN CORPUSCULAR HGB CONC 33 g/dL (32-36); MEAN CORPUSCULAR VOLUME 90 fL (80-99); MONOCYTES # (AUTO) 0.8 10^3/uL (0.0-1.0); MONOCYTES % (AUTO) 11 % (0-12); NEUTROPHILS # (AUTO) 4.5 10^3/uL (1.8-7.8); NEUTROPHILS % (AUTO) 68 % (42-75); PLATELET COUNT 231 10^3/uL (130-400); WHITE BLOOD COUNT 6.6 10^3/uL (4.3-11.0)
[2022-05-11 10:12] LABS: BILIRUBIN,TOTAL 0.5 MG/DL (0.1-1.0); CALCIUM 9.2 MG/DL (8.5-10.1); CREATININE SERUM 1.36 MG/DL (0.60-1.30); POTASSIUM 4.3 MMOL/L (3.6-5.0); TOTAL PROTEIN 7.4 GM/DL (6.4-8.2)
== END 2022-05-17 | disposition home or self-care (01) ==
LOC: ONC 09:38
PROVIDERS: ATTEND Internal Medicine Hematology & Oncology
DX: C76.0 Malignant neoplasm of head, face and neck (principal); C78.00 Secondary malignant neoplasm of unspecified lung; J44.9 Chronic obstructive pulmonary disease, unspecified; I10 Essential (primary) hypertension; I48.91 Unspecified atrial fibrillation; Z72.0 Tobacco use
CPT/HCPCS: 80053; 84443; 85025

== ENCOUNTER → 2022-05-27 | Outpatient (CLI) | payer MEDICAID ==
[~2022-05-27] MED LIST changes: +HOLD METFORMIN - RECEIVED CONTRAST 20 ML VIAL IV SCH; +IOHEXOL 350 MG/ML 100 ML (OMNIPAQUE 350) VIAL IV ONE; +NS 100 ML (IVPB) BAG IV ONE
--- NOTE | 2022-05-27 09:50 | Diagnostic Imaging Report ---
EXAMINATION: CT chest, abdomen and pelvis with intravenous contrast. TECHNIQUE: Multiple contiguous axial images were obtained through the chest, abdomen and pelvis after the uneventful administration of intravenous contrast. All CT scans use one or more of the following dose optimizing techniques: automated exposure control, MA and/or KvP adjustment based on patient size and exam type or iterative reconstruction. HISTORY: ADENOCARCINOMA OF LUNG COMPARISON: 10/11/2021 FINDINGS: Thyroid: The visualized thyroid gland is normal. Mediastinum: Heart size is normal without significant pericardial effusion. The aorta is normal in caliber. No suspicious lymphadenopathy. Lungs and airways: There are background emphysematous changes of lungs without consolidation, pleural effusion, or pneumothorax. Mild scarring in the left lower lobe. No new suspicious pulmonary lesion. The airways are normal. Solid organs: The liver is normal without focal lesion. The gallbladder is normal. There is no biliary ductal dilation. Pancreas is normal. Stable indeterminate hypodensities within the spleen compared to prior exam. Adrenal glands are normal. There is severe atrophy of the left kidney. The right kidney is unremarkable without hydronephrosis. Bowel: The stomach and small bowel are normal without obstruction. The colon and appendix are normal. Peritoneum: There is no intraperitoneal free fluid or free air. No suspicious lymphadenopathy. Vasculature: Calcification of the aorta without aneurysm. Musculoskeletal: No suspicious osseous lesion or compression fracture. Pelvis: The prostate gland is normal. The urinary bladder is normal. IMPRESSION: 1. Postoperative changes left lower lobe without evidence of residual, recurrent, or metastatic disease within the chest, abdomen, or pelvis. Dictated by: Dictated on workstation # [id number]
== END ==
LOC: RAD 09:03
PROVIDERS: ATTEND Internal Medicine Hematology & Oncology
DX: C34.90 Malignant neoplasm of unspecified part of unspecified bronchus or lung (principal); Z98.890 Other specified postprocedural states
CPT/HCPCS: 71260; 74177

== ENCOUNTER 2022-06-01 10:09 | Outpatient (RCR) | payer MEDICAID ==
[~2022-06-01 10:09] MED LIST changes: -HOLD METFORMIN - RECEIVED CONTRAST 20 ML VIAL IV SCH; -IOHEXOL 350 MG/ML 100 ML (OMNIPAQUE 350) VIAL IV ONE; -NS 100 ML (IVPB) BAG IV ONE
[2022-06-01 10:30] LABS: BASOPHILS % (AUTO) 0 % (0-10); EOSINOPHILS # (AUTO) 0.2 10^3/uL (0.0-0.3); EOSINOPHILS % (AUTO) 3 % (0-10); HEMATOCRIT 50 % (40-54); HEMOGLOBIN 16.2 g/dL (13.3-17.7); LYMPHOCYTES # (AUTO) 1.2 10^3/uL (1.0-4.0); LYMPHOCYTES % (AUTO) 17 % (12-44); MEAN CORPUSCULAR HEMOGLOBIN 29 pg (25-34); MEAN CORPUSCULAR HGB CONC 32 g/dL (32-36); MEAN CORPUSCULAR VOLUME 90 fL (80-99); MEAN PLATELET VOLUME 10.1 fL (9.0-12.2); MONOCYTES # (AUTO) 0.7 10^3/uL (0.0-1.0); MONOCYTES % (AUTO) 10 % (0-12); NEUTROPHILS # (AUTO) 4.7 10^3/uL (1.8-7.8); NEUTROPHILS % (AUTO) 69 % (42-75); PLATELET COUNT 236 10^3/uL (130-400); WHITE BLOOD COUNT 6.8 10^3/uL (4.3-11.0)
[2022-06-01 10:55] LABS: ALBUMIN 4.1 GM/DL (3.2-4.5); BILIRUBIN,TOTAL 0.8 MG/DL (0.1-1.0); CALCIUM 9.1 MG/DL (8.5-10.1); CREATININE SERUM 1.27 MG/DL (0.60-1.30); POTASSIUM 4.1 MMOL/L (3.6-5.0); TOTAL PROTEIN 7.6 GM/DL (6.4-8.2)
[2022-06-11] MEDS ORDERED: HYOS0.1283 SL (01:36)
[2022-06-11] MEDS ORDERED: ONDA4TAB11 SL (01:36)
== END 2022-06-17 | disposition home or self-care (01) ==
LOC: ONC 10:09
PROVIDERS: ATTEND Internal Medicine Hematology & Oncology
DX: C76.0 Malignant neoplasm of head, face and neck (principal); C78.00 Secondary malignant neoplasm of unspecified lung; J44.9 Chronic obstructive pulmonary disease, unspecified; I10 Essential (primary) hypertension; I48.91 Unspecified atrial fibrillation; Z72.0 Tobacco use
CPT/HCPCS: 36415; 80053; 85025

== ENCOUNTER 2022-06-10 20:59 | Emergency (ER) | payer MEDICAID ==
[~2022-06-10] VITALS: Ht 180.3 cm; Wt 87.0 kg
[2022-06-10 21:41] LABS: BASOPHILS % (AUTO) 0 % (0-10); EOSINOPHILS # (AUTO) 0.2 10^3/uL (0.0-0.3); EOSINOPHILS % (AUTO) 3 % (0-10); HEMATOCRIT 50 % (40-54); HEMOGLOBIN 16.3 g/dL (13.3-17.7); LYMPHOCYTES # (AUTO) 1.7 10^3/uL (1.0-4.0); LYMPHOCYTES % (AUTO) 20 % (12-44); MEAN CORPUSCULAR HEMOGLOBIN 29 pg (25-34); MEAN CORPUSCULAR HGB CONC 33 g/dL (32-36); MEAN CORPUSCULAR VOLUME 89 fL (80-99); MEAN PLATELET VOLUME 10.5 fL (9.0-12.2); MONOCYTES % (AUTO) 11 % (0-12); NEUTROPHILS # (AUTO) 5.8 10^3/uL (1.8-7.8); NEUTROPHILS % (AUTO) 66 % (42-75); PLATELET COUNT 253 10^3/uL (130-400); WHITE BLOOD COUNT 8.7 10^3/uL (4.3-11.0)
[2022-06-10] MEDS ORDERED: ONDANSETRON 4 MG/2 ML (SDV) Z0FRAN IVP ONE (21:45)
[2022-06-10 21:47] LABS: ALBUMIN 4.5 GM/DL (3.2-4.5); POTASSIUM 3.5 MMOL/L (3.6-5.0)
[2022-06-10 21:48] LABS: CALCIUM 9.7 MG/DL (8.5-10.1)
[2022-06-10 21:50] LABS: TOTAL PROTEIN 8.2 GM/DL (6.4-8.2)
[2022-06-10 21:51] LABS: BILIRUBIN,URINE NEGATIVE (NEGATIVE); CLARITY,URINE CLEAR; COLOR,URINE YELLOW; GLUCOSE, URINE (UA) NEGATIVE (NEGATIVE); KETONES,URINE TRACE (NEGATIVE); LEUKOCYTE ESTERASE ,URINE NEGATIVE (NEGATIVE); NITRITE,URINE NEGATIVE (NEGATIVE); PROTEIN,URINE 1+ (NEGATIVE)
[2022-06-10 21:51] LABS: BILIRUBIN,TOTAL 0.4 MG/DL (0.1-1.0)
[2022-06-10 21:53] LABS: CREATININE SERUM 1.43 MG/DL (0.60-1.30)
--- NOTE | 2022-06-10 21:54 | ED Abdominal Pain ---
General Chief Complaint: Abdominal/GI Problems Stated Complaint: ABD/RIB/BACK PAIN NAUSEA Nursing Triage Note: pt ambulatory to room. states he has had frequent stools the past couple days. pt states this afternoo and this evening pt had worsening pain in abdomen, back and through ribs. states it is a "cramping, tight" pain. 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 states pain is a 9/10. Source of Information: Patient, Family, Old Records ([facility]) History of Present Illness Date Seen by Provider: Jun 10, 2022 Time Seen by Provider: 21:13 Initial Comments Mr. Guadalupe is a 51 yo M with PMH of adenocarinoma of the lung, A-Fib and singular right kidney who presents to the ED today accompanied by his with 2 day hx of abdominal pain that radiates to his lower back that has become increasingly worse today prompting his visit. He also complains of nausea, feeling hot, pressure and gas in his abdomen, frequent eructation and diarrhea. He states that he normally tries to just walk it off, but that hasn't worked, Tylenol has not helped, eating and defecating does not improve his Sx. He denies sick contacts. Denies changes to vision or hearing. Pt appears mildly agitated, diaphoretic and uncomfortable, asking for a fan and something for the pain. His asked if he needed to be on oxygen and that he does wear it when he sleeps, his O2 saturation during my exam was 93-96% on RA. Timing/Duration: 1-2 Days Severity/Quality: Moderate, Cramping, Full, Throbbing Location: Generalized Abdomen Radiation: Back Modifying Factors: Improves With Movement Associated Symptoms: Back Pain, Diaphoresis, Fever/Chills, Nausea/Vomiting ([facility]) Allergies and Home Medications Allergies Coded Allergies: morphine (Verified Adverse Reaction, Intermediate, 08/27/19) flushed, diaphoretic. Patient Home Medication List Home Medication List Reviewed: Yes (LEAH CEVALLOS MD) Acetaminophen (Acetaminophen) 500 Mg Tablet, 1-2 TAB.SA PO Q4H PRN for PAIN-MILD (1-4) OR TEMPATURE, (Reported) Entered as Reported by: EMILY BARTHOLOMEW on 11/26/20 0856 Apixaban (Eliquis) 5 Mg Tablet, 5 MG PO BID, (Reported) Entered as Reported by: EMILY BARTHOLOMEW on 11/26/20 0856 Cetirizine HCl (Cetirizine HCl) 10 Mg Tablet, 10 MG PO DAILY, (Reported) Entered as Reported by: MEILY BARTHOLOMEW on 11/26/20 0856 Diltiazem HCl (Diltiazem 24Hr ER) 240 Mg Cap.er.24h, 240 MG PO DAILY, (Reported) Entered as Reported by: TACHO KING on 11/07/19 0819 Fluticasone Propionate (Flonase Allergy Relief) 9.9 Ml [place].susp, 2 SPRAY NS DAILY, (Reported) Entered as Reported by: EMILY BARTHOLOMEW on 11/26/20 08 Fluticasone/Umeclidin/Vilanter (Trelegy Ellipta 100-62.5-25) 1 Each Blst.w.dev, 1 EACH IH DAILY, (Reported) Entered as Reported by: TACHO KING on 10/23/19 1433 Hyoscyamine Sulfate (Levsin-Sl) 0.125 Mg Tab.subl, 1-2 TAB SL Q4H PRN for CRAMPS Prescribed by: LEAH MAKI on 06/11/22 0136 Levalbuterol Tartrate (Xopenex Hfa) 15 Gm Hfa.aer.ad, 2 PUFF INH Q4H PRN for WHEEZING, (Reported) Entered as Reported by: EMILY BARTHOLOMEW on 11/26/20 0856 Metoprolol Succinate (Metoprolol Succinate) 50 Mg Tab.er.24h, 100 MG PO DAILY, (Reported) Entered as Reported by: TACHO KING on 10/23/19 1433 Nitroglycerin (Nitroglycerin) 0.4 Mg Tab.subl, 0.4 MG SL, (Reported) Entered as Reported by: EMILY BARTHOLOMEW on 11/26/20 0856 Nitroglycerin (Nitroglycerin) 0.4 Mg Tab.subl, 0.4 MG SL UD PRN for CHEST PAIN Prescribed by: LEAH MAKI on 12/19/20 1329 Omeprazole (Omeprazole) 40 Mg Capsule.dr, 40 MG PO DAILY, (Reported) Entered as Reported by: CARLEY SELF on 09/15/21 0912 Ondansetron (Ondansetron Odt) 4 Mg Tab.rapdis, 4 MG SL Q4H PRN for NAUSEA/VOMITING Prescribed by: LEAH MAKI on 06/11/22 0136 Roflumilast (Daliresp) 500 Mcg Tablet, 500 MCG PO DAILY, (Reported) Entered as Reported by: TACHO KING on 10/23/19 1433 Sucralfate (Sucralfate) 1 Gram Tablet, 1 GM PO BID, (Reported) Entered as Reported by: CARLEY SELF on 09/15/21 0912 Review of Systems Review of Systems Constitutional: chills, diaphoresis, fever, malaise EENTM: No Blurred Vision, No Mouth Pain, No Throat Pain Respiratory: Denies Cough, Denies Shortness of Air Gastrointestinal: Abdomen Distended, Abdominal Pain; Denies Constipated; Diarrhea, Nausea Genitourinary: Denies Burning; Flank Pain; Denies Hematuria, Denies Pain Musculoskeletal: back pain; No muscle pain, No muscle cramps Skin: No change in color, No lesions, No pruritus, No rash Psychiatric/Neurological: Denies Headache, Denies Weakness Endocrine: Flushing ([facility]) Past Gvjqahi-Lsmone-Mbbdqk Hx Patient Social History Tobacco Use?: No Substance use?: No Alcohol Use?: Yes Alcohol Frequency: Once in a while ([facility]) Immunizations Up To Date Tetanus Booster (TDap): Unknown PED Vaccines UTD: Yes First/Initial COVID19 Vaccinat: MAY Second COVID19 Vaccination Yair: JUNE ([facility]) Seasonal Allergies Seasonal Allergies: No ([facility]) Past Medical History Surgeries: No Abdominal Respiratory: Yes (lung cancer, use O2 by NC at night) COPD Currently Using CPAP: No Cardiac: Yes Atrial Fibrillation, Hypertension Neurological: No Sexually Transmitted Disease: No HIV/AIDS: No Genitourinary: No Gastrointestinal: Yes (gastritis) Gastroesophageal Reflux Musculoskeletal: No Endocrine: No HEENT: No Cancer: Yes Lung Did You Recieve Any Treatments: Yes What Type of Treatment Did You: Radiation Psychosocial: No Integumentary: No Blood Disorders: No ([facility]) Family Medical History No Pertinent Family Hx ([facility]) Physical Exam Vital Signs Vital Signs - First Documented 06/10/22 06/11/22 21:06 01:48 Temp 36.7 Pulse 90 Resp 16 B/P (MAP) 146/80 (102) Pulse Ox 95 O2 Delivery Room Air (LEAH CEVALLOS MD) Vital Signs Capillary Refill : ([facility]) Height/Weight/BMI Height: 5'11.00" Weight: 180lbs. oz. 81.755663cv; 26.00 BMI Method:Stated General Appearance: WD/WN, moderate distress HEENT: PERRL/EOMI, normal ENT inspection, TMs normal, pharynx normal Neck: non-tender, full range of motion, supple, normal inspection Respiratory: chest non-tender, lungs clear, normal breath sounds, no respiratory distress, no accessory muscle use Cardiovascular: regular rate, rhythm, no murmur Gastrointestinal: distended, guarding Extremities: normal range of motion Back: CVA tenderness (R); No CVA tenderness (L); vertebral tenderness Neurologic/Psychiatric: clinical trials manager II-XII nml as tested, no motor/sensory deficits, alert Skin: normal color, diaphoresis Lymphatic: no adenopathy ([facility]) Progress/Results/Core Measures Results/Orders Lab Results Laboratory Tests Test 06/10/22 21:20 06/10/22 21:43 06/10/22 22:26 Range/Units White Blood Count 8.7 4.3-11.0 10^3/uL Red Blood Count 5.54 H 4.30-5.52 10^6/uL Hemoglobin 16.3 13.3-17.7 g/dL Hematocrit 50 40-54 % Mean Corpuscular Volume 89 80-99 fL Mean Corpuscular Hemoglobin 29 25-34 pg Mean Corpuscular Hemoglobin Concent 33 32-36 g/dL Red Cell Distribution Width 13.0 10.0-14.5 % Platelet Count 253 130-400 10^3/uL Mean Platelet Volume 10.5 9.0-12.2 fL Immature Granulocyte % (Auto) 0 % Neutrophils (%) (Auto) 66 42-75 % Lymphocytes (%) (Auto) 20 12-44 % Monocytes (%) (Auto) 11 0-12 % Eosinophils (%) (Auto) 3 0-10 % Basophils (%) (Auto) 0 0-10 % Neutrophils # (Auto) 5.8 1.8-7.8 10^3/uL Lymphocytes # (Auto) 1.7 1.0-4.0 10^3/uL Monocytes # (Auto) 1.0 0.0-1.0 10^3/uL Eosinophils # (Auto) 0.2 0.0-0.3 10^3/uL Basophils # (Auto) 0.0 0.0-0.1 10^3/uL Immature Granulocyte # (Auto) 0.0 0.0-0.1 10^3/uL Sodium Level 141 135-145 MMOL/L Potassium Level 3.5 L 3.6-5.0 MMOL/L Chloride Level 109 H 98-107 MMOL/L Carbon Dioxide Level 21 21-32 MMOL/L Anion Gap 11 5-14 MMOL/L Blood Urea Nitrogen 24 H 7-18 MG/DL Creatinine 1.43 H 0.60-1.30 MG/DL Estimat Glomerular Filtration Rate 59 BUN/Creatinine Ratio 17 Glucose Level 154 H 70-105 MG/DL Calcium Level 9.7 8.5-10.1 MG/DL Corrected Calcium 9.3 8.5-10.1 MG/DL Magnesium Level 2.1 1.6-2.4 MG/DL Total Bilirubin 0.4 0.1-1.0 MG/DL Aspartate Amino Transf (AST/SGOT) 22 5-34 U/L Alanine Aminotransferase (ALT/SGPT) 37 0-55 U/L Alkaline Phosphatase 106 40-136 U/L C-Reactive Protein High Sensitivity 0.38 0.00-0.50 MG/DL Total Protein 8.2 6.4-8.2 GM/DL Albumin 4.5 3.2-4.5 GM/DL Lipase 24 8-78 U/L Urine Color YELLOW Urine Clarity CLEAR Urine pH 6.0 5-9 Urine Specific [place] >=1.030 1.016-1.022 Urine Protein 1+ H NEGATIVE Urine Glucose (UA) NEGATIVE NEGATIVE Urine Ketones TRACE H NEGATIVE Urine Nitrite NEGATIVE NEGATIVE Urine Bilirubin NEGATIVE NEGATIVE Urine Urobilinogen 0.2 < = 1.0 MG/DL Urine Leukocyte Esterase NEGATIVE NEGATIVE Urine RBC (Auto) NEGATIVE NEGATIVE Urine RBC 0-2 /HPF Urine WBC 0-2 /HPF Urine Squamous Epithelial Cells 2-5 /HPF Urine Crystals PRESENT H /LPF Urine Amorphous Sediment RARE VARINDER URATES H /LPF Urine Bacteria TRACE /HPF Urine Casts NONE /LPF Urine Mucus MODERATE H /LPF Urine Culture Indicated NO Influenza Type A (RT-PCR) Not Detected Not Detecte Influenza Type B (RT-PCR) Not Detected Not Detecte SARS-CoV-2 RNA (RT-PCR) Not Detected Not Detecte (LEAH CEVALLOS MD) My Orders Orders - LEAH CEVALLOS MD Ua Culture If Indicated (06/10/22 21:34) Covid 19 Inhouse Test (06/10/22 21:34) Influenza A And B By Pcr (06/10/22 21:34) Cbc With Automated Diff (06/10/22 21:36) Comprehensive Metabolic Panel (06/10/22 21:36) Hs C Reactive Protein (06/10/22 21:36) Lipase (06/10/22 21:36) Magnesium (06/10/22 21:36) Ondansetron Injection (Zofran Injectio (06/10/22 21:45) Fentanyl Inj (Sublimaze Injection) (06/10/22 22:15) Lactated Ringers (Lr 1000 Ml Iv Solution (06/10/22 23:00) Abdomen, Flat & Upright/Decub (06/10/22 22:50) Acute Abd Series (06/10/22 22:51) Ct Abdomen/Pelvis Wo (06/11/22 00:01) Hyoscyamine Sl Tablet (Levsin Sl Tablet) (06/11/22 01:45) (LEAH CEVALLOS MD) Medications Given in ED Current Medications Medications Dose Ordered Sig/Evangelina Route Start Time Stop Time Status Last Admin Dose Admin Fentanyl Citrate 50 mcg ONCE ONCE IVP 06/10/22 22:15 06/10/22 22:16 DC 06/10/22 22:14 50 MCG Hyoscyamine Sulfate 0.25 mg ONCE ONCE SL 06/11/22 01:45 06/11/22 01:46 DC 06/11/22 01:47 0.25 MG Lactated Ringer's 1,000 ml @ 0 mls/hr Q0M ONCE IV 06/10/22 23:00 3/24/23 23:01 DC 06/10/22 23:02 999 MLS/HR Ondansetron HCl 8 mg ONCE ONCE IVP 06/10/22 21:45 06/10/22 21:46 DC 06/10/22 22:13 8 MG (LEAH CEVALLOS MD) Vital Signs/I&O 06/10/22 06/11/22 21:06 01:48 Temp 36.7 Pulse 90 98 Resp 16 22 B/P (MAP) 146/80 (102) 152/98 Pulse Ox 95 95 O2 Delivery Room Air (LEAH CEVALLOS MD) Blood Pressure Mean: 102 Progress Progress Note : Progress Note Patient was interviewed and examined by me personally along with MS 4. He had ketones in his urine and a slight elevation in creatinine. He was therefore hydrated with a liter of LR. Zofran was given for nausea. Fentanyl 50 mcg was given for pain. Labs were relatively unremarkable including CBC, CMP, magn esium, lipase, CRP, urinalysis, and viral swabs for influenza and COVID-19. All of these labs were reviewed in their entirety by me. Patient had some cramping abdominal pain residually. This was further treated with Levsin. See discharge instructions for further discussion. We did not prescribe any NSAID medications due to his history of a unilateral kidney. (LEAH CEVALLOS MD) Diagnostic Imaging Diagonstic Imaging: Xray Plain Films/CT/US/NM/MRI: chest, abdomen, pelvis Comments Acute abdominal series x-rays were reviewed and interpreted by me. Radiologist's report was not available at the time. Lungs were grossly unremarkable. There were air-fluid levels in dilated bowel concerning for possible small bowel obstruction. No free air was noted. Diagonstic Imaging: CT Plain Films/CT/US/NM/MRI: abdomen, pelvis Comments CT abdomen and pelvis [facility] report was reviewed. No bowel obstruction was identified. Dilated fluid-filled bowel loops were suggestive of enteritis. No acute surgical pathologies were identified. (LEAH CEVALLOS MD) Departure Impression Primary Impression: Generalized abdominal pain Additional Impressions: Nausea Gastroenteritis Disposition: HOME, SELF-CARE Condition: Improved Departure-Patient Inst. Decision time for Depature: 01:34 (LEAH CEVALLOS MD) Referrals: [facility] (PCP/Family) Primary Care Physician Patient Instructions: Abdominal Pain, Adult ED, Viral Gastroenteritis in Adults Add. Discharge Instructions: Your symptoms are likely due to viral gastroenteritis. Adhere to a noncarbonated clear liquid diet for the next 24 hours. For nausea you may use the Zofran (ondansetron) as prescribed. For bowel cramping you may use Levsin (hyoscyamine) as prescribed. You may continue taking Tylenol (acetaminophen) up to 1000 mg every 6 hours as needed. Please follow-up with your primary care provider as soon as possible. Call tomorrow to schedule an appointment for next week. Return to the emergency room if you have worsening symptoms despite following these instructions. All discharge instructions reviewed with patient and/or family. Voiced understanding. Scripts Ondansetron (Ondansetron Odt) 4 Mg Tab.rapdis 4 MG SL Q4H PRN for NAUSEA/VOMITING, #10 TAB Prov: LEAH CEVALLOS MD 06/11/22 Hyoscyamine Sulfate (Levsin-Sl) 0.125 Mg Tab.subl 1-2 TAB SL Q4H PRN for CRAMPS, #10 TAB 0 Refills Prov: LEAH CEVALLOS MD 06/11/22 Copy Copies To 1: YESENIA CARDONA MD Copies To 2: [facility] Jun 10, 2022 21:54 LEAH CEVALLOS MD Jun 11, 2022 01:36
[2022-06-10 21:56] LABS: MAGNESIUM 2.1 MG/DL (1.6-2.4)
[2022-06-10 21:59] LABS: AMORPHOUS SEDIMENT,UR RARE AMOR URATES /LPF; RBC,URINE 0-2 /HPF; WBC,URINE 0-2 /HPF
[2022-06-10 22:00] LABS: BACTERIA,URINE TRACE /HPF
[2022-06-10] MEDS ORDERED: fentaNYL INJ 100 MCG/2 ML AMP IVP ONE (22:15)
[2022-06-10] MEDS ORDERED: LACTATED RINGERS 1,000 ML IV ONE (23:00)
[2022-06-11] MEDS ORDERED: ONDA4TAB11 SL (01:36)
[2022-06-11] MEDS ORDERED: HYOS0.1283 SL (01:36)
[2022-06-11] MEDS ORDERED: HYOSCYAMINE 0.125 MG (LEVSIN) TAB SL ONE (01:45)
[2022-06-11 01:48] VITALS: BP 152/98
--- NOTE | 2022-06-11 06:46 | Diagnostic Imaging Report ---
PROCEDURE: CT abdomen and pelvis without contrast. TECHNIQUE: Multiple contiguous axial images were obtained through the abdomen and pelvis without the use of intravenous contrast. Auto Exposure Controls were utilized during the CT exam to meet ALARA standards for radiation dose reduction. INDICATION: Abdominal pain and diarrhea. Imaging through lung bases does show emphysematous changes. No infiltrates are detected. The liver and gallbladder are unremarkable. There is no biliary duct dilatation. The pancreas and spleen are unremarkable. No adrenal mass is identified. The left kidney appears to be severely atrophic. Right kidney is unremarkable for calculi or hydronephrosis. Aorta is nonaneurysmal. Bowel loops appear to be nonobstructed. There is some mild nonspecific gaseous distention of portions of the sigmoid colon as well as some gaseous distention of small bowel loops in the right upper quadrant, perhaps on the basis of enteritis. There is no fluid collection. No free air. The bladder and prostate are unremarkable. IMPRESSION: Essentially unremarkable CT abdomen pelvis with exception of mildly prominent small and large bowel loops, perhaps on the basis of enteritis. No other significant abnormality is seen. Dictated by: Dictated on workstation # [id number]
--- NOTE | 2022-06-11 07:26 | Diagnostic Imaging Report ---
INDICATION: Abdominal pain and diarrhea. History of lung cancer. Correlation is made with a CT chest, abdomen pelvis from 05/27/2022. FINDINGS: Background pulmonary features of underlying emphysema are noted. There is no new airspace consolidation evident or significant effusion. There is pulmonary hyperinflation. Heart size is appropriate. There are gas-filled loops of both small and large bowel demonstrated within the abdomen and pelvis without significant bowel dilation or convincing features of air-fluid levels. There is no free air. No acute osseous abnormality is identified. IMPRESSION: 1. Pulmonary emphysema without new or acute superimposed cardiopulmonary process. 2. Gaseous distention of both small and large bowel without significant bowel dilation or findings of free air. Dictated by: Dictated on workstation # [id number]
== END 2022-06-11 01:48 | disposition home or self-care (01) ==
LOC: EDUNIT# 20:59 → ER 21:00
DX: K52.9 Noninfective gastroenteritis and colitis, unspecified (principal); R79.89 Other specified abnormal findings of blood chemistry; J44.9 Chronic obstructive pulmonary disease, unspecified; Z99.81 Dependence on supplemental oxygen; Z20.822 Contact with and (suspected) exposure to COVID-19
CPT/HCPCS: 36415; 74022; 74176; 80053; 81000; 83690; 83735; 85025; 86141; 87636

== ENCOUNTER → 2022-11-02 | Outpatient (CLI) | payer MEDICAID ==
[~2022-11-02] MED LIST changes: +HYOS0.1283 SL; +ONDA4TAB11 SL
--- NOTE | 2022-11-02 14:18 | Diagnostic Imaging Report ---
PROCEDURE: US Renal Bilateral. TECHNIQUE: Multiple real-time grayscale images were obtained over the kidneys in various projections bilaterally. INDICATION: Chronic kidney disease and hypertension. 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 Right kidney measures 12.1 x 5.5 x 6.2 cm. Right kidney shows normal cortical thickness and echogenicity. No calculi are seen. There is no hydronephrosis. Left renal fossa was evaluated. Left kidney is not visualized and may be congenitally absent. The right ureteral jet is visualized in the bladder. Left ureteral jet was not visualized. IMPRESSION: Solitary right kidney. No abnormality is detected. Dictated by: Dictated on workstation # [id number]
== END ==
LOC: RAD 12:28
PROVIDERS: ATTEND Internal Medicine Nephrology
DX: I12.9 Hypertensive chronic kidney disease with stage 1 through stage 4 chronic kidney disease, or unspecified chronic kidney disease (principal); N18.2 Chronic kidney disease, stage 2 (mild); Q60.0 Renal agenesis, unilateral
CPT/HCPCS: 76770

== ENCOUNTER 2023-01-04 06:20 | Outpatient (CLI) | payer MEDICAID ==
[~2023-01-04] VITALS: Ht 180 cm; Wt 85.7 kg
== END 2023-01-04 14:12 | disposition home or self-care (01) ==
LOC: PREOP 06:20
PROVIDERS: ATTEND Surgery
DX: Z01.818 Encounter for other preprocedural examination (principal)

== ENCOUNTER 2023-01-16 07:49 | Day surgery (SDC) | payer MEDICAID ==
[2023-01-16] VITALS (9 sets, daily range): BP systolic 91–158; BP diastolic 55–106
[~2023-01-16] VITALS: Ht 180 cm; Wt 85.7 kg
[2023-01-16] MEDS ORDERED: LACTATED RINGERS 1,000 ML 1,000 ML IV STA (07:54)
[2023-01-16] MEDS ORDERED: HURRICAINE EXT TUBE (BENZOCAINE) XX PRN (08:00)
--- NOTE | 2023-01-16 08:55 | Progress Note-Pre Operative ---
Pre-Operative Progress Note Date of Available H&P: Dec 29, 2022 Date H&P Reviewed: Jan 16, 2023 Time H&P Reviewed: 08:38 History & Physical: H&P Reviewed, Patient Examed, No changes noted Pre-Operative Diagnosis: Gastritis, Hx of Polyps ETHAN ARMENDARIZ DO Jan 16, 2023 08:55
[2023-01-16] MEDS ORDERED: MIDAZOLAM INJ 2 MG/2 ML VIAL ONE (09:39)
--- NOTE | 2023-01-16 10:19 | Progress Note-Post Operative ---
Post-Operative Progess Note Surgeon (s)/Wrapper Caser (s) Surgeon ETHAN ARMENDARIZ DO Wrapper Caser: Valerieamarilys Prather, MSIII Pre-Operative Diagnosis Gastritis, Hx of Polyps Post-Operative Diagnosis Gastritis Hiatal hernia Esophagitis Polyps int hemorrhoids Procedure & Operative Findings Date of Procedure 01/16/23 Procedure Performed/Findings EGD with biopsy Colonoscopy with snare polypectomy PROCEDURE NOTE: After informed consent was obtained, the patient was brought to the endoscopy suite, placed in bed in left lateral decubitus position. He was administered IV sedation by the CYCLE DIRECTOR who then monitored vitals the entire time, heart rate, blood pressure and pulse ox and the scope was inserted down the mouth through the esophagus into the stomach. On the way down, noted some mild esophagitis, took a picture, pushed into the stomach, pushed past the antrum into the duodenum. Duodenum looked good. Pulled back and did a biopsy of antrum, then retroflexed the scope, saw hiatal hernia, took a picture of this and then pulled the scope into the GE junction, took another picture of the hiatal hernia and then did a biopsy of the GE junction; it almost looked like Hussein's. Pushed the scope back into the stomach, suctioned all the air out of the stomach. At this point pulled the scope up the esophagus and out the mouth. Switched camera, switched gloves, went down below and started the colonoscopy. Pushed all the way to about 150 cm and pushed into the cecum, took a picture of appendiceal orifice and noted the ileocecal valve. Then slowly withdrew the scope insufflating to look circumferentially at the mcgill starting in the cecum and up the ascending colon. Just outside the cecum I found a large flat polyp and did a snare polypectomy. Continue up to the hepatic flexure, then down the transverse colon to the splenic flexure, into the descending colon and down into the sigmoid. Found a pedunculated polyp and removed it with the snare. Finally, into the rectal vault and retroflexed the scope. Took a picture of the internal hemorrhoids. The patient tolerated the procedure and he recovered in the endoscopy suite. Recommended for repeat colonoscopy in 5 years Anesthesia Type IV sedation by CYCLE DIRECTOR Estimated Blood Loss Estimated blood loss (mL): scant Specimens/Packing Specimens Removed antral bx GE jxn bx x 2 Asc colon polyp sigmoid polyp ETHAN ARMENDARIZ DO Jan 16, 2023 10:19
--- NOTE | 2023-01-16 10:20 | Endoscopy Discharge Instruct ---
Endo Procedure/Findings Findings 1.: Gastritis 2.: Hiatal Hernia 3.: Polyp 4.: Internal Hemorrhoids Discharge Instructions - Activity: You might feel a little sleepy until tomorrow. This is due to the medicine you received to relax you. Until tomorrow, you should: NOT drive a car, operate machinery or power tools. NOT drink any alcoholic beverages. NOT make any important decisions or sign importortant papers. Do not return to work until tomorrow, unless otherwise instructed. Resume previous activities tomorrow. Diet: Start by taking liquids. If you tolerate liquids, advance to solid food. 1.: EGD in 3 years 2.: Colonscopy in 5 years Notify Physician - If you experience excessive bleeding, unusual abdominal pain, fever, or chest pain, contact your doctor immediately. Follow-Up: Other Follow up in my office in one week ETHAN ARMENDARIZ DO Jan 16, 2023 10:20
--- NOTE | 2023-01-16 10:43 | Anesthesia-General Post-Op ---
MAC Patient Condition Mental Status/LOC: Same as Preop Cardiovascular: Satisfactory Nausea/Vomiting: Absent Respiratory: Satisfactory Pain: Controlled Complications: Absent Post Op Complications Complications None Follow Up Care/Instructions Patient Instructions None needed. Anesthesiology Discharge Order Discharge Order Patient is doing well, no complaints, stable vital signs, no apparent adverse anesthesia problems. No complications reported per nursing. LUCIO NAVARRETE CRNA Jan 16, 2023 10:43
== END 2023-01-16 11:15 | disposition home or self-care (01) ==
LOC: ENDO 07:49
PROVIDERS: ATTEND Surgery
DX: Z12.11 Encounter for screening for malignant neoplasm of colon (principal); K63.5 Polyp of colon; K64.8 Other hemorrhoids; K29.70 Gastritis, unspecified, without bleeding; K44.9 Diaphragmatic hernia without obstruction or gangrene; K31.89 Other diseases of stomach and duodenum; D12.2 Benign neoplasm of ascending colon; D12.5 Benign neoplasm of sigmoid colon; K21.00 Gastro-esophageal reflux disease with esophagitis, without bleeding; Z87.891 Personal history of nicotine dependence; C34.90 Malignant neoplasm of unspecified part of unspecified bronchus or lung